=== PATIENT | male | born 1945 | race Caucasian/White ===

== ENCOUNTER → 2016-12-30 | Outpatient (CLI) | payer MEDICARE, OTHER ==
--- NOTE | 2016-12-30 07:46 | US ---
EXAMINATION TYPE: US liver DATE OF EXAM: 12/30/2016 7:18 AM COMPARISON: NONE CLINICAL HISTORY: R94.5 Abn LFT. Nausea EXAM MEASUREMENTS: Liver Length: 19.4 cm Gallbladder Wall: 0.4 cm CBD: 0.4 cm Right Kidney: 10.3 x 4.8 x 4.5 cm Pancreas: limited evaluation due to overlying bowel content Liver: enlarged, granulomas noted throughout Gallbladder: mobile stone = 1.5cm Evidence for sonographic Lombardo's sign: No CBD: appears wnl Right Kidney: no evidence of hydronephrosis or mass IMPRESSION: 1. Hepatomegaly with heterogeneous pattern to the liver can be seen with hepatocellular disease, hepa titis or fatty rotation. Granulomas are also noted. 2. Incidental note made of a gallstone. Gallbladder wall is mildly thickened at 4 mm. Correlate clini jesus for chronic cholecystitis. No pericholecystic fluid or biliary dilation.
== END | disposition home or self-care (01) ==
LOC: RADUSWWP 06:47
PROVIDERS: ATTEND Family Medicine
DX: K75.3 Granulomatous hepatitis, not elsewhere classified (principal); R16.0 Hepatomegaly, not elsewhere classified
CPT/HCPCS: 76705

== ENCOUNTER → 2017-01-16 | Outpatient (CLI) | payer MEDICARE, OTHER ==
--- NOTE | 2017-01-16 09:55 | NM ---
EXAMINATION TYPE: NM hepatobiliary w EF DATE OF EXAM: 01/16/2017 9:29 AM COMPARISON: Correlation ultrasound 12/30/2016 HISTORY: 71-year-old male history of cholecystitis TECHNIQUE: After the intravenous administration of 5.0 mCi Tc 99m Mebrofenin hepatobiliary scintigrap hy is performed. Immediate images post injection. FINDINGS: There is satisfactory initial accumulation of tracer by the liver. The gallbladder is visualized wit hin 15 minutes. The small bowel activity is faintly noted at 60 minutes. At one hour 8 ounces of or al Ensure Plus is given to mimic CCK and gallbladder ejection fraction is calculated at 55 %, in the normal range. Greater degree of bowel activity is noted after Ensure administration. IMPRESSION: No scintigraphic evidence for acute/chronic cholecystitis or biliary dyskinesia.
== END | disposition home or self-care (01) ==
LOC: RADNMMAIN 06:56
PROVIDERS: ATTEND Family Medicine
DX: K81.9 Cholecystitis, unspecified (principal)
CPT/HCPCS: 78226; A9537

== ENCOUNTER 2017-01-30 07:29 | Inpatient (IN) | payer MEDICARE, OTHER ==
[2017-01-30] MEDS ORDERED: FUROSEMIDE 10 MG/ML 4 ML VIAL IV STA (07:51)
[2017-01-30] MEDS: DEXTROSE 50%-WATER 50 ML SYRINGE IVP STA ×2 (08:02→09:22)
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
[2017-01-30 08:18] LABS: Glucose,Whole Blood 47 mg/dL (75-99)
[2017-01-30 08:23] LABS: Glucose,Whole Blood 161 mg/dL (75-99)
[2017-01-30 08:33] LABS: Anisocytosis Slight; Basophils # (A) 0.1 k/uL (0-0.2); Basophils % (A) 1 %; CH 27.6; CHCM 32.2; Eosinophils # (A) 0.1 k/uL (0-0.7); Eosinophils % (A) 2 %; HCT 42.5 % (39.0-53.0); HDW 3.04; HGB 13.7 gm/dL (13.0-17.5); Hypochromasia Slight; Luc # (Auto) 0.14; Luc % (Auto) 2; Lymphocytes # (A) 0.8 k/uL (1.0-4.8); Lymphocytes % (A) 11 %; MCH 27.7 pg (25.0-35.0); MCHC 32.1 g/dL (31.0-37.0); MCV 86.3 fL (80.0-100.0); Mean Platelet Volume 7.5; Monocytes # (A) 0.7 k/uL (0-1.0); Monocytes % (A) 10 %; Neutrophils # (A) 5.7 k/uL (1.3-7.7); Neutrophils % (A) 75 %; RBC 4.93 m/uL (4.30-5.90); RDW 17.8 % (11.5-15.5); WBC 7.6 k/uL (3.8-10.6); WBC (Perox) 7.57
[2017-01-30 08:42] LABS: ALT 62 U/L (21-72); AST 84 U/L (17-59); Alkaline Phosphatase 333 U/L (38-126); Anion Gap 10 mmol/L; Blood Urea Nitrogen 34 mg/dL (9-20); Calcium 8.8 mg/dL (8.4-10.2); Carbon Dioxide 22 mmol/L (22-30); Chloride 103 mmol/L (98-107); Glucose 203 mg/dL (74-99); Magnesium 1.7 mg/dL (1.6-2.3); Non-African American GFR(MDRD) 57 (>60 ml/min/1.73 sqM); Sodium 135 mmol/L (137-145); Total Bilirubin 1.5 mg/dL (0.2-1.3); Total Protein 5.9 g/dL (6.3-8.2)
[2017-01-30 08:44] LABS: Potassium 4.2 mmol/L (3.5-5.1)
--- NOTE | 2017-01-30 08:48 | XR ---
EXAMINATION TYPE: XR chest 2V DATE OF EXAM: 01/30/2017 8:32 AM HISTORY: Chest Pain. REFERENCE: Previous study dated 07/26/2016. FINDINGS: There is a unipolar pacemaker in place on the left. The heart is mildly enlarged. There are diffuse increased markings which are chronic. There is no foc al pneumonia or edema. Pleural spaces are clear. I do not see evidence of pneumothorax. No displaced rib fracture is seen. No vertebral body fracture is seen. IMPRESSION: NO ACUTE INTRATHORACIC ABNORMALITY.
[2017-01-30 08:50] LABS: INR 1.3 (<1.1); Prothrombin Time 12.5 sec (9.0-12.0)
[2017-01-30 08:51] LABS: Manual Review Performed
[2017-01-30 08:56] LABS: Creatine Kinase MB 3.7 ng/mL (0.0-2.4); Troponin I 0.059 ng/mL (0.000-0.034)
[2017-01-30 09:07] LABS: Glucose,Whole Blood 54 mg/dL (75-99)
[2017-01-30 09:33] LABS: Glucose,Whole Blood 188 mg/dL (75-99)
[2017-01-30 10:02] LABS: Glucose,Whole Blood 120 mg/dL (75-99)
[2017-01-30 10:49] LABS: Glucose,Whole Blood 104 mg/dL (75-99)
[2017-01-30 11:52] LABS: Glucose,Whole Blood 96 mg/dL (75-99)
[2017-01-30 13:38] LABS: Glucose,Whole Blood 126 mg/dL (75-99)
[2017-01-30] MEDS: NITROGLYCERIN OINT 1 INCH/GM PACKET TOPICAL SCH ×3 (14:16→21:15)
[2017-01-30 14:37] LABS: Glucose,Whole Blood 103 mg/dL (75-99)
[2017-01-30] MEDS: IPRATROPIUM-ALBUTEROL 3 ML NEB INHALATION SCH ×2 (15:56→22:11)
[2017-01-30] MEDS: ACETAMINOPHEN TAB 325 MG TAB PO SCH ×2 (16:14→21:12)
[2017-01-30] MEDS: FUROSEMIDE 10 MG/ML 4 ML VIAL IV SCH ×2 (16:20→21:15)
[2017-01-30] MEDS: CARVEDILOL 6.25 MG TAB PO SCH (16:22)
[2017-01-30] MEDS: INSULIN DETEMIR 100 UNIT/ML 10 ML VIAL SQ SCH (16:37)
[2017-01-30 16:48] LABS: Glucose,Whole Blood 108 mg/dL (75-99)
[2017-01-30] MEDS: metFORMIN 500 MG TAB PO SCH (17:29)
[2017-01-30] MEDS ORDERED: LOSARTAN 25 MG TAB PO SCH (21:00)
[2017-01-30 21:14] LABS: Glucose,Whole Blood 144 mg/dL (75-99)
[2017-01-30] MEDS: FAMOTIDINE 20 MG TAB PO SCH (21:14)
[2017-01-30] MEDS: ATORVASTATIN 20 MG TAB PO SCH (21:14)
[2017-01-30] MEDS: MONTELUKAST 10 MG TAB PO SCH (21:15)
[2017-01-30] MEDS: PREGABALIN 75 MG CAP PO SCH (21:21)
[2017-01-30] MEDS: BUDESONIDE 0.5 MG/2 ML NEBU INHALATION SCH (22:11)
[2017-01-30] MEDS: ceFAZolin 2 GM in SODIUM CHLORIDE 0.9% 100 ML IVPB SCH (23:21)
[2017-01-31] MEDS: ACETAMINOPHEN TAB 325 MG TAB PO SCH ×4 (00:52→21:38)
[2017-01-31 02:43] LABS: Glucose,Whole Blood 121 mg/dL (75-99)
[2017-01-31 06:46] LABS: Anisocytosis Slight; Basophils # (A) 0.1 k/uL (0-0.2); Basophils % (A) 1 %; CHCM 31.2; Eosinophils # (A) 0.2 k/uL (0-0.7); Eosinophils % (A) 2 %; HCT 44.7 % (39.0-53.0); HDW 2.76; HGB 13.4 gm/dL (13.0-17.5); Hypochromasia Slight; Luc # (Auto) 0.16; Luc % (Auto) 2; Lymphocytes # (A) 0.9 k/uL (1.0-4.8); Lymphocytes % (A) 10 %; MCH 26.1 pg (25.0-35.0); MCV 87.1 fL (80.0-100.0); Mean Platelet Volume 7.2; Monocytes # (A) 0.7 k/uL (0-1.0); Monocytes % (A) 7 %; Neutrophils # (A) 7.1 k/uL (1.3-7.7); Neutrophils % (A) 79 %; RBC 5.14 m/uL (4.30-5.90); RDW 17.6 % (11.5-15.5); WBC (Perox) 9.01
[2017-01-31 06:47] LABS: Glucose,Whole Blood 97 mg/dL (75-99)
[2017-01-31] MEDS: metFORMIN 500 MG TAB PO SCH ×2 (06:52→17:41)
[2017-01-31] MEDS: LEVOTHYROXINE 75 MCG TAB PO SCH (06:53)
[2017-01-31] MEDS: CARVEDILOL 6.25 MG TAB PO SCH (06:53)
[2017-01-31 06:56] LABS: ALT 62 U/L (21-72); AST 61 U/L (17-59); Alkaline Phosphatase 329 U/L (38-126); Anion Gap 10 mmol/L; Blood Urea Nitrogen 32 mg/dL (9-20); Calcium 9.1 mg/dL (8.4-10.2); Carbon Dioxide 24 mmol/L (22-30); Chloride 103 mmol/L (98-107); Glucose 94 mg/dL (74-99); Non-African American GFR(MDRD) 57 (>60 ml/min/1.73 sqM); Potassium 4.2 mmol/L (3.5-5.1); Sodium 137 mmol/L (137-145); Total Bilirubin 1.2 mg/dL (0.2-1.3)
[2017-01-31] MEDS ORDERED: TIOTROPIUM 18 MCG/PUFF INHALER INHALATION SCH (08:00)
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
[2017-01-31] MEDS: IPRATROPIUM-ALBUTEROL 3 ML NEB INHALATION SCH ×4 (08:28→19:10)
[2017-01-31] MEDS: BUDESONIDE 0.5 MG/2 ML NEBU INHALATION SCH ×2 (08:28→19:10)
--- NOTE | 2017-01-31 08:34 | US ---
EXAMINATION TYPE: US venous doppler duplex LE BI DATE OF EXAM: 01/31/2017 8:06 AM COMPARISON: NONE CLINICAL HISTORY: leg swelling. SIDE PERFORMED: Bilateral TECHNIQUE: The lower extremity deep venous system is examined utilizing real time linear array sonog eddie with graded compression, doppler sonography and color-flow sonography. VESSELS IMAGED: External Iliac Vein (EIV) Common Femoral Vein Deep Femoral Vein Greater Saphenous Vein * Femoral Vein- mid and distal pictures very limited, unable to see for compression views Popliteal Vein Small Saphenous Vein *-not seen Proximal Calf Veins-not seen (* superficial vessels) Severe pitting edema, limiting scan Right Leg: Appears negative for DVT in this somewhat limited study. Left Leg: Appears negative for DVT in this somewhat limited study. Grayscale, color doppler, spectral doppler imaging performed of the deep veins of the lower extremiti es. There is normal flow and waveforms bilaterally. Exam noted suboptimal per technologist due to prominent subcutaneous edema making compression views o f the mid to distal superficial femoral vein suboptimal. Subcutaneous edema is not as prominent on im ages saved. Favor difficult visualization due to patient's body habitus. IMPRESSION: Suboptimal study without acute DVT in either lower extremity identified.
[2017-01-31] MEDS: ceFAZolin 2 GM in SODIUM CHLORIDE 0.9% 100 ML IVPB SCH ×3 (08:48→23:24)
[2017-01-31] MEDS: FUROSEMIDE 10 MG/ML 4 ML VIAL IV SCH (08:48)
[2017-01-31] MEDS: CLOPIDOGREL 75 MG TAB PO SCH (08:49)
[2017-01-31] MEDS: ASPIRIN 81 MG CHEW PO SCH (08:49)
[2017-01-31] MEDS: NITROGLYCERIN OINT 1 INCH/GM PACKET TOPICAL SCH ×2 (08:49→14:14)
[2017-01-31] MEDS: MULTIVITAMINS, THERA 1 EACH TAB PO SCH (08:49)
[2017-01-31] MEDS: LINAGLIPTIN 5 MG TABLET PO SCH (08:49)
[2017-01-31] MEDS: FAMOTIDINE 20 MG TAB PO SCH ×2 (08:49→21:40)
[2017-01-31] MEDS: CHOLECALCIFEROL 1,000 UNIT TAB PO SCH (08:49)
[2017-01-31] MEDS ORDERED: predniSONE 10 MG TAB PO SCH (09:00)
[2017-01-31] MEDS ORDERED: ATENOLOL 25 MG TAB PO SCH (09:00)
[2017-01-31 10:55] LABS: Hemoglobin A1C 7.6 % (4.2-6.1)
[2017-01-31 11:34] LABS: Glucose,Whole Blood 141 mg/dL (75-99)
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
--- NOTE | 2017-01-31 12:49 | ECHOF ---
Referral Reason:chf MEASUREMENTS -------- HEIGHT: 182.9 cm WEIGHT: 108.9 kg BP: 100/60 RVIDd: 3.5 cm (< 3.3) IVSd: 1.1 cm (0.6 - 1.1) LVIDd: 4.6 cm (3.9 - 5.3) LVPWd: 1.1 cm (0.6 - 1.1) IVSs: 1.4 cm LVIDs: 3.9 cm LVPWs: 1.5 cm LA Diam: 3.4 cm (2.7 - 3.8) LAESV Index (A-L): 14.36 ml/m Ao Diam: 3.2 cm (2.0 - 3.7) AV Cusp: 2.0 cm (1.5 - 2.6) MV EXCURSION: 15.965 mm (> 18.000) MV EF SLOPE: 123 mm/s (70 - 150) EPSS: 1.2 cm MV E Waldo: 0.97 m/s MV DecT: 143 ms MV A Waldo: 0.36 m/s MV E/A Ratio: 2.68 RAP: 15.00 mmHg RVSP: 46.22 mmHg FINDINGS -------- AICD This was a technically difficult study with suboptimal views. The left ventricular size is normal. There is borderline concentric left ventricular hypertrophy. Overall left ventricular systolic function is severely impaired with, an EF between 20 - 25 %. There is evidence of paradoxical septal motion. The right ventricle is mildly enlarged. Pacer wire seen on RT side. Normal LA size by volume 22+/-6 ml/m2. The right atrium is normal in size. 1.5mg of Definity was utilized for enhancement of images There is mild aortic valve sclerosis. The mitral valve leaflets are mildly thickened. Mild mitral annular calcification present. [id number] tricuspid regurgitation present. There is mild to moderate pulmonary hypertension. The right ventricular systolic pressure, as measured by Doppler, is 46.22mmHg. Trace/mild (physiologic) pulmonic regurgitation. The aortic root size is normal. The inferior vena cava is dilated with no significant inspiratory collapse which is consistent estimated right atrial pressure of >15 mmHg. There is no pericardial effusion. CONCLUSIONS -------- 1. AICD 2. There is mild aortic valve sclerosis. 3. The mitral valve leaflets are mildly thickened. 4. Mild mitral annular calcification present. 5. [id number] tricuspid regurgitation present. 6. There is mild to moderate pulmonary hypertension. 7. The right ventricular systolic pressure, as measured by Doppler, is 46.22mmHg. 8. Trace/mild (physiologic) pulmonic regurgitation. 9. The aortic root size is normal. 10. The inferior vena cava is dilated with no significant inspiratory collapse which is consistent estimated right atrial pressure of >15 mmHg. 11. There is no pericardial effusion. 12. This was a technically difficult study with suboptimal views. 13. The left ventricular size is normal. 14. There is borderline concentric left ventricular hypertrophy. 15. Overall left ventricular systolic function is severely impaired with, an EF between 20 - 25 %. 16. There is evidence of paradoxical septal motion. 17. The right ventricle is mildly enlarged. 18. Normal LA size by volume 22+/-6 ml/m2. 19. 1.5mg of Definity was utilized for enhancement of images [employer] PRINCIPAL: Laura Puckett RDCS
--- NOTE | 2017-01-31 14:25 | P.GSCN ---
History of Present Illness Consult date: 01/30/17 Reason for Consult: Elevated liver enzymes Requesting physician: Seth Beck History of present illness: Patient is a 71-year-old male presenting to the emergency department with complaints of syncope. Patient had evidence of hypoglycemia with blood sugar of 46 prior to arrival. In the emergency department, patient was noted to have elevated liver enzymes with bilirubin of 1.5, AST of 84, and alkaline phosphatase of 333. Surgical service requested for elevation of liver enzymes. Patient denies nausea, vomiting, abdominal pain. In reviewing prior records, patient underwent ultrasound of the liver on 12/30/2014 with evidence of hepatomegaly with heterogeneous pattern to the liver and incidental note of a gallstone with mildly thickened gallbladder at 4 mm. No cholecystic fluid or biliary dilatation noted. On 01/16/2017 patient underwent a hepatobiliary scan with gallbladder ejection fraction calculated at 55% which is in normal range. Upon examination, patient denies nausea, vomiting, or abdominal pain. No history of diarrhea constipation. Denies melena or hematochezia. Patient reports dark urine but states the color is getting commissary clerk. Patient reports normal brown bowel movements. Repeat labs with total bilirubin of 1.2, AST 61, alkaline phosphatase 329. Past Medical History Past Medical History: Asthma, Coronary Artery Disease (CAD), Chest Pain / Angina , Heart Failure, COPD, Diabetes Mellitus, GERD/Reflux, Hyperlipidemia, Hypertension, Myocardial Infarction ([place]), Osteoarthritis ([place]), Skin Disorder, Thyroid Disorder Additional Past Medical History / Comment(s): Recent UTI-completed ABX, current "blisters/redness on both my lower legs", cardiomyopathy, pulmonary fibrosis, uses a concentrator at home ATC, IDDM type II, thyroid dx-given radioactive iodine, arthritis bilateral knees/ankles, diverticulits(per colonoscopy) and polypectomy, 1 implant tooth (bottom). Last Myocardial Infarction Date:: 03/08/16 History of Any Multi-Drug Resistant Organisms: None Reported Past Surgical History: AICD, Heart Catheterization With Stent Additional Past Surgical History / Comment(s): RT TKA, COLONOSCOPY/polypectomy, 03-08-16 heart cath AICD PLACEMENT 07/25/2016 Past Anesthesia/Blood Transfusion Reactions: No Reported Reaction Date of Last Stent Placement:: 03/08/2016 Type of Cardiac Device: AICD Device Placement Date:: 07/25/2016 Past Psychological History: No Psychological Hx Reported Additional Psychological History / Comment(s): Pt resides with his significant other. He is independent. He lives in a single story home. He drives. He has a concentrator that he wears ATC. No home care. He owns a cane but has not had to use it yet. Smoking Status: Former smoker Past Alcohol Use History: None Reported Additional Past Alcohol Use History / Comment(s): Pt started smoking in 1961 and quit in 1996-he was a 3 ppd smoker. Past Drug Use History: None Reported Additional Drug Use History / Comment(s): Pt has not drank alcohol since 1996. - Past Family History Mother Family Medical History: Cancer, Congestive Heart Failure ([place]) Additional Family Medical History / Comment(s): FEMALE [place] Father Family Medical History: Cancer Additional Family Medical History / Comment(s): LYMPHOMA Medications and Allergies Home Medications Medication Instructions Recorded Confirmed Type Aspirin EC [Ecotrin] 81 mg PO DAILY 04/11/14 01/30/17 History Atorvastatin [Lipitor] 20 mg PO HS 04/11/14 01/30/17 History Linagliptin [Tradjenta] 5 mg PO DAILY 04/11/14 01/30/17 History Ranitidine HCl 150 mg PO BID 04/11/14 01/30/17 History Cholecalciferol [Vitamin D3] 6,000 unit PO DAILY 03/02/16 01/30/17 History Levothyroxine Sodium [Levoxyl] 150 mcg PO DAILY 03/02/16 01/30/17 History Losartan Potassium [Cozaar] 25 mg PO HS 03/02/16 01/30/17 History Multivitamin [Men's Multi-Vitamin] 1 tab PO DAILY 03/02/16 01/30/17 History Pregabalin [Lyrica] 75 mg PO HS 03/02/16 01/30/17 History Insulin Degludec [Tresiba 50 unit SQ W/SUPPER 07/22/16 01/30/17 History Flextouch U-100] Acetaminophen Tab [Tylenol Tab] 650 mg PO Q6H 07/25/16 01/30/17 History Ipratropium-Albuterol Nebulize 3 ml INHALATION RT-QID 07/25/16 01/30/17 History [Duoneb 0.5 mg-3 mg/3 ml Soln] Atenolol [Tenormin] 25 mg PO DAILY 01/30/17 01/30/17 History Budesonide [Pulmicort] 0.5 mg INHALATION RT-BID 01/30/17 01/30/17 History Carvedilol [Carvedilol] 6.25 mg PO BID 01/30/17 01/30/17 History Furosemide [Furosemide] 40 mg PO DAILY 01/30/17 01/30/17 History Montelukast Sodium [Singulair] 10 mg PO HS 01/30/17 01/30/17 History Tiotropium [place] [Spiriva] 1 cap INHALATION RT-DAILY 01/30/17 01/30/17 History metFORMIN HCL 1,000 mg PO BID 01/30/17 01/30/17 History predniSONE 10 mg PO DAILY 01/30/17 01/30/17 History Allergies Allergy/AdvReac Type Severity Reaction Status Date / Time No Known Allergies Allergy Verified 01/30/17 07:38 Surgical - Exam Vital Signs Temp Pulse Resp BP Pulse Ox 97.1 F L 79 18 104/63 92 L 01/30/17 07:38 01/30/17 07:38 01/30/17 07:38 01/30/17 07:38 01/30/17 07:38 GENERAL: Pt awake and alert, well-appearing, well-nourished, and in no acute distress. HEAD: Atraumatic, normocephalic. EYES: Pupils equal, round, and reactive to light, sclera anicteric, conjunctiva are normal. ENT: Moist mucous membranes. LUNGS: Breath sounds clear to auscultation bilaterally. Regular rate and rhythm. No wheezes, rales, or rhonchi. HEART: Heart S1, S2, no S3 or S4. No murmurs, rubs or gallops. ABDOMEN: Soft, nontender, mildly distended, normoactive bowel sounds. No guarding, no rebound. EXTREMITIES: 1+ peripheral pulses. 1+ edema to bilateral lower extremities. NEUROLOGICAL: Pt oriented x 3. Results - Labs 01/31/17 06:08 01/31/17 06:08 Abnormal Lab Results - Last 24 Hours (Table) 01/30/17 01/30/17 01/30/17 Range/Units 14:34 15:25 16:36 MCHC (31.0-37.0) g/dL RDW (11.5-15.5) % Lymphocytes # (1.0-4.8) k/uL BUN (9-20) mg/dL POC Glucose (mg/dL) 103 H 108 H (75-99) mg/dL Hemoglobin A1c (4.2-6.1) % AST (17-59) U/L Alkaline Phosphatase (38-126) U/L Troponin I 0.047 H* (0.000-0.034) ng/mL Total Protein (6.3-8.2) g/dL 01/30/17 01/31/17 01/31/17 Range/Units 21:07 02:31 06:08 MCHC 30.0 L (31.0-37.0) g/dL RDW 17.6 H (11.5-15.5) % Lymphocytes # 0.9 L (1.0-4.8) k/uL BUN (9-20) mg/dL POC Glucose (mg/dL) 144 H 121 H (75-99) mg/dL Hemoglobin A1c (4.2-6.1) % AST (17-59) U/L Alkaline Phosphatase (38-126) U/L Troponin I (0.000-0.034) ng/mL Total Protein (6.3-8.2) g/dL 01/31/17 01/31/17 01/31/17 Range/Units 06:08 06:08 11:15 MCHC (31.0-37.0) g/dL RDW (11.5-15.5) % Lymphocytes # (1.0-4.8) k/uL BUN 32 H (9-20) mg/dL POC Glucose (mg/dL) 141 H (75-99) mg/dL Hemoglobin A1c 7.6 H (4.2-6.1) % AST 61 H (17-59) U/L Alkaline Phosphatase 329 H (38-126) U/L Troponin I (0.000-0.034) ng/mL Total Protein 6.0 L (6.3-8.2) g/dL Diabetes panel 01/31/17 01/31/17 Range/Units 06:08 06:08 Sodium 137 (137-145) mmol/L Potassium 4.2 (3.5-5.1) mmol/L Chloride 103 (98-107) mmol/L Carbon Dioxide 24 (22-30) mmol/L BUN 32 H (9-20) mg/dL Creatinine 1.24 (0.66-1.25) mg/dL Glucose 94 (74-99) mg/dL Hemoglobin A1c 7.6 H (4.2-6.1) % Calcium 9.1 (8.4-10.2) mg/dL AST 61 H (17-59) U/L ALT 62 (21-72) U/L Alkaline Phosphatase 329 H (38-126) U/L Total Protein 6.0 L (6.3-8.2) g/dL Albumin 3.5 (3.5-5.0) g/dL Calcium panel 01/31/17 Range/Units 06:08 Calcium 9.1 (8.4-10.2) mg/dL Albumin 3.5 (3.5-5.0) g/dL Pituitary panel 01/31/17 Range/Units 06:08 Sodium 137 (137-145) mmol/L Potassium 4.2 (3.5-5.1) mmol/L Chloride 103 (98-107) mmol/L Carbon Dioxide 24 (22-30) mmol/L BUN 32 H (9-20) mg/dL Creatinine 1.24 (0.66-1.25) mg/dL Glucose 94 (74-99) mg/dL Calcium 9.1 (8.4-10.2) mg/dL Adrenal panel 01/31/17 Range/Units 06:08 Sodium 137 (137-145) mmol/L Potassium 4.2 (3.5-5.1) mmol/L Chloride 103 (98-107) mmol/L Carbon Dioxide 24 (22-30) mmol/L BUN 32 H (9-20) mg/dL Creatinine 1.24 (0.66-1.25) mg/dL Glucose 94 (74-99) mg/dL Calcium 9.1 (8.4-10.2) mg/dL Total Bilirubin 1.2 (0.2-1.3) mg/dL AST 61 H (17-59) U/L ALT 62 (21-72) U/L Alkaline Phosphatase 329 H (38-126) U/L Total Protein 6.0 L (6.3-8.2) g/dL Albumin 3.5 (3.5-5.0) g/dL Assessment and Plan Plan: Impression: 1. Elevated liver enzymes, present on admission, improved. 2. Cholelithiasis without evidence of acute cholecystitis. Patient denies nausea, vomiting, or abdominal pain. 3. No evidence of biliary dyskinesia. Plan: Continue to observe patient. No surgical intervention planned at this time. The above impression and plan have been discussed and directed by Dr. Humphrey. Dimitri PAYAN acting as scribe for Dr. Humphrey.
[2017-01-31] MEDS: MAGNESIUM SULFATE-D5W PMX 1 GM in DEXTROSE/WATER 1 100ML.BAG IVPB SCH ×2 (15:16→16:37)
[2017-01-31 17:13] LABS: Glucose,Whole Blood 118 mg/dL (75-99)
[2017-01-31] MEDS ORDERED: CARVEDILOL 3.125 MG TAB PO SCH (17:30)
[2017-01-31] MEDS: INSULIN DETEMIR 100 UNIT/ML 10 ML VIAL SQ SCH (17:41)
[2017-01-31 21:27] LABS: Glucose,Whole Blood 160 mg/dL (75-99)
[2017-01-31] MEDS: MONTELUKAST 10 MG TAB PO SCH (21:40)
[2017-01-31] MEDS: PREGABALIN 75 MG CAP PO SCH (21:40)
[2017-01-31] MEDS: ATORVASTATIN 20 MG TAB PO SCH (21:42)
[2017-02-01] MEDS: methylPREDNISolone SOD SUCCI 40 MG/ML 1 ML VIAL IV SCH ×3 (00:17→17:23)
[2017-02-01] MEDS: ACETAMINOPHEN TAB 325 MG TAB PO SCH ×4 (00:35→22:00)
[2017-02-01 02:24] LABS: Glucose,Whole Blood 138 mg/dL (75-99)
[2017-02-01 06:33] LABS: Glucose,Whole Blood 193 mg/dL (75-99)
[2017-02-01] MEDS: LEVOTHYROXINE 75 MCG TAB PO SCH (06:47)
[2017-02-01] MEDS: metFORMIN 500 MG TAB PO SCH ×2 (06:48→17:24)
[2017-02-01 06:53] LABS: Anisocytosis Slight; Basophils % (A) 0 %; CH 27.2; CHCM 31.1; Eosinophils % (A) 0 %; HDW 2.65; HGB 13.6 gm/dL (13.0-17.5); Hypochromasia Slight; Luc # (Auto) 0.07; Luc % (Auto) 1; Lymphocytes # (A) 0.5 k/uL (1.0-4.8); Lymphocytes % (A) 6 %; MCH 27.7 pg (25.0-35.0); MCHC 31.6 g/dL (31.0-37.0); MCV 87.9 fL (80.0-100.0); Mean Platelet Volume 7.3; Monocytes # (A) 0.2 k/uL (0-1.0); Monocytes % (A) 3 %; Neutrophils # (A) 6.8 k/uL (1.3-7.7); Neutrophils % (A) 89 %; RDW 17.8 % (11.5-15.5); WBC 7.6 k/uL (3.8-10.6); WBC (Perox) 7.68
[2017-02-01 07:07] LABS: Calcium 8.5 mg/dL (8.4-10.2); Potassium 4.6 mmol/L (3.5-5.1); Total Bilirubin 1.1 mg/dL (0.2-1.3); Total Protein 5.9 g/dL (6.3-8.2)
[2017-02-01] MEDS: FAMOTIDINE 20 MG TAB PO SCH (08:27)
[2017-02-01] MEDS: MULTIVITAMINS, THERA 1 EACH TAB PO SCH (08:27)
[2017-02-01] MEDS: LINAGLIPTIN 5 MG TABLET PO SCH (08:27)
[2017-02-01] MEDS: CHOLECALCIFEROL 1,000 UNIT TAB PO SCH (08:27)
[2017-02-01] MEDS: ASPIRIN 81 MG CHEW PO SCH (08:28)
[2017-02-01] MEDS: CLOPIDOGREL 75 MG TAB PO SCH (08:28)
[2017-02-01] MEDS: IPRATROPIUM-ALBUTEROL 3 ML NEB INHALATION SCH ×4 (08:41→20:58)
[2017-02-01] MEDS: BUDESONIDE 0.5 MG/2 ML NEBU INHALATION SCH ×2 (08:41→20:58)
[2017-02-01] MEDS ORDERED: LOSARTAN 25 MG TAB PO SCH (09:00)
[2017-02-01] MEDS ORDERED: METOPROLOL TARTRATE 25 MG TAB PO SCH (09:00)
[2017-02-01] MEDS ORDERED: FUROSEMIDE 10 MG/ML 4 ML VIAL IV SCH (09:00)
[2017-02-01] MEDS: ceFAZolin 2 GM in SODIUM CHLORIDE 0.9% 100 ML IVPB SCH ×2 (09:04→17:21)
--- NOTE | 2017-02-01 10:32 | PN ---
SUBJECTIVE: A 71-year-old white male who had some hypotension today with ischemic myocardial infarction, coronary artery disease, diabetes, hypertension, hypothyroidism, status post AICD. Beta blockers were given today and Lasix. He became lightheaded and hypotensive. Blood pressure went down to 86/40. He was given a fluid bolus and placed in Trendelenburg position. CARDIOVASCULAR: S1, S2. Lungs show scattered rales or wheeze. HEMATOLOGIC: Negative Homans'. PSYCHIATRIC: Fair mood and affect. NEUROLOGIC: Alert and oriented x3. ASSESSMENT: 1. Syncope. 2. Hypoglycemia. 3. Ischemic cardiomyopathy. 4. Systolic congestive heart failure. 5. Acute on chronic diabetes. 6. Hypertension. Continue with current treatment. Will hold blood pressure medicines, fluid bolus, check BNP in the morning and monitor blood pressure all day today. Cardiology is going to decrease some blood pressure medications. His white count is normal. Hemoglobin was normal. Sugars in the mid 100s today. A1c is 7.6. Liver enzymes are high. Surgical consult is pending on that. Please see for further workup.
--- NOTE | 2017-02-01 10:38 | P.PN ---
Subjective Principal diagnosis: Congestive heart failure This is a pleasant 71-year-old gentleman with a past medical history significant for CAD and prior angioplasty and stenting, severe ischemic cardiomyopathy, status post AICD, diabetes, hypertension, and dyslipidemia was brought into the hospital by EMS after he was found to be hypoglycemic. Beside that, the patient has been experiencing progressive exertional dyspnea and orthopnea and bilateral lower extremities over the last several weeks. He was found to be in congestive heart failure exacerbation and initially he was started on Lasix IV. The blood pressure has been marginally low yesterday. I did stop the lisinopril and also I did stop the beta priscilla on him. I'll follow-up with him today, he seems to be feeling better. The shortness of breath has improved. The blood pressure continues to be marginally low. Currently the patient is on Lasix IV at 40 mg daily. Objective - Vital Signs Vital signs: Vital Signs Temp 96.8 F L 02/01/17 08:00 Pulse 80 02/01/17 08:57 Resp 18 02/01/17 08:00 BP 89/62 02/01/17 08:00 Pulse Ox 92 L 02/01/17 08:00 Intake & Output 01/31/17 02/01/17 02/01/17 18:59 06:59 18:59 Intake Total 650 100 300 Output Total 150 Balance 500 100 300 Weight 126 kg Intake: Intake, IV Titration 400 100 Amount Magnesium Sulfate-D5w Pmx 200 1 gm In Dextrose/Water 1 100ml.bag @ 100 mls/hr IVPB Q1H [facility] Rx#: [id number] ceFAZolin 2 gm In Sodium 200 100 Chloride 0.9% 100 ml @ 100 mls/hr IVPB Q8HR [facility] Rx#:[id number] Oral 250 300 Output: Urine 150 Other: # Voids 300 1 # Bowel Movements 1 - Constitutional General appearance: Present: no acute distress - Respiratory Respiratory: bilateral: CTA - Cardiovascular Heart sounds: normal: S1, S2 - Labs CBC & Chem 7: 02/01/17 06:39 02/01/17 06:39 Labs: Abnormal Lab Results - Last 24 Hours (Table) 01/31/17 01/31/17 01/31/17 Range/Units 06:08 11:15 16:42 RDW (11.5-15.5) % Lymphocytes # (1.0-4.8) k/uL Sodium (137-145) mmol/L BUN (9-20) mg/dL Creatinine (0.66-1.25) mg/dL Glucose (74-99) mg/dL POC Glucose (mg/dL) 141 H 118 H (75-99) mg/dL Hemoglobin A1c 7.6 H (4.2-6.1) % AST (17-59) U/L Alkaline Phosphatase (38-126) U/L Total Protein (6.3-8.2) g/dL Albumin (3.5-5.0) g/dL 01/31/17 02/01/17 02/01/17 Range/Units 21:18 02:13 06:31 RDW (11.5-15.5) % Lymphocytes # (1.0-4.8) k/uL Sodium (137-145) mmol/L BUN (9-20) mg/dL Creatinine (0.66-1.25) mg/dL Glucose (74-99) mg/dL POC Glucose (mg/dL) 160 H 138 H 193 H (75-99) mg/dL Hemoglobin A1c (4.2-6.1) % AST (17-59) U/L Alkaline Phosphatase (38-126) U/L Total Protein (6.3-8.2) g/dL Albumin (3.5-5.0) g/dL 02/01/17 02/01/17 Range/Units 06:39 06:39 RDW 17.8 H (11.5-15.5) % Lymphocytes # 0.5 L (1.0-4.8) k/uL Sodium 135 L (137-145) mmol/L BUN 41 H (9-20) mg/dL Creatinine 1.69 H (0.66-1.25) mg/dL Glucose 203 H (74-99) mg/dL POC Glucose (mg/dL) (75-99) mg/dL Hemoglobin A1c (4.2-6.1) % AST 78 H (17-59) U/L Alkaline Phosphatase 408 H (38-126) U/L Total Protein 5.9 L (6.3-8.2) g/dL Albumin 3.4 L (3.5-5.0) g/dL Assessment and Plan Plan: Assessment #1 congestive heart failure exacerbation secondary to systolic dysfunction #2 known severe ischemic cardiomyopathy #3 CAD and status post PCI #4 hypoglycemia #5 multiple comorbid conditions Plan #1 continue holding the blood pressure medications #2 cut down the Lasix IV to 20 mg daily #3 continue monitoring the kidney function and electrolytes #4 follow-up the patient
[2017-02-01] MEDS: FUROSEMIDE 10 MG/ML 2 ML VIAL IV SCH (11:18)
[2017-02-01 11:31] LABS: Glucose,Whole Blood 235 mg/dL (75-99)
[2017-02-01] MEDS: INSULIN LISPRO (humaLOG) 300 UNIT/3 ML VIAL SQ SCH ×3 (13:54→21:23)
--- NOTE | 2017-02-01 16:24 | P.PN ---
Subjective Principal diagnosis: Elevated liver enzymes Patient is feeling well. Denies nausea, vomiting, or abdominal pain. Afebrile. AST 78 from 61 yesterday. Alkaline phosphatase 408 from 329 yesterday. Bilirubin within normal limits. Objective - Vital Signs Vital signs: Vital Signs Temp 97.0 F L 02/01/17 11:20 Pulse 88 02/01/17 15:35 Resp 18 02/01/17 11:20 BP 101/75 02/01/17 11:20 Pulse Ox 92 L 02/01/17 11:20 Intake & Output 01/31/17 02/01/17 02/01/17 18:59 06:59 18:59 Intake Total 650 100 525 Output Total 150 400 Balance 500 100 125 Weight 126 kg Intake: IV 100 ceFAZolin 2 gm In Sodium 100 Chloride 0.9% 100 ml @ 100 mls/hr IVPB Q8HR [facility] Rx#:[id number] Intake, IV Titration 400 100 Amount Magnesium Sulfate-D5w Pmx 200 1 gm In Dextrose/Water 1 100ml.bag @ 100 mls/hr IVPB Q1H [facility] Rx#: [id number] ceFAZolin 2 gm In Sodium 200 100 Chloride 0.9% 100 ml @ 100 mls/hr IVPB Q8HR [facility] Rx#:[id number] Oral 250 425 Output: Urine 150 400 Other: # Voids 300 1 # Bowel Movements 1 - Exam GENERAL: Pt awake and alert, well-appearing, well-nourished, and in no acute distress. LUNGS: Breath sounds clear to auscultation bilaterally. Regular rate and rhythm. No wheezes, rales, or rhonchi. HEART: Heart S1, S2, no S3 or S4. No murmurs, rubs or gallops. ABDOMEN: Soft, nontender, mildly distended, normoactive bowel sounds. No guarding, no rebound. EXTREMITIES: 1+ peripheral pulses. 1+ edema to bilateral lower extremities. NEUROLOGICAL: Pt oriented x 3. - Labs CBC & Chem 7: 02/01/17 06:39 02/01/17 06:39 Labs: Abnormal Lab Results - Last 24 Hours (Table) 01/31/17 01/31/17 02/01/17 Range/Units 16:42 21:18 02:13 RDW (11.5-15.5) % Lymphocytes # (1.0-4.8) k/uL Sodium (137-145) mmol/L BUN (9-20) mg/dL Creatinine (0.66-1.25) mg/dL Glucose (74-99) mg/dL POC Glucose (mg/dL) 118 H 160 H 138 H (75-99) mg/dL AST (17-59) U/L Alkaline Phosphatase (38-126) U/L Total Protein (6.3-8.2) g/dL Albumin (3.5-5.0) g/dL 02/01/17 02/01/17 02/01/17 Range/Units 06:31 06:39 06:39 RDW 17.8 H (11.5-15.5) % Lymphocytes # 0.5 L (1.0-4.8) k/uL Sodium 135 L (137-145) mmol/L BUN 41 H (9-20) mg/dL Creatinine 1.69 H (0.66-1.25) mg/dL Glucose 203 H (74-99) mg/dL POC Glucose (mg/dL) 193 H (75-99) mg/dL AST 78 H (17-59) U/L Alkaline Phosphatase 408 H (38-126) U/L Total Protein 5.9 L (6.3-8.2) g/dL Albumin 3.4 L (3.5-5.0) g/dL 02/01/17 Range/Units 11:28 RDW (11.5-15.5) % Lymphocytes # (1.0-4.8) k/uL Sodium (137-145) mmol/L BUN (9-20) mg/dL Creatinine (0.66-1.25) mg/dL Glucose (74-99) mg/dL POC Glucose (mg/dL) 235 H (75-99) mg/dL AST (17-59) U/L Alkaline Phosphatase (38-126) U/L Total Protein (6.3-8.2) g/dL Albumin (3.5-5.0) g/dL Assessment and Plan Plan: Impression: 1. Elevated liver enzymes, present on admission. 2. Cholelithiasis without evidence of acute cholecystitis. Patient denies nausea, vomiting, or abdominal pain. 3. No evidence of biliary dyskinesia. Plan: Continue to observe patient. No surgical intervention planned at this time. The above impression and plan have been discussed and directed by Dr. Humphrey. Dimitri PAYAN acting as scribe for Dr. Humphrey.
[2017-02-01 16:31] LABS: Glucose,Whole Blood 316 mg/dL (75-99)
--- NOTE | 2017-02-01 17:02 | CT ---
EXAMINATION TYPE: CT chest wo con DATE OF EXAM: 02/01/2017 4:54 PM COMPARISON: 02/25/2016 HISTORY: Patient complains of difficulty breathing. CT DLP: 615.[address] of the chest was performed with lung and mediastinal window settings submitted. The la ck of contrast limits evaluation of the vascular, mediastinal and parenchymal structures including th e upper abdomen. LUNGS: Mild upper lobe emphysematous changes. Mild patchy density superior segment right lower lobe m ay reflect infiltrate. Mild right-sided pleural thickening. The lungs are clear and free of infiltrat e. No atelectasis. No pulmonary nodule or mass is detected. No pleural effusion. No CT evidence of interstitial lung disease. MEDIASTINUM/RAVIN: Thoracic aorta is of normal caliber with limited evaluation given lack of contrast . The heart is not enlarged. No evidence for mediastinal mass. No lymph nodes greater than 1cm. UPPER ABDOMEN: There is cholelithiasis with fluid identified adjacent to the liver and within the gal lbladder fossa. Correlate with ultrasound to exclude the possibility of underlying cholecystitis. Hep atic granulomas noted as well as hepatomegaly. Lobulated hepatic contour. Correlate for cirrhosis. As cites about the liver edge and adjacent to the spleen. Splenic granulomas noted. OTHER: Degenerative changes dorsal spine. IMPRESSION: 1. Mild patchy density superior segment right lower lobe may reflect infiltrate. Mild right-sided pl eural thickening. 2. Cholelithiasis with fluid within the gallbladder fossa. Consider ultrasound to exclude underlying cholecystitis.
[2017-02-01] MEDS: INSULIN DETEMIR 100 UNIT/ML 10 ML VIAL SQ SCH (17:23)
--- NOTE | 2017-02-01 17:29 | P.PN ---
Subjective 71-year-old being seen and examined. Currently sitting on the edge of the bed. This been no new events. Labs were noted and reviewed. Objective - Vital Signs Vital signs: Vital Signs Temp 97.2 F L 02/01/17 16:00 Pulse 90 02/01/17 16:00 Resp 18 02/01/17 16:00 BP 106/77 02/01/17 16:00 Pulse Ox 90 L 02/01/17 16:00 Intake & Output 01/31/17 02/01/17 02/01/17 18:59 06:59 18:59 Intake Total 650 100 525 Output Total 150 400 Balance 500 100 125 Weight 126 kg Intake: IV 100 ceFAZolin 2 gm In Sodium 100 Chloride 0.9% 100 ml @ 100 mls/hr IVPB Q8HR [facility] Rx#:[id number] Intake, IV Titration 400 100 Amount Magnesium Sulfate-D5w Pmx 200 1 gm In Dextrose/Water 1 100ml.bag @ 100 mls/hr IVPB Q1H [facility] Rx#: [id number] ceFAZolin 2 gm In Sodium 200 100 Chloride 0.9% 100 ml @ 100 mls/hr IVPB Q8HR [facility] Rx#:[id number] Oral 250 425 Output: Urine 150 400 Other: # Voids 300 1 # Bowel Movements 1 - Exam Physical exam 71-year-old appearing in no acute distress Lungs essentially clear adequate air movement Heart S1-S2 audible regular Abdomen obese soft nontender Extremities 1+ bilateral edema lower extremity - Labs CBC & Chem 7: 02/01/17 06:39 02/01/17 06:39 Labs: Abnormal Lab Results - Last 24 Hours (Table) 01/31/17 02/01/17 02/01/17 Range/Units 21:18 02:13 06:31 RDW (11.5-15.5) % Lymphocytes # (1.0-4.8) k/uL Sodium (137-145) mmol/L BUN (9-20) mg/dL Creatinine (0.66-1.25) mg/dL Glucose (74-99) mg/dL POC Glucose (mg/dL) 160 H 138 H 193 H (75-99) mg/dL AST (17-59) U/L Alkaline Phosphatase (38-126) U/L Total Protein (6.3-8.2) g/dL Albumin (3.5-5.0) g/dL 02/01/17 02/01/17 02/01/17 Range/Units 06:39 06:39 11:28 RDW 17.8 H (11.5-15.5) % Lymphocytes # 0.5 L (1.0-4.8) k/uL Sodium 135 L (137-145) mmol/L BUN 41 H (9-20) mg/dL Creatinine 1.69 H (0.66-1.25) mg/dL Glucose 203 H (74-99) mg/dL POC Glucose (mg/dL) 235 H (75-99) mg/dL AST 78 H (17-59) U/L Alkaline Phosphatase 408 H (38-126) U/L Total Protein 5.9 L (6.3-8.2) g/dL Albumin 3.4 L (3.5-5.0) g/dL 02/01/17 Range/Units 16:29 RDW (11.5-15.5) % Lymphocytes # (1.0-4.8) k/uL Sodium (137-145) mmol/L BUN (9-20) mg/dL Creatinine (0.66-1.25) mg/dL Glucose (74-99) mg/dL POC Glucose (mg/dL) 316 H (75-99) mg/dL AST (17-59) U/L Alkaline Phosphatase (38-126) U/L Total Protein (6.3-8.2) g/dL Albumin (3.5-5.0) g/dL Assessment and Plan Plan: Impression Elevated liver enzymes present on admission Cholelithiasis without evidence of acute cholecystitis syncope, blood sugar on EMS arrival 46. Patient has known cardiomyopathy with AICD implant, need to rule out arrhythmia as well. ischemic cardiomyopathy with prior AICD implantation systolic congestive heart failure acute on chronic, most recent echocardiogram with Doppler study was performed in March of last year which revealed an ejection fraction of 30-35%. diabetes hypertension hyperlipidemia known history of coronary artery disease with prior PCI patient had stenting of the proximal LAD in 2016 unsuccessful PCI of the circumflex in 2016 hypothyroidism GERD prior history of smoking pulmonary hypertension hypotension, likely secondary to dual beta priscilla administration abnormal troponins, 0.030, 0.047, 0.059. Patient denies having any chest pain , he did however presented with a syncopal episode. EKG shows normal sinus rhythm with a right bundle branch block pattern. Obesity BMI 37 Plan Continue recommendations by cardiology service AICD to be interrogated Monitor blood pressure and heart rate address as indicated Surgical recommendations indicates there is no surgical intervention at this time The above dictated assessment and findings were discussed with dr high Impression and the plan of care have been dictated as directed. Kate Mason nurse practitioner acting as a scribe for dr high
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
[2017-02-01] MEDS: ATORVASTATIN 20 MG TAB PO SCH (20:47)
[2017-02-01] MEDS: MONTELUKAST 10 MG TAB PO SCH (20:47)
[2017-02-01] MEDS: PREGABALIN 75 MG CAP PO SCH (20:50)
[2017-02-01 20:58] LABS: Glucose,Whole Blood 208 mg/dL (75-99)
[2017-02-02] MEDS: methylPREDNISolone SOD SUCCI 40 MG/ML 1 ML VIAL IV SCH ×4 (00:04→23:33)
[2017-02-02] MEDS: ceFAZolin 2 GM in SODIUM CHLORIDE 0.9% 100 ML IVPB SCH ×3 (00:07→16:40)
[2017-02-02] MEDS: ACETAMINOPHEN TAB 325 MG TAB PO SCH ×4 (01:39→18:03)
[2017-02-02 02:33] LABS: Glucose,Whole Blood 142 mg/dL (75-99)
[2017-02-02 06:06] LABS: Glucose,Whole Blood 132 mg/dL (75-99)
[2017-02-02] MEDS: LEVOTHYROXINE 75 MCG TAB PO SCH (06:31)
[2017-02-02] MEDS: metFORMIN 500 MG TAB PO SCH ×2 (06:32→17:26)
[2017-02-02] MEDS: INSULIN LISPRO (humaLOG) 300 UNIT/3 ML VIAL SQ SCH ×4 (06:32→21:07)
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
[2017-02-02] MEDS: IPRATROPIUM-ALBUTEROL 3 ML NEB INHALATION SCH ×4 (08:26→19:54)
[2017-02-02] MEDS: BUDESONIDE 0.5 MG/2 ML NEBU INHALATION SCH ×2 (08:26→19:54)
[2017-02-02] MEDS: FUROSEMIDE 10 MG/ML 2 ML VIAL IV SCH (09:24)
[2017-02-02] MEDS: FAMOTIDINE 20 MG TAB PO SCH (09:25)
[2017-02-02] MEDS: ASPIRIN 81 MG CHEW PO SCH (09:25)
[2017-02-02] MEDS: MULTIVITAMINS, THERA 1 EACH TAB PO SCH (09:25)
[2017-02-02] MEDS: LINAGLIPTIN 5 MG TABLET PO SCH (09:25)
[2017-02-02] MEDS: CLOPIDOGREL 75 MG TAB PO SCH (09:25)
[2017-02-02] MEDS: CHOLECALCIFEROL 1,000 UNIT TAB PO SCH (09:25)
--- NOTE | 2017-02-02 10:39 | P.PN ---
Progress Note - Text Patient is feeling well. Denies nausea, vomiting, or abdominal pain. Tolerating diet. Passing flatus. Patient is urinating without difficulty. On exam, vital signs stable. Abdomen soft, nontender, slightly distended, active bowel sounds, no evidence of peritoneal signs. Elevated liver enzymes, present on admission. Cholelithiasis without evidence of acute cholecystitis. No evidence of biliary dyskinesia. No surgical intervention planned at this time. We'll sign off surgical service, please reconsult as needed. The above impression and plan have been discussed and directed by Dr. Humphrey. Dimitri PAYAN acting as scribe for Dr. Humphrey.
[2017-02-02 11:55] LABS: Glucose,Whole Blood 164 mg/dL (75-99)
[2017-02-02 13:54] VITALS: BMI 38.4
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
--- NOTE | 2017-02-02 16:57 | PN ---
DATE OF SERVICE: 02/02/2017 Patient is a 71-year-old male who came in hypoglycemic and in pulmonary edema. He is seen sitting up in bed, is awake and alert, feeling much better. Breathing has improved. Patient is afebrile, hemodynamically stable, in no acute distress. On physical exam, vital signs are temperature 96.6, heart rate 84, respiratory rate 18. Blood pressure is 118/70. Oxygen saturation is 93% on 3 L oxygen via nasal cannula. HEENT: Head is normocephalic, atraumatic. NECK: Supple. Trachea is midline. LUNGS: With decreased breath sounds. No clear rales or wheezes. HEART: S1 and S2 are heard. ABDOMEN: Soft, obese. Bowel sounds are heard. EXTREMITIES: With Kalin wrap on the left lower extremity with trace edema on the right lower extremity. NEUROLOGIC: Patient is awake and alert. LABS: Glucose is 164. No further labs to review. No further reports to review. Chest CT that was done yesterday shows mild patchy density, superior segment, right lower lobe; may reflect infiltrate; mild right-sided pleural thickening and cholelithiasis. IMPRESSION: 1. Acute exacerbation of systolic congestive heart failure. 2. 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 3. Coronary artery disease with significant history of pulmonary hypertension and myocardial infarction in the past. 4. Diabetes mellitus, type 2. 5. Gastroesophageal reflux disease. PLAN: Continue current medications, which have been reviewed. Continue with bronchodilators, aerosolized steroids and IV Solu-Medrol. Continue to encourage incentive spirometry with pulmonary hygiene. Continue oxygen to maintain saturations greater than or equal to 88%. Will follow patient closely with you, making further changes as necessary.
[2017-02-02 17:01] LABS: Glucose,Whole Blood 208 mg/dL (75-99)
[2017-02-02] MEDS: INSULIN DETEMIR 100 UNIT/ML 10 ML VIAL SQ SCH (17:25)
[2017-02-02] MEDS: ATORVASTATIN 20 MG TAB PO SCH (20:09)
[2017-02-02] MEDS: MONTELUKAST 10 MG TAB PO SCH (20:09)
[2017-02-02] MEDS: METOPROLOL TARTRATE 25 MG TAB PO SCH (20:11)
[2017-02-02] MEDS: PREGABALIN 75 MG CAP PO SCH (20:11)
[2017-02-02 21:07] LABS: Glucose,Whole Blood 218 mg/dL (75-99)
--- NOTE | 2017-02-02 22:48 | PN ---
DATE OF SERVICE: 02/02/2017 REASON FOR FOLLOWUP: Bilateral lower extremity wound and cellulitis. INTERVAL HISTORY: The patient is afebrile, has been breathing more comfortably. Denies significant chest pain. Occasional cough. No abdominal pain. Denies pain underlying the area. On examination, blood pressure 125/70 with a pulse of 93, temperature 96.8. He is 92% on 3L nasal cannula. General description is an elderly male, up in the bed in no distress. RESPIRATORY SYSTEM: Unlabored breathing. Some coarse breath sounds at the base. No wheeze. HEART: S1, S2. Regular rate and rhythm. ABDOMEN: Soft. No tenderness. LEGS: Currently dressed up and no drainage on the dressing. LABS: Hemoglobin is 13.7, white count of 7.7. DIAGNOSTIC IMPRESSION AND PLAN: Patient with bilateral lower extremity wounds with extensive cellulitis. PLAN: At this time is currently patient is on Cefazolin along with Aquacel dressing to wound and Kalin wrap to keep the swelling down. Will re-evaluate the patient tomorrow. Hopefully finish therapy with oral antibiotics. Continue supportive care. DANK
[2017-02-03] MEDS: ceFAZolin 2 GM in SODIUM CHLORIDE 0.9% 100 ML IVPB SCH ×2 (01:02→08:40)
[2017-02-03] MEDS: ACETAMINOPHEN TAB 325 MG TAB PO SCH ×3 (01:02→12:02)
[2017-02-03 03:07] LABS: Glucose,Whole Blood 256 mg/dL (75-99)
[2017-02-03 06:33] LABS: Glucose,Whole Blood 221 mg/dL (75-99)
[2017-02-03] MEDS: INSULIN LISPRO (humaLOG) 300 UNIT/3 ML VIAL SQ SCH ×2 (06:34→12:06)
[2017-02-03] MEDS: LEVOTHYROXINE 75 MCG TAB PO SCH (06:34)
[2017-02-03] MEDS: metFORMIN 500 MG TAB PO SCH (06:35)
[2017-02-03] MEDS: ASPIRIN 81 MG CHEW PO SCH (08:41)
[2017-02-03] MEDS: CHOLECALCIFEROL 1,000 UNIT TAB PO SCH (08:41)
[2017-02-03] MEDS: FAMOTIDINE 20 MG TAB PO SCH (08:41)
[2017-02-03] MEDS: methylPREDNISolone SOD SUCCI 40 MG/ML 1 ML VIAL IV SCH (08:41)
[2017-02-03] MEDS: CLOPIDOGREL 75 MG TAB PO SCH (08:41)
[2017-02-03] MEDS: LINAGLIPTIN 5 MG TABLET PO SCH (08:42)
[2017-02-03] MEDS: METOPROLOL TARTRATE 25 MG TAB PO SCH (08:42)
[2017-02-03] MEDS: MULTIVITAMINS, THERA 1 EACH TAB PO SCH (08:42)
[2017-02-03] MEDS: FUROSEMIDE 10 MG/ML 2 ML VIAL IV SCH (08:44)
[2017-02-03] MEDS: IPRATROPIUM-ALBUTEROL 3 ML NEB INHALATION SCH ×3 (10:52→16:00)
[2017-02-03] MEDS: BUDESONIDE 0.5 MG/2 ML NEBU INHALATION SCH (10:52)
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
[2017-02-03 12:00] VITALS: BP 118/81; RESP 18; TEMP 97.6
[2017-02-03 12:04] LABS: Glucose,Whole Blood 226 mg/dL (75-99)
--- NOTE | 2017-02-03 12:57 | P.PN ---
Subjective Principal diagnosis: Acute exacerbation of CHF Patient seen and examined. Patient states that his breathing is much better. He is hoping to go home soon. He states lower extremity swelling is back to baseline. He denies any chest pain. He does have a nebulizer and oxygen at home. He states he did follow up with Dr. LARS Aleman in the office once before. He was supposed to go to pulmonary rehabilitation but never followed up. Objective - Vital Signs Vital signs: Vital Signs Temp 97.6 F 02/03/17 12:00 Pulse 89 02/03/17 12:00 Resp 18 02/03/17 12:00 BP 118/81 02/03/17 12:00 Pulse Ox 93 L 02/03/17 12:00 Intake & Output 02/02/17 02/03/17 02/03/17 18:59 06:59 18:59 Intake Total 860 200 230 Output Total 1675 2235 350 Balance -815 -2035 -120 Weight 128.5 kg 127.7 kg Intake: IV 200 0.9 100 ceFAZolin 2 gm In Sodium 100 Chloride 0.9% 100 ml @ 100 mls/hr IVPB Q8HR [facility] Rx#:[id number] Oral 860 230 Output: Urine 1675 2235 350 Other: Voiding Method Urinal Urinal Urinal # Voids 1 3 1 - Exam Gen.: Patient is alert and oriented 3, no acute distress, obese Cardiovascular: Regular rate and rhythm, S1/S2 Lungs: Diminished breath sounds bilaterally Abdomen: Soft nontender nondistended positive bowel sounds Extremities: Pitting edema and weeping, blisters noted - Labs CBC & Chem 7: 02/01/17 06:39 02/01/17 06:39 Labs: Abnormal Lab Results - Last 24 Hours (Table) 02/02/17 02/02/17 02/03/17 Range/Units 16:55 21:03 02:55 POC Glucose (mg/dL) 208 H 218 H 256 H (75-99) mg/dL 02/03/17 02/03/17 Range/Units 06:25 11:59 POC Glucose (mg/dL) 221 H 226 H (75-99) mg/dL Assessment and Plan Plan: Acute exacerbation of CHF, systolic Acute exacerbation of COPD Acute on chronic hypoxic respiratory failure Pulmonary edema Mild to moderate pulmonary hypertension, likely who group 2-3 Diabetes mellitus type 2 Chronic kidney disease stage II to 3 Elevated transaminases on admission Hypoglycemia on admission Cholelithiasis without cholecystitis Status post AICD Obesity, question underlying obstructive sleep apnea Emphysema History of tobacco abuse History of coronary artery disease and stenting Hypertension Dyslipidemia O2 to maintain saturation greater than or equal to 88% Bronchodilators Pulmicort Steroid taper Diuresis Singulair Patient is encouraged to follow-up for PFT and possible PSG Patient may benefit from pulmonary rehabilitation Incentive spirometry and pulmonary hygiene PT and OT Patient has oxygen and nebulizer at home.
--- NOTE | 2017-02-03 14:44 | P.PN ---
Subjective Principal diagnosis: Congestive heart failure This is a pleasant 71-year-old gentleman with a past medical history significant for CAD and prior angioplasty and stenting, severe ischemic cardiomyopathy, status post AICD, diabetes, hypertension, and dyslipidemia was brought into the hospital by EMS after he was found to be hypoglycemic. Beside that, the patient has been experiencing progressive exertional dyspnea and orthopnea and bilateral lower extremities over the last several weeks. He was found to be in congestive heart failure exacerbation and initially he was started on Lasix IV. The patient has done well over the last 72 hours. The shortness of breath has improved significantly. He denies having any chest pain or discomfort. He is going to be discharged home today and he'll follow-up with Dr. SILVIA Aleman as an outpatient Objective - Vital Signs Vital signs: Vital Signs Temp 97.6 F 02/03/17 12:00 Pulse 89 02/03/17 12:00 Resp 18 02/03/17 12:00 BP 118/81 02/03/17 12:00 Pulse Ox 93 L 02/03/17 12:00 Intake & Output 02/02/17 02/03/17 02/03/17 18:59 06:59 18:59 Intake Total 860 200 470 Output Total 1675 2235 350 Balance -815 -2035 120 Weight 128.5 kg 127.7 kg Intake: IV 200 0.9 100 ceFAZolin 2 gm In Sodium 100 Chloride 0.9% 100 ml @ 100 mls/hr IVPB Q8HR [facility] Rx#:[id number] Oral 860 470 Output: Urine 1675 2235 350 Other: Voiding Method Urinal Urinal Urinal # Voids 1 3 1 - Constitutional General appearance: Present: no acute distress - Respiratory Respiratory: bilateral: diminished - Cardiovascular Heart sounds: normal: S1, S2 - Labs CBC & Chem 7: 02/01/17 06:39 02/01/17 06:39 Labs: Abnormal Lab Results - Last 24 Hours (Table) 02/02/17 02/02/17 02/03/17 Range/Units 16:55 21:03 02:55 POC Glucose (mg/dL) 208 H 218 H 256 H (75-99) mg/dL 02/03/17 02/03/17 Range/Units 06:25 11:59 POC Glucose (mg/dL) 221 H 226 H (75-99) mg/dL Assessment and Plan Plan: Assessment #1 congestive heart failure exacerbation secondary to systolic dysfunction #2 known severe ischemic cardiomyopathy #3 CAD and status post PCI #4 hypoglycemia #5 multiple comorbid conditions Plan #1 continue the current medical treatment #2 the patient is going to discharge home.
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
--- NOTE | 2017-02-03 15:55 | PN ---
DATE OF SERVICE: 02/03/2017 REASON FOR FOLLOWUP: Bilateral lower extremity wounds and cellulitis. INTERVAL HISTORY: The patient is afebrile, has been breathing comfortably. Denies significant chest pain or cough. No abdominal pain or any pain in the leg area. On examination, blood pressure is 118/81 with a pulse of 89, temperature 97.6. He is 93% on 4 L nasal cannula. General description is an elderly male lying in bed in no distress. RESPIRATORY SYSTEM: Unlabored breathing. Clear to auscultation anteriorly. HEART: S1, S2. Regular rate and rhythm. ABDOMEN: Soft. No tenderness. LEGS: Overall swelling and redness have improved. LABS: White count of 7.6. DIAGNOSTIC IMPRESSION AND PLAN: Patient with bilateral lower extremity swelling and redness with a component of cellulitis. Plan at this time is to finish therapy with p.o. Keflex 500 mg 3 times a day for another week along with Kalin wrap to keep the swelling down. Family present at bedside. Their questions were answered. DANK
[2017-02-03 15:57] VITALS: PULSE 94
[2017-02-04] MEDS ORDERED: predniSONE 20 MG TAB PO SCH (09:00)
== END 2017-02-03 16:20 | disposition home or self-care (01) | DRG 292 ==
LOC: EC 07:29 → 6SEL 10:30
PROVIDERS: ADMIT Family Medicine; ATTEND Family Medicine
DX: I11.0 Hypertensive heart disease with heart failure (principal); J44.1 Chronic obstructive pulmonary disease with (acute) exacerbation; E11.649 Type 2 diabetes mellitus with hypoglycemia without coma; I27.2 Other secondary pulmonary hypertension; L03.115 Cellulitis of right lower limb; L03.116 Cellulitis of left lower limb; E03.9 Hypothyroidism, unspecified; I50.23 Acute on chronic systolic (congestive) heart failure; E66.9 Obesity, unspecified; E78.5 Hyperlipidemia, unspecified; I25.119 Atherosclerotic heart disease of native coronary artery with unspecified angina pectoris; I25.2 Old myocardial infarction; I25.5 Ischemic cardiomyopathy; I45.10 Unspecified right bundle-branch block; J45.909 Unspecified asthma, uncomplicated; J84.10 Pulmonary fibrosis, unspecified; K21.9 Gastro-esophageal reflux disease without esophagitis; K80.20 Calculus of gallbladder without cholecystitis without obstruction; M17.0 Bilateral primary osteoarthritis of knee; R09.02 Hypoxemia; Z68.37 Body mass index [BMI] 37.0-37.9, adult; Z79.02 Long term (current) use of antithrombotics/antiplatelets; Z79.4 Long term (current) use of insulin; Z79.84 Long term (current) use of oral hypoglycemic drugs; Z79.899 Other long term (current) drug therapy; Z82.49 Family history of ischemic heart disease and other diseases of the circulatory system; Z87.891 Personal history of nicotine dependence; Z95.5 Presence of coronary angioplasty implant and graft; Z95.810 Presence of automatic (implantable) cardiac defibrillator; Z99.81 Dependence on supplemental oxygen
CPT/HCPCS: 36415; 71020; 71250; 80053; 82533; 82550; 82553; 83036; 83605; 83735; 83880; 84484; 85025; 85610; 85730; 93005; 93306; 93970; 94640; 94760; 96374; 99285

== ENCOUNTER 2018-01-08 03:16 | Emergency (ER) | payer MEDICARE, OTHER ==
[2018-01-08] MEDS ORDERED: RX INFO: IV CONTRAST WAS GIVEN 1 EACH MISC MISCELLANE PRN (03:25)
--- NOTE | 2018-01-08 03:32 | ED ---
Trauma HPI - General Stated Complaint: Fall Time Seen by Provider: 01/08/18 03:19 Source: family (Girlfriend), EMS Mode of arrival: EMS Limitations: altered mental status - History of Present Illness Initial Comments: This patient is a 72-year-old man who was brought in by EMS to be evaluated after he had a fall. History is from both the EMS personnel and the patient's girlfriend who was there at time of fall. 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 The patient then reportedly told his girlfriend that he was not able to get up so she went and called EMS. EMS personnel placed patient in cervical spine collar and on backboard, started IV and administered oxygen and transported him here. The patient appears to be delirious and is not able to give much history. He is able to give his name. MD Complaint: fall, injury -: minutes(s) Loss of Consciousness: yes Location: head Location - Extremities: Left: Knee, Right: Knee Context: mechanical fall Treatments Prior to Arrival: IV/IO, oxygen, cervical collar - Related Data Home Medications Medication Instructions Recorded Confirmed Aspirin EC [Ecotrin Low Dose] 81 mg PO DAILY 04/11/14 01/30/17 Atorvastatin [Lipitor] 20 mg PO HS 04/11/14 01/30/17 Linagliptin [Tradjenta] 5 mg PO DAILY 04/11/14 01/30/17 Ranitidine HCl 150 mg PO BID 04/11/14 01/30/17 Cholecalciferol [Vitamin D3] 6,000 unit PO DAILY 03/02/16 01/30/17 Levothyroxine Sodium [Levoxyl] 150 mcg PO DAILY 03/02/16 01/30/17 Losartan Potassium [Cozaar] 25 mg PO HS 03/02/16 01/30/17 Multivitamin [Men's Multi-Vitamin] 1 tab PO DAILY 03/02/16 01/30/17 Pregabalin [Lyrica] 75 mg PO HS 03/02/16 01/30/17 Insulin Degludec [Tresiba 50 unit SQ W/SUPPER 07/22/16 01/30/17 Flextouch U-100] Acetaminophen Tab [Tylenol] 650 mg PO Q6H 07/25/16 01/30/17 Ipratropium-Albuterol Nebulize 3 ml INHALATION RT-QID 07/25/16 01/30/17 [Duoneb 0.5 mg-3 mg/3 ml Soln] Atenolol [Tenormin] 25 mg PO DAILY 01/30/17 01/30/17 Budesonide [Pulmicort] 0.5 mg INHALATION RT-BID 01/30/17 01/30/17 Carvedilol 6.25 mg PO BID 01/30/17 01/30/17 Furosemide 40 mg PO DAILY 01/30/17 01/30/17 Montelukast Sodium [Singulair] 10 mg PO HS 01/30/17 01/30/17 Tiotropium [place] [Spiriva] 1 cap INHALATION RT-DAILY 01/30/17 01/30/17 metFORMIN HCL 1,000 mg PO BID 01/30/17 01/30/17 predniSONE 10 mg PO DAILY 01/30/17 01/30/17 Previous Rx's Medication Instructions Recorded Clopidogrel Bisulfate [Plavix] 75 mg PO DAILY #30 tab 03/30/16 Cephalexin [Keflex] 500 mg PO Q8HR #21 cap 02/03/17 Metoprolol Tartrate [Lopressor] 25 mg PO BID #60 tab 02/03/17 predniSONE 40 mg PO DAILY #12 tab 02/03/17 Allergies Allergy/AdvReac Type Severity Reaction Status Date / Time No Known Allergies Allergy Verified 01/30/17 07:38 Review of Systems ROS Statement: Those systems with pertinent positive or pertinent negative responses have been documented in the HPI. ROS Other: All systems not noted in ROS Statement are negative. Limitations: ROS unobtainable due to patients medical condition Past Medical History Past Medical History: Asthma, Coronary Artery Disease (CAD), Chest Pain / Angina , Heart Failure, COPD, Diabetes Mellitus, GERD/Reflux, Hyperlipidemia, Hypertension, Myocardial Infarction ([place]), Osteoarthritis (OA), Skin Disorder, Thyroid Disorder Additional Past Medical History / Comment(s): Recent UTI-completed ABX, current "blisters/redness on both my lower legs", cardiomyopathy, pulmonary fibrosis, uses a concentrator at home ATC, IDDM type II, thyroid dx-given radioactive iodine, arthritis bilateral knees/ankles, diverticulits(per colonoscopy) and polypectomy, 1 implant tooth (bottom). Last Myocardial Infarction Date:: 03/08/16 History of Any Multi-Drug Resistant Organisms: None Reported Past Surgical History: AICD, Heart Catheterization With Stent Additional Past Surgical History / Comment(s): RT TKA, COLONOSCOPY/polypectomy, 03-08-16 heart cath AICD PLACEMENT 07/25/2016 Past Anesthesia/Blood Transfusion Reactions: No Reported Reaction Date of Last Stent Placement:: 03/08/2016 Type of Cardiac Device: AICD Device Placement Date:: 07/25/2016 Past Psychological History: No Psychological Hx Reported Smoking Status: Former smoker Past Alcohol Use History: None Reported Past Drug Use History: None Reported - Past Family History Mother Family Medical History: Cancer, Congestive Heart Failure (CHF) Additional Family Medical History / Comment(s): FEMALE [place] Father Family Medical History: Cancer Additional Family Medical History / Comment(s): LYMPHOMA General Exam Limitations: no limitations General appearance: obtunded, obese Head exam: Present: normocephalic, other (Frontal abrasion and contusion) Eye exam: Absent: scleral icterus, conjunctival injection ENT exam: Present: mucous membranes dry, TM's normal bilaterally, normal external ear exam Neck exam: Present: normal inspection, other (Cervical spine collar) Respiratory exam: Present: rhonchi. Absent: wheezes, rales, chest wall tenderness, accessory muscle use, decreased breath sounds Cardiovascular Exam: Present: regular rate, normal rhythm, normal heart sounds. Absent: systolic murmur, diastolic murmur, rubs, gallop GI/Abdominal exam: Present: soft. Absent: distended, tenderness, guarding, rebound, mass Extremities exam: Present: normal capillary refill, other (Contusion to the anterior aspect of the bilateral knees). Absent: tenderness Neurological exam: Present: altered, CN II-XII intact, reflexes normal, other ( GCS is 13 (E=3, V=5, M=5).) Skin exam: Present: warm, dry, normal color, abrasion Course Vital Signs 01/08/18 01/08/18 03:18 05:15 Temperature 94.4 F L 95.9 F L Pulse Rate 71 96 Respiratory 18 16 Rate Blood Pressure 103/61 76/72 O2 Sat by Pulse 96 94 L Oximetry Medical Decision Making - Medical Decision Making Patient is 72-year-old man brought in by EMS after he had a fall and hit his head. Patient is discussed with the on-call surgeon as a category 2 trauma. Treatment recommendations are incorporated. The patient is receiving IV fluids and after starting the IV fluids his mentation has cleared he is now GCS 15. The patient's only complaint is of right-sided headache. He indicates the right periorbital area. Patient denies any chest or abdominal pain. He is denying extremity pain at the moment. The patient did become hypotensive in the 80s over 40s after return from computed tomography scan. Fluid bolus is initiated, and I did discuss this with the trauma surgeon, and the patient will be transferred, given the head injury. Patient's computed tomography scan does not reveal solid organ injury. The main finding being small amount of free fluid in the abdomen which appears consistent with ascites. The patient's abdominal exam remains nontender. I discussed case with patient's son who agrees with transfer to [facility] where neurosurgery is available. Case discussed with Dr. Briones, at [facility], and they state that they can accept patient. - Lab Data Result diagrams: 01/08/18 03:19 01/08/18 03:19 Lab Results 01/08/18 01/08/18 01/08/18 Range/Units 03:19 03:19 03:19 WBC 10.3 (3.8-10.6) k/uL RBC 5.62 (4.30-5.90) m/uL Hgb 14.6 (13.0-17.5) gm/dL Hct 48.6 (39.0-53.0) % MCV 86.6 (80.0-100.0) fL MCH 26.0 (25.0-35.0) pg MCHC 30.0 L (31.0-37.0) g/dL RDW 15.8 H (11.5-15.5) % Plt Count 218 (150-450) k/uL Neutrophils % 63 % Lymphocytes % 26 % Monocytes % 8 % Eosinophils % 2 % Basophils % 1 % Neutrophils # 6.4 (1.3-7.7) k/uL Lymphocytes # 2.7 (1.0-4.8) k/uL Monocytes # 0.8 (0-1.0) k/uL Eosinophils # 0.2 (0-0.7) k/uL Basophils # 0.1 (0-0.2) k/uL Hypochromasia Marked PT (9.0-12.0) sec INR (<1.2) APTT (22.0-30.0) sec Sodium 139 (137-145) mmol/L Potassium 5.0 (3.5-5.1) mmol/L Chloride 102 (98-107) mmol/L Carbon Dioxide 13 L (22-30) mmol/L Anion Gap 24 mmol/L BUN 36 H (9-20) mg/dL Creatinine 2.10 H (0.66-1.25) mg/dL Est GFR (CKD-EPI)AfAm 35 (>60 ml/min/1.73 sqM) Est GFR (CKD-EPI)NonAf 30 (>60 ml/min/1.73 sqM) Glucose 99 (74-99) mg/dL POC Glucose (mg/dL) (75-99) mg/dL POC Glu Rn International ID Calcium 8.9 (8.4-10.2) mg/dL Total Bilirubin 1.4 H (0.2-1.3) mg/dL AST 44 (17-59) U/L ALT 47 (21-72) U/L Alkaline Phosphatase 526 H (38-126) U/L Total Creatine Kinase 81 (55-170) U/L CK-MB (CK-2) 2.2 (0.0-2.4) ng/mL CK-MB (CK-2) Rel Index 2.7 Troponin I 0.030 (0.000-0.034) ng/mL Total Protein 6.0 L (6.3-8.2) g/dL Albumin 3.5 (3.5-5.0) g/dL Amylase 83 (30-110) U/L Lipase 333 H (23-300) U/L Serum Alcohol <10 mg/dL Blood Type Blood Type Recheck Antibody Screen Spec Expiration Date 01/08/18 01/08/18 01/08/18 Range/Units 03:19 03:27 04:15 WBC (3.8-10.6) k/uL RBC (4.30-5.90) m/uL Hgb (13.0-17.5) gm/dL Hct (39.0-53.0) % MCV (80.0-100.0) fL MCH (25.0-35.0) pg MCHC (31.0-37.0) g/dL RDW (11.5-15.5) % Plt Count (150-450) k/uL Neutrophils % % Lymphocytes % % Monocytes % % Eosinophils % % Basophils % % Neutrophils # (1.3-7.7) k/uL Lymphocytes # (1.0-4.8) k/uL Monocytes # (0-1.0) k/uL Eosinophils # (0-0.7) k/uL Basophils # (0-0.2) k/uL Hypochromasia PT 12.9 H (9.0-12.0) sec INR 1.4 H (<1.2) APTT 24.8 (22.0-30.0) sec Sodium (137-145) mmol/L Potassium (3.5-5.1) mmol/L Chloride (98-107) mmol/L Carbon Dioxide (22-30) mmol/L Anion Gap mmol/L BUN (9-20) mg/dL Creatinine (0.66-1.25) mg/dL Est GFR (CKD-EPI)AfAm (>60 ml/min/1.73 sqM) Est GFR (CKD-EPI)NonAf (>60 ml/min/1.73 sqM) Glucose (74-99) mg/dL POC Glucose (mg/dL) 101 H (75-99) mg/dL POC Glu Rn International ID Gilda Christopher Calcium (8.4-10.2) mg/dL Total Bilirubin (0.2-1.3) mg/dL AST (17-59) U/L ALT (21-72) U/L Alkaline Phosphatase (38-126) U/L Total Creatine Kinase (55-170) U/L CK-MB (CK-2) (0.0-2.4) ng/mL CK-MB (CK-2) Rel Index Troponin I (0.000-0.034) ng/mL Total Protein (6.3-8.2) g/dL Albumin (3.5-5.0) g/dL Amylase (30-110) U/L Lipase (23-300) U/L Serum Alcohol mg/dL Blood Type O Positive Blood Type Recheck No Antibody Screen NEGATIVE Spec Expiration Date 01/11/2018 - 2315 - EKG Data -: EKG Interpreted by Me EKG shows normal: sinus rhythm, axis (Normal), intervals (First-degree AV block. Right bundle branch block area. QTC is normal), QRS complexes (Right bundle-branch block), ST-T waves (Inferior T inversions) Disposition Clinical Impression: Fall, Head injury, Ascites, Hypotension, Chronic renal failure Disposition: OTHER INSTITUTION NOT DEFINED Condition: Poor Is patient prescribed a controlled substance at d/c from ED?: No Referrals: Seth Beck MD [Primary Care Provider] - 1-2 days - Out of Hospital Transfer - Req. Specs Out of Hospital Transfer - Requested Specifics: Other Emergency Center ( [facility])
[2018-01-08 03:33] LABS: Glucose,Whole Blood 101 mg/dL (75-99)
--- NOTE | 2018-01-08 04:00 | XR ---
EXAM: XR Pelvis, 1 or 2 Views CLINICAL HISTORY: ITS.REASON XR Reason: Fall TECHNIQUE: Frontal view of the pelvis. COMPARISON: No relevant prior studies available. FINDINGS: Bones/joints: Degenerative changes in bilateral hips and in the lower lumbar spine No acute fracture. No dislocation. Soft tissues: Unremarkable. IMPRESSION: No acute findings.
--- NOTE | 2018-01-08 04:01 | XR ---
EXAM: XR Chest, 1 View CLINICAL HISTORY: ITS.REASON XR Reason: Fall TECHNIQUE: Frontal view of the chest. COMPARISON: 01/30/17. FINDINGS: Lungs: Stable chronic mild prominent interstitial lung markings Pleural space: Unremarkable. No pneumothorax. Heart: Stable cardiomegaly. Mediastinum: Unremarkable. Bones/joints: Unremarkable. Tubes, lines and devices: Stable left-sided cardiac device with intact lead. IMPRESSION: No acute findings.
[2018-01-08 04:09] LABS: Basophils # (A) 0.1 k/uL (0-0.2); Basophils % (A) 1 %; Eosinophils # (A) 0.2 k/uL (0-0.7); Eosinophils % (A) 2 %; HCT 48.6 % (39.0-53.0); HGB 14.6 gm/dL (13.0-17.5); Hypochromasia Marked; Lymphocytes # (A) 2.7 k/uL (1.0-4.8); Lymphocytes % (A) 26 %; MCV 86.6 fL (80.0-100.0); Mean Platelet Volume 8.7; Monocytes # (A) 0.8 k/uL (0-1.0); Monocytes % (A) 8 %; Neutrophils # (A) 6.4 k/uL (1.3-7.7); Neutrophils % (A) 63 %; Platelet Count 218 k/uL (150-450); RBC 5.62 m/uL (4.30-5.90); RDW 15.8 % (11.5-15.5); WBC 10.3 k/uL (3.8-10.6)
[2018-01-08 04:17] LABS: INR 1.4 (<1.2); Partial Thromboplastin Time 24.8 sec (22.0-30.0); Prothrombin Time 12.9 sec (9.0-12.0)
[2018-01-08] MEDS ORDERED: SODIUM CHLORIDE 0.9% 500 ML IV ONE ×2 (04:24→04:34)
[2018-01-08 04:25] LABS: ALT 47 U/L (21-72); AST 44 U/L (17-59); Albumin 3.5 g/dL (3.5-5.0); Alcohol <10 mg/dL; Alkaline Phosphatase 526 U/L (38-126); Amylase 83 U/L (30-110); Anion Gap 24 mmol/L; Blood Urea Nitrogen 36 mg/dL (9-20); Calcium 8.9 mg/dL (8.4-10.2); Carbon Dioxide 13 mmol/L (22-30); Chloride 102 mmol/L (98-107); Glucose 99 mg/dL (74-99); Lipase 333 U/L (23-300); Sodium 139 mmol/L (137-145); Total Bilirubin 1.4 mg/dL (0.2-1.3)
[2018-01-08] MEDS ORDERED: SODIUM CHLORIDE 0.9% 1,000 ML IV ONE (04:25)
--- NOTE | 2018-01-08 04:25 | CT ---
EXAM: CT Head Without Intravenous Contrast CLINICAL HISTORY: ITS.REASON CT Reason: trauma TECHNIQUE: Axial computed tomography images of the head/brain without intravenous contrast. CTDI is 57.4 mGy and DLP is 1098.8 mGy-cm. This CT exam was performed using one or more of the following dose reduction techniques: automated exposure control, adjustment of the mA and/or kV according to patient size, and/or use of iterative reconstruction technique. COMPARISON: No relevant prior studies available. FINDINGS: Brain: Small vessel ischemic changes in the periventricular and subcortical white matter. Mild cerebral atrophy. No hemorrhage. Ventricles: Unremarkable. No ventriculomegaly. Bones/joints: Unremarkable. No acute fracture. Soft tissues: Mild soft tissue swelling involving the right posterior scalp. Sinuses: Unremarkable as visualized. No acute sinusitis. Mastoid air cells: Unremarkable as visualized. No mastoid effusion. IMPRESSION: No acute findings. Senescent white matter changes and cerebral atrophy. EXAM: CT Cervical Spine Without Intravenous Contrast CLINICAL HISTORY: ITS.REASON CT Reason: trauma TECHNIQUE: Axial computed tomography images of the cervical spine without intravenous contrast. CTDI is 57.4 mGy and DLP is 1098.8 mGy-cm. This CT exam was performed using one or more of the following dose reduction techniques: automated exposure control, adjustment of the mA and/or kV according to patient size, and/or use of iterative reconstruction technique. COMPARISON: No relevant prior studies available. FINDINGS: Vertebrae: Severe multilevel cervical spondylosis at an anterior osteophytosis. No acute fracture. Discs/spinal canal/neural foramina: No acute findings. No spinal canal stenosis. Soft tissues: Unremarkable. Lung apices: Unremarkable as visualized. Tubes, lines and devices: Gas in the left jugular vein is likely related to catheter access. IMPRESSION: No acute fracture. Severe multilevel cervical spondylosis.
--- NOTE | 2018-01-08 04:34 | CT ---
EXAM: CT Chest With Intravenous Contrast CLINICAL HISTORY: ITS.REASON CT Reason: trauma TECHNIQUE: Axial computed tomography images of the chest with intravenous contrast. CTDI is 23.1 mGy and DLP is 1618.8 mGy-cm. This CT exam was performed using one or more of the following dose reduction techniques: automated exposure control, adjustment of the mA and/or kV according to patient size, and/or use of iterative reconstruction technique. COMPARISON: No relevant prior studies available. FINDINGS: Lungs: Bibasilar atelectasis versus pneumonitis. 3 mm pulmonary nodule in the right upper lobe. 4 mm pulmonary nodule in the left upper lobe. Pleural space: Unremarkable. No pneumothorax. No significant effusion. Heart: Cardiomegaly and coronary artery calcifications. No significant pericardial effusion. Bones/joints: Unremarkable. No acute fracture. No dislocation. Soft tissues: Unremarkable. Vasculature: Unremarkable. No thoracic aortic aneurysm. Lymph nodes: Unremarkable. No enlarged lymph nodes. IMPRESSION: No acute traumatic findings. 4 mm pulmonary nodule in the left upper lobe, and 3 mm pulmonary nodule in the right upper lobe. Consider optional CT at 12 months according to patient's risk factors. EXAM: CT Abdomen and Pelvis With Intravenous Contrast CLINICAL HISTORY: ITS.REASON CT Reason: trauma TECHNIQUE: Axial computed tomography images of the abdomen and pelvis with intravenous contrast. CTDI is 23.1 mGy and DLP is 1618.8 mGy-cm. This CT exam was performed using one or more of the following dose reduction techniques: automated exposure control, adjustment of the mA and/or kV according to patient size, and/or use of iterative reconstruction technique. COMPARISON: No relevant prior studies available. FINDINGS: ABDOMEN: Liver: Benign calcifications in the liver. Nodular contour to the liver suggestive of cirrhosis. Gallbladder and bile ducts: Cholelithiasis. Gallbladder is contracted. No ductal dilation. Pancreas: Unremarkable. No mass. No ductal dilation. Spleen: Benign calcifications in the spleen. Adrenals: Unremarkable. No mass. Kidneys and ureters: Unremarkable. No solid mass. No hydronephrosis. Stomach and bowel: Sigmoid diverticulosis. No obstruction. No mucosal thickening. Appendix: No findings to suggest acute appendicitis. PELVIS: Bladder: Unremarkable. No mass. Reproductive: Unremarkable as visualized. ABDOMEN and PELVIS: Intraperitoneal space: Small volume free fluid. No free air. Bones/joints: No acute fracture. No dislocation. Soft tissues: Anasarca. Vasculature: Atherosclerosis of the aorta and its major branching vessels. No abdominal aortic aneurysm. Lymph nodes: Unremarkable. No enlarged lymph nodes. IMPRESSION: No acute traumatic findings in the abdomen or pelvis. Small volume free fluid likely secondary to underlying cirrhosis.
[2018-01-08] MEDS ORDERED: ACETAMINOPHEN IV (For NPO) 1,000 MG in EMPTY BAG 1 BAG IVPB ONE (04:39)
[2018-01-08 04:44] LABS: Creatine Kinase MB 2.2 ng/mL (0.0-2.4); Troponin I 0.03 ng/mL (0.000-0.034)
[2018-01-08 05:36] VITALS: BP 76/72; PULSE 96; RESP 16; TEMP 95.9
== END 2018-01-08 05:15 | disposition other institution (70) ==
LOC: EC 03:16
DX: S00.93XA Contusion of unspecified part of head, initial encounter (principal); S80.02XA Contusion of left knee, initial encounter; S80.01XA Contusion of right knee, initial encounter; R18.8 Other ascites; I95.9 Hypotension, unspecified; E11.22 Type 2 diabetes mellitus with diabetic chronic kidney disease; I13.0 Hypertensive heart and chronic kidney disease with heart failure and stage 1 through stage 4 chronic kidney disease, or unspecified chronic kidney disease; N18.9 Chronic kidney disease, unspecified; I50.9 Heart failure, unspecified; I25.119 Atherosclerotic heart disease of native coronary artery with unspecified angina pectoris; J44.9 Chronic obstructive pulmonary disease, unspecified; K21.9 Gastro-esophageal reflux disease without esophagitis; E78.5 Hyperlipidemia, unspecified; I25.2 Old myocardial infarction; M19.90 Unspecified osteoarthritis, unspecified site; E07.9 Disorder of thyroid, unspecified; Z87.891 Personal history of nicotine dependence; Z79.4 Long term (current) use of insulin; Z79.51 Long term (current) use of inhaled steroids; Z79.82 Long term (current) use of aspirin; Z79.899 Other long term (current) drug therapy; Z79.52 Long term (current) use of systemic steroids; W18.00XA Striking against unspecified object with subsequent fall, initial encounter; Y92.009 Unspecified place in unspecified non-institutional (private) residence as the place of occurrence of the external cause
CPT/HCPCS: 96361 ×2; 96374 ×2; 99285 ×2; 96360; 36415; 93005; 86900; 86901; 80053; 82150; 82550; 82553; 83690; 84484; 85025; 85610; 85730; 86850; 80320; 72170; 71045; 72125; 70450; 71260; 74177; J0131; Q9967; 96365

== ENCOUNTER 2018-04-09 16:39 | Emergency (ER) | payer MEDICARE, OTHER ==
[2018-04-09 18:55] VITALS: RESP 18
[2018-04-09 19:00] LABS: Glucose,Whole Blood 320 mg/dL (75-99)
[2018-04-09 19:06] LABS: Appearance,Urine Clear (Clear); Bilirubin,Urine Negative (Negative); Blood,Urine Negative (Negative); Color,Urine Light Yellow; Glucose,Urine (UA) 4+ (Negative); Ketones,Urine Negative (Negative); Leukocyte Esterase,Urine Trace (Negative); Mucus,Urine Rare /hpf; Nitrite,Urine Negative (Negative); PH, Urine 7.5 (5.0-8.0); Protein,Urine Negative (Negative); Specific Gravity,Urine 1.004 (1.001-1.035); Squamous Epithelial Cell,Urine <1 /hpf (0-4); Urobilinogen,Urine <2.0 mg/dL (<2.0); WBC,Urine 1 /hpf (0-5)
[2018-04-09 19:22] LABS: Anisocytosis Moderate; Basophils % (A) 0 %; Eosinophils % (A) 0 %; HGB 14.8 gm/dL (13.0-17.5); Lymphocytes # (A) 0.8 k/uL (1.0-4.8); Lymphocytes % (A) 9 %; MCH 28.8 pg (25.0-35.0); MCHC 32.9 g/dL (31.0-37.0); Mean Platelet Volume 8.4; Microcytosis Slight; Monocytes # (A) 0.5 k/uL (0-1.0); Monocytes % (A) 5 %; Neutrophils # (A) 8.1 k/uL (1.3-7.7); Neutrophils % (A) 85 %; Platelet Count 177 k/uL (150-450); RBC 5.13 m/uL (4.30-5.90); RDW 21.4 % (11.5-15.5); WBC 9.6 k/uL (3.8-10.6)
[2018-04-09 19:26] LABS: MCV 87.6 fL (80.0-100.0)
[2018-04-09] MEDS ORDERED: SODIUM CHLORIDE 0.9% 1,000 ML IV STA (21:58)
[2018-04-09] MEDS ORDERED: ONDANSETRON 4 MG/2 ML VIAL IVP STA (22:01)
--- NOTE | 2018-04-09 22:20 | ED ---
General Adult HPI - General Chief complaint: Nausea/Vomiting/Diarrhea Stated complaint: Diarehha Time Seen by Provider: 04/09/18 21:45 Source: patient, RN notes reviewed Mode of arrival: wheelchair Limitations: no limitations - History of Present Illness Initial comments: 73-year-old male presents to the emergency department for a chief complaint of elevated blood sugar. Patient has noticed his glucose has been elevated for the past few days and he has been urinating more frequently. Patient also complains of diarrhea x 3 days. Patient denies blood in the stool. Patient states he also has felt somewhat weaker the past few days. Patient denies any dizziness or lightheadedness. Patient denies any loss of consciousness. Patient has no other complaints at this time including shortness of breath, chest pain, abdominal pain, nausea or vomiting, headache, or visual changes. - Related Data Home Medications Medication Instructions Recorded Confirmed Aspirin EC [Ecotrin Low Dose] 81 mg PO DAILY 04/11/14 04/09/18 Atorvastatin [Lipitor] 20 mg PO HS 04/11/14 04/09/18 Ranitidine HCl 150 mg PO BID 04/11/14 04/09/18 Cholecalciferol [Vitamin D3] 6,000 unit PO DAILY 03/02/16 04/09/18 Multivitamin [Men's Multi-Vitamin] 1 tab PO DAILY 03/02/16 04/09/18 Acetaminophen Tab [Tylenol] 650 mg PO Q6H PRN 07/25/16 04/09/18 Furosemide 60 mg PO BID 01/30/17 04/09/18 Montelukast Sodium [Singulair] 10 mg PO HS 01/30/17 04/09/18 metFORMIN HCL 1,000 mg PO BID 01/30/17 04/09/18 predniSONE 10 mg PO DAILY 01/30/17 04/09/18 Levothyroxine Sodium 200 mcg PO DAILY 02/12/18 04/09/18 Metoprolol Tartrate [Lopressor] 12.5 mg PO BID 02/12/18 04/09/18 Midodrine [ProAmatine] 5 mg PO AC-BID 04/09/18 04/09/18 Sacubitril/Valsartan [Entresto 24 1 tab PO BID 04/09/18 04/09/18 mg-26 mg Tablet] Spironolactone 50 mg PO DAILY 04/09/18 04/09/18 Previous Rx's Medication Instructions Recorded Clopidogrel Bisulfate [Plavix] 75 mg PO DAILY #30 tab 03/30/16 Digoxin [Lanoxin] 125 mcg PO DAILY #0 tab 02/14/18 Ondansetron HCl [Zofran] 4 mg PO Q8HR PRN #14 tablet 04/10/18 Allergies Allergy/AdvReac Type Severity Reaction Status Date / Time No Known Allergies Allergy Verified 04/09/18 21:50 Review of Systems ROS Statement: Those systems with pertinent positive or pertinent negative responses have been documented in the HPI. ROS Other: All systems not noted in ROS Statement are negative. Past Medical History Past Medical History: Asthma, Coronary Artery Disease (CAD), Chest Pain / Angina , Heart Failure, COPD, Diabetes Mellitus, GERD/Reflux, Hyperlipidemia, Myocardial Infarction (VT), Osteoarthritis (OA), Respiratory Disorder, Skin Disorder, Syncope, Thyroid Disorder Additional Past Medical History / Comment(s): Cardiomyopathy, home O2/ concentrator use ATC, "blisters/redness on both my lower legs that are almost healed-took a year", bilateral lower leg edema, IDDM type II, thyroid dx-given radioactive iodine, arthritis bilateral knees/ankles, diverticulitis, polypectomy, 1 implant tooth (bottom), UTI, syncope with low blood sugar. Last Myocardial Infarction Date:: 03/08/16 History of Any Multi-Drug Resistant Organisms: None Reported Past Surgical History: AICD, Heart Catheterization With Stent Additional Past Surgical History / Comment(s): RT TKA, COLONOSCOPY/polypectomy, 03-08-16 PCI with stent to LAD and unable to stent CX, AICD PLACEMENT 07/25/2016 Past Anesthesia/Blood Transfusion Reactions: No Reported Reaction Date of Last Stent Placement:: 03/08/2016 Type of Cardiac Device: AICD Device Placement Date:: 07/25/2016 Past Psychological History: No Psychological Hx Reported Smoking Status: Former smoker Past Alcohol Use History: None Reported Past Drug Use History: None Reported - Past Family History Mother Family Medical History: Cancer, Congestive Heart Failure (CHF) Additional Family Medical History / Comment(s): FEMALE [place] Father Family Medical History: Cancer Additional Family Medical History / Comment(s): LYMPHOMA General Exam Limitations: no limitations General appearance: alert, in no apparent distress Head exam: Present: atraumatic, normocephalic, normal inspection Eye exam: Present: normal appearance ENT exam: Present: normal exam, mucous membranes moist Neck exam: Present: normal inspection, full ROM. Absent: tenderness, meningismus, lymphadenopathy Respiratory exam: Present: normal lung sounds bilaterally. Absent: respiratory distress, wheezes, rales, rhonchi, stridor Cardiovascular Exam: Present: regular rate, normal rhythm, normal heart sounds. Absent: systolic murmur, diastolic murmur, rubs, gallop, clicks GI/Abdominal exam: Present: soft, normal bowel sounds. Absent: distended, tenderness, guarding, rebound, rigid Course Vital Signs 04/09/18 04/09/18 04/09/18 18:54 22:40 22:41 Temperature 98.0 F Pulse Rate 111 H 106 H Respiratory 18 18 Rate Blood Pressure 96/61 107/66 O2 Sat by Pulse 98 95 Oximetry Medical Decision Making - Medical Decision Making 73-year-old male presents to the emergency department for multiple complaints. Patient states his blood sugar has been high, he has been urinating frequently and experiencing diarrhea, and mild weakness for the past 3 days. Patient states he is often weak over the past few years. Patient denies any fevers or chills at home. Patient denies any confusion, lightheadedness, or loss of consciousness. On exam patient has no abdominal tenderness. Lungs are clear to auscultation bilaterally. Patient is laying in bed cooperative and engaged. Patient is afebrile in the emergency department. Patient not able to give stool sample. White count is within normal limits and CBC is unremarkable. CMP shows BUN 33. Patient is likely dehydrated. Alkaline phosphatase is elevated which has been consistent with previous labs and has decreased from the last time he was seen. Glucose decreased from 320 to 215. Patient is not given insulin as states insulin "bottoms him out." Urine shows no evidence of infection but there is 4+ glucose. Acetone negative. Given patient's diarrhea he is likely dehydrated. He was given a liter of fluids. He is to follow up with primary care for blood sugar as he was taken off his insulin and may need increased management. Patient is also scheduled for a liver biopsy. He was given Zofran to help with nausea and diarrhea. He will follow up with primary care in 1-2 days. He will return to the emergency department if he has any worsening symptoms. - Lab Data Result diagrams: 04/09/18 19:05 04/09/18 22:21 Lab Results 04/09/18 04/09/18 04/09/18 Range/Units 18:43 18:58 19:05 WBC 9.6 (3.8-10.6) k/uL RBC 5.13 (4.30-5.90) m/uL Hgb 14.8 (13.0-17.5) gm/dL Hct 45.0 (39.0-53.0) % MCV 87.6 D (80.0-100.0) fL MCH 28.8 (25.0-35.0) pg MCHC 32.9 (31.0-37.0) g/dL RDW 21.4 H (11.5-15.5) % Plt Count 177 (150-450) k/uL Neutrophils % 85 % Lymphocytes % 9 % Monocytes % 5 % Eosinophils % 0 % Basophils % 0 % Neutrophils # 8.1 H (1.3-7.7) k/uL Lymphocytes # 0.8 L (1.0-4.8) k/uL Monocytes # 0.5 (0-1.0) k/uL Eosinophils # 0.0 (0-0.7) k/uL Basophils # 0.0 (0-0.2) k/uL Anisocytosis Moderate Microcytosis Slight Sodium (137-145) mmol/L Potassium (3.5-5.1) mmol/L Chloride (98-107) mmol/L Carbon Dioxide (22-30) mmol/L Anion Gap mmol/L BUN (9-20) mg/dL Creatinine (0.66-1.25) mg/dL Est GFR (CKD-EPI)AfAm (>60 ml/min/1.73 sqM) Est GFR (CKD-EPI)NonAf (>60 ml/min/1.73 sqM) Glucose (74-99) mg/dL POC Glucose (mg/dL) 320 H (75-99) mg/dL POC Glu Dental Equipment Technician ID Rena Ricci Calcium (8.4-10.2) mg/dL Total Bilirubin (0.2-1.3) mg/dL AST (17-59) U/L ALT (21-72) U/L Alkaline Phosphatase (38-126) U/L Total Protein (6.3-8.2) g/dL Albumin (3.5-5.0) g/dL Urine Color Light Yellow Urine Appearance Clear (Clear) Urine pH 7.5 (5.0-8.0) Ur Specific [place] 1.004 (1.001-1.035) Urine Protein Negative (Negative) Urine Glucose (UA) 4+ H (Negative) Urine Ketones Negative (Negative) Urine Blood Negative (Negative) Urine Nitrite Negative (Negative) Urine Bilirubin Negative (Negative) Urine Urobilinogen <2.0 (<2.0) mg/dL Ur Leukocyte Esterase Trace H (Negative) Urine WBC 1 (0-5) /hpf Ur Squamous Epith Cells <1 (0-4) /hpf Urine Mucus Rare H (None) /hpf Acetone, Qual (Negative) 04/09/18 04/09/18 04/09/18 Range/Units 22:21 22:21 23:38 WBC (3.8-10.6) k/uL RBC (4.30-5.90) m/uL Hgb (13.0-17.5) gm/dL Hct (39.0-53.0) % MCV (80.0-100.0) fL MCH (25.0-35.0) pg MCHC (31.0-37.0) g/dL RDW (11.5-15.5) % Plt Count (150-450) k/uL Neutrophils % % Lymphocytes % % Monocytes % % Eosinophils % % Basophils % % Neutrophils # (1.3-7.7) k/uL Lymphocytes # (1.0-4.8) k/uL Monocytes # (0-1.0) k/uL Eosinophils # (0-0.7) k/uL Basophils # (0-0.2) k/uL Anisocytosis Microcytosis Sodium 135 L (137-145) mmol/L Potassium 5.6 H (3.5-5.1) mmol/L Chloride 95 L (98-107) mmol/L Carbon Dioxide 22 (22-30) mmol/L Anion Gap 18 mmol/L BUN 33 H (9-20) mg/dL Creatinine 1.10 (0.66-1.25) mg/dL Est GFR (CKD-EPI)AfAm 76 (>60 ml/min/1.73 sqM) Est GFR (CKD-EPI)NonAf 66 (>60 ml/min/1.73 sqM) Glucose 312 H (74-99) mg/dL POC Glucose (mg/dL) 215 H (75-99) mg/dL POC Glu Dental Equipment Technician ID Cande Hampton Calcium 11.0 H (8.4-10.2) mg/dL Total Bilirubin 2.2 H (0.2-1.3) mg/dL AST 40 (17-59) U/L ALT 68 (21-72) U/L Alkaline Phosphatase 627 H (38-126) U/L Total Protein 7.1 (6.3-8.2) g/dL Albumin 4.5 (3.5-5.0) g/dL Urine Color Urine Appearance (Clear) Urine pH (5.0-8.0) Ur Specific [place] (1.001-1.035) Urine Protein (Negative) Urine Glucose (UA) (Negative) Urine Ketones (Negative) Urine Blood (Negative) Urine Nitrite (Negative) Urine Bilirubin (Negative) Urine Urobilinogen (<2.0) mg/dL Ur Leukocyte Esterase (Negative) Urine WBC (0-5) /hpf Ur Squamous Epith Cells (0-4) /hpf Urine Mucus (None) /hpf Acetone, Qual Negative (Negative) Disposition Clinical Impression: Dehydration, Diarrhea Disposition: HOME SELF-CARE Condition: Good Instructions: Dehydration (ED) Additional Instructions: Please drink plenty of water to stay hydrated. Take Zofran as needed for nausea and diarrhea. Follow-up with primary care in 1-2 days for blood sugar. Return to the emergency department if you've any worsening symptoms. Prescriptions: Ondansetron HCl [Zofran] 4 mg PO Q8HR PRN #14 tablet PRN Reason: Nausea Is patient prescribed a controlled substance at d/c from ED?: No Referrals: Seth Beck MD [Primary Care Provider] - 1-2 days Time of Disposition: 00:03
[2018-04-09 23:37] LABS: Albumin 4.5 g/dL (3.5-5.0); Potassium 5.6 mmol/L (3.5-5.1); Total Bilirubin 2.2 mg/dL (0.2-1.3); Total Protein 7.1 g/dL (6.3-8.2)
[2018-04-09 23:39] LABS: Glucose,Whole Blood 215 mg/dL (75-99)
[2018-04-10 00:29] VITALS: BP 109/72; PULSE 114; TEMP 97.8
== END 2018-04-10 00:29 | disposition home or self-care (01) ==
LOC: EC 16:39
DX: E86.0 Dehydration (principal); R19.7 Diarrhea, unspecified; I25.119 Atherosclerotic heart disease of native coronary artery with unspecified angina pectoris; J44.9 Chronic obstructive pulmonary disease, unspecified; I50.9 Heart failure, unspecified; E11.9 Type 2 diabetes mellitus without complications; I25.2 Old myocardial infarction; K21.9 Gastro-esophageal reflux disease without esophagitis; M19.90 Unspecified osteoarthritis, unspecified site; E07.9 Disorder of thyroid, unspecified; Z87.891 Personal history of nicotine dependence; Z95.5 Presence of coronary angioplasty implant and graft; Z95.810 Presence of automatic (implantable) cardiac defibrillator; Z79.82 Long term (current) use of aspirin; Z79.52 Long term (current) use of systemic steroids; Z79.84 Long term (current) use of oral hypoglycemic drugs; Z79.899 Other long term (current) drug therapy
CPT/HCPCS: 36415; 80053; 82009; 85025; 81001; 99284; 96374; 96361; J2405

== ENCOUNTER 2018-04-10 21:02 | Emergency (ER) | payer MEDICARE, OTHER ==
[2018-04-10 21:20] VITALS: RESP 18; TEMP 96.9
--- NOTE | 2018-04-10 21:36 | ED ---
General Adult HPI - General Chief complaint: Recheck/Abnormal Lab/Rx Stated complaint: Weakness Source: patient, family, EMS Mode of arrival: EMS Limitations: no limitations - History of Present Illness Initial comments: Dictation was produced using [employer] dictation software. please excuse any grammatical, word or spelling errors. Chief Complaint: 73-year-old male with multiple comorbidities presents with hyperglycemia and generalized weakness. History of Present Illness: He came today because he's been having multiple days of generalized weakness and difficulty with sleeping. Patient measured his sugar today found to be in the 200s. Abnormal high for him. Patient has a past medical history of congestive heart failure status post of her later. He has been struggling with low blood pressure. Patient denies any pain complaints. Denies any chest pain, shortness of breath. Denies any abdominal pain. No diarrhea. Patient has been having frequent urinations The ROS documented in this emergency department record has been reviewed and confirmed by me. Those systems with pertinent positive or negative responses have been documented in the HPI. All other systems are other negative and/or noncontributory. - Related Data Home Medications Medication Instructions Recorded Confirmed Aspirin EC [Ecotrin Low Dose] 81 mg PO DAILY 04/11/14 04/10/18 Atorvastatin [Lipitor] 20 mg PO HS 04/11/14 04/10/18 Ranitidine HCl 150 mg PO BID 04/11/14 04/10/18 Cholecalciferol [Vitamin D3] 6,000 unit PO DAILY 03/02/16 04/10/18 Multivitamin [Men's Multi-Vitamin] 1 tab PO DAILY 03/02/16 04/10/18 Acetaminophen Tab [Tylenol] 650 mg PO Q6H PRN 07/25/16 04/10/18 Furosemide 60 mg PO BID 01/30/17 04/10/18 Montelukast Sodium [Singulair] 10 mg PO HS 01/30/17 04/10/18 metFORMIN HCL 1,000 mg PO BID 01/30/17 04/10/18 predniSONE 10 mg PO DAILY 01/30/17 04/10/18 Levothyroxine Sodium 200 mcg PO DAILY 02/12/18 04/10/18 Metoprolol Tartrate [Lopressor] 12.5 mg PO BID 02/12/18 04/10/18 Midodrine [ProAmatine] 5 mg PO AC-BID 04/09/18 04/10/18 Sacubitril/Valsartan [Entresto 24 1 tab PO BID 04/09/18 04/10/18 mg-26 mg Tablet] Spironolactone 50 mg PO DAILY 04/09/18 04/10/18 Previous Rx's Medication Instructions Recorded Clopidogrel Bisulfate [Plavix] 75 mg PO DAILY #30 tab 03/30/16 Digoxin [Lanoxin] 125 mcg PO DAILY #0 tab 02/14/18 Ondansetron HCl [Zofran] 4 mg PO Q8HR PRN #14 tablet 04/10/18 Allergies Allergy/AdvReac Type Severity Reaction Status Date / Time No Known Allergies Allergy Verified 04/10/18 21:06 Review of Systems ROS Statement: Those systems with pertinent positive or pertinent negative responses have been documented in the HPI. ROS Other: All systems not noted in ROS Statement are negative. Past Medical History Past Medical History: Asthma, Coronary Artery Disease (CAD), Chest Pain / Angina , Heart Failure, COPD, Diabetes Mellitus, GERD/Reflux, Hyperlipidemia, Myocardial Infarction ([place]), Osteoarthritis (OA), Respiratory Disorder, Skin Disorder, Syncope, Thyroid Disorder Additional Past Medical History / Comment(s): Cardiomyopathy, home O2/ concentrator use ATC, "blisters/redness on both my lower legs that are almost healed-took a year", bilateral lower leg edema, IDDM type II, thyroid dx-given radioactive iodine, arthritis bilateral knees/ankles, diverticulitis, polypectomy, 1 implant tooth (bottom), UTI, syncope with low blood sugar. Last Myocardial Infarction Date:: 03/08/16 History of Any Multi-Drug Resistant Organisms: None Reported Past Surgical History: AICD, Heart Catheterization With Stent Additional Past Surgical History / Comment(s): RT TKA, COLONOSCOPY/polypectomy, 03-08-16 PCI with stent to LAD and unable to stent CX, AICD PLACEMENT 07/25/2016 Past Anesthesia/Blood Transfusion Reactions: No Reported Reaction Date of Last Stent Placement:: 03/08/2016 Type of Cardiac Device: AICD Device Placement Date:: 07/25/2016 Past Psychological History: No Psychological Hx Reported Smoking Status: Former smoker Past Alcohol Use History: None Reported Past Drug Use History: None Reported - Past Family History Mother Family Medical History: Cancer, Congestive Heart Failure (CHF) Additional Family Medical History / Comment(s): FEMALE [place] Father Family Medical History: Cancer Additional Family Medical History / Comment(s): LYMPHOMA General Exam - General Exam Comments Initial Comments: PHYSICAL EXAM: General Impression: Alert and oriented x3, not in acute distress HEENT: Normocephalic atraumatic, extra-ocular movements intact, pupils equal and reactive to light bilaterally, mucous membranes moist. Cardiovascular: Heart regular rate and rhythm, S1&S2 audible, no murmurs, rubs or gallops Chest: Lungs clear to auscultation bilaterally, no rhonchi, no wheeze, no rales Abdomen: Bowel sounds present, abdomen soft, non-tender, non-distended, no organomegaly Musculoskeletal: Pulses present and equal in all extremities, no peripheral edema Motor: Power 5/5 bilaterally, no focal deficits noted Neurological: CN II-XII grossly intact, no focal motor or sensory deficits noted Skin: Erythema bilateral lower extremities that he reports is chronic Psych: Normal affect and mood Limitations: no limitations Course Vital Signs 04/10/18 04/10/18 21:05 22:20 Temperature 96.9 F L Pulse Rate 81 80 Respiratory 18 18 Rate Blood Pressure 100/60 105/61 O2 Sat by Pulse 96 97 Oximetry Medical Decision Making - Medical Decision Making ED course: 73-year-old male with multiple comorbidities presents with difficulty with sleeping and hyperglycemia. Patient has no other complaints at this time. Vital signs upon arrival are within acceptable limits. Patient has normal low blood pressure. Blood pressure 100/60 normal per and patient.Laboratory evaluation obtained. CBC is unremarkable. Venous blood gas is within acceptable limits. Potassium is 5.3. Left within acceptable limits. Patient has mild transaminitis. Urinalysis is negative. Repeat vital signs are within acceptable limits. Patient reports that his blood pressure usually is around this level. Patient's blood sugar is within acceptable limits. Patient had other lab abnormalities. Discussed patient case with patient's primary care physician who is well aware patient. Primary care physician recommended patient be discharged with outpatient follow-up the following day. Discussed this plan with patient who is understandable and agreeable. He is told to return to emergency department with any concerns. EKG interpretation: Ventricular rate 81. Sinus rhythm rhythm. RI interval 216 , QRS 144, QTc 434. EKG compared to 02/12/2018 showing no changes. Overall, this EKG is unremarkable - Lab Data Result diagrams: 04/10/18 21:17 04/10/18 22:14 Lab Results 04/10/18 04/10/18 04/10/18 Range/Units 21:17 21:17 21:17 WBC 8.0 (3.8-10.6) k/uL RBC 4.90 (4.30-5.90) m/uL Hgb 14.0 (13.0-17.5) gm/dL Hct 43.1 (39.0-53.0) % MCV 88.0 (80.0-100.0) fL MCH 28.6 (25.0-35.0) pg MCHC 32.5 (31.0-37.0) g/dL RDW 21.8 H (11.5-15.5) % Plt Count 176 (150-450) k/uL Neutrophils % 81 % Lymphocytes % 12 % Monocytes % 6 % Eosinophils % 0 % Basophils % 1 % Neutrophils # 6.5 (1.3-7.7) k/uL Lymphocytes # 1.0 (1.0-4.8) k/uL Monocytes # 0.5 (0-1.0) k/uL Eosinophils # 0.0 (0-0.7) k/uL Basophils # 0.0 (0-0.2) k/uL Anisocytosis Moderate Microcytosis Slight VBG pH (7.31-7.41) VBG pCO2 (37-51) mmHg VBG HCO3 (24-28) mmol/L Sodium (137-145) mmol/L Potassium (3.5-5.1) mmol/L Chloride (98-107) mmol/L Carbon Dioxide (22-30) mmol/L Anion Gap mmol/L BUN (9-20) mg/dL Creatinine (0.66-1.25) mg/dL Est GFR (CKD-EPI)AfAm (>60 ml/min/1.73 sqM) Est GFR (CKD-EPI)NonAf (>60 ml/min/1.73 sqM) Glucose (74-99) mg/dL Calcium (8.4-10.2) mg/dL Magnesium (1.6-2.3) mg/dL Total Bilirubin (0.2-1.3) mg/dL Conjugated Bilirubin (0.0-0.3) mg/dL Unconjugated Bilirubin (0.0-1.1) mg/dL Delta Bilirubin (0.0-0.2) mg/dL AST (17-59) U/L ALT (21-72) U/L Alkaline Phosphatase (38-126) U/L Troponin I 0.028 (0.000-0.034) ng/mL NT-Pro-B Natriuret Pep 8830 pg/mL Total Protein (6.3-8.2) g/dL Albumin (3.5-5.0) g/dL Urine Color Urine Appearance (Clear) Urine pH (5.0-8.0) Ur Specific [place] (1.001-1.035) Urine Protein (Negative) Urine Glucose (UA) (Negative) Urine Ketones (Negative) Urine Blood (Negative) Urine Nitrite (Negative) Urine Bilirubin (Negative) Urine Urobilinogen (<2.0) mg/dL Ur Leukocyte Esterase (Negative) Urine RBC (0-5) /hpf Urine WBC (0-5) /hpf Hyaline Casts (0-2) /lpf Urine Mucus (None) /hpf 04/10/18 04/10/18 04/10/18 Range/Units 22:14 22:14 22:14 WBC (3.8-10.6) k/uL RBC (4.30-5.90) m/uL Hgb (13.0-17.5) gm/dL Hct (39.0-53.0) % MCV (80.0-100.0) fL MCH (25.0-35.0) pg MCHC (31.0-37.0) g/dL RDW (11.5-15.5) % Plt Count (150-450) k/uL Neutrophils % % Lymphocytes % % Monocytes % % Eosinophils % % Basophils % % Neutrophils # (1.3-7.7) k/uL Lymphocytes # (1.0-4.8) k/uL Monocytes # (0-1.0) k/uL Eosinophils # (0-0.7) k/uL Basophils # (0-0.2) k/uL Anisocytosis Microcytosis VBG pH 7.43 H (7.31-7.41) VBG pCO2 36 L (37-51) mmHg VBG HCO3 23 L (24-28) mmol/L Sodium 135 L (137-145) mmol/L Potassium 5.3 H (3.5-5.1) mmol/L Chloride 98 (98-107) mmol/L Carbon Dioxide 22 (22-30) mmol/L Anion Gap 15 mmol/L BUN 45 H (9-20) mg/dL Creatinine 1.40 H (0.66-1.25) mg/dL Est GFR (CKD-EPI)AfAm 57 (>60 ml/min/1.73 sqM) Est GFR (CKD-EPI)NonAf 49 (>60 ml/min/1.73 sqM) Glucose 214 H (74-99) mg/dL Calcium 10.5 H (8.4-10.2) mg/dL Magnesium 1.9 (1.6-2.3) mg/dL Total Bilirubin 1.9 H (0.2-1.3) mg/dL Conjugated Bilirubin 0.2 (0.0-0.3) mg/dL Unconjugated Bilirubin 0.5 (0.0-1.1) mg/dL Delta Bilirubin 1.2 H (0.0-0.2) mg/dL AST 76 H (17-59) U/L ALT 80 H (21-72) U/L Alkaline Phosphatase 684 H (38-126) U/L Troponin I (0.000-0.034) ng/mL NT-Pro-B Natriuret Pep pg/mL Total Protein 6.6 (6.3-8.2) g/dL Albumin 4.2 (3.5-5.0) g/dL Urine Color Yellow Urine Appearance Clear (Clear) Urine pH 6.0 (5.0-8.0) Ur Specific [place] 1.017 (1.001-1.035) Urine Protein Trace H (Negative) Urine Glucose (UA) 1+ H (Negative) Urine Ketones Negative (Negative) Urine Blood Negative (Negative) Urine Nitrite Negative (Negative) Urine Bilirubin Negative (Negative) Urine Urobilinogen 2.0 (<2.0) mg/dL Ur Leukocyte Esterase Trace H (Negative) Urine RBC <1 (0-5) /hpf Urine WBC 1 (0-5) /hpf Hyaline Casts 22 H (0-2) /lpf Urine Mucus Rare H (None) /hpf 04/10/18 Range/Units 22:14 WBC (3.8-10.6) k/uL RBC (4.30-5.90) m/uL Hgb (13.0-17.5) gm/dL Hct (39.0-53.0) % MCV (80.0-100.0) fL MCH (25.0-35.0) pg MCHC (31.0-37.0) g/dL RDW (11.5-15.5) % Plt Count (150-450) k/uL Neutrophils % % Lymphocytes % % Monocytes % % Eosinophils % % Basophils % % Neutrophils # (1.3-7.7) k/uL Lymphocytes # (1.0-4.8) k/uL Monocytes # (0-1.0) k/uL Eosinophils # (0-0.7) k/uL Basophils # (0-0.2) k/uL Anisocytosis Microcytosis VBG pH (7.31-7.41) VBG pCO2 (37-51) mmHg VBG HCO3 (24-28) mmol/L Sodium (137-145) mmol/L Potassium (3.5-5.1) mmol/L Chloride (98-107) mmol/L Carbon Dioxide (22-30) mmol/L Anion Gap mmol/L BUN (9-20) mg/dL Creatinine (0.66-1.25) mg/dL Est GFR (CKD-EPI)AfAm (>60 ml/min/1.73 sqM) Est GFR (CKD-EPI)NonAf (>60 ml/min/1.73 sqM) Glucose (74-99) mg/dL Calcium (8.4-10.2) mg/dL Magnesium (1.6-2.3) mg/dL Total Bilirubin (0.2-1.3) mg/dL Conjugated Bilirubin (0.0-0.3) mg/dL Unconjugated Bilirubin (0.0-1.1) mg/dL Delta Bilirubin (0.0-0.2) mg/dL AST (17-59) U/L ALT (21-72) U/L Alkaline Phosphatase (38-126) U/L Troponin I (0.000-0.034) ng/mL NT-Pro-B Natriuret Pep 8690 pg/mL Total Protein (6.3-8.2) g/dL Albumin (3.5-5.0) g/dL Urine Color Urine Appearance (Clear) Urine pH (5.0-8.0) Ur Specific [place] (1.001-1.035) Urine Protein (Negative) Urine Glucose (UA) (Negative) Urine Ketones (Negative) Urine Blood (Negative) Urine Nitrite (Negative) Urine Bilirubin (Negative) Urine Urobilinogen (<2.0) mg/dL Ur Leukocyte Esterase (Negative) Urine RBC (0-5) /hpf Urine WBC (0-5) /hpf Hyaline Casts (0-2) /lpf Urine Mucus (None) /hpf Disposition Clinical Impression: Hyperglycemia Disposition: HOME SELF-CARE Condition: Fair Is patient prescribed a controlled substance at d/c from ED?: No Referrals: Seth Beck MD [Primary Care Provider] - 1-2 days
[2018-04-10 21:48] LABS: Anisocytosis Moderate; Basophils % (A) 1 %; Eosinophils % (A) 0 %; HCT 43.1 % (39.0-53.0); Lymphocytes % (A) 12 %; MCH 28.6 pg (25.0-35.0); MCHC 32.5 g/dL (31.0-37.0); Mean Platelet Volume 8.4; Microcytosis Slight; Monocytes # (A) 0.5 k/uL (0-1.0); Monocytes % (A) 6 %; Neutrophils # (A) 6.5 k/uL (1.3-7.7); Neutrophils % (A) 81 %; Platelet Count 176 k/uL (150-450); RDW 21.8 % (11.5-15.5)
--- NOTE | 2018-04-10 22:15 | XR ---
EXAMINATION TYPE: XR chest 2V DATE OF EXAM: 04/10/2018 COMPARISON: 02/12/2018 HISTORY: Chest pain TECHNIQUE: Frontal and lateral views of the chest are obtained. FINDINGS: There are small linear density at the left lung base. There is coarsening of interstitial pulmonary markings. There is no heart failure. There is left axillary pacemaker with the lead tip in the right ventricle. Bony thorax is intact. IMPRESSION: Mild pulmonary fibrosis. No heart failure. No significant change compared to old exam.
[2018-04-10 22:26] VITALS: BP 105/61; PULSE 80
[2018-04-10 22:33] LABS: VBG PH 7.43 (7.31-7.41)
[2018-04-10 22:37] LABS: Appearance,Urine Clear (Clear); Bilirubin,Urine Negative (Negative); Blood,Urine Negative (Negative); Color,Urine Yellow; Glucose,Urine (UA) 1+ (Negative); Hyaline Casts,Urine 22 /lpf (0-2); Ketones,Urine Negative (Negative); Leukocyte Esterase,Urine Trace (Negative); Mucus,Urine Rare /hpf; Nitrite,Urine Negative (Negative); Protein,Urine Trace (Negative); RBC,Urine <1 /hpf (0-5); Specific Gravity,Urine 1.017 (1.001-1.035); WBC,Urine 1 /hpf (0-5)
[2018-04-10 22:48] LABS: Albumin 4.2 g/dL (3.5-5.0); Calcium 10.5 mg/dL (8.4-10.2); Magnesium 1.9 mg/dL (1.6-2.3); Potassium 5.3 mmol/L (3.5-5.1); Total Bilirubin 1.9 mg/dL (0.2-1.3); Total Protein 6.6 g/dL (6.3-8.2)
[2018-04-11 04:48] LABS: Bilirubin, Conjugated 0.2 mg/dL (0.0-0.3); Bilirubin, Delta 1.2 mg/dL (0.0-0.2); Bilirubin,Unconjugated 0.5 mg/dL (0.0-1.1)
== END 2018-04-11 00:10 | disposition home or self-care (01) ==
LOC: EC 21:02
DX: E11.65 Type 2 diabetes mellitus with hyperglycemia (principal); R74.0 Nonspecific elevation of levels of transaminase and lactic acid dehydrogenase [LDH]; L53.9 Erythematous condition, unspecified; G47.9 Sleep disorder, unspecified; I95.9 Hypotension, unspecified; E78.5 Hyperlipidemia, unspecified; I50.9 Heart failure, unspecified; J44.9 Chronic obstructive pulmonary disease, unspecified; K21.9 Gastro-esophageal reflux disease without esophagitis; M17.0 Bilateral primary osteoarthritis of knee; M19.071 Primary osteoarthritis, right ankle and foot; M19.072 Primary osteoarthritis, left ankle and foot; E07.9 Disorder of thyroid, unspecified; I25.2 Old myocardial infarction; Z87.891 Personal history of nicotine dependence; Z79.52 Long term (current) use of systemic steroids; Z79.82 Long term (current) use of aspirin; Z79.84 Long term (current) use of oral hypoglycemic drugs; Z79.899 Other long term (current) drug therapy; Z96.651 Presence of right artificial knee joint
CPT/HCPCS: 36415; 71046; 80053; 81001; 82248; 82803; 83735; 83880; 84484; 85025; 87077; 87086; 87186; 93005; 99285

== ENCOUNTER 2018-04-22 22:28 | Inpatient (IN) | payer MEDICARE, OTHER ==
[2018-04-22 22:35] LABS: Glucose,Whole Blood 209 mg/dL (75-99)
[2018-04-22] MEDS: SODIUM CHLORIDE 0.9% 1,000 ML IV STA ×3 (22:42→23:45)
[2018-04-22] MEDS ORDERED: DOPamine DRIP 800 MG in DEXTROSE/WATER 1 500ML.BAG IV ONE (22:45)
[2018-04-22 23:02] LABS: Anisocytosis Slight; Basophils % (A) 0 %; Eosinophils # (A) 0.1 k/uL (0-0.7); Eosinophils % (A) 1 %; HCT 45.1 % (39.0-53.0); HGB 13.7 gm/dL (13.0-17.5); Hypochromasia Moderate; Lymphocytes # (A) 2.1 k/uL (1.0-4.8); Lymphocytes % (A) 27 %; MCH 28.1 pg (25.0-35.0); MCHC 30.3 g/dL (31.0-37.0); MCV 92.6 fL (80.0-100.0); Mean Platelet Volume 7.5; Monocytes # (A) 0.6 k/uL (0-1.0); Monocytes % (A) 8 %; Neutrophils # (A) 4.7 k/uL (1.3-7.7); Neutrophils % (A) 62 %; Platelet Count 207 k/uL (150-450); RBC 4.87 m/uL (4.30-5.90); RDW 19.6 % (11.5-15.5); WBC 7.7 k/uL (3.8-10.6)
[2018-04-22 23:10] LABS: INR 1.4 (<1.2); Partial Thromboplastin Time 23.8 sec (22.0-30.0)
[2018-04-22] MEDS ORDERED: CALCIUM CHLORIDE 100 MG/ML 10 ML SYRINGE IVP STA (23:11)
[2018-04-22] MEDS ORDERED: ATROPINE SULFATE 0.1 MG/ML 10ML SYRINGE IV STA (23:11)
--- NOTE | 2018-04-22 23:12 | XR ---
EXAMINATION TYPE: XR chest 1V portable DATE OF EXAM: 04/22/2018 COMPARISON: 04/10/2018 HISTORY: Check tube placement TECHNIQUE: Single frontal view of the chest is obtained. FINDINGS: Endotracheal tube is almost 3 cm from the leatha. There is mild pulmonary congestion. Ther e is left axillary pacemaker with the lead tip in the right ventricle. There is nasogastric tube in g ood position. IMPRESSION: There is probably new mild heart failure compared to last exam.
[2018-04-22] MEDS: fentaNYL (PF) 50 MCG/ML 2 ML AMP IV STA ×2 (23:13→23:20)
[2018-04-22 23:14] LABS: Albumin 3.8 g/dL (3.5-5.0); Calcium 8.7 mg/dL (8.4-10.2); Magnesium 2.2 mg/dL (1.6-2.3)
[2018-04-22 23:19] LABS: ABG HCO3 14 mmol/L (21-25); ABG PCO2 36 mmHg (35-45); ABG PO2 394 mmHg (83-108); ABG TCO2 15 mmol/L (19-24)
[2018-04-22 23:21] LABS: Potassium 6.5 mmol/L (3.5-5.1)
[2018-04-22] MEDS: MIDAZOLAM 1 MG/ML 5 ML VIAL IV STA (23:26)
[2018-04-22 23:34] LABS: Creatine Kinase MB 1.8 ng/mL (0.0-2.4)
[2018-04-22 23:40] LABS: Troponin I 0.049 ng/mL (0.000-0.034)
[2018-04-22] MEDS ORDERED: NALOXONE 0.4 MG/ML 1 ML VIAL IV PRN (23:57)
[2018-04-23] MEDS ORDERED: INSULIN REGULAR 100 UNIT/ML VIAL IV ONE
[2018-04-23] MEDS ORDERED: DEXTROSE 50%-WATER 50 ML SYRINGE IVP STA (00:01)
[2018-04-23] MEDS ORDERED: SODIUM BICARB 8.4% 50 ML SYR (1 MEQ/ML) IV ONE (00:01)
--- NOTE | 2018-04-23 00:05 | ED ---
General Adult HPI - General Chief complaint: Altered Mental Status Stated complaint: unresponsive Time Seen by Provider: 04/22/18 22:34 Source: EMS Mode of arrival: EMS - History of Present Illness Initial comments: uLis is a 73-year-old male with past medical history listed below is brought to the ED today unresponsive. Per EMS they were contacted for generalized weakness , they found the patient sitting and appear distressed. They report that upon standing to attempt to put him on their stretcher he got near syncopal and became altered. When placed on monitor he was noted to be bradycardic with heart rates in the 30s and blood pressure measuring in the 60 systolic. IV access was obtained. He was aced on external pacing and given fentanyl and Versed. Upon arrival patient was minimally responsive with no gag reflex. The patient's girlfriend arrived at bedside. She states that the patient is been ill lately. He was evaluated here for diarrhea and weakness and discharged from the ER. He subsequently sought care at an outside hospital where he was admitted for a number of days. He was discharged home 2 days ago. He reports that throughout the day he began feeling weaker today and this evening he was feeling very weak and looked unwell. She didn't feel that she could help him to the bathroom so she called 911 for evaluation of his weakness. - Related Data Home Medications Medication Instructions Recorded Confirmed Aspirin EC [Ecotrin Low Dose] 81 mg PO DAILY 04/11/14 04/10/18 Atorvastatin [Lipitor] 20 mg PO HS 04/11/14 04/10/18 Ranitidine HCl 150 mg PO BID 04/11/14 04/10/18 Cholecalciferol [Vitamin D3] 6,000 unit PO DAILY 03/02/16 04/10/18 Multivitamin [Men's Multi-Vitamin] 1 tab PO DAILY 03/02/16 04/10/18 Acetaminophen Tab [Tylenol] 650 mg PO Q6H PRN 07/25/16 04/10/18 Furosemide 60 mg PO BID 01/30/17 04/10/18 Montelukast Sodium [Singulair] 10 mg PO HS 01/30/17 04/10/18 metFORMIN HCL 1,000 mg PO BID 01/30/17 04/10/18 predniSONE 10 mg PO DAILY 01/30/17 04/10/18 Levothyroxine Sodium 200 mcg PO DAILY 02/12/18 04/10/18 Metoprolol Tartrate [Lopressor] 12.5 mg PO BID 02/12/18 04/10/18 Midodrine [ProAmatine] 5 mg PO AC-BID 04/09/18 04/10/18 Sacubitril/Valsartan [Entresto 24 1 tab PO BID 04/09/18 04/10/18 mg-26 mg Tablet] Spironolactone 50 mg PO DAILY 04/09/18 04/10/18 Previous Rx's Medication Instructions Recorded Clopidogrel Bisulfate [Plavix] 75 mg PO DAILY #30 tab 03/30/16 Digoxin [Lanoxin] 125 mcg PO DAILY #0 tab 02/14/18 Ondansetron HCl [Zofran] 4 mg PO Q8HR PRN #14 tablet 04/10/18 Allergies Allergy/AdvReac Type Severity Reaction Status Date / Time No Known Allergies Allergy Verified 04/10/18 21:06 Review of Systems ROS Statement: Those systems with pertinent positive or pertinent negative responses have been documented in the HPI. ROS Other: All systems not noted in ROS Statement are negative. Limitations: ROS unobtainable due to patients medical condition Past Medical History Past Medical History: Asthma, Coronary Artery Disease (CAD), Chest Pain / Angina , Heart Failure, COPD, Diabetes Mellitus, GERD/Reflux, Hyperlipidemia, Myocardial Infarction ([place]), Osteoarthritis (OA), Respiratory Disorder, Skin Disorder, Syncope, Thyroid Disorder Additional Past Medical History / Comment(s): Cardiomyopathy, home O2/ concentrator use ATC, "blisters/redness on both my lower legs that are almost healed-took a year", bilateral lower leg edema, IDDM type II, thyroid dx-given radioactive iodine, arthritis bilateral knees/ankles, diverticulitis, polypectomy, 1 implant tooth (bottom), UTI, syncope with low blood sugar. Last Myocardial Infarction Date:: 03/08/16 History of Any Multi-Drug Resistant Organisms: None Reported Past Surgical History: AICD, Heart Catheterization With Stent Additional Past Surgical History / Comment(s): RT TKA, COLONOSCOPY/polypectomy, 03-08-16 PCI with stent to LAD and unable to stent CX, AICD PLACEMENT 07/25/2016 Past Anesthesia/Blood Transfusion Reactions: No Reported Reaction Date of Last Stent Placement:: 03/08/2016 Type of Cardiac Device: AICD Device Placement Date:: 07/25/2016 Past Psychological History: No Psychological Hx Reported Smoking Status: Former smoker Past Alcohol Use History: None Reported Past Drug Use History: None Reported - Past Family History Mother Family Medical History: Cancer, Congestive Heart Failure (CHF) Additional Family Medical History / Comment(s): FEMALE [place] Father Family Medical History: Cancer Additional Family Medical History / Comment(s): LYMPHOMA General Exam Limitations: altered mental status General appearance: in distress, other (Unresponsive) Head exam: Present: atraumatic, normocephalic Eye exam: Present: other (Pupils are pinpoint) ENT exam: Present: mucous membranes dry, other (No gag reflex) Respiratory exam: Present: other (Snoring respirations) Cardiovascular Exam: Present: bradycardia GI/Abdominal exam: Present: soft Rectal exam: Present: deferred exam: Present: normal inspection Extremities exam: Present: other (Delayed cap refill, moving all limbs spontaneously after started on dopamine) Neurological exam: Present: other Skin exam: Present: other (Mottled) Course Vital Signs 04/22/18 04/22/18 04/22/18 22:28 22:31 22:36 Temperature 96.9 F L Pulse Rate 41 L Pulse Rate [ Left Carotid] Respiratory 12 Rate Blood Pressure 79/49 79/49 82/50 O2 Sat by Pulse 97 Oximetry 04/22/18 04/22/18 04/22/18 22:41 22:48 22:50 Temperature Pulse Rate 67 Pulse Rate [ 40 L Left Carotid] Respiratory 12 16 Rate Blood Pressure 169/87 O2 Sat by Pulse 100 99 Oximetry 04/22/18 04/22/18 04/22/18 23:04 23:11 23:24 Temperature Pulse Rate 82 110 H Pulse Rate [ Left Carotid] Respiratory Rate Blood Pressure 105/58 101/57 103/57 O2 Sat by Pulse 100 100 Oximetry 04/22/18 04/22/18 04/23/18 23:34 23:54 00:00 Temperature Pulse Rate 105 H 75 Pulse Rate [ Left Carotid] Respiratory 12 16 Rate Blood Pressure 104/58 104/58 O2 Sat by Pulse 100 Oximetry 04/23/18 04/23/18 04/23/18 00:15 00:30 00:45 Temperature Pulse Rate 76 75 76 Pulse Rate [ Left Carotid] Respiratory 16 Rate Blood Pressure 107/56 105/58 105/58 O2 Sat by Pulse 99 100 100 Oximetry 04/23/18 04/23/18 04/23/18 00:54 00:56 01:10 Temperature Pulse Rate 116 H 113 H 97 Pulse Rate [ Left Carotid] Respiratory 16 16 Rate Blood Pressure 105/60 O2 Sat by Pulse Oximetry 04/23/18 01:18 Temperature Pulse Rate Pulse Rate [ Left Carotid] Respiratory Rate Blood Pressure 107/60 O2 Sat by Pulse Oximetry EKG Findings - EKG Comments: EKG Findings:: EKG obtained at 2230 reveals a wide complex bradycardia the rate of 40, there are no identified P waves, the QRS is prolonged at 220, QTC is prolonged at 531. EKG obtained at 05/03/1954 after treatment for hyperkalemia reveals a sinus rhythm with a first-degree AV block. Rate is 69, OK is 224, QRS is 154, QTC is 480. T wave depressions noted in V3 and V4. Procedures - Central Line Placement Right IJ Consent Obtained: verbal consent Time Out Performed: Yes Patient Placed on Monitor/Pulse Ox: Yes MD Prep: mask, gown, gloves Central Line Prep: Chlorhexidine scrub Local Anesthesia Used: Lidocaine 1% Amount of Anesthesia Used (mls): 3 Ultrasound Used for Placement: Yes Central Line Lumen Inserted: triple Bloods Obtained for Lab: Yes Central Line Position: good blood return, all ports aspirated, flushed, capped Dressing Applied: sterile gauze/tape Patient Tolerated Procedure: well Medical Decision Making - Medical Decision Making Patient arrived to the ER priority 1 medical Patient was evaluated immediately upon arrival. Patient was noted to be unresponsive, bradycardic, hypotensive Patient's bradycardia had no response to atropine Patient minimally responsive decision was made to intubate The patient was intubated and started on dopamine with improvement in his blood pressure and heart rate EKG and labs were obtained Initial EKG was concerning for hyperkalemia as it was a wide-complex bradycardia with multiple abnormalities Calcium gluconate was given Chest x-ray reveals likely congestive heart failure, tube in good place Labs consistent with multiple abnormalities including critical high hyperkalemia with a potassium of 6.5 additional treatment was ordered with insulin, D50, sodium bicarb Repeat EKG revealed normalization of the EKG sinus rhythm was noted Patient care was discussed with Dr. Manuel avila who requests that the patient be placed in ICU with a central line in place for the dopamine infusion Patient care was discussed with Dr. Cobian nephrology regional director who agrees with treatment thus far and recommends recommends a bicarb infusion Admission orders to the ICU were placed Patient's family arrived at bedside, his son who has paperwork proving he is the DPO a also has the patient's DNA R paperwork. EMS was not aware of the existence of these paperwork. Family history decided at this point because the patient is intubated they do want to pursue further aggressive treatment including a central line and agreed to continue the pressors Risks and benefits of central line were discussed with the family including the son and the son provided verbal and written consent for the central line Right IJ central line was placed The patient tolerated procedure well Dopamine was weaned down due to tachycardia - Lab Data Result diagrams: 04/22/18 22:32 04/22/18 22:32 Lab Results 04/22/18 04/22/18 04/22/18 Range/Units 22:32 22:32 22:32 WBC 7.7 (3.8-10.6) k/uL RBC 4.87 (4.30-5.90) m/uL Hgb 13.7 (13.0-17.5) gm/dL Hct 45.1 (39.0-53.0) % MCV 92.6 (80.0-100.0) fL MCH 28.1 (25.0-35.0) pg MCHC 30.3 L (31.0-37.0) g/dL RDW 19.6 H (11.5-15.5) % Plt Count 207 (150-450) k/uL Neutrophils % 62 % Lymphocytes % 27 % Monocytes % 8 % Eosinophils % 1 % Basophils % 0 % Neutrophils # 4.7 (1.3-7.7) k/uL Lymphocytes # 2.1 (1.0-4.8) k/uL Monocytes # 0.6 (0-1.0) k/uL Eosinophils # 0.1 (0-0.7) k/uL Basophils # 0.0 (0-0.2) k/uL Hypochromasia Moderate Anisocytosis Slight PT (9.0-12.0) sec INR (<1.2) APTT (22.0-30.0) sec Sample Site ABG pH (7.35-7.45) ABG pCO2 (35-45) mmHg ABG pO2 (83-108) mmHg ABG HCO3 (21-25) mmol/L ABG Total CO2 (19-24) mmol/L ABG O2 Saturation (94-97) % ABG Base Excess mmol/L Zaki Test FiO2 % Sodium 136 L (137-145) mmol/L Potassium 6.5 H* (3.5-5.1) mmol/L Chloride 109 H (98-107) mmol/L Carbon Dioxide 11 L (22-30) mmol/L Anion Gap 16 mmol/L BUN 25 H (9-20) mg/dL Creatinine 1.50 H (0.66-1.25) mg/dL Est GFR (CKD-EPI)AfAm 53 (>60 ml/min/1.73 sqM) Est GFR (CKD-EPI)NonAf 45 (>60 ml/min/1.73 sqM) Glucose 197 H (74-99) mg/dL POC Glucose (mg/dL) (75-99) mg/dL POC Glu Enologist ID Calcium 8.7 (8.4-10.2) mg/dL Magnesium 2.2 (1.6-2.3) mg/dL Total Bilirubin 2.0 H (0.2-1.3) mg/dL AST 81 H (17-59) U/L ALT 77 H (21-72) U/L Alkaline Phosphatase 713 H (38-126) U/L Total Creatine Kinase 73 (55-170) U/L CK-MB (CK-2) 1.8 (0.0-2.4) ng/mL CK-MB (CK-2) Rel Index 2.5 Troponin I 0.049 H* (0.000-0.034) ng/mL NT-Pro-B Natriuret Pep pg/mL Total Protein 6.0 L (6.3-8.2) g/dL Albumin 3.8 (3.5-5.0) g/dL Lipase 333 H (23-300) U/L Urine Color Urine Appearance (Clear) Urine pH (5.0-8.0) Ur Specific [place] (1.001-1.035) Urine Protein (Negative) Urine Glucose (UA) (Negative) Urine Ketones (Negative) Urine Blood (Negative) Urine Nitrite (Negative) Urine Bilirubin (Negative) Urine Urobilinogen (<2.0) mg/dL Ur Leukocyte Esterase (Negative) 04/22/18 04/22/18 04/22/18 Range/Units 22:32 22:32 22:33 WBC (3.8-10.6) k/uL RBC (4.30-5.90) m/uL Hgb (13.0-17.5) gm/dL Hct (39.0-53.0) % MCV (80.0-100.0) fL MCH (25.0-35.0) pg MCHC (31.0-37.0) g/dL RDW (11.5-15.5) % Plt Count (150-450) k/uL Neutrophils % % Lymphocytes % % Monocytes % % Eosinophils % % Basophils % % Neutrophils # (1.3-7.7) k/uL Lymphocytes # (1.0-4.8) k/uL Monocytes # (0-1.0) k/uL Eosinophils # (0-0.7) k/uL Basophils # (0-0.2) k/uL Hypochromasia Anisocytosis PT 13.0 H (9.0-12.0) sec INR 1.4 H (<1.2) APTT 23.8 (22.0-30.0) sec Sample Site ABG pH (7.35-7.45) ABG pCO2 (35-45) mmHg ABG pO2 (83-108) mmHg ABG HCO3 (21-25) mmol/L ABG Total CO2 (19-24) mmol/L ABG O2 Saturation (94-97) % ABG Base Excess mmol/L Zaki Test FiO2 % Sodium (137-145) mmol/L Potassium (3.5-5.1) mmol/L Chloride (98-107) mmol/L Carbon Dioxide (22-30) mmol/L Anion Gap mmol/L BUN (9-20) mg/dL Creatinine (0.66-1.25) mg/dL Est GFR (CKD-EPI)AfAm (>60 ml/min/1.73 sqM) Est GFR (CKD-EPI)NonAf (>60 ml/min/1.73 sqM) Glucose (74-99) mg/dL POC Glucose (mg/dL) 209 H (75-99) mg/dL POC Glu Enologist ID Kashif, Refugio Calcium (8.4-10.2) mg/dL Magnesium (1.6-2.3) mg/dL Total Bilirubin (0.2-1.3) mg/dL AST (17-59) U/L ALT (21-72) U/L Alkaline Phosphatase (38-126) U/L Total Creatine Kinase (55-170) U/L CK-MB (CK-2) (0.0-2.4) ng/mL CK-MB (CK-2) Rel Index Troponin I (0.000-0.034) ng/mL NT-Pro-B Natriuret Pep 34673 pg/mL Total Protein (6.3-8.2) g/dL Albumin (3.5-5.0) g/dL Lipase (23-300) U/L Urine Color Urine Appearance (Clear) Urine pH (5.0-8.0) Ur Specific [place] (1.001-1.035) Urine Protein (Negative) Urine Glucose (UA) (Negative) Urine Ketones (Negative) Urine Blood (Negative) Urine Nitrite (Negative) Urine Bilirubin (Negative) Urine Urobilinogen (<2.0) mg/dL Ur Leukocyte Esterase (Negative) 04/22/18 04/22/18 Range/Units 22:59 23:15 WBC (3.8-10.6) k/uL RBC (4.30-5.90) m/uL Hgb (13.0-17.5) gm/dL Hct (39.0-53.0) % MCV (80.0-100.0) fL MCH (25.0-35.0) pg MCHC (31.0-37.0) g/dL RDW (11.5-15.5) % Plt Count (150-450) k/uL Neutrophils % % Lymphocytes % % Monocytes % % Eosinophils % % Basophils % % Neutrophils # (1.3-7.7) k/uL Lymphocytes # (1.0-4.8) k/uL Monocytes # (0-1.0) k/uL Eosinophils # (0-0.7) k/uL Basophils # (0-0.2) k/uL Hypochromasia Anisocytosis PT (9.0-12.0) sec INR (<1.2) APTT (22.0-30.0) sec Sample Site rrad ABG pH 7.20 L* (7.35-7.45) ABG pCO2 36 (35-45) mmHg ABG pO2 394 H (83-108) mmHg ABG HCO3 14 L (21-25) mmol/L ABG Total CO2 15 L (19-24) mmol/L ABG O2 Saturation 100.0 H (94-97) % ABG Base Excess -14.0 mmol/L Zaki Test Yes FiO2 100 % Sodium (137-145) mmol/L Potassium (3.5-5.1) mmol/L Chloride (98-107) mmol/L Carbon Dioxide (22-30) mmol/L Anion Gap mmol/L BUN (9-20) mg/dL Creatinine (0.66-1.25) mg/dL Est GFR (CKD-EPI)AfAm (>60 ml/min/1.73 sqM) Est GFR (CKD-EPI)NonAf (>60 ml/min/1.73 sqM) Glucose (74-99) mg/dL POC Glucose (mg/dL) (75-99) mg/dL POC Glu Enologist ID Calcium (8.4-10.2) mg/dL Magnesium (1.6-2.3) mg/dL Total Bilirubin (0.2-1.3) mg/dL AST (17-59) U/L ALT (21-72) U/L Alkaline Phosphatase (38-126) U/L Total Creatine Kinase (55-170) U/L CK-MB (CK-2) (0.0-2.4) ng/mL CK-MB (CK-2) Rel Index Troponin I (0.000-0.034) ng/mL NT-Pro-B Natriuret Pep pg/mL Total Protein (6.3-8.2) g/dL Albumin (3.5-5.0) g/dL Lipase (23-300) U/L Urine Color Yellow Urine Appearance Clear (Clear) Urine pH 5.5 (5.0-8.0) Ur Specific [place] 1.012 (1.001-1.035) Urine Protein Trace H (Negative) Urine Glucose (UA) 3+ H (Negative) Urine Ketones Negative (Negative) Urine Blood Negative (Negative) Urine Nitrite Negative (Negative) Urine Bilirubin Negative (Negative) Urine Urobilinogen <2.0 (<2.0) mg/dL Ur Leukocyte Esterase Negative (Negative) Disposition Clinical Impression: Hyperkalemia, Arrhythmia, Symptomatic bradycardia, Unresponsive, Cardiogenic shock Disposition: ADMITTED IP TO THIS HOSP Condition: Critical Referrals: None,Stated [Primary Care Provider] - 1-2 days Decision Time: 01:31
[2018-04-23] MEDS ORDERED: fentaNYL (PF) 2,500 MCG in SODIUM CHLORIDE 0.9% 200 ML IV SCH (00:15)
[2018-04-23 00:16] LABS: Appearance,Urine Clear (Clear); Bilirubin,Urine Negative (Negative); Blood,Urine Negative (Negative); Color,Urine Yellow; Glucose,Urine (UA) 3+ (Negative); Ketones,Urine Negative (Negative); Leukocyte Esterase,Urine Negative (Negative); Nitrite,Urine Negative (Negative); PH, Urine 5.5 (5.0-8.0); Protein,Urine Trace (Negative); Specific Gravity,Urine 1.012 (1.001-1.035); Urobilinogen,Urine <2.0 mg/dL (<2.0)
[2018-04-23] MEDS: fentaNYL (PF) 50 MCG/ML 2 ML AMP IV STA (00:17)
[2018-04-23] MEDS: MIDAZOLAM 1 MG/ML 5 ML VIAL IV STA ×2 (00:56→02:00)
[2018-04-23] MEDS: DEXTROSE 5% IN WATER 1,000 ML with SODIUM BICARB (1 MEQ/ML) 150 ML IV SCH ×3 (01:17→23:51)
--- NOTE | 2018-04-23 01:32 | XR ---
EXAMINATION TYPE: XR chest 1V DATE OF EXAM: 04/23/2018 COMPARISON: 04/22/2018 HISTORY: Central line placement TECHNIQUE: Single frontal view of the chest is obtained. FINDINGS: There is coarse interstitial pulmonary edema. Endotracheal tube is 3.5 cm from the leatha in fairly good position. There is right jugular catheter with the tip over the right atrium. Nasogast alina tube appears in good position. There are chest leads. There is left axillary pacemaker with the l ead tip over the right ventricle. There is no pneumothorax. IMPRESSION: Pulmonary interstitial edema is slightly worse than exam 2 hours ago.
[2018-04-23] MEDS ORDERED: PROPOFOL 100 ML IV ONE (02:19)
[2018-04-23 02:24] LABS: Glucose,Whole Blood 113 mg/dL (75-99)
[2018-04-23] MEDS ORDERED: CALCIUM CHLORIDE 100 MG/ML 10 ML SYRINGE ONE (02:36)
[2018-04-23] MEDS ORDERED: SODIUM BICARB 8.4% 50 ML SYR (1 MEQ/ML) ONE (02:36)
[2018-04-23] MEDS: IPRATROPIUM-ALBUTEROL 3 ML NEB INHALATION SCH ×5 (03:29→20:17)
[2018-04-23] MEDS: PROPOFOL 1,000 MG in EMPTY BAG 1 BAG IV SCH ×2 (04:53→08:11)
[2018-04-23 04:56] LABS: Anisocytosis Slight; Basophils % (A) 0 %; Eosinophils % (A) 0 %; HCT 40.3 % (39.0-53.0); HGB 12.9 gm/dL (13.0-17.5); Lymphocytes # (A) 0.7 k/uL (1.0-4.8); Lymphocytes % (A) 9 %; MCH 28.6 pg (25.0-35.0); MCV 89.3 fL (80.0-100.0); Mean Platelet Volume 7.1; Microcytosis Slight; Monocytes # (A) 0.8 k/uL (0-1.0); Monocytes % (A) 9 %; Neutrophils # (A) 6.6 k/uL (1.3-7.7); Neutrophils % (A) 80 %; Platelet Count 193 k/uL (150-450); RBC 4.51 m/uL (4.30-5.90); RDW 19.6 % (11.5-15.5); WBC 8.2 k/uL (3.8-10.6)
[2018-04-23 05:06] LABS: Calcium 8.5 mg/dL (8.4-10.2); Magnesium 1.8 mg/dL (1.6-2.3); Phosphorus 3.1 mg/dL (2.5-4.5); Potassium 4.5 mmol/L (3.5-5.1)
[2018-04-23] MEDS ORDERED: Magnesium Replacement Protocol 1 EACH MISC MISCELLANE PRN (05:17)
[2018-04-23] MEDS: MAGNESIUM SULFATE-D5W PMX 1 GM in DEXTROSE/WATER 1 100ML.BAG IVPB SCH ×2 (05:30→07:33)
[2018-04-23 07:11] LABS: Glucose,Whole Blood 141 mg/dL (75-99)
--- NOTE | 2018-04-23 07:22 | XR ---
EXAMINATION TYPE: XR chest 1V DATE OF EXAM: 04/23/2018 COMPARISON: 04/23/2018 HISTORY: 73-year-old male intubated TECHNIQUE: Single frontal view of the chest is obtained. FINDINGS: ET tube is satisfactory. NG tube courses below the diaphragm. Right IJ CVC tip redemonstrated in the low right atrium. Left chest wall AICD generator with right ventricular lead. Improvement in the over all appearance of the interstitium. Heart upper limits of normal in size. Some minimal residual patch y bibasilar densities remain. No significant pleural effusion. IMPRESSION: 1. Interval improvement in the previous pulmonary vascular congestion. 2. Some minimal residual patchy atelectasis or edema in the lower lungs remain.
[2018-04-23 07:35] LABS: ABG Base Excess -4.7 mmol/L; ABG HCO3 20 mmol/L (21-25); ABG Oxygen Saturation 97.6 % (94-97); ABG PCO2 34 mmHg (35-45); ABG PH 7.39 (7.35-7.45); ABG PO2 92 mmHg (83-108); ABG TCO2 21 mmol/L (19-24)
[2018-04-23] MEDS: PANTOPRAZOLE 40 MG/10 ML VIAL IV SCH (08:01)
--- NOTE | 2018-04-23 08:20 | CONS ---
CONSULTATION Mr. Casillas is a 73-year-old male with known history of severe ischemic cardiomyopathy status post ICD implantation, history of diabetes mellitus, who presented to the emergency room yesterday with episode of unresponsiveness. In the emergency room, he had episode of bradycardia and hypotension and hypoxemia requiring intubation. He is intubated at this point. He has been followed by Dr. Adonay Aleman and has an ejection fraction 20 to 25%. No history could be obtained from the patient at this point. There is are no family members, but according to the notes of the emergency room, the patient has not been feeling well and has been admitted to a different hospital. The details of that are not available to me. He is on a low dose IV dopamine at this time. He is in sinus mechanism and he had episode of paced rhythm earlier. MEDICATION: On presentation included aspirin, digoxin, Plavix 75 mg daily, Lipitor 20 mg daily, midodrine, metoprolol tartrate 12.5 mg twice a day, levothyroxine 0.02 mg daily, prednisone, metformin, spironolactone, Entresto 24-26 mg daily, Singulair, furosemide. REVIEW OF SYSTEMS: Could not be obtained. PAST MEDICAL HISTORY: Past history is remarkable for the fact that the patient was in the hospital in January with hypoglycemia and weakness and was seen in the emergency room with diarrhea earlier this month. PHYSICAL EXAMINATION: He is a 73-year-old male, intubated. Blood pressure 96/60 with a heart rate in the 80s. HEAD: Normocephalic. Eyes: Sclerae anicteric. Neck: Good upstroke. There is an IJ catheter noted on the right side. LUNGS: Clear to auscultation anteriorly. HEART: Regular rate and rhythm S1, S2. No S3 with systolic murmur. No diastolic murmur. ABDOMEN: Soft. Positive bowel sounds. No organomegaly. EXTREMITIES: With erythema noted on the left side with chronic skin changes and trace to 1+ edema. LAB DATA: Lab data revealed a hemoglobin of 12.9, pH 7.2, pCO2 of 36, PO2 of 394. On presentation his BUN and creatinine 25 and 1.5. This morning 24 and 1.22. His troponin 0.049 and 0.054. NT proBNP 27,200. AST of 81, ALT of , lipase is 333. Chest x-ray is consistent with finding of congestive heart failure. EKG revealed an episode of paced rhythm and prior EKG reveals sinus mechanism with right bundle branch block, right axis deviation, and evidence to suggest anterior wall myocardial infarction. IMPRESSION: 1. Episode of unresponsiveness associated with worsening renal failure. Acute, improving. Could be related to dehydration. 2. Possible element of congestive heart failure in a patient with known history of severe cardiomyopathy. 3. Status post ICD implant. 4. History of coronary artery disease. 5. Respiratory failure. RECOMMENDATIONS: From the cardiac standpoint, we will continue supportive care at this time. The patient is being treated. He is receiving fluids at this time. I will cut down on the IV dopamine. Follow the renal function closely. I do not believe we are dealing with a primary ischemic event. I will try to obtain the report of his most recent admission. Depending on his progress, further recommendations will be made. Thank you for this consult. We will follow with you. CHRISTIN / CURRY: [id number] /
--- NOTE | 2018-04-23 08:23 | P.CNPUL ---
History of Present Illness Consult date: 04/23/18 Reason for consult: hypoxemia Chief complaint: Bradycardia, mental status changes, hyperkalemia, respiratory failure. History of present illness: Pulmonary consult dated 04/23/2018 73-year-old male with a history of asthma CAD chest pain angina heart failure COPD and diabetes GERD hyperlipidemia myocardial infarction DJD syncope cardiomyopathy hypothyroidism AICD placement heart catheterization with stent and multiple other medical problems. The patient apparently presented to the emergency department with mental status changes. EMS were initially called because of weakness. The patient apparently appeared to be distressed. He apparently had some additional mental status changes and was found to be bradycardic with a heart rate in the 30s and a blood pressure in the 60s when he was connected to the monitor. He was connected to external pacing and given some sedation. He apparently was intubated shortly thereafter for airway protection. He apparently was recently seen in the emergency room but not admitted to the hospital for diarrhea and weakness. Currently, the patient is on the volume assist control mode with a rate of 16, tidal volume 450, FiO2 of 50%, PEEP of 5. On those same settings, except 100%, PaO2 was 394 PaCO2 36 and pH is 7.20. Arterial blood gases this morning show a mixed acid-base disturbance with a mild respiratory alkalosis and mild metabolic acidosis. PaO2 is 92 pCO2 is 34 pH is 7.39. The patient remains on dopamine at 5 mics per kilogram per minute. A fentanyl drip at 10 mics per minute which I asked the nurses to turn off, propofol at 55 mics per kilogram per minute which I asked the nurses to wean, and dextrose IV with 1 amp of sodium bicarb at 100 mL an hour. I did ask the nurses to stop the propofol and do a daily eruption of sedation. Review of Systems ROS unobtainable: due to endotracheal tube Past Medical History Past Medical History: Asthma, Coronary Artery Disease (CAD), Chest Pain / Angina , Heart Failure, COPD, Diabetes Mellitus, GERD/Reflux, Hyperlipidemia, Myocardial Infarction ([place]), Osteoarthritis (OA), Respiratory Disorder, Skin Disorder, Syncope, Thyroid Disorder Additional Past Medical History / Comment(s): Cardiomyopathy, home O2/ concentrator use ATC, "blisters/redness on both my lower legs that are almost healed-took a year", bilateral lower leg edema, IDDM type II, thyroid dx-given radioactive iodine, arthritis bilateral knees/ankles, diverticulitis, polypectomy, 1 implant tooth (bottom), UTI, syncope with low blood sugar. Last Myocardial Infarction Date:: 03/08/16 History of Any Multi-Drug Resistant Organisms: None Reported Past Surgical History: AICD, Heart Catheterization With Stent Additional Past Surgical History / Comment(s): RT TKA, COLONOSCOPY/polypectomy, 03-08-16 PCI with stent to LAD and unable to stent CX, AICD PLACEMENT 07/25/2016 Past Anesthesia/Blood Transfusion Reactions: No Reported Reaction Date of Last Stent Placement:: 03/08/2016 Type of Cardiac Device: AICD Device Placement Date:: 07/25/2016 Past Psychological History: No Psychological Hx Reported Additional Psychological History / Comment(s): Pt resides with his significant other. He is independent. He lives in a single story home. He drives. He has a concentrator that he wears ATC. No home care. He owns a cane and a walker. He has a glucometer. Smoking Status: Former smoker Past Alcohol Use History: None Reported Additional Past Alcohol Use History / Comment(s): Pt started smoking in 1961 and quit in 1996-he was a 3 ppd smoker. Past Drug Use History: None Reported Additional Drug Use History / Comment(s): Pt has not drank alcohol since 1996. - Past Family History Mother Family Medical History: Cancer, Congestive Heart Failure (CHF) Additional Family Medical History / Comment(s): FEMALE CA Father Family Medical History: Cancer Additional Family Medical History / Comment(s): LYMPHOMA Medications and Allergies Home Medications Medication Instructions Recorded Confirmed Type Aspirin EC [Ecotrin Low Dose] 81 mg PO DAILY 04/11/14 04/23/18 History Atorvastatin [Lipitor] 20 mg PO HS 04/11/14 04/23/18 History Ranitidine HCl 150 mg PO BID 04/11/14 04/10/18 History Cholecalciferol [Vitamin D3] 6,000 unit PO DAILY 03/02/16 04/10/18 History Multivitamin [Men's Multi-Vitamin] 1 tab PO DAILY 03/02/16 04/10/18 History Clopidogrel Bisulfate [Plavix] 75 mg PO DAILY #30 tab 03/30/16 04/23/18 Rx Acetaminophen Tab [Tylenol] 650 mg PO Q6H PRN 07/25/16 04/10/18 History Furosemide 60 mg PO BID 01/30/17 04/10/18 History Montelukast Sodium [Singulair] 10 mg PO HS 01/30/17 04/10/18 History metFORMIN HCL BID 01/30/17 04/10/18 History predniSONE 10 mg PO DAILY 01/30/17 04/23/18 History Levothyroxine Sodium 200 mcg PO DAILY 02/12/18 04/23/18 History Metoprolol Tartrate [Lopressor] 12.5 mg PO BID 02/12/18 04/23/18 History Digoxin [Lanoxin] 125 mcg PO DAILY #0 tab 02/14/18 04/23/18 Rx Midodrine [ProAmatine] 5 mg PO AC-BID 04/09/18 04/23/18 History Sacubitril/Valsartan [Entresto 24 1 tab PO BID 04/09/18 04/10/18 History mg-26 mg Tablet] Spironolactone 50 mg PO DAILY 04/09/18 04/10/18 History Ondansetron HCl [Zofran] 4 mg PO Q8HR PRN #14 tablet 04/10/18 04/10/18 Rx Allergies Allergy/AdvReac Type Severity Reaction Status Date / Time No Known Allergies Allergy Verified 04/10/18 21:06 Physical Exam Osteopathic Statement: *. No significant issues noted on an osteopathic structural exam other than those noted in the History and Physical/Consult. Vitals: Vital Signs Temp Pulse Pulse Resp BP Pulse Ox 04/23/18 08:00 80 16 82/55 96 04/23/18 07:52 81 04/23/18 07:40 82 04/23/18 07:30 83 16 85/57 96 04/23/18 07:00 82 16 96/63 96 04/23/18 06:30 80 16 97/63 97 04/23/18 06:00 81 16 100/65 97 04/23/18 05:30 81 16 106/67 97 04/23/18 05:00 83 16 108/67 98 04/23/18 04:30 82 16 112/70 98 04/23/18 04:00 96.7 F L 82 16 113/69 99 04/23/18 03:47 82 04/23/18 03:30 80 16 105/65 98 04/23/18 03:28 80 04/23/18 03:00 80 16 109/66 99 04/23/18 02:32 87 16 115/67 04/23/18 02:31 89 16 105/64 04/23/18 02:30 96.2 F L 80 16 111/57 98 04/23/18 02:07 120/70 04/23/18 01:30 88 16 107/61 04/23/18 01:18 107/60 04/23/18 01:10 97 16 04/23/18 00:56 113 H 16 105/60 04/23/18 00:54 116 H 04/23/18 00:45 76 16 105/58 100 04/23/18 00:30 75 105/58 100 04/23/18 00:15 76 107/56 99 04/23/18 00:00 75 16 104/58 04/22/18 23:54 12 04/22/18 23:34 105 H 104/58 100 04/22/18 23:24 110 H 103/57 100 04/22/18 23:11 82 101/57 100 04/22/18 23:04 105/58 04/22/18 22:50 67 16 169/87 99 04/22/18 22:48 40 L 12 04/22/18 22:41 100 04/22/18 22:36 82/50 04/22/18 22:31 79/49 04/22/18 22:28 96.9 F L 41 L 12 79/49 97 Intake and Output 04/22/18 04/23/18 04/23/18 22:59 06:59 14:59 Intake Total 596.498 275.361 Output Total 725 300 Balance -128.502 -24.639 Intake: IV 500 200 Dextrose 5% in Water 1, 500 200 000 ml @ 100 mls/hr IV . [id number] EFREM with Sodium Bicarb (1 Meq/ml) 150 ml Rx#:[id number] Intake, IV Titration 96.498 75.361 Amount DOPamine DRIP 800 mg In 78.750 Dextrose/Water 1 500ml. bag @ 10 MCG/KG/MIN 37.5 mls/hr IV .[id number] ONE Rx #:[id number] Propofol 1,000 mg In 17.748 75.361 Empty Bag 1 bag @ Titrate IV .Q0M EFREM Rx#: [id number] Output: Urine 725 300 Other: Voiding Method Indwelling Catheter Indwelling Catheter Weight 100.244 kg 98.6 kg No acute distress, sedated, with an orally placed endotracheal tube. HEENT examination is grossly unremarkable. Mucous membranes are moist. Neck supple. Full range of motion. No adenopathy thyromegaly or neck vein distention. Cardiovascular examination reveals regular rhythm rate. S1-S2 normal. No S3 or S4. No discernible murmur noted. Heart sounds are distant. Lungs reveal coarse bilateral rhonchi. Breath sounds equal bilaterally. No wheezes. A few scattered crackles are appreciated. Abdomen soft bowel sounds are heard. No masses or tenderness. Extremities are intact. No cyanosis clubbing or edema. Skin is without rash or lesion. Neurologic examination cannot be adequately assessed because of the patient's sedation. Results - Laboratory Findings CBC and BMP: 04/23/18 04:30 04/23/18 04:30 ABG ABG pH 7.20 (7.35-7.45) L* 04/22/18 23:15 ABG pCO2 36 mmHg (35-45) 04/22/18 23:15 ABG pO2 394 mmHg (83-108) H 04/22/18 23:15 ABG O2 Saturation 100.0 % (94-97) H 04/22/18 23:15 PT/INR, D-dimer PT 13.0 sec (9.0-12.0) H 04/22/18 22:32 INR 1.4 (<1.2) H 04/22/18 22:32 Abnormal lab findings: Abnormal Labs 04/22/18 04/22/18 04/22/18 22:32 22:32 22:32 Hgb MCHC 30.3 L RDW 19.6 H Lymphocytes # PT INR ABG pH ABG pO2 ABG HCO3 ABG Total CO2 ABG O2 Saturation Sodium 136 L Potassium 6.5 H* Chloride 109 H Carbon Dioxide 11 L BUN 25 H Creatinine 1.50 H Glucose 197 H POC Glucose (mg/dL) Total Bilirubin 2.0 H AST 81 H ALT 77 H Alkaline Phosphatase 713 H Troponin I 0.049 H* Total Protein 6.0 L Lipase 333 H Urine Protein Urine Glucose (UA) 04/22/18 04/22/18 04/22/18 22:32 22:33 22:59 Hgb MCHC RDW Lymphocytes # PT 13.0 H INR 1.4 H ABG pH ABG pO2 ABG HCO3 ABG Total CO2 ABG O2 Saturation Sodium Potassium Chloride Carbon Dioxide BUN Creatinine Glucose POC Glucose (mg/dL) 209 H Total Bilirubin AST ALT Alkaline Phosphatase Troponin I Total Protein Lipase Urine Protein Trace H Urine Glucose (UA) 3+ H 04/22/18 04/23/18 04/23/18 23:15 02:22 04:30 Hgb 12.9 L MCHC RDW 19.6 H Lymphocytes # 0.7 L PT INR ABG pH 7.20 L* ABG pO2 394 H ABG HCO3 14 L ABG Total CO2 15 L ABG O2 Saturation 100.0 H Sodium Potassium Chloride Carbon Dioxide BUN Creatinine Glucose POC Glucose (mg/dL) 113 H Total Bilirubin AST ALT Alkaline Phosphatase Troponin I Total Protein Lipase Urine Protein Urine Glucose (UA) 04/23/18 04/23/18 04/23/18 04:30 04:30 07:10 Hgb MCHC RDW Lymphocytes # PT INR ABG pH ABG pO2 ABG HCO3 ABG Total CO2 ABG O2 Saturation Sodium Potassium Chloride 110 H Carbon Dioxide 20 L BUN 24 H Creatinine Glucose 131 H POC Glucose (mg/dL) 141 H Total Bilirubin AST ALT Alkaline Phosphatase Troponin I 0.054 H* Total Protein Lipase Urine Protein Urine Glucose (UA) - Diagnostic Findings Chest x-ray: report reviewed, image reviewed (Chest x-ray labs and medications are all reviewed.) Assessment and Plan Assessment: Assessment Acute respiratory failure with hypoxemia Bradycardia with hypotension Mental status changes of unclear etiology Profound weakness History of COPD History of CAD with previous stent placement History of CHF Diabetes mellitus Gastroesophageal reflux disease Hyperlipidemia Previous myocardial infarction History of syncope Hypothyroidism Status post AICD. Plan: Plan dated 04/23/2018 The patient's fentanyl will be discontinued. We'll wean him off the propofol and do a daily eruption of sedation. Repeat arterial blood gases are excellent with a PaO2 of 92 PaCO2 34 and a pH of 7.39. We'll await cardiology input as it relates to the bradycardia. White count 8.2, hemoglobin 12.9, hematocrit 40.3 and platelet count 193,000. Sodium and potassium are normal. Cholesterol was 110 with a CO2 of 20. BUN/creatinine were 24 and 1.22 troponin was 0.054. Microbiology is all negative. Chest x-ray shows improvement in the patient's volume status with improved aeration and less pulmonary vascular congestion. Current medications are appropriate. Critical care time 35 minutes Time with Patient: Greater than 30
[2018-04-23] MEDS ORDERED: CHLORHEXIDINE GLUCONATE 15 ML CUP MUCOUS MEM SCH (09:00)
--- NOTE | 2018-04-23 09:55 | P.NPCON ---
History of Present Illness - Reason for Consult acute renal failure - History of Present Illness Reason for consultation: Acute kidney injury History of present illness: Patient is a 73-year-old male seen in consultation for acute kidney injury. Patient has chronic kidney disease stage III with baseline creatinine in the range of 1.1-1.4. Creatinine was elevated at 1.5 this admission and is down to 1.22 today. Patient was extremely acidotic with a bicarb level of 11 and hyperkalemic with a potassium level of 6.5. Hyperkalemia was medically treated and is currently maintained on a bicarb drip running at 100 mL an hour. Potassium is 4.5 and bicarb level is up to 20 this morning. Patient presented due to syncope. Patient was apparently paced by the EMS. His heart rate was in the 30s and systolic blood pressure was in the 60s. He is currently maintained on 5 mics of dopamine. Blood pressure is still on the lower side. Heart rate is in the 80s. He is nonoliguric. Patient was extubated this morning. Vital signs are stable. Currently on dopamine. General: The patient appeared well nourished and normally developed. HEENT: Head exam is unremarkable. Neck is without jugular venous distension. LUNGS: Lungs are clear to auscultation and percussion. Breath sounds decreased. HEART: Rate and Rhythm are regular. First and second heart sounds normal. No murmurs, rubs or gallops. ABDOMEN: Abdominal exam reveals normal bowel sounds. Non-tender and non- distended. No evidence of peritonitis. EXTREMITITES: No clubbing, cyanosis, or edema. Past Medical History Past Medical History: Asthma, Coronary Artery Disease (CAD), Chest Pain / Angina , Heart Failure, COPD, Diabetes Mellitus, GERD/Reflux, Hyperlipidemia, Myocardial Infarction ([place]), Osteoarthritis (OA), Respiratory Disorder, Skin Disorder, Syncope, Thyroid Disorder Additional Past Medical History / Comment(s): Cardiomyopathy, home O2/ concentrator use ATC, "blisters/redness on both my lower legs that are almost healed-took a year", bilateral lower leg edema, IDDM type II, thyroid dx-given radioactive iodine, arthritis bilateral knees/ankles, diverticulitis, polypectomy, 1 implant tooth (bottom), UTI, syncope with low blood sugar. Last Myocardial Infarction Date:: 03/08/16 History of Any Multi-Drug Resistant Organisms: None Reported Past Surgical History: AICD, Heart Catheterization With Stent Additional Past Surgical History / Comment(s): RT TKA, COLONOSCOPY/polypectomy, 6--16 PCI with stent to LAD and unable to stent CX, AICD PLACEMENT 07/25/2016 Past Anesthesia/Blood Transfusion Reactions: No Reported Reaction Date of Last Stent Placement:: 03/08/2016 Type of Cardiac Device: AICD Device Placement Date:: 07/25/2016 Past Psychological History: No Psychological Hx Reported Additional Psychological History / Comment(s): Pt resides with his significant other. He is independent. He lives in a single story home. He drives. He has a concentrator that he wears ATC. No home care. He owns a cane and a walker. He has a glucometer. Smoking Status: Former smoker Past Alcohol Use History: None Reported Additional Past Alcohol Use History / Comment(s): Pt started smoking in 1961 and quit in 1996-he was a 3 ppd smoker. Past Drug Use History: None Reported Additional Drug Use History / Comment(s): Pt has not drank alcohol since 1996. - Past Family History Mother Family Medical History: Cancer, Congestive Heart Failure (CHF) Additional Family Medical History / Comment(s): FEMALE [place] Father Family Medical History: Cancer Additional Family Medical History / Comment(s): LYMPHOMA Medications and Allergies Home Medications Medication Instructions Recorded Confirmed Type Aspirin EC [Ecotrin Low Dose] 81 mg PO DAILY 04/11/14 04/23/18 History Atorvastatin [Lipitor] 20 mg PO HS 04/11/14 04/23/18 History Ranitidine HCl 150 mg PO BID 04/11/14 04/10/18 History Cholecalciferol [Vitamin D3] 6,000 unit PO DAILY 03/02/16 04/10/18 History Multivitamin [Men's Multi-Vitamin] 1 tab PO DAILY 03/02/16 04/10/18 History Clopidogrel Bisulfate [Plavix] 75 mg PO DAILY #30 tab 03/30/16 04/23/18 Rx Acetaminophen Tab [Tylenol] 650 mg PO Q6H PRN 07/25/16 04/10/18 History Furosemide 60 mg PO BID 01/30/17 04/10/18 History Montelukast Sodium [Singulair] 10 mg PO HS 01/30/17 04/10/18 History metFORMIN HCL BID 01/30/17 04/10/18 History predniSONE 10 mg PO DAILY 01/30/17 04/23/18 History Levothyroxine Sodium 200 mcg PO DAILY 02/12/18 04/23/18 History Metoprolol Tartrate [Lopressor] 12.5 mg PO BID 02/12/18 04/23/18 History Digoxin [Lanoxin] 125 mcg PO DAILY #0 tab 02/14/18 04/23/18 Rx Midodrine [ProAmatine] 5 mg PO AC-BID 04/09/18 04/23/18 History Sacubitril/Valsartan [Entresto 24 1 tab PO BID 04/09/18 04/10/18 History mg-26 mg Tablet] Spironolactone 50 mg PO DAILY 04/09/18 04/10/18 History Ondansetron HCl [Zofran] 4 mg PO Q8HR PRN #14 tablet 04/10/18 04/10/18 Rx Allergies Allergy/AdvReac Type Severity Reaction Status Date / Time No Known Allergies Allergy Verified 04/10/18 21:06 Physical Exam Vitals: Vital Signs Temp Pulse Pulse Resp BP Pulse Ox 04/23/18 08:00 97.7 F 80 16 82/55 96 04/23/18 07:52 81 04/23/18 07:40 82 04/23/18 07:30 83 16 85/57 96 04/23/18 07:00 82 16 96/63 96 04/23/18 06:30 80 16 97/63 97 04/23/18 06:00 81 16 100/65 97 04/23/18 05:30 81 16 106/67 97 04/23/18 05:00 83 16 108/67 98 04/23/18 04:30 82 16 112/70 98 04/23/18 04:00 96.7 F L 82 16 113/69 99 04/23/18 03:47 82 04/23/18 03:30 80 16 105/65 98 04/23/18 03:28 80 04/23/18 03:00 80 16 109/66 99 04/23/18 02:32 87 16 115/67 04/23/18 02:31 89 16 105/64 04/23/18 02:30 96.2 F L 80 16 111/57 98 07/23/18 02:07 120/70 04/23/18 01:30 88 16 107/61 04/23/18 01:18 107/60 04/23/18 01:10 97 16 04/23/18 00:56 113 H 16 105/60 04/23/18 00:54 116 H 04/23/18 00:45 76 16 105/58 100 04/23/18 00:30 75 105/58 100 04/23/18 00:15 76 107/56 99 04/23/18 00:00 75 16 104/58 04/22/18 23:54 12 04/22/18 23:34 105 H 104/58 100 04/22/18 23:24 110 H 103/57 100 04/22/18 23:11 82 101/57 100 04/22/18 23:04 105/58 04/22/18 22:50 67 16 169/87 99 04/22/18 22:48 40 L 12 04/22/18 22:41 100 04/22/18 22:36 82/50 04/22/18 22:31 79/49 04/22/18 22:28 96.9 F L 41 L 12 79/49 97 Intake and Output 04/22/18 04/23/18 04/23/18 22:59 06:59 14:59 Intake Total 596.498 299.455 Output Total 725 300 Balance -128.502 -0.545 Intake: IV 500 200 Dextrose 5% in Water 1, 500 200 000 ml @ 100 mls/hr IV . [id number] EFREM with Sodium Bicarb (1 Meq/ml) 150 ml Rx#:[id number] Intake, IV Titration 96.498 99.455 Amount DOPamine DRIP 800 mg In 78.750 Dextrose/Water 1 500ml. bag @ 10 MCG/KG/MIN 37.5 mls/hr IV .[id number] ONE Rx #:[id number] Propofol 1,000 mg In 17.748 99.455 Empty Bag 1 bag @ Titrate IV .Q0M EFREM Rx#: [id number] Output: Urine 725 300 Other: Voiding Method Indwelling Catheter Indwelling Catheter Weight 100.244 kg 98.6 kg Results - Lab Results Most recent lab results ABG pH 7.39 (7.35-7.45) 04/23/18 07:26 ABG pCO2 34 mmHg (35-45) L 04/23/18 07:26 ABG pO2 92 mmHg (83-108) 04/23/18 07:26 ABG HCO3 20 mmol/L (21-25) L 04/23/18 07:26 ABG O2 Saturation 97.6 % (94-97) H 04/23/18 07:26 Calcium 8.5 mg/dL (8.4-10.2) 04/23/18 04:30 Phosphorus 3.1 mg/dL (2.5-4.5) 04/23/18 04:30 Magnesium 1.8 mg/dL (1.6-2.3) 04/23/18 04:30 04/23/18 04:30 04/23/18 04:30 Assessment and Plan Plan: Assessment: 1. Nonoliguric acute kidney injury mostly prerenal secondary to hypotension and bradycardia. Creatinine was 1.5 on admission and is down to 1.22 today. 2. Chronic kidney disease stage III with baseline creatinine in the range of 1.1-1.4 secondary to nephrosclerosis and cardiorenal syndrome. 3. Bradycardia maintained on IV dopamine. Cardiology following. 4. Systolic CHF with ejection fraction of 20-25%. 5. Hyperkalemia secondary to acute kidney injury and metabolic acidosis. Improved with medical management. 6. Metabolic acidosis secondary to acute kidney injury maintained on bicarb drip. Improving. Plan: Continue isotonic sodium bicarbonate drip to be run at 100 mL an hour for the next 24 hours. Avoid nephrotoxic agents and hypotensive episodes. Wean dopamine. Continue to monitor renal function and urine output closely. Repeat electrolytes in the morning. Thank you for the consultation. I will continue to follow the patient with you during his hospital stay.
[2018-04-23 12:07] LABS: Glucose,Whole Blood 132 mg/dL (75-99)
[2018-04-23 12:09] LABS: Hemoglobin A1C 9.9 % (4.0-6.0)
[2018-04-23] MEDS: MIDODRINE 5 MG TAB PO SCH ×2 (12:45→17:21)
[2018-04-23] MEDS ORDERED: DOPamine DRIP 800 MG in DEXTROSE/WATER 1 500ML.BAG IV SCH (14:00)
[2018-04-23] MEDS: methylPREDNISolone SOD SUCCI 40 MG/ML 1 ML VIAL IV SCH ×2 (15:23→23:51)
[2018-04-23 17:32] LABS: Glucose,Whole Blood 175 mg/dL (75-99)
[2018-04-23] MEDS: CLOPIDOGREL 75 MG TAB PO SCH (18:12)
[2018-04-23] MEDS: LEVOFLOXACIN 250 MG TAB PO SCH (18:12)
[2018-04-23 21:03] LABS: Glucose,Whole Blood 279 mg/dL (75-99)
[2018-04-23] MEDS: INSULIN ASPART 100 UNIT/ML 1 ML 10 ML VIAL SQ SCH (21:26)
[2018-04-23] MEDS ORDERED: IPRATROPIUM-ALBUTEROL 3 ML NEB INHALATION PRN (22:56)
[2018-04-23] MEDS: ASPIRIN 81 MG PO SCH (23:51)
--- NOTE | 2018-04-24 00:22 | HP ---
HISTORY AND PHYSICAL CHIEF COMPLAINT: A 73-year-old white male with severe ischemic cardiomyopathy status post ICD implantation, diabetes mellitus, came with unresponsive, hypotension, bradycardia, required intubation. He is not intubated at this point. He is up talking in bed. He is on 20 to 25% ejection fraction. He was started on IV dopamine to keep his blood pressure up. MEDICATIONS: Please see old chart. FAMILY HISTORY: See old chart. PAST MEDICAL HISTORY: Insulin-dependent diabetes mellitus, systolic CHF, end stage COPD, dyslipidemia, diabetes mellitus. REVIEW OF SYSTEMS: Fourteen point review of systems negative except for fatigue and weakness as mentioned above. PHYSICAL EXAMINATION: VITAL SIGNS: Blood pressure is 90s over 60s. Heart rate in 80s. GENERAL: A 73-year- old white male giving appropriate answers. Lungs S1, S2. Rales at the bases. HEENT: Normocephalic, atraumatic. Integument looks dry. Poor skin turgor. ABGs were reviewed, CHF, BNP 27,200. Troponin 0.049 and 0.054. BUN is 25, creatinine 1.5. EKG sinus rhythm, right bundle branch block. ASSESSMENT: 1. Possibly dehydration causing worsening renal failure, which is improving. 2. Congestive heart failure, systolic with cardiomyopathy, AICD. 3. Chronic obstructive pulmonary disease. 4. End-stage coronary artery disease. 5. Respiratory failure. Monitor renal functions, rehydrate, give multiple consults for recommendations. ICU note 60 minutes. [email or web address] / IJN: [id number] /
[2018-04-24 04:41] LABS: Anisocytosis Slight; Basophils % (A) 0 %; Eosinophils % (A) 0 %; HGB 12.2 gm/dL (13.0-17.5); Lymphocytes # (A) 0.2 k/uL (1.0-4.8); Lymphocytes % (A) 5 %; MCH 27.7 pg (25.0-35.0); MCHC 31.3 g/dL (31.0-37.0); MCV 88.3 fL (80.0-100.0); Mean Platelet Volume 7.4; Microcytosis Slight; Monocytes # (A) 0.1 k/uL (0-1.0); Monocytes % (A) 3 %; Neutrophils % (A) 92 %; Platelet Count 182 k/uL (150-450); RBC 4.42 m/uL (4.30-5.90); RDW 19.9 % (11.5-15.5); WBC 4.3 k/uL (3.8-10.6)
[2018-04-24 04:56] LABS: ALT 83 U/L (21-72); AST 66 U/L (17-59); Albumin 3.2 g/dL (3.5-5.0); Alkaline Phosphatase 713 U/L (38-126); Anion Gap 8 mmol/L; Blood Urea Nitrogen 20 mg/dL (9-20); Calcium 8.2 mg/dL (8.4-10.2); Carbon Dioxide 24 mmol/L (22-30); Chloride 104 mmol/L (98-107); Glucose 257 mg/dL (74-99); Phosphorus 2.6 mg/dL (2.5-4.5); Potassium 4.8 mmol/L (3.5-5.1); Sodium 136 mmol/L (137-145); Total Bilirubin 1.4 mg/dL (0.2-1.3); Total Protein 5.2 g/dL (6.3-8.2)
[2018-04-24 05:50] LABS: Glucose,Whole Blood 264 mg/dL (75-99)
[2018-04-24] MEDS ORDERED: NOREPINEPHRINE 16 MG in DEXTROSE 5% IN WATER 250 ML IV SCH ×2 (06:15)
[2018-04-24] MEDS: LEVOTHYROXINE 100 MCG TAB PO SCH (06:40)
[2018-04-24] MEDS: IPRATROPIUM-ALBUTEROL 3 ML NEB INHALATION SCH ×4 (07:22→19:29)
[2018-04-24] MEDS: INSULIN ASPART 100 UNIT/ML 1 ML 10 ML VIAL SQ SCH ×4 (08:29→20:07)
[2018-04-24] MEDS: methylPREDNISolone SOD SUCCI 40 MG/ML 1 ML VIAL IV SCH (08:31)
[2018-04-24] MEDS: CLOPIDOGREL 75 MG TAB PO SCH (08:31)
[2018-04-24] MEDS: ASPIRIN 81 MG PO SCH (08:31)
[2018-04-24] MEDS: MIDODRINE 5 MG TAB PO SCH ×2 (08:31→17:16)
[2018-04-24] MEDS: MULTIVITAMINS, THERA 1 EACH TAB PO SCH (08:31)
[2018-04-24] MEDS: LEVOFLOXACIN 250 MG TAB PO SCH (08:32)
[2018-04-24] MEDS: FAMOTIDINE 20 MG TAB PO SCH ×2 (08:32→20:04)
[2018-04-24] MEDS: DIGOXIN 125 MCG TAB PO SCH (08:32)
[2018-04-24] MEDS: PANTOPRAZOLE 40 MG/10 ML VIAL IV SCH (08:32)
--- NOTE | 2018-04-24 08:41 | P.PN ---
Subjective Progress Note Date: 04/24/18 Principal diagnosis: Respiratory failure Progress note dated 04/24/2018 72-year-old male with a history of asthma, CAD, chest pain, heart failure, COPD , diabetes, GERD, hyperlipidemia, myocardial infarction, DJD, syncope, cardiomyopathy, hypothyroidism, AICD placement, heart cath with stent, and multiple other medical problems. The patient was seen yesterday in consultation. The patient was on the ventilator yesterday and he was successfully extubated. His weaning parameters and cuff leak were excellent. He had excellent blood gases. Currently he is sitting up at the bedside. He is eating breakfast. He is on O2 at 6 L. He is getting an IV with D5W with 1 amp of sodium bicarbonate at 100 mL an hour. He was initially on dopamine for bradycardia. He became tachycardic and it was turned off. He was started on norepinephrine for blood pressure support. We will see for can wean the norepinephrine this morning. Other than that, the patient is doing reasonably well. He feels well. He likely can be transferred out to [address] [place] [address] today. Objective - Vital Signs Vital signs: Vital Signs Temp 98.3 F 04/24/18 04:00 Pulse 92 04/24/18 07:37 Resp 17 04/24/18 06:00 BP 113/70 04/24/18 06:00 Pulse Ox 97 04/24/18 07:22 Intake & Output 04/23/18 04/24/18 04/24/18 18:59 06:59 18:59 Intake Total 2044.743 2023.825 Output Total 1205 1185 Balance 839.743 838.825 Weight 98.6 kg 98.3 kg Intake: IV 1200 1300 Dextrose 5% in Water 1, 1200 1300 000 ml @ 100 mls/hr IV . [id number] EFREM with Sodium Bicarb (1 Meq/ml) 150 ml Rx#:[id number] Intake, IV Titration 484.743 123.825 Amount DOPamine DRIP 800 mg In 223.75 Dextrose/Water 1 500ml. bag @ 10 MCG/KG/MIN 37.5 mls/hr IV .[id number] ONE Rx #:[id number] DOPamine DRIP 800 mg In 61.538 123.825 Dextrose/Water 1 500ml. bag @ 5 MCG/KG/MIN 18.48 mls/hr IV .Q24H EFREM Rx#: [id number] Magnesium Sulfate-D5w Pmx 100 1 gm In Dextrose/Water 1 100ml.bag @ 100 mls/hr IVPB Q1H EFREM Rx#: [id number] Propofol 1,000 mg In 99.455 Empty Bag 1 bag @ Titrate IV .Q0M EFREM Rx#: [id number] Oral 360 600 Output: Urine 1205 1185 Other: Voiding Method Indwelling Catheter Indwelling Catheter - Exam No acute distress, oriented 3. Nasal O2 in place. HEENT examination is grossly unremarkable. Mucous membranes are moist. No oral lesions. Neck supple. Full range of motion. No adenopathy thyromegaly or neck vein distention. Cardiovascular examination reveals regular rhythm rate. S1-S2 normal. No S3 or S4. No discernible murmur noted. Lungs reveal mild coarse rhonchi. Breath sounds equal. No wheezes. No crackles appreciated. Abdomen soft bowel sounds are heard. No masses or tenderness. Extremities are intact. No cyanosis clubbing or edema. Skin is without rash or lesion. Neurologic examination is brief but nonfocal. - Labs CBC & Chem 7: 04/24/18 04:16 04/24/18 04:16 Labs: Abnormal Lab Results - Last 24 Hours (Table) 04/22/18 04/23/18 04/23/18 Range/Units 22:32 07:26 10:10 Hgb (13.0-17.5) gm/dL RDW (11.5-15.5) % Lymphocytes # (1.0-4.8) k/uL ABG pCO2 34 L (35-45) mmHg ABG HCO3 20 L (21-25) mmol/L ABG O2 Saturation 97.6 H (94-97) % Sodium (137-145) mmol/L Glucose (74-99) mg/dL POC Glucose (mg/dL) (75-99) mg/dL Hemoglobin A1c 9.9 H (4.0-6.0) % Calcium (8.4-10.2) mg/dL Total Bilirubin (0.2-1.3) mg/dL AST (17-59) U/L ALT (21-72) U/L Alkaline Phosphatase (38-126) U/L Troponin I 0.053 H* (0.000-0.034) ng/mL Total Protein (6.3-8.2) g/dL Albumin (3.5-5.0) g/dL 04/23/18 04/23/18 04/23/18 Range/Units 12:06 17:31 21:00 Hgb (13.0-17.5) gm/dL RDW (11.5-15.5) % Lymphocytes # (1.0-4.8) k/uL ABG pCO2 (35-45) mmHg ABG HCO3 (21-25) mmol/L ABG O2 Saturation (94-97) % Sodium (137-145) mmol/L Glucose (74-99) mg/dL POC Glucose (mg/dL) 132 H 175 H 279 H (75-99) mg/dL Hemoglobin A1c (4.0-6.0) % Calcium (8.4-10.2) mg/dL Total Bilirubin (0.2-1.3) mg/dL AST (17-59) U/L ALT (21-72) U/L Alkaline Phosphatase (38-126) U/L Troponin I (0.000-0.034) ng/mL Total Protein (6.3-8.2) g/dL Albumin (3.5-5.0) g/dL 04/24/18 04/24/18 04/24/18 Range/Units 04:16 04:16 05:48 Hgb 12.2 L (13.0-17.5) gm/dL RDW 19.9 H (11.5-15.5) % Lymphocytes # 0.2 L (1.0-4.8) k/uL ABG pCO2 (35-45) mmHg ABG HCO3 (21-25) mmol/L ABG O2 Saturation (94-97) % Sodium 136 L (137-145) mmol/L Glucose 257 H (74-99) mg/dL POC Glucose (mg/dL) 264 H (75-99) mg/dL Hemoglobin A1c (4.0-6.0) % Calcium 8.2 L (8.4-10.2) mg/dL Total Bilirubin 1.4 H (0.2-1.3) mg/dL AST 66 H (17-59) U/L ALT 83 H (21-72) U/L Alkaline Phosphatase 713 H (38-126) U/L Troponin I (0.000-0.034) ng/mL Total Protein 5.2 L (6.3-8.2) g/dL Albumin 3.2 L (3.5-5.0) g/dL Microbiology - Last 24 Hours (Table) 04/22/18 23:41 Blood Culture - Preliminary Blood No Growth after 24 hours 04/23/18 11:30 Gram Stain - Preliminary Sputum Sputum Culture - Preliminary 04/23/18 03:47 Urine Culture - Preliminary Urine,Catheterized Assessment and Plan Assessment: Assessment Acute respiratory failure with hypoxemia Bradycardia with hypotension Mental status changes of unclear etiology Profound weakness History of COPD History of CAD with previous stent placement History of CHF Diabetes mellitus Gastroesophageal reflux disease Hyperlipidemia Previous myocardial infarction History of syncope Hypothyroidism Status post AICD. Plan: Plan dated 04/23/2018 The patient's fentanyl will be discontinued. We'll wean him off the propofol and do a daily eruption of sedation. Repeat arterial blood gases are excellent with a PaO2 of 92 PaCO2 34 and a pH of 7.39. We'll await cardiology input as it relates to the bradycardia. White count 8.2, hemoglobin 12.9, hematocrit 40.3 and platelet count 193,000. Sodium and potassium are normal. Cholesterol was 110 with a CO2 of 20. BUN/creatinine were 24 and 1.22 troponin was 0.054. Microbiology is all negative. Chest x-ray shows improvement in the patient's volume status with improved aeration and less pulmonary vascular congestion. Current medications are appropriate. Critical care time 35 minutes Plan dated 04/24/2018 The patient seemed be doing relatively well. He was extubated yesterday. He is on 6 L nasal cannula. He still receiving norepinephrine at 2 mics per minute. Dopamine is off. Chest x-ray shows some minimal basilar infiltrates or atelectasis. White count 4.3 hemoglobin 12.2 hematocrit 39 and platelet count 1 82,000. Electrolyte profile looks good. Microbiology is negative. All medications are reviewed. Unnecessary medications are discontinued. Critical care time 34 minutes Time with Patient: Greater than 30
--- NOTE | 2018-04-24 09:17 | PN ---
PROGRESS NOTE DATE OF SERVICE: 04/24/2018. HISTORY: Mr. Casillas is a 73-year-old male with known history of severe cardiomyopathy, who presented with respiratory failure requiring mechanical ventilation. He was intubated initially, extubated at this time. He is feeling well. He is on low-dose norepinephrine. He denies any chest pain. No dizziness. Denies any palpitations. He denies any nausea or vomiting. He is feeling better. He continues to be at this time on aspirin 81 mg daily, Lipitor 20 mg daily, Plavix 75 mg daily, digoxin 0.125 mg daily, midodrine. PHYSICAL EXAMINATION: Blood pressure 113/70 with a heart in the 90s. LUNGS: Clear. HEART: S1, S2. No S3. No gallop. ABDOMEN: Soft nontender. EXTREMITIES: No edema. LAB DATA: BUN and creatinine 20 and 0.89, potassium 4.8, hemoglobin of 12.2. His renal function improved compared with admission. IMPRESSION: 1. Prior history of cardiomyopathy, presented with symptoms of respiratory failure, resolved. Of note, recent echocardiogram obtained at [facility] reported a preserved systolic function. 2. History of ischemic cardiomyopathy with ICD implantation. 3. Renal failure, improving. 4. Episode of hypotension. RECOMMENDATIONS: I will repeat the echocardiogram because of the finding noted in the most recent echo that was done at another facility. I will try to resume a low-dose beta priscilla. Continue the rest of his medical regimen. Depending on his progress, further recommendations will be made. CHRISTIN / CURRY: [id number] /
--- NOTE | 2018-04-24 09:17 | XR ---
EXAMINATION TYPE: XR chest 1V DATE OF EXAM: 04/24/2018 COMPARISON: 04/23/2018 HISTORY: Recent respiratory failure. Shortness of breath. TECHNIQUE: Single frontal view of the chest is obtained. FINDINGS: There is been interval removal of the enteric and endotracheal tubes. Right-sided central venous catheter remains in place. No pneumothorax is seen. Cardiomediastinal silhouette is again mild ly enlarged. Scattered bibasilar atelectasis is noted. No significant residual pulmonary vascular con gestion. Chronic interstitial prominence is seen. IMPRESSION: Resolved pulmonary vascular congestion and interval extubation with minimal bibasilar gauthier bsegmental atelectasis remaining.
[2018-04-24] MEDS: predniSONE 10 MG TAB PO SCH (09:38)
[2018-04-24] MEDS: METOPROLOL TARTRATE 12.5 MG TAB PO SCH ×2 (10:35→22:03)
--- NOTE | 2018-04-24 10:38 | CDI ---
Last Revision, September 2017 Documentation Clarification Form Date: 04/24/18 From: Lilly Locke RN Admit Date: 04/23/2018 12:04:00 AM Patient Name: Luis Casillas Visit Number: [id number] ATTENTION: The Clinical Documentation Specialists (CDI) and [facility] Coding Staff appreciate your assistance in clarifying documentation. Please respond to the clarification below the line at the bottom and electronically sign. The CDI & [facility] Coding staff will review the response and follow-up if needed. Please note: Queries are made part of the Legal Health Record. If you have any questions, please contact the author of this message via ITS. Dr. Seth Beck, Please render your opinion on the following. Cardiogenic Shock is documented in the ED note. Patient history/risk factors: DM, systolic CHF, COPD, dyslipidemia, asthma, GERD , CAD, HI, AICD placement, cardiomyopathy Clinical Indicators: Vitals on admission: T 96.9, P 40, R 12, 79/49, 94% RA Cardiogenic Shock is documented in the ED note. Patient admitted unresponsive with possibly dehydration causing worsening renal failure Pulmonary states "acute respiratory failure with hypoxemia" Nephrology "non-oliguric acute kidney injury mostly pre-renal secondary to hypotension and bradycardia" Treatment: Dopamine Gtt @ 10 Mcg/kg/min Levophed Gtt Titrate for B/P Fluid bolus x 1L Ventilator less than 24 hours Consults: Pulmonary and Nephrology In your professional opinion, can you please specify the type of shock if known ? Cardiogenic Shock Cause Septic Shock Suspected or known causative organism Hypovolemic Shock Cause Other, please specify Unable to determine Please continue to document in your progress notes, under the line below and/or in the discharge summary in order to capture severity of illness and risk of mortality. Include clinical findings that support your diagnosis. MTDD
--- NOTE | 2018-04-24 11:23 | CDI ---
Documentation Clarification Form Date: 04/24/18 CDS: Lilly Locke RN Admit Date: 04/23/18 Patient Name: Luis Casillas ATTENTION: The Clinical Documentation Specialists (CDI) and [facility] Coding Staff appreciate your assistance in clarifying documentation. Please respond to the clarification below the line at the bottom and electronically sign. The CDI & [facility] Coding staff will review the response and follow-up if needed. Please note: Queries are made part of the Legal Health Record. If you have any questions, please contact the author of this message via ITS. Dr. Jeffrey Samuel, Can you please render your opinion on the following? "Acute Renal failure is documented in your consult note dated 04/23. History Risk factors/Other underlying illness: DM, systolic CHF, COPD, dyslipidemia, CAD, AICD placement, cardiomyopathy Clinical Indicators: In your consult it states "non-oliguric acute kidney injury mostly pre-renal secondary to hypotension and bradycardia" Labs on admission: PT 13.0, INR 1.4, SOD 136, K+ 6.5, CHL 109, C02 11,, HGB A1C 9.9, TOT BILI 2.0, AST 81, ALT 77, ALK PHOS 713 Patient presents with a BUN 25, CR 1.50 and GFR of 45 Urinalysis trace protein Consults: Pulmonary Treatment: Fluid bolus x 1L monitor labs In your professional opinion, can you please clarify if the condition can be further specified? Acute Renal Failure with Acute Tubular Necrosis Acute Renal Failure with Renal Cortical Necrosis Acute Renal Failure with other cause, please specify Other (Please specify) Unable to determine Please continue to document in your progress notes, under the line below and/or in the discharge summary in order to capture severity of illness and risk of mortality. Include clinical findings that support your diagnosis. AKI, pre-renal azotemia. JULIANNED
--- NOTE | 2018-04-24 11:36 | ECHOF ---
Referral Reason:cm MEASUREMENTS -------- HEIGHT: 162.6 cm WEIGHT: 98.0 kg BP: 100/62 RVIDd: 3.9 cm (< 3.3) IVSd: 1.2 cm (0.6 - 1.1) LVIDd: 4.6 cm (3.9 - 5.3) LVPWd: 1.2 cm (0.6 - 1.1) IVSs: 1.3 cm LVIDs: 4.0 cm LVPWs: 1.0 cm Ao Diam: 3.1 cm (2.0 - 3.7) AV Cusp: 1.4 cm (1.5 - 2.6) LA Diam: 3.5 cm (2.7 - 3.8) MV EXCURSION: 22.256 mm (> 18.000) MV EF SLOPE: 117 mm/s (70 - 150) EPSS: 1.0 cm MV E Waldo: 1.16 m/s MV DecT: 141 ms MV A Waldo: 0.33 m/s MV E/A Ratio: 3.54 RAP: 20.00 mmHg RVSP: 79.19 mmHg FINDINGS -------- Paced rhythm. This was a technically good study. The left ventricular size is normal. Overall left ventricular systolic function is severely impaire d with, an EF between 20 - 25 %. The right ventricle is severely enlarged. The right ventricular septal wall is flattened in diastol e and systole which is consistent with right ventricular volume and pressure overload. The left atrium is markedly dilated. The right atrial size is normal. There is mild aortic valve sclerosis. Mild mitral annular calcification present. Mild mitral regurgitation is present. Moderate to severe tricuspid regurgitation present. There is moderate to severe pulmonary hypertens ion. The right ventricular systolic pressure, as measured by Doppler, is 79.19mmHg. Trace/mild (physiologic) pulmonic regurgitation. The aortic root size is normal. The inferior vena cava is dilated with no significant inspiratory collapse which is consistent estima shi right atrial pressure of >20 mmHg. There is no pericardial effusion. CONCLUSIONS -------- 1. The left ventricular size is normal. 2. Overall left ventricular systolic function is severely impaired with, an EF between 20 - 25 %. 3. The right ventricle is severely enlarged. 4. The right ventricular septal wall is flattened in diastole and systole which is consistent with r ight ventricular volume and pressure overload. 5. The left atrium is markedly dilated. 6. The right atrial size is normal. 7. There is mild aortic valve sclerosis. 8. Mild mitral annular calcification present. 9. Mild mitral regurgitation is present. 10. Moderate to severe tricuspid regurgitation present. 11. There is moderate to severe pulmonary hypertension. 12. The right ventricular systolic pressure, as measured by Doppler, is 79.19mmHg. 13. Trace/mild (physiologic) pulmonic regurgitation. 14. The aortic root size is normal. 15. The inferior vena cava is dilated with no significant inspiratory collapse which is consistent es timated right atrial pressure of >20 mmHg. 16. There is no pericardial effusion. SENIOR WRITER: Mel Montana RDCS
[2018-04-24 12:05] LABS: Glucose,Whole Blood 281 mg/dL (75-99)
[2018-04-24] MEDS: DEXTROSE 5% IN WATER 1,000 ML with SODIUM BICARB (1 MEQ/ML) 150 ML IV SCH (12:36)
[2018-04-24] MEDS: SODIUM CHLORIDE 0.9% 1,000 ML IV SCH (12:36)
--- NOTE | 2018-04-24 13:18 | P.PN ---
Subjective Patient is seen in follow-up for acute kidney injury. Renal function is improved with creatinine down to 0.89 today. He is off all vasopressors at this time. Currently having lunch. He is nonoliguric. No vomiting or diarrhea. Vital signs are stable. General: The patient appeared well nourished and normally developed. HEENT: Head exam is unremarkable. Neck is without jugular venous distension. LUNGS: Lungs are clear to auscultation and percussion. Breath sounds decreased. HEART: Rate and Rhythm are regular. First and second heart sounds normal. No murmurs, rubs or gallops. ABDOMEN: Abdominal exam reveals normal bowel sounds. Non-tender and non- distended. No evidence of peritonitis. EXTREMITITES: No clubbing, cyanosis, or edema. Objective - Vital Signs Vital signs: Vital Signs Temp 98.2 F 04/24/18 12:00 Pulse 115 H 04/24/18 12:00 Resp 17 04/24/18 12:00 BP 84/55 04/24/18 12:00 Pulse Ox 95 04/24/18 12:00 Intake & Output 04/23/18 04/24/18 04/24/18 18:59 06:59 18:59 Intake Total 2044.743 2023.825 1712.09 Output Total 1205 1185 480 Balance 839.743 704.975 8411.09 Weight 98.6 kg 98.3 kg Intake: IV 1200 1300 500 Dextrose 5% in Water 1, 1200 1300 500 000 ml @ 100 mls/hr IV . [id number] EFREM with Sodium Bicarb (1 Meq/ml) 150 ml Rx#:[id number] Intake, IV Titration 484.743 123.825 12.09 Amount DOPamine DRIP 800 mg In 223.75 Dextrose/Water 1 500ml. bag @ 10 MCG/KG/MIN 37.5 mls/hr IV .[id number] ONE Rx #:[id number] DOPamine DRIP 800 mg In 61.538 123.825 Dextrose/Water 1 500ml. bag @ 5 MCG/KG/MIN 18.48 mls/hr IV .Q24H EFREM Rx#: [id number] Magnesium Sulfate-D5w Pmx 100 1 gm In Dextrose/Water 1 100ml.bag @ 100 mls/hr IVPB Q1H EFREM Rx#: [id number] Norepinephrine 16 mg In 12.09 Dextrose 5% in Water 250 ml @ Titrate IV .Q0M EFREM Rx#:[id number] Propofol 1,000 mg In 99.455 Empty Bag 1 bag @ Titrate IV .Q0M EFREM Rx#: [id number] Oral 274 400 0850 Output: Urine 1205 1185 480 Other: Voiding Method Indwelling Catheter Indwelling Catheter Indwelling Catheter - Labs CBC & Chem 7: 04/24/18 04:16 04/24/18 04:16 Labs: Abnormal Lab Results - Last 24 Hours (Table) 04/23/18 04/23/18 04/24/18 Range/Units 17:31 21:00 04:16 Hgb 12.2 L (13.0-17.5) gm/dL RDW 19.9 H (11.5-15.5) % Lymphocytes # 0.2 L (1.0-4.8) k/uL Sodium (137-145) mmol/L Glucose (74-99) mg/dL POC Glucose (mg/dL) 175 H 279 H (75-99) mg/dL Calcium (8.4-10.2) mg/dL Total Bilirubin (0.2-1.3) mg/dL AST (17-59) U/L ALT (21-72) U/L Alkaline Phosphatase (38-126) U/L Total Protein (6.3-8.2) g/dL Albumin (3.5-5.0) g/dL 04/24/18 04/24/18 04/24/18 Range/Units 04:16 05:48 12:03 Hgb (13.0-17.5) gm/dL RDW (11.5-15.5) % Lymphocytes # (1.0-4.8) k/uL Sodium 136 L (137-145) mmol/L Glucose 257 H (74-99) mg/dL POC Glucose (mg/dL) 264 H 281 H (75-99) mg/dL Calcium 8.2 L (8.4-10.2) mg/dL Total Bilirubin 1.4 H (0.2-1.3) mg/dL AST 66 H (17-59) U/L ALT 83 H (21-72) U/L Alkaline Phosphatase 713 H (38-126) U/L Total Protein 5.2 L (6.3-8.2) g/dL Albumin 3.2 L (3.5-5.0) g/dL Microbiology - Last 24 Hours (Table) 04/22/18 23:41 Blood Culture - Preliminary Blood No Growth after 24 hours 04/23/18 11:30 Gram Stain - Preliminary Sputum Sputum Culture - Preliminary 04/23/18 03:47 Urine Culture - Preliminary Urine,Catheterized Assessment and Plan Plan: Assessment: 1. Nonoliguric acute kidney injury mostly prerenal secondary to hypotension and bradycardia. Creatinine was 1.5 on admission and is down to 0.89 today. 2. Chronic kidney disease stage II with baseline creatinine in the range of 1.0 -1.4 secondary to nephrosclerosis and cardiorenal syndrome. 3. Bradycardia, now off IV dopamine. Cardiology following. 4. Systolic CHF with ejection fraction of 20-25%. 5. Hyperkalemia secondary to acute kidney injury and metabolic acidosis. Improved with medical management. 6. Metabolic acidosis secondary to acute kidney injury maintained on bicarb drip. Improved. Plan: Discontinue sodium bicarbonate drip. Normal saline at 50 mL an hour for maintenance fluids. Avoid nephrotoxic agents and hypotensive episodes. Continue to monitor renal function and urine output closely. Repeat electrolytes in the morning.
[2018-04-24 17:07] LABS: Glucose,Whole Blood 367 mg/dL (75-99)
[2018-04-24 20:00] LABS: Glucose,Whole Blood 294 mg/dL (75-99)
[2018-04-24] MEDS: ATORVASTATIN 20 MG TAB PO SCH (20:04)
[2018-04-24] MEDS ORDERED: INSULIN DETEMIR 100 UNIT/ML 10 ML VIAL SQ SCH (21:00)
--- NOTE | 2018-04-24 22:17 | PN ---
PROGRESS NOTE SUBJECTIVE: A 73-year-old white male who is status post bradycardia, hypotension, dehydration, systolic heart failure. He is being weaned off Levophed and increasing his midodrine. Cardiology ordered low-dose beta priscilla despite hypotension, history of systolic heart failure. Prognosis extremely guarded. ICU notes were reviewed by attendant arcade and hospitalist nocturnist physician. Continue to treat his insulin with Accu-Cheks. Increase his midodrine and wean off his vasopressors if possible. PT/OT. Please see further orders in the chart. MMODL / IJN: [id number] /
[2018-04-25 04:18] LABS: Anisocytosis Slight; Basophils % (A) 0 %; Eosinophils % (A) 0 %; HCT 38.4 % (39.0-53.0); HGB 12.2 gm/dL (13.0-17.5); Lymphocytes # (A) 0.4 k/uL (1.0-4.8); Lymphocytes % (A) 5 %; MCHC 31.7 g/dL (31.0-37.0); MCV 88.2 fL (80.0-100.0); Mean Platelet Volume 7.8; Microcytosis Slight; Monocytes # (A) 0.6 k/uL (0-1.0); Monocytes % (A) 7 %; Neutrophils # (A) 7.5 k/uL (1.3-7.7); Neutrophils % (A) 87 %; Platelet Count 208 k/uL (150-450); RBC 4.35 m/uL (4.30-5.90); RDW 19.8 % (11.5-15.5); WBC 8.6 k/uL (3.8-10.6)
[2018-04-25 04:35] LABS: Calcium 8.2 mg/dL (8.4-10.2); Magnesium 2.1 mg/dL (1.6-2.3); Phosphorus 2.5 mg/dL (2.5-4.5); Potassium 4.9 mmol/L (3.5-5.1)
[2018-04-25] MEDS: LEVOTHYROXINE 100 MCG TAB PO SCH (06:41)
[2018-04-25] MEDS: IPRATROPIUM-ALBUTEROL 3 ML NEB INHALATION SCH ×4 (07:01→18:53)
[2018-04-25 07:22] LABS: Glucose,Whole Blood 154 mg/dL (75-99)
--- NOTE | 2018-04-25 07:30 | PN ---
PROGRESS NOTE Mr. Casillas is a 73-year-old male with a known history of coronary artery disease, history of ischemic cardiomyopathy, ICD implantation, who presented with respiratory failure requiring mechanical ventilation. He is extubated. He was on low-dose norepinephrine that has been stopped. Hemodynamically, he is stable. He has been sitting up in the chair. His breathing is stable. He denies any dizziness or palpitation. He denies any nausea. He continued to be in sinus mechanism. He continues at this time to be on aspirin once a day, Lipitor 20 mg daily, Plavix 75 mg daily, digoxin 0.125 mg daily, metoprolol tartrate 12.5 mg twice a day, and midodrine in addition to prednisone. PHYSICAL EXAMINATION: Blood pressure 119/70 with the heart rate in 90s. LUNGS: With few crackles, no wheezes. HEART: Regular rate and rhythm, S1, S2. No S3. No rub. ABDOMEN: Soft, nontender. EXTREMITIES: No edema. LAB DATA: Lab data revealed BUN and creatinine 28 and 1.0. Potassium 4.9. Hemoglobin of 12.2. He had an echocardiogram done yesterday that revealed a severely impaired left ventricular systolic function which was similar to what he had before with severe pulmonary hypertension. IMPRESSION: 1. Respiratory failure, resolved. 2. Severe ischemic cardiomyopathy, status post ICD implantation. 3. Renal failure, resolved. 4. Hypotension, resolved. RECOMMENDATION: From the cardiac standpoint, we will continue present therapy. Continue to increase his level activity. Depending on his blood pressure, the dose of his beta priscilla can be further adjusted. Hopefully he can be discharged home in the next 24 to 48 hours. MMODL / IJN: [id number] /
[2018-04-25] MEDS: MIDODRINE 5 MG TAB PO SCH ×3 (08:00→17:31)
[2018-04-25] MEDS: INSULIN ASPART 100 UNIT/ML 1 ML 10 ML VIAL SQ SCH ×4 (08:00→21:09)
[2018-04-25] MEDS: CLOPIDOGREL 75 MG TAB PO SCH (08:20)
[2018-04-25] MEDS: DIGOXIN 125 MCG TAB PO SCH (08:20)
[2018-04-25] MEDS: MULTIVITAMINS, THERA 1 EACH TAB PO SCH (08:20)
[2018-04-25] MEDS: predniSONE 10 MG TAB PO SCH (08:20)
[2018-04-25] MEDS: ASPIRIN 81 MG PO SCH (08:20)
[2018-04-25] MEDS: FAMOTIDINE 20 MG TAB PO SCH (08:20)
--- NOTE | 2018-04-25 08:59 | P.PN ---
Subjective Progress Note Date: 04/25/18 Principal diagnosis: Acute hypoxemic respiratory failure secondary to acute kidney injury, metabolic bradycardia, metabolic acidosis Progress note dated 04/24/2018 72-year-old male with a history of asthma, CAD, chest pain, heart failure, COPD , diabetes, GERD, hyperlipidemia, myocardial infarction, DJD, syncope, cardiomyopathy, hypothyroidism, AICD placement, heart cath with stent, and multiple other medical problems. The patient was seen yesterday in consultation. The patient was on the ventilator yesterday and he was successfully extubated. His weaning parameters and cuff leak were excellent. He had excellent blood gases. Currently he is sitting up at the bedside. He is eating breakfast. He is on O2 at 6 L. He is getting an IV with D5W with 1 amp of sodium bicarbonate at 100 mL an hour. He was initially on dopamine for bradycardia. He became tachycardic and it was turned off. He was started on norepinephrine for blood pressure support. We will see for can wean the norepinephrine this morning. Other than that, the patient is doing reasonably well. He feels well. He likely can be transferred out to [address] [place] [address]. On 04/25/2018 patient seen again in follow-up in intensive care unit. He is awake alert, in no acute distress, currently on 3 L per high flow nasal cannula , and his pulse ox is 90-94%, he is hemodynamically stable, he is afebrile. His heart rate is in the range of 80-103 bpm, he is calm and comfortable, denies any dyspnea, denies any chest pain. Today's labs were reviewed, no leukocytosis, WBC is 8.6, hemoglobin of 12.2, electrolytes are essentially within normal limits, BUN is 28, creatinine is 1.0. He is off vasopressor support, yesterday afternoon we increased his dose of midodrine to 10 mg 3 times a day, and his current blood pressure is 92/51, patient is awake and alert , his mentation is normal, he is responding appropriately, no evidence of altered mentation noted. His indwelling catheter has been discontinued, patient has been nonoliguric, no nausea no vomiting, he is tolerating oral intake. Lung sounds reveal a few bibasilar crackles, otherwise no rhonchi no wheezes. No bilateral lower extremity edema. Patient is awaiting a bed on [facility] care unit. Objective - Vital Signs Vital signs: Vital Signs Temp 98.1 F 04/25/18 04:00 Pulse 103 H 04/25/18 08:00 Resp 17 04/25/18 08:00 BP 92/51 04/25/18 08:00 Pulse Ox 90 L 04/25/18 08:00 Intake & Output 04/24/18 04/25/18 04/25/18 18:59 06:59 18:59 Intake Total 3412.09 1351.999 100 Output Total 1030 995 0 Balance 2382.09 356.999 100 Weight 102.1 kg Intake: IV 800 600 100 Dextrose 5% in Water 1, 500 000 ml @ 100 mls/hr IV . [id number] [facility] with Sodium Bicarb (1 Meq/ml) 150 ml Rx#:[id number] Sodium Chloride 0.9% 1, 300 600 100 000 ml @ 50 mls/hr IV . Q20H [facility] Rx#:[id number] Intake, IV Titration 12. 11.999 Amount Norepinephrine 16 mg In 12. 11.999 Dextrose 5% in Water 250 ml @ Titrate IV .Q0M [facility] Rx#:[id number] Oral 2600 740 Output: Urine 1030 995 0 Other: Voiding Method Indwelling Catheter Indwelling Catheter # Voids 0 - Exam No acute distress, oriented 3. Nasal O2 in place. HEENT examination is grossly unremarkable. Mucous membranes are moist. No oral lesions. Neck supple. Full range of motion. No adenopathy thyromegaly or neck vein distention. Cardiovascular examination reveals regular rhythm rate. S1-S2 normal. No S3 or S4. No discernible murmur noted. Lungs reveal a few scattered crackles at bilateral bases, Breath sounds equal. No wheezes. No rhonchi appreciated. Abdomen soft bowel sounds are heard. No masses or tenderness. Extremities are intact. No cyanosis clubbing or edema. Skin is without rash or lesion. Neurologic examination is brief but nonfocal. - Labs CBC & Chem 7: 04/25/18 04:05 04/25/18 04:05 Labs: Abnormal Lab Results - Last 24 Hours (Table) 04/24/18 04/24/18 04/24/18 Range/Units 12:03 17:05 19:58 Hgb (13.0-17.5) gm/dL Hct (39.0-53.0) % RDW (11.5-15.5) % Lymphocytes # (1.0-4.8) k/uL Sodium (137-145) mmol/L BUN (9-20) mg/dL POC Glucose (mg/dL) 281 H 367 H 294 H (75-99) mg/dL Glucose (74-99) mg/dL Calcium (8.4-10.2) mg/dL 04/25/18 04/25/18 04/25/18 Range/Units 04:05 04:05 07:20 Hgb 12.2 L (13.0-17.5) gm/dL Hct 38.4 L (39.0-53.0) % RDW 19.8 H (11.5-15.5) % Lymphocytes # 0.4 L (1.0-4.8) k/uL Sodium 135 L (137-145) mmol/L BUN 28 H (9-20) mg/dL POC Glucose (mg/dL) 154 H (75-99) mg/dL Glucose 164 H (74-99) mg/dL Calcium 8.2 L (8.4-10.2) mg/dL Microbiology - Last 24 Hours (Table) 04/22/18 23:41 Blood Culture - Preliminary Blood No Growth after 48 hours 04/23/18 03:47 Urine Culture - Final Urine,Catheterized Assessment and Plan Plan: Assessment: Acute respiratory failure with hypoxemia Bradycardia with hypotension Mental status changes of unclear etiology Profound weakness History of COPD History of CAD with previous stent placement History of CHF Diabetes mellitus Gastroesophageal reflux disease Hyperlipidemia Previous myocardial infarction History of syncope Hypothyroidism Status post AICD. Plan: Continue with current medical treatment, increase activity as tolerated, patient has been off vasopressor support, he is maintaining systolic blood pressures between 90-100, and diastolic from 50-60 mmHg, he is asymptomatic, yesterday we increased his dose of midodrine to 10 mg 3 times a day. Patient is nonoliguric, he is tolerating oral intake. His renal function is within normal limits. Denies any dyspnea, denies any chest pain, patient is awaiting a bed on [facility] care unit. I performed a history & physical examination of the patient and discussed their management with my nurse practitioner, Barbara Monroy. I reviewed the nurse practitioner's note and agree with the documented findings and plan of care. Lung sounds are positive for a few scattered crackles at the bases. The findings and the impression was discussed with the patient. I attest to the documentation by the nurse practitioner. Time with Patient: Less than 30
[2018-04-25] MEDS: PANTOPRAZOLE 40 MG/10 ML VIAL IV SCH (10:21)
[2018-04-25] MEDS: METOPROLOL TARTRATE 12.5 MG TAB PO SCH ×2 (10:21→21:09)
--- NOTE | 2018-04-25 10:21 | P.PN ---
Subjective Patient is seen in follow-up for acute kidney injury. Renal function has improved since admission - creatinine 1.0 today. He is off all vasopressors at this time. Currently having lunch. He is nonoliguric. No vomiting or diarrhea. Vital signs are stable. General: The patient appeared well nourished and normally developed. HEENT: Head exam is unremarkable. Neck is without jugular venous distension. LUNGS: Lungs are clear to auscultation and percussion. Breath sounds decreased. HEART: Rate and Rhythm are regular. First and second heart sounds normal. No murmurs, rubs or gallops. ABDOMEN: Abdominal exam reveals normal bowel sounds. Non-tender and non- distended. No evidence of peritonitis. EXTREMITITES: No clubbing, cyanosis, or edema. Objective - Vital Signs Vital signs: Vital Signs Temp 98.1 F 04/25/18 04:00 Pulse 86 04/25/18 10:00 Resp 20 04/25/18 10:00 BP 115/65 04/25/18 10:00 Pulse Ox 97 04/25/18 10:00 Intake & Output 04/24/18 04/25/18 04/25/18 18:59 06:59 18:59 Intake Total 3412.09 1351.999 150 Output Total 1030 995 0 Balance 2382.09 356.999 150 Weight 102.1 kg Intake: IV 800 600 150 Dextrose 5% in Water 1, 500 000 ml @ 100 mls/hr IV . [id number] [facility] with Sodium Bicarb (1 Meq/ml) 150 ml Rx#:[id number] Sodium Chloride 0.9% 1, 300 600 150 000 ml @ 50 mls/hr IV . Q20H [facility] Rx#:[id number] Intake, IV Titration 12.09 11.999 Amount Norepinephrine 16 mg In 12. 11.999 Dextrose 5% in Water 250 ml @ Titrate IV .Q0M [facility] Rx#:[id number] Oral 2600 740 Output: Urine 1030 995 0 Other: Voiding Method Indwelling Catheter Indwelling Catheter Urinal # Voids 0 - Labs CBC & Chem 7: 04/25/18 04:05 04/25/18 04:05 Labs: Abnormal Lab Results - Last 24 Hours (Table) 04/24/18 04/24/18 04/24/18 Range/Units 12:03 17:05 19:58 Hgb (13.0-17.5) gm/dL Hct (39.0-53.0) % RDW (11.5-15.5) % Lymphocytes # (1.0-4.8) k/uL Sodium (137-145) mmol/L BUN (9-20) mg/dL POC Glucose (mg/dL) 281 H 367 H 294 H (75-99) mg/dL Glucose (74-99) mg/dL Calcium (8.4-10.2) mg/dL 04/25/18 04/25/18 04/25/18 Range/Units 04:05 04:05 07:20 Hgb 12.2 L (13.0-17.5) gm/dL Hct 38.4 L (39.0-53.0) % RDW 19.8 H (11.5-15.5) % Lymphocytes # 0.4 L (1.0-4.8) k/uL Sodium 135 L (137-145) mmol/L BUN 28 H (9-20) mg/dL POC Glucose (mg/dL) 154 H (75-99) mg/dL Glucose 164 H (74-99) mg/dL Calcium 8.2 L (8.4-10.2) mg/dL Microbiology - Last 24 Hours (Table) 04/22/18 23:41 Blood Culture - Preliminary Blood No Growth after 48 hours 04/23/18 03:47 Urine Culture - Final Urine,Catheterized Assessment and Plan Plan: Assessment: 1. Nonoliguric acute kidney injury mostly prerenal secondary to hypotension and bradycardia. Creatinine was 1.5 on admission and is down to 1 today. 2. Chronic kidney disease stage II with baseline creatinine in the range of 1.0 -1.4 secondary to nephrosclerosis and cardiorenal syndrome. 3. Bradycardia, now off IV dopamine. Cardiology following. 4. Systolic CHF with ejection fraction of 20-25%. 5. Hyperkalemia secondary to acute kidney injury and metabolic acidosis. Improved with medical management. 6. Metabolic acidosis secondary to acute kidney injury maintained on bicarb drip. Improved. Plan: Hep-Lock IV fluids. Avoid nephrotoxic agents and hypotensive episodes. Repeat electrolytes in the morning.
[2018-04-25] MEDS: SODIUM CHLORIDE 0.9% 1,000 ML IV SCH (10:48)
[2018-04-25 11:59] LABS: Glucose,Whole Blood 263 mg/dL (75-99)
[2018-04-25 15:11] VITALS: BMI 31.4
[2018-04-25] MEDS ORDERED: ACETAMINOPHEN TAB 325 MG TAB PO PRN (15:38)
[2018-04-25 17:20] LABS: Glucose,Whole Blood 305 mg/dL (75-99)
[2018-04-25 20:40] LABS: Glucose,Whole Blood 287 mg/dL (75-99)
[2018-04-25] MEDS ORDERED: INSULIN DETEMIR 100 UNIT/ML 10 ML VIAL SQ SCH (21:00)
[2018-04-25] MEDS: ATORVASTATIN 20 MG TAB PO SCH (21:09)
--- NOTE | 2018-04-25 23:20 | PN ---
PROGRESS NOTE SUBJECTIVE: This is a 73-year-old white male with systolic heart failure, COPD, hypertension. Continue with midodrine, was increased to 10 mg t.i.d. The patient was stabilized. CARDIOVASCULAR: S1, S2. LUNGS: Clear. HEMATOLOGY: Negative Homans'. PSYCH: Fair mood and affect. ASSESSMENT: 1. Systolic congestive heart failure. 2. Chronic obstructive pulmonary disease. 3. Hypertension. 4. Coronary artery disease. 5. Insulin dependent diabetes mellitus. 6. Hypertension. Transport out to the telemetry floor. Increase Accu-Cheks 5 units plus scale for insulin scale. Prognosisguarded. ICU TIME: 20 minutes. MMODL / IJN: [id number] /
[2018-04-26 04:53] LABS: Anisocytosis Slight; Basophils % (A) 0 %; Eosinophils % (A) 0 %; HCT 39.2 % (39.0-53.0); HGB 12.3 gm/dL (13.0-17.5); Lymphocytes # (A) 0.5 k/uL (1.0-4.8); Lymphocytes % (A) 6 %; MCH 27.8 pg (25.0-35.0); MCHC 31.5 g/dL (31.0-37.0); MCV 88.4 fL (80.0-100.0); Mean Platelet Volume 6.8; Microcytosis Slight; Monocytes # (A) 0.4 k/uL (0-1.0); Monocytes % (A) 5 %; Neutrophils # (A) 7.1 k/uL (1.3-7.7); Neutrophils % (A) 88 %; Platelet Count 208 k/uL (150-450); RBC 4.43 m/uL (4.30-5.90); RDW 19.7 % (11.5-15.5)
[2018-04-26 05:54] LABS: Anion Gap 11 mmol/L; Blood Urea Nitrogen 35 mg/dL (9-20); Calcium 8.1 mg/dL (8.4-10.2); Carbon Dioxide 21 mmol/L (22-30); Chloride 102 mmol/L (98-107); Glucose 113 mg/dL (74-99); Magnesium 2.1 mg/dL (1.6-2.3); Phosphorus 2.8 mg/dL (2.5-4.5); Potassium 4.9 mmol/L (3.5-5.1); Sodium 134 mmol/L (137-145)
[2018-04-26] MEDS: IPRATROPIUM-ALBUTEROL 3 ML NEB INHALATION SCH ×2 (07:10→11:10)
[2018-04-26 07:23] LABS: Glucose,Whole Blood 100 mg/dL (75-99)
[2018-04-26] MEDS ORDERED: INSULIN ASPART 100 UNIT/ML 1 ML 10 ML VIAL SQ SCH (07:30)
[2018-04-26] MEDS ORDERED: PANTOPRAZOLE 40 MG TABLET PO SCH (07:30)
--- NOTE | 2018-04-26 07:37 | P.PN ---
Subjective Progress Note Date: 04/26/18 Principal diagnosis: Respiratory failure Progress note dated 04/24/2018 72-year-old male with a history of asthma, CAD, chest pain, heart failure, COPD , diabetes, GERD, hyperlipidemia, myocardial infarction, DJD, syncope, cardiomyopathy, hypothyroidism, AICD placement, heart cath with stent, and multiple other medical problems. The patient was seen yesterday in consultation. The patient was on the ventilator yesterday and he was successfully extubated. His weaning parameters and cuff leak were excellent. He had excellent blood gases. Currently he is sitting up at the bedside. He is eating breakfast. He is on O2 at 6 L. He is getting an IV with D5W with 1 amp of sodium bicarbonate at 100 mL an hour. He was initially on dopamine for bradycardia. He became tachycardic and it was turned off. He was started on norepinephrine for blood pressure support. We will see for can wean the norepinephrine this morning. Other than that, the patient is doing reasonably well. He feels well. He likely can be transferred out to [facility] today. Progress note dated 04/26/2018 72-year-old male with a history of asthma, CAD, chest pain, heart failure, COPD , diabetes, GERD, hyperlipidemia, myocardial infarction, DJD, syncope, cardiomyopathy, hypothyroidism, AICD placement, heart catheterization with stent placement, and multiple other medical problems. The patient was seen initially in consultation on the . The patient was on the ventilator. He was placed on PSV and CPAP and had excellent weaning parameters any positive cuff leak. He was extubated to nasal O2. Currently doing relatively well. The patient could be transferred out to the floor. He was initially on dopamine for bradycardia. When he became tachycardic and was turned off. He was then on norepinephrine for a short period of time for hypotension. We're able to wean that off by increasing his midodrine to 10 mg 3 times a day. The patient has no complaints today resting comfortably. White count 8 implement for 0.3 hematocrit 39.2 and platelet count normal. Sodium 134 potassium and chloride normal CO2 21 and a gap is normal and BUN and creatinine were 35 and 0.93. Microbiology is negative. Objective - Vital Signs Vital signs: Vital Signs Temp 97.9 F 04/25/18 20:00 Pulse 114 H 04/26/18 07:18 Resp 16 04/26/18 07:18 BP 104/60 04/25/18 21:00 Pulse Ox 95 04/25/18 21:00 Intake & Output 04/25/18 04/26/18 04/26/18 18:59 06:59 18:59 Intake Total 150 Output Total 225 0 Balance -75 0 Weight 102.1 kg Intake: IV 150 Sodium Chloride 0.9% 1, 150 000 ml @ 50 mls/hr IV . Q20H [facility] Rx#:[id number] Output: Urine 225 0 Other: Voiding Method Urinal Urinal # Voids 0 - Exam No acute distress, oriented 3. Nasal O2 in place. HEENT examination is grossly unremarkable. Mucous membranes are moist. No oral lesions. Neck supple. Full range of motion. No adenopathy thyromegaly or neck vein distention. Cardiovascular examination reveals regular rhythm rate. S1-S2 normal. No S3 or S4. No discernible murmur noted. Lungs reveal mild coarse rhonchi. Breath sounds equal. No wheezes. No crackles appreciated. Abdomen soft bowel sounds are heard. No masses or tenderness. Extremities are intact. No cyanosis clubbing or edema. Skin is without rash or lesion. Neurologic examination is brief but nonfocal. - Labs CBC & Chem 7: 04/26/18 04:20 04/26/18 04:20 Labs: Abnormal Lab Results - Last 24 Hours (Table) 04/25/18 04/25/18 04/25/18 Range/Units 11:57 17:18 20:33 Hgb (13.0-17.5) gm/dL RDW (11.5-15.5) % Lymphocytes # (1.0-4.8) k/uL Sodium (137-145) mmol/L Carbon Dioxide (22-30) mmol/L BUN (9-20) mg/dL Glucose (74-99) mg/dL POC Glucose (mg/dL) 263 H 305 H 287 H (75-99) mg/dL Calcium (8.4-10.2) mg/dL 04/26/18 04/26/18 04/26/18 Range/Units 04:20 04:20 07:20 Hgb 12.3 L (13.0-17.5) gm/dL RDW 19.7 H (11.5-15.5) % Lymphocytes # 0.5 L (1.0-4.8) k/uL Sodium 134 L (137-145) mmol/L Carbon Dioxide 21 L (22-30) mmol/L BUN 35 H (9-20) mg/dL Glucose 113 H (74-99) mg/dL POC Glucose (mg/dL) 100 H (75-99) mg/dL Calcium 8.1 L (8.4-10.2) mg/dL Microbiology - Last 24 Hours (Table) 04/22/18 23:41 Blood Culture - Preliminary Blood No Growth after 72 hours 04/23/18 11:30 Gram Stain - Final Sputum Sputum Culture - Final Assessment and Plan Assessment: Assessment Acute respiratory failure with hypoxemia Bradycardia with hypotension Mental status changes of unclear etiology Profound weakness History of COPD History of CAD with previous stent placement History of CHF Diabetes mellitus Gastroesophageal reflux disease Hyperlipidemia Previous myocardial infarction History of syncope Hypothyroidism Status post AICD. Plan: Plan dated 04/23/2018 The patient's fentanyl will be discontinued. We'll wean him off the propofol and do a daily eruption of sedation. Repeat arterial blood gases are excellent with a PaO2 of 92 PaCO2 34 and a pH of 7.39. We'll await cardiology input as it relates to the bradycardia. White count 8.2, hemoglobin 12.9, hematocrit 40.3 and platelet count 193,000. Sodium and potassium are normal. Cholesterol was 110 with a CO2 of 20. BUN/creatinine were 24 and 1.22 troponin was 0.054. Microbiology is all negative. Chest x-ray shows improvement in the patient's volume status with improved aeration and less pulmonary vascular congestion. Current medications are appropriate. Critical care time 35 minutes Plan dated 04/24/2018 The patient seemed be doing relatively well. He was extubated yesterday. He is on 6 L nasal cannula. He still receiving norepinephrine at 2 mics per minute. Dopamine is off. Chest x-ray shows some minimal basilar infiltrates or atelectasis. White count 4.3 hemoglobin 12.2 hematocrit 39 and platelet count 1 82,000. Electrolyte profile looks good. Microbiology is negative. All medications are reviewed. Unnecessary medications are discontinued. Critical care time 34 minutes Plan dated 04/26/2018 The patient's labs x-rays a medications are reviewed. The patient is doing much better. Still here in the ICU. Blood pressure has been much improved on midodrine 10 mg 3 times a day. This allowed us to wean off the norepinephrine. Microbiology thus far is negative. His medications are reviewed. Additional recommendations and suggestions are forthcoming. Critical care time 31 minutes Time with Patient: Greater than 30
[2018-04-26] MEDS: LEVOTHYROXINE 100 MCG TAB PO SCH (08:29)
[2018-04-26] MEDS: INSULIN ASPART 100 UNIT/ML 1 ML 10 ML VIAL SQ SCH (08:48)
[2018-04-26] MEDS: MIDODRINE 5 MG TAB PO SCH (08:54)
[2018-04-26] MEDS: ASPIRIN 81 MG PO SCH (08:55)
[2018-04-26] MEDS: predniSONE 10 MG TAB PO SCH (08:56)
[2018-04-26] MEDS: METOPROLOL TARTRATE 12.5 MG TAB PO SCH (08:56)
[2018-04-26] MEDS: CLOPIDOGREL 75 MG TAB PO SCH (08:56)
[2018-04-26] MEDS: DIGOXIN 125 MCG TAB PO SCH (08:56)
[2018-04-26] MEDS: MULTIVITAMINS, THERA 1 EACH TAB PO SCH (08:56)
--- NOTE | 2018-04-26 09:32 | P.PN ---
Subjective Patient is seen in follow-up for acute kidney injury. Renal function has improved since admission - creatinine 0.93 today. He is off all vasopressors at this time. He is nonoliguric. No vomiting or diarrhea. Hemodynamically stable. No active complaints at this time. Vital signs are stable. General: The patient appeared well nourished and normally developed. HEENT: Head exam is unremarkable. Neck is without jugular venous distension. LUNGS: Lungs are clear to auscultation and percussion. Breath sounds decreased. HEART: Rate and Rhythm are regular. First and second heart sounds normal. No murmurs, rubs or gallops. ABDOMEN: Abdominal exam reveals normal bowel sounds. Non-tender and non- distended. No evidence of peritonitis. EXTREMITITES: No clubbing, cyanosis, or edema. Objective - Vital Signs Vital signs: Vital Signs Temp 97.6 F 04/26/18 04:00 Pulse 92 04/26/18 08:00 Resp 21 04/26/18 08:00 BP 106/66 04/26/18 08:00 Pulse Ox 96 04/26/18 04:00 Intake & Output 04/25/18 04/26/18 04/26/18 18:59 06:59 18:59 Intake Total 150 Output Total 225 0 Balance -75 0 Weight 102.1 kg 103.2 kg Intake: IV 150 Sodium Chloride 0.9% 1, 150 000 ml @ 50 mls/hr IV . Q20H [facility] Rx#:[id number] Output: Urine 225 0 Other: Voiding Method Urinal Urinal # Voids 0 - Labs CBC & Chem 7: 04/26/18 04:20 04/26/18 04:20 Labs: Abnormal Lab Results - Last 24 Hours (Table) 04/25/18 04/25/18 04/25/18 Range/Units 11:57 17:18 20:33 Hgb (13.0-17.5) gm/dL RDW (11.5-15.5) % Lymphocytes # (1.0-4.8) k/uL Sodium (137-145) mmol/L Carbon Dioxide (22-30) mmol/L BUN (9-20) mg/dL Glucose (74-99) mg/dL POC Glucose (mg/dL) 263 H 305 H 287 H (75-99) mg/dL Calcium (8.4-10.2) mg/dL 04/26/18 04/26/18 04/26/18 Range/Units 04:20 04:20 07:20 Hgb 12.3 L (13.0-17.5) gm/dL RDW 19.7 H (11.5-15.5) % Lymphocytes # 0.5 L (1.0-4.8) k/uL Sodium 134 L (137-145) mmol/L Carbon Dioxide 21 L (22-30) mmol/L BUN 35 H (9-20) mg/dL Glucose 113 H (74-99) mg/dL POC Glucose (mg/dL) 100 H (75-99) mg/dL Calcium 8.1 L (8.4-10.2) mg/dL Microbiology - Last 24 Hours (Table) 04/22/18 23:41 Blood Culture - Preliminary Blood No Growth after 72 hours 04/23/18 11:30 Gram Stain - Final Sputum Sputum Culture - Final Assessment and Plan Plan: Assessment: 1. Nonoliguric acute kidney injury mostly prerenal secondary to hypotension and bradycardia. Creatinine was 1.5 on admission. 0.93 today. 2. Chronic kidney disease stage II with baseline creatinine in the range of 1.0 -1.4 secondary to nephrosclerosis and cardiorenal syndrome. 3. Bradycardia, now off IV dopamine. Cardiology following. 4. Systolic CHF with ejection fraction of 20-25%. Compensated. 5. Hyperkalemia secondary to acute kidney injury and metabolic acidosis. Improved with medical management. 6. Metabolic acidosis secondary to acute kidney injury maintained on bicarb drip. Improved. Plan: Avoid nephrotoxins. Encouraged oral intake. Stable for discharge from nephrology standpoint.
--- NOTE | 2018-04-26 10:12 | PN ---
PROGRESS NOTE Mr. Casillas is a 73-year-old male who was admitted to the hospital with symptoms of dyspnea. He has a history of coronary artery disease, ischemic cardiomyopathy. He is doing well this morning. His breathing has been stable. Denying any chest pain. No dizziness. No palpitation. He denies any nausea. MEDICATION: Include aspirin once a day, Lipitor 20 mg daily, Plavix 75 mg daily, digoxin 0.125 mg daily, insulin, metoprolol tartrate 12.5 mg twice a day and midodrine. PHYSICAL EXAMINATION: Blood pressure 106/60 with a heart rate in the 90s. LUNGS: Clear. HEART: Regular rate and rhythm, S1, S2. No S3. No rub with a systolic murmur. ABDOMEN: Soft, nontender. EXTREMITIES: No edema. LAB DATA: Revealed BUN and creatinine 35 and 0.93, potassium 4.9, hemoglobin of 12.3. IMPRESSION: 1. Respiratory failure, resolved. 2. History of severe ischemic cardiomyopathy, status post ICD implantation. 3. Renal failure, resolved. 4. Hypotension, resolved. RECOMMENDATION: He is stable from the cardiac standpoint to be discharged home today and he will be followed as an outpatient. MMODL / IJN: [id number] /
[2018-04-26 12:35] VITALS: BP 105/52; PULSE 86; RESP 13; TEMP 98.5
--- NOTE | 2018-04-26 15:31 | CDI ---
Last Revision, September 2017 Documentation Clarification Form Date: 04/24/2018 10:38:00 AM From: Lilly Locke Admit Date: 04/23/2018 12:04:00 AM Patient Name: Luis Casillas Visit Number: [id number] ATTENTION: The Clinical Documentation Specialists (CDI) and [facility] Coding Staff appreciate your assistance in clarifying documentation. Please respond to the clarification below the line at the bottom and electronically sign. The CDI & [facility] Coding staff will review the response and follow-up if needed. Please note: Queries are made part of the [employer] Dr. Seth Beck, (Second request) Documentation Clarification Form Please render your opinion on the following. Cardiogenic Shock is documented in the ED note. Patient history/risk factors: DM, systolic CHF, COPD, dyslipidemia, asthma, GERD , CAD, SD, AICD placement, cardiomyopathy Clinical Indicators: Vitals on admission: T 96.9, P 40, R 12, 79/49, 94% RA Cardiogenic Shock is documented in the ED note. Patient admitted unresponsive with possibly dehydration causing worsening renal failure Pulmonary states "acute respiratory failure with hypoxemia" Nephrology "non-oliguric acute kidney injury mostly pre-renal secondary to hypotension and bradycardia" Treatment: Dopamine Gtt @ 10 Mcg/kg/min Levophed Gtt Titrate for B/P Fluid bolus x 1L Ventilator less than 24 hours Consults: Pulmonary and Nephrology In your professional opinion, can you please specify the type of shock if known ? Cardiogenic Shock Cause Septic Shock Suspected or known causative organism Hypovolemic Shock Other, please specify Unable to determine Please continue to document in your progress notes and discharge summary in order to capture severity of illness and risk of mortality. Include clinical findings that support your diagnosis. MTDD
--- NOTE | 2018-04-27 05:48 | DS ---
DISCHARGE SUMMARY DISCHARGE DIAGNOSES: 1. Hypovolemic shock secondary to dehydration. 2. Worsening renal failure secondary to dehydration. MMODL / IJN: [id number] /
== END 2018-04-26 13:30 | disposition home or self-care (01) | DRG 208 ==
LOC: EC 22:28 → 6ICU 04-23 00:04
PROVIDERS: ADMIT Family Medicine; ATTEND Family Medicine
PROC: 5A1945Z Respiratory Ventilation, 24-96 Consecutive Hours (ICD-10-PCS; principal; 2018-04-23)
PROC: 02H633Z Insertion of Infusion Device into Right Atrium, Percutaneous Approach (ICD-10-PCS; principal; 2018-04-23)
PROC: 0BH18EZ Insertion of Endotracheal Airway into Trachea, Via Natural or Artificial Opening Endoscopic (ICD-10-PCS; principal; 2018-04-23)
DX: J96.01 Acute respiratory failure with hypoxia (principal); R57.1 Hypovolemic shock; N17.9 Acute kidney failure, unspecified; E87.4 Mixed disorder of acid-base balance; I13.0 Hypertensive heart and chronic kidney disease with heart failure and stage 1 through stage 4 chronic kidney disease, or unspecified chronic kidney disease; I50.22 Chronic systolic (congestive) heart failure; E03.9 Hypothyroidism, unspecified; E11.22 Type 2 diabetes mellitus with diabetic chronic kidney disease; E78.5 Hyperlipidemia, unspecified; E87.5 Hyperkalemia; I25.10 Atherosclerotic heart disease of native coronary artery without angina pectoris; I25.2 Old myocardial infarction; I25.5 Ischemic cardiomyopathy; J44.9 Chronic obstructive pulmonary disease, unspecified; K21.9 Gastro-esophageal reflux disease without esophagitis; M17.0 Bilateral primary osteoarthritis of knee; N18.3 Chronic kidney disease, stage 3 (moderate); Z79.02 Long term (current) use of antithrombotics/antiplatelets; Z79.4 Long term (current) use of insulin; Z79.82 Long term (current) use of aspirin; Z79.899 Other long term (current) drug therapy; Z80.7 Family history of other malignant neoplasms of lymphoid, hematopoietic and related tissues; Z82.49 Family history of ischemic heart disease and other diseases of the circulatory system; Z87.891 Personal history of nicotine dependence; Z95.5 Presence of coronary angioplasty implant and graft; Z95.810 Presence of automatic (implantable) cardiac defibrillator; Z96.651 Presence of right artificial knee joint; Z79.890 Hormone replacement therapy; R00.1 Bradycardia, unspecified
CPT/HCPCS: 31500; 36415; 36556; 36600; 51702; 71045; 80048; 80053; 81003; 82550; 82553; 82805; 83036; 83690; 83735; 83880; 84100; 84484; 85025; 85610; 85730; 87040; 87070; 87086; 87205; 93005; 93306; 94002; 94003; 94640; 96365; 96366; 96368; 96375; 96376; 99285

== ENCOUNTER 2018-10-16 13:46 | Inpatient (IN) | payer MEDICARE, OTHER ==
[2018-10-16] MEDS ORDERED: SODIUM CHLORIDE 0.9% 500 ML 500 ML IV STA (15:10)
[2018-10-16 15:53] LABS: Anisocytosis Slight; Basophils # (A) 0.1 k/uL (0-0.2); Basophils % (A) 1 %; Eosinophils # (A) 0.1 k/uL (0-0.7); Eosinophils % (A) 1 %; HCT 47.9 % (39.0-53.0); HGB 15.1 gm/dL (13.0-17.5); Hypochromasia Slight; INR 1.2 (<1.2); Lymphocytes # (A) 0.7 k/uL (1.0-4.8); Lymphocytes % (A) 8 %; MCHC 31.6 g/dL (31.0-37.0); MCV 91.8 fL (80.0-100.0); Mean Platelet Volume 7.3; Monocytes # (A) 0.5 k/uL (0-1.0); Monocytes % (A) 5 %; Neutrophils # (A) 8.4 k/uL (1.3-7.7); Neutrophils % (A) 85 %; Platelet Count 221 k/uL (150-450); Prothrombin Time 12.3 sec (9.0-12.0); RBC 5.22 m/uL (4.30-5.90); RDW 18.5 % (11.5-15.5); WBC 9.9 k/uL (3.8-10.6)
--- NOTE | 2018-10-16 15:53 | XR ---
EXAMINATION TYPE: XR chest 2V DATE OF EXAM: 10/16/2018 COMPARISON: CTA chest February 13, 2018. Chest x-ray August 11, 2018. HISTORY: Increased weakness for 3 weeks. TECHNIQUE: Frontal and lateral views of the chest are obtained. FINDINGS: There is chronic parenchymal change without suspicious focal air space opacity, pleural ef fusion, or pneumothorax seen. The cardiac silhouette size remains enlarged with single lead pacemake r/AICD. The osseous structures are intact. IMPRESSION: Chronic parenchymal change and cardiomegaly without acute pulmonary process.
[2018-10-16 15:59] LABS: Albumin 3.4 g/dL (3.5-5.0); Calcium 8.7 mg/dL (8.4-10.2); Magnesium 2.2 mg/dL (1.6-2.3); Total Bilirubin 2.3 mg/dL (0.2-1.3); Total Protein 6.4 g/dL (6.3-8.2)
--- NOTE | 2018-10-16 15:59 | ED ---
General Adult HPI - General Chief complaint: Weakness Stated complaint: Weakness Source: EMS Mode of arrival: EMS Limitations: no limitations - Related Data Home Medications Medication Instructions Recorded Confirmed Aspirin EC [Ecotrin Low Dose] 81 mg PO DAILY 04/11/14 10/16/18 Atorvastatin [Lipitor] 20 mg PO HS 04/11/14 10/16/18 Ranitidine HCl 150 mg PO BID 04/11/14 10/16/18 Multivitamin [Men's Multi-Vitamin] 1 tab PO DAILY 03/02/16 10/16/18 Levothyroxine Sodium 200 mcg PO DAILY 02/12/18 10/16/18 Metoprolol Tartrate [Lopressor] 12.5 mg PO BID 02/12/18 10/16/18 Furosemide [Lasix] 10 mg PO DAILY 08/11/18 10/16/18 Previous Rx's Medication Instructions Recorded Digoxin [Lanoxin] 125 mcg PO DAILY #0 tab 02/14/18 Acetaminophen Tab [Tylenol] 650 mg PO Q4HR PRN tab 04/26/18 Clopidogrel [Plavix] 75 mg PO DAILY tab 04/26/18 Insulin Aspart [NovoLOG 5 unit SQ AC-TID vial 04/26/18 (formulary)] Insulin Detemir [Levemir] 20 unit SQ HS syr 04/26/18 Ipratropium-Albuterol Nebulize 3 ml INHALATION RT-QID ampul.neb 04/26/18 [Duoneb 0.5 mg-3 mg/3 ml Soln] Midodrine [ProAmatine] 10 mg PO AC-TID tab 04/26/18 predniSONE 10 mg PO DAILY tab 04/26/18 Allergies Allergy/AdvReac Type Severity Reaction Status Date / Time No Known Allergies Allergy Verified 10/16/18 14:31 Review of Systems ROS Statement: Those systems with pertinent positive or pertinent negative responses have been documented in the HPI. ROS Other: All systems not noted in ROS Statement are negative. Past Medical History Past Medical History: Asthma, Coronary Artery Disease (CAD), Chest Pain / Angina , Heart Failure, COPD, Diabetes Mellitus, GERD/Reflux, Hyperlipidemia, Myocardial Infarction ([place]), Osteoarthritis (OA), Respiratory Disorder, Skin Disorder, Syncope, Thyroid Disorder Additional Past Medical History / Comment(s): Cardiomyopathy, home O2/ concentrator use ATC, "blisters/redness on both my lower legs that are almost healed-took a year", bilateral lower leg edema, IDDM type II, thyroid dx-given radioactive iodine, arthritis bilateral knees/ankles, diverticulitis, polypectomy, 1 implant tooth (bottom), UTI, syncope with low blood sugar. Last Myocardial Infarction Date:: 03/08/16 History of Any Multi-Drug Resistant Organisms: None Reported Past Surgical History: AICD, Heart Catheterization With Stent Additional Past Surgical History / Comment(s): RT TKA, COLONOSCOPY/polypectomy, 03-08-16 PCI with stent to LAD and unable to stent CX-a couple weeks later restented, AICD PLACEMENT 07/25/2016 Past Anesthesia/Blood Transfusion Reactions: No Reported Reaction Date of Last Stent Placement:: 03/08/2016 Type of Cardiac Device: AICD Device Placement Date:: 07/25/2016 Past Psychological History: No Psychological Hx Reported Smoking Status: Former smoker - Past Family History Mother Family Medical History: Cancer, Congestive Heart Failure (CHF) Additional Family Medical History / Comment(s): FEMALE CA Father Family Medical History: Cancer Additional Family Medical History / Comment(s): LYMPHOMA General Exam Limitations: no limitations Course Vital Signs 10/16/18 14:00 Temperature 97.7 F Pulse Rate 40 L Respiratory 24 Rate Blood Pressure 115/61 O2 Sat by Pulse 93 L Oximetry Medical Decision Making - Medical Decision Making Dictation was produced using [employer] dictation software. please excuse any grammatical, word or spelling errors. Chief Complaint: 73-year-old male past medical history of AICD, asthma , diabetes, COPD presents with weakness and lightheadedness 3 weeks History of Present Illness: Patient is 73-year-old male multiple comorbidities. He has a history of CHF with documented ejection fraction of approximately 20% . Patient has AICD sent to heart rate of 40. Patient has been in the emergency department multiple occasions for similar complaints. Over the past 3 weeks patient has been feeling weak. Today he decided come the emergency department because he was on the toilet when he became lightheaded. He slipped on the toilet to the ground. Patient has traumatizing his head. Denies any loss of consciousness. Chart review shows that patient has been seen in the emergency department and admitted for the same clinic. Patient denies any constitutional symptoms. The ROS documented in this emergency department record has been reviewed and confirmed by me. Those systems with pertinent positive or negative responses have been documented in the HPI. All other systems are other negative and/or noncontributory. PHYSICAL EXAM: General Impression: Alert and oriented x3, not in acute distress HEENT: Normocephalic atraumatic, extra-ocular movements intact, pupils equal and reactive to light bilaterally, dry mucous membranes Cardiovascular: Heart regular rate and rhythm, S1&S2 audible, no murmurs, rubs or gallops Chest: Lungs clear to auscultation bilaterally, no rhonchi, no wheeze, no rales Abdomen: Bowel sounds present, abdomen soft, non-tender, non-distended, no organomegaly Musculoskeletal: Pulses present and equal in all extremities, no peripheral edema Motor: no focal deficits noted Neurological: CN II-XII grossly intact, no focal motor or sensory deficits noted Skin: Intact with no visualized rashes Psych: Normal affect and mood ED course: 73-year-old male with extensive comorbidities presents with chief complaint of weakness 3 weeks. Vital signs upon arrival shows heart rate of 40 , O2 saturation 93% on 3 L is cannula. Laboratory evaluation obtained. CBC unremarkable. Coag panel unremarkable. Patient does have a gap acidosis and lactic acidosis of 2.6. Metabolic panel is unremarkable. Urinalysis negative. If Lonza test negative. Chest x-ray obtained showing no acute processes. Pending pacemaker interrogation. Patient' s degree of weakness is so severe that I believe that this is secondary to his cardiac pacemaker. Patient to be admitted with cardiology consultation. Patient lives at home with family however they are unable to care for him if he keeps falling and patient is a significant fall risk. Chart review shows that patient pacemaker placed 2 years ago and was set to 40 bpm. Pending pacemaker interrogation. EKG interpretation: Ventricular rate 41, pacemaker, DC interval 266, QRS duration 140, QTc 429. No DC prolongation, no QTC prolongation, no ST or T-wave changes noted. Overall, this EKG is unremarkable - Lab Data Result diagrams: 10/16/18 14:24 10/16/18 14:24 Lab Results 10/16/18 10/16/18 10/16/18 Range/Units 14:24 14:24 14:24 WBC 9.9 (3.8-10.6) k/uL RBC 5.22 (4.30-5.90) m/uL Hgb 15.1 (13.0-17.5) gm/dL Hct 47.9 (39.0-53.0) % MCV 91.8 (80.0-100.0) fL MCH 29.0 (25.0-35.0) pg MCHC 31.6 (31.0-37.0) g/dL RDW 18.5 H (11.5-15.5) % Plt Count 221 (150-450) k/uL Neutrophils % 85 % Lymphocytes % 8 % Monocytes % 5 % Eosinophils % 1 % Basophils % 1 % Neutrophils # 8.4 H (1.3-7.7) k/uL Lymphocytes # 0.7 L (1.0-4.8) k/uL Monocytes # 0.5 (0-1.0) k/uL Eosinophils # 0.1 (0-0.7) k/uL Basophils # 0.1 (0-0.2) k/uL Hypochromasia Slight Anisocytosis Slight PT (9.0-12.0) sec INR (<1.2) APTT (22.0-30.0) sec Sodium 134 L (137-145) mmol/L Potassium 5.1 (3.5-5.1) mmol/L Chloride 102 (98-107) mmol/L Carbon Dioxide 22 (22-30) mmol/L Anion Gap 10 mmol/L BUN 25 H (9-20) mg/dL Creatinine 1.11 (0.66-1.25) mg/dL Est GFR (CKD-EPI)AfAm 75 (>60 ml/min/1.73 sqM) Est GFR (CKD-EPI)NonAf 65 (>60 ml/min/1.73 sqM) Glucose 168 H (74-99) mg/dL Plasma Lactic Acid Nolan (0.7-2.0) mmol/L Calcium 8.7 (8.4-10.2) mg/dL Magnesium 2.2 (1.6-2.3) mg/dL Total Bilirubin 2.3 H (0.2-1.3) mg/dL AST 75 H (17-59) U/L ALT 25 (21-72) U/L Alkaline Phosphatase 706 H (38-126) U/L Total Creatine Kinase 42 L (55-170) U/L CK-MB (CK-2) 1.4 (0.0-2.4) ng/mL CK-MB (CK-2) Rel Index 3.3 Troponin I 0.033 (0.000-0.034) ng/mL NT-Pro-B Natriuret Pep pg/mL Total Protein 6.4 (6.3-8.2) g/dL Albumin 3.4 L (3.5-5.0) g/dL Urine Color Urine Appearance (Clear) Urine pH (5.0-8.0) Ur Specific Antonito (1.001-1.035) Urine Protein (Negative) Urine Glucose (UA) (Negative) Urine Ketones (Negative) Urine Blood (Negative) Urine Nitrite (Negative) Urine Bilirubin (Negative) Urine Urobilinogen (<2.0) mg/dL Ur Leukocyte Esterase (Negative) Influenza Type A RNA (Not Detectd) Influenza Type B (PCR) (Not Detectd) 10/16/18 10/16/18 10/16/18 Range/Units 14:24 14:24 14:24 WBC (3.8-10.6) k/uL RBC (4.30-5.90) m/uL Hgb (13.0-17.5) gm/dL Hct (39.0-53.0) % MCV (80.0-100.0) fL MCH (25.0-35.0) pg MCHC (31.0-37.0) g/dL RDW (11.5-15.5) % Plt Count (150-450) k/uL Neutrophils % % Lymphocytes % % Monocytes % % Eosinophils % % Basophils % % Neutrophils # (1.3-7.7) k/uL Lymphocytes # (1.0-4.8) k/uL Monocytes # (0-1.0) k/uL Eosinophils # (0-0.7) k/uL Basophils # (0-0.2) k/uL Hypochromasia Anisocytosis PT 12.3 H (9.0-12.0) sec INR 1.2 H (<1.2) APTT 25.0 (22.0-30.0) sec Sodium (137-145) mmol/L Potassium (3.5-5.1) mmol/L Chloride (98-107) mmol/L Carbon Dioxide (22-30) mmol/L Anion Gap mmol/L BUN (9-20) mg/dL Creatinine (0.66-1.25) mg/dL Est GFR (CKD-EPI)AfAm (>60 ml/min/1.73 sqM) Est GFR (CKD-EPI)NonAf (>60 ml/min/1.73 sqM) Glucose (74-99) mg/dL Plasma Lactic Acid Nolan 2.6 H* (0.7-2.0) mmol/L Calcium (8.4-10.2) mg/dL Magnesium (1.6-2.3) mg/dL Total Bilirubin (0.2-1.3) mg/dL AST (17-59) U/L ALT (21-72) U/L Alkaline Phosphatase (38-126) U/L Total Creatine Kinase (55-170) U/L CK-MB (CK-2) (0.0-2.4) ng/mL CK-MB (CK-2) Rel Index Troponin I (0.000-0.034) ng/mL NT-Pro-B Natriuret Pep 8100 pg/mL Total Protein (6.3-8.2) g/dL Albumin (3.5-5.0) g/dL Urine Color Urine Appearance (Clear) Urine pH (5.0-8.0) Ur Specific Antonito (1.001-1.035) Urine Protein (Negative) Urine Glucose (UA) (Negative) Urine Ketones (Negative) Urine Blood (Negative) Urine Nitrite (Negative) Urine Bilirubin (Negative) Urine Urobilinogen (<2.0) mg/dL Ur Leukocyte Esterase (Negative) Influenza Type A RNA (Not Detectd) Influenza Type B (PCR) (Not Detectd) 10/16/18 10/16/18 Range/Units 14:24 16:46 WBC (3.8-10.6) k/uL RBC (4.30-5.90) m/uL Hgb (13.0-17.5) gm/dL Hct (39.0-53.0) % MCV (80.0-100.0) fL MCH (25.0-35.0) pg MCHC (31.0-37.0) g/dL RDW (11.5-15.5) % Plt Count (150-450) k/uL Neutrophils % % Lymphocytes % % Monocytes % % Eosinophils % % Basophils % % Neutrophils # (1.3-7.7) k/uL Lymphocytes # (1.0-4.8) k/uL Monocytes # (0-1.0) k/uL Eosinophils # (0-0.7) k/uL Basophils # (0-0.2) k/uL Hypochromasia Anisocytosis PT (9.0-12.0) sec INR (<1.2) APTT (22.0-30.0) sec Sodium (137-145) mmol/L Potassium (3.5-5.1) mmol/L Chloride (98-107) mmol/L Carbon Dioxide (22-30) mmol/L Anion Gap mmol/L BUN (9-20) mg/dL Creatinine (0.66-1.25) mg/dL Est GFR (CKD-EPI)AfAm (>60 ml/min/1.73 sqM) Est GFR (CKD-EPI)NonAf (>60 ml/min/1.73 sqM) Glucose (74-99) mg/dL Plasma Lactic Acid Nolan (0.7-2.0) mmol/L Calcium (8.4-10.2) mg/dL Magnesium (1.6-2.3) mg/dL Total Bilirubin (0.2-1.3) mg/dL AST (17-59) U/L ALT (21-72) U/L Alkaline Phosphatase (38-126) U/L Total Creatine Kinase (55-170) U/L CK-MB (CK-2) (0.0-2.4) ng/mL CK-MB (CK-2) Rel Index Troponin I (0.000-0.034) ng/mL NT-Pro-B Natriuret Pep pg/mL Total Protein (6.3-8.2) g/dL Albumin (3.5-5.0) g/dL Urine Color Yellow Urine Appearance Clear (Clear) Urine pH 5.5 (5.0-8.0) Ur Specific Antonito 1.009 (1.001-1.035) Urine Protein Trace H (Negative) Urine Glucose (UA) Negative (Negative) Urine Ketones Negative (Negative) Urine Blood Negative (Negative) Urine Nitrite Negative (Negative) Urine Bilirubin Negative (Negative) Urine Urobilinogen <2.0 (<2.0) mg/dL Ur Leukocyte Esterase Negative (Negative) Influenza Type A RNA Not Detected (Not Detectd) Influenza Type B (PCR) Not Detected (Not Detectd) Disposition Clinical Impression: Weakness Disposition: ADMITTED IP TO THIS HOSP Condition: Good Referrals: Seth Beck MD [Primary Care Provider] - 1-2 days Decision Time: 17:24
[2018-10-16 16:00] LABS: Potassium 5.1 mmol/L (3.5-5.1)
[2018-10-16 16:09] LABS: Creatine Kinase MB 1.4 ng/mL (0.0-2.4); Troponin I 0.033 ng/mL (0.000-0.034)
[2018-10-16 17:01] LABS: Appearance,Urine Clear (Clear); Bilirubin,Urine Negative (Negative); Blood,Urine Negative (Negative); Color,Urine Yellow; Glucose,Urine (UA) Negative (Negative); Ketones,Urine Negative (Negative); Leukocyte Esterase,Urine Negative (Negative); Nitrite,Urine Negative (Negative); PH, Urine 5.5 (5.0-8.0); Protein,Urine Trace (Negative); Specific Gravity,Urine 1.009 (1.001-1.035); Urobilinogen,Urine <2.0 mg/dL (<2.0)
[2018-10-16] MEDS ORDERED: NALOXONE 0.4 MG/ML 1 ML VIAL IV PRN (17:24)
[2018-10-16 21:17] LABS: Glucose,Whole Blood 191 mg/dL (75-99)
[2018-10-16] MEDS: ATORVASTATIN 20 MG TAB PO SCH (21:51)
[2018-10-16] MEDS: INSULIN DETEMIR 100 UNIT/ML 10 ML VIAL SQ SCH (21:52)
[2018-10-16] MEDS: INSULIN ASPART 100 UNIT/ML 1 ML 10 ML VIAL SQ SCH (21:52)
[2018-10-17 05:45] LABS: Glucose,Whole Blood 102 mg/dL (75-99)
[2018-10-17] MEDS: INSULIN ASPART 100 UNIT/ML 1 ML 10 ML VIAL SQ SCH ×7 (06:03→21:25)
[2018-10-17] MEDS: MIDODRINE 5 MG TAB PO SCH ×3 (06:13→17:17)
[2018-10-17] MEDS: LEVOTHYROXINE 100 MCG TAB PO SCH (06:13)
[2018-10-17] MEDS: IPRATROPIUM-ALBUTEROL 3 ML NEB INHALATION SCH ×4 (08:23→20:37)
[2018-10-17] MEDS: ASPIRIN 81 MG PO SCH (08:38)
[2018-10-17] MEDS: FAMOTIDINE 20 MG TAB PO SCH ×2 (08:38→21:25)
[2018-10-17] MEDS: predniSONE 10 MG TAB PO SCH (08:38)
[2018-10-17] MEDS: CLOPIDOGREL 75 MG TAB PO SCH (08:38)
[2018-10-17] MEDS: FUROSEMIDE 10 MG TAB PO SCH (08:39)
[2018-10-17 11:59] LABS: Glucose,Whole Blood 147 mg/dL (75-99)
[2018-10-17] MEDS: MULTIVITAMINS, THERA 1 EACH TAB PO SCH (12:06)
[2018-10-17 16:11] LABS: Glucose,Whole Blood 183 mg/dL (75-99)
--- NOTE | 2018-10-17 17:01 | P.CNPUL ---
History of Present Illness Consult date: 10/17/18 Requesting physician: Seth Beck Chief complaint: Weakness, fall at home History of present illness: This is a 73-year-old white male patient of Dr. Beck, with past medical history of COPD, ischemic cardiomyopathy with EF of 20% status post AICD placement, coronary artery disease with previous stenting, myocardial infarction , chronic congestive heart failure, diabetes mellitus, hyperlipidemia, myocardial infarction, osteoarthritis, hypothyroidism, chronic hypoxic respiratory failure on home oxygen at [address] Perez in the pulmonary clinic for his history of COPD, and patient is on DuoNeb nebulized treatments, prednisone at 10 mg daily. Patient was brought to the emergency department on 10/16/2018 related to increasing weakness over the past week, apparently patient was in the bathroom yesterday, however could not get up, and fell and could not get up. Patient's friend was home, and could not assist the patient off the floor. EMS was called and patient was brought to the hospital. He denied any chest pain, he states she was slightly lightheaded and dizzy, became increasingly weaker, and mildly short of breath. No fever or chills, no nausea vomiting or diarrhea, no loss of consciousness in the fall, denied any trauma. He has chronic lower extremity swelling, and the patient states that has not increased. He denies any significant weight gain, he states his usual weight is about 220 LBs, and on admission recorded weight was 216 lbs. chronic abdominal distention, and patient is Dr. Bear for chronic liver cirrhosis, cholelithiasis. Patient was referred to Dr Humphrey for evaluation of his gallbladder disease, and was supposed to undergo liver biopsy as well, which has not taken place yet. Patient is on maintenance dose of Lasix at home at 10 mg daily. Patient states he has been compliant with all of his medications. In the emergency department patient was evaluated, chest x-ray was obtained and showed cardiomegaly and chronic parenchymal changes without acute pulmonary process. EKG showed paced rhythm with a rate of 41. Labs showed RBC of 9.9, hemoglobin of 15.1, INR is 1.2, sodium is 134, potassium is 5.1, CO2 is 22, BUN is 25, creatinine is 1.1, lactic acid was 2.1, total bilirubin was 2.3, AST was 75, ALT was 25, alkaline phosphatase was 706, troponin was negative at 0.033, and proBNP was 8100. Urinalysis showed trace protein, but no sign of infection , influenza was negative. Afebrile, satting 94% on 3 L, heart rate is 46-48 BPM , patient is awake and alert, in no acute distress, sitting up on the edge of the bed, lung sounds are positive for some bibasilar crackles, no rhonchi or wheezing. No fever or chills, no cough or congestion. Review of Systems All systems: negative Constitutional: Reports weakness, Denies chills, Denies fever Eyes: denies blurred vision, denies pain Ears, nose, mouth and throat: Denies headache, Denies sore throat Cardiovascular: Reports edema, Reports leg edema, Denies chest pain, Denies shortness of breath Respiratory: Denies cough Gastrointestinal: Denies abdominal pain, Denies diarrhea, Denies nausea, Denies vomiting Musculoskeletal: Denies myalgias Integumentary: Denies pruritus, Denies rash Neurological: Denies numbness, Denies weakness Psychiatric: Denies anxiety, Denies depression Endocrine: Denies fatigue, Denies weight change Past Medical History Past Medical History: Asthma, Coronary Artery Disease (CAD), Chest Pain / Angina , Heart Failure, COPD, Diabetes Mellitus, GERD/Reflux, Hyperlipidemia, Myocardial Infarction (RI), Osteoarthritis (OA), Respiratory Disorder, Skin Disorder, Syncope, Thyroid Disorder Additional Past Medical History / Comment(s): Cardiomyopathy, home O2/ concentrator use ATC, "blisters/redness on both my lower legs that are almost healed-took a year", bilateral lower leg edema, IDDM type II, thyroid dx-given radioactive iodine, arthritis bilateral knees/ankles, diverticulitis, polypectomy, 1 implant tooth (bottom), UTI, syncope with low blood sugar. Last Myocardial Infarction Date:: 03/08/16 History of Any Multi-Drug Resistant Organisms: None Reported Past Surgical History: AICD, Heart Catheterization With Stent Additional Past Surgical History / Comment(s): RT TKA, COLONOSCOPY/polypectomy, 03-08-16 PCI with stent to LAD and unable to stent CX-a couple weeks later restented, AICD PLACEMENT 07/25/2016 Past Anesthesia/Blood Transfusion Reactions: No Reported Reaction Date of Last Stent Placement:: 03/08/2016 Type of Cardiac Device: AICD Device Placement Date:: 07/25/2016 Past Psychological History: No Psychological Hx Reported Additional Psychological History / Comment(s): Pt resides with his significant other. He is independent. He lives in a single story home. He has a concentrator that he wears ATC. No home care. He owns a cane and a walker. He has a glucometer. Smoking Status: Former smoker Past Alcohol Use History: None Reported Additional Past Alcohol Use History / Comment(s): Pt started smoking in 1961 and quit in 1996-he was a 3 ppd smoker. Past Drug Use History: None Reported Additional Drug Use History / Comment(s): Pt has not drank alcohol since 1996. - Past Family History Mother Family Medical History: Cancer, Congestive Heart Failure (CHF) Additional Family Medical History / Comment(s): FEMALE CA Father Family Medical History: Cancer Additional Family Medical History / Comment(s): LYMPHOMA Medications and Allergies Home Medications Medication Instructions Recorded Confirmed Type Aspirin EC [Ecotrin Low Dose] 81 mg PO DAILY 04/11/14 10/16/18 History Atorvastatin [Lipitor] 20 mg PO HS 04/11/14 10/16/18 History Ranitidine HCl 150 mg PO BID 04/11/14 10/16/18 History Multivitamin [Men's Multi-Vitamin] 1 tab PO DAILY 03/02/16 10/16/18 History Levothyroxine Sodium 200 mcg PO DAILY 02/12/18 10/16/18 History Metoprolol Tartrate [Lopressor] 12.5 mg PO BID 02/12/18 10/16/18 History Digoxin [Lanoxin] 125 mcg PO DAILY #0 tab 02/14/18 10/16/18 Rx Acetaminophen Tab [Tylenol] 650 mg PO Q4HR PRN tab 04/26/18 10/16/18 Rx Clopidogrel [Plavix] 75 mg PO DAILY tab 04/26/18 10/16/18 Rx Insulin Aspart [NovoLOG 5 unit SQ AC-TID vial 04/26/18 10/16/18 Rx (formulary)] Insulin Detemir [Levemir] 20 unit SQ HS syr 04/26/18 10/16/18 Rx Ipratropium-Albuterol Nebulize 3 ml INHALATION RT-QID ampul.neb 04/26/18 Rx [Duoneb 0.5 mg-3 mg/3 ml Soln] Midodrine [ProAmatine] 10 mg PO AC-TID tab 04/26/18 10/16/18 Rx predniSONE 10 mg PO DAILY tab 04/26/18 10/16/18 Rx Furosemide [Lasix] 10 mg PO DAILY 08/11/18 10/16/18 History Allergies Allergy/AdvReac Type Severity Reaction Status Date / Time No Known Allergies Allergy Verified 10/16/18 14:31 Physical Exam Vitals: Vital Signs Temp Pulse Pulse Resp BP BP Pulse Ox 10/17/18 16:11 48 L 10/17/18 16:03 46 L 10/17/18 15:48 97.3 F L 41 L 18 132/69 94 L 10/17/18 11:31 97.6 F 42 L 18 108/67 90 L 10/17/18 08:31 50 L 10/17/18 08:23 48 L 10/17/18 07:47 96.0 F L 42 L 18 110/66 93 L 10/17/18 03:51 97.4 F L 40 L 19 123/62 94 L 10/16/18 23:57 45 L 18 112/58 90 L 10/16/18 20:00 97.4 F L 40 L 18 137/66 93 L 10/16/18 19:20 97.8 F 46 L 20 128/78 94 L 10/16/18 18:00 122/73 10/16/18 17:50 40 L 122/73 95 10/16/18 17:40 40 L 122/73 95 10/16/18 17:30 39 L 122/73 94 L 10/16/18 17:20 39 L 122/73 96 10/16/18 17:10 38 L 122/73 95 10/16/18 17:00 40 L 142/89 10/16/18 16:50 10 L 142/89 93 L 10/16/18 16:40 142/89 91 L 10/16/18 16:30 40 L 142/89 92 L Intake and Output 10/17/18 10/17/18 10/17/18 06:59 14:59 22:59 Intake Total 240 240 Output Total 300 400 Balance -60 240 -400 Intake: Oral 240 240 Output: Urine 300 400 Other: Voiding Method Urinal Urinal Urinal # Voids 1 Weight 98.2 kg GENERAL EXAM: Alert, pleasant, 73-year-old the white male, on 3 L per nasal cannula, in no acute distress HEAD: Normocephalic/atraumatic. EYES: Normal reaction of pupils, equal size. Conjunctiva pink, sclera white. NOSE: Clear with pink turbinates. THROAT: No erythema or exudates. NECK: No masses, no JVD, no thyroid enlargement, no adenopathy. CHEST: No chest wall deformity. Symmetrical expansion. LUNGS: Equal air entry with bibasilar crackles, no rhonchi no wheezing CVS: Regular rate and rhythm, normal S1 and S2, no gallops, no murmurs, no rubs ABDOMEN: Distended, nontender, and there is mild degree of abdominal wall edema. No hepatosplenomegaly, normal bowel sounds, no guarding or rigidity. EXTREMITIES: No clubbing, chronic venous stasis in lower extremities, chronic edema, and chronic crusty and weeping superficial lesions on pretibial areas of bilateral extremities no cyanosis, 2+ pulses and upper and lower extremities. MUSCULOSKELETAL: Muscle strength and tone normal. SPINE: No scoliosis or deformity SKIN: No rashes CENTRAL NERVOUS SYSTEM: Alert and oriented -3. No focal deficits, tone is normal in all 4 extremities. PSYCHIATRIC: Alert and oriented -3. Appropriate affect. Intact judgment and insight. Results - Laboratory Findings CBC and BMP: 10/16/18 14:24 10/16/18 14:24 PT/INR, D-dimer PT 12.3 sec (9.0-12.0) H 10/16/18 14:24 INR 1.2 (<1.2) H 10/16/18 14:24 Abnormal lab findings: Abnormal Labs 10/16/18 10/16/18 10/16/18 14:24 14:24 14:24 RDW 18.5 H Neutrophils # 8.4 H Lymphocytes # 0.7 L PT INR Sodium 134 L BUN 25 H Glucose 168 H POC Glucose (mg/dL) Plasma Lactic Acid Nolan Total Bilirubin 2.3 H AST 75 H Alkaline Phosphatase 706 H Total Creatine Kinase 42 L Albumin 3.4 L Urine Protein 10/16/18 10/16/18 10/16/18 14:24 14:24 16:46 RDW Neutrophils # Lymphocytes # PT 12.3 H INR 1.2 H Sodium BUN Glucose POC Glucose (mg/dL) Plasma Lactic Acid Nolan 2.6 H* Total Bilirubin AST Alkaline Phosphatase Total Creatine Kinase Albumin Urine Protein Trace H 10/16/18 10/16/18 10/17/18 19:25 21:16 05:43 RDW Neutrophils # Lymphocytes # PT INR Sodium BUN Glucose POC Glucose (mg/dL) 191 H 102 H Plasma Lactic Acid Nolan 2.1 H* Total Bilirubin AST Alkaline Phosphatase Total Creatine Kinase Albumin Urine Protein 10/17/18 10/17/18 11:56 16:09 RDW Neutrophils # Lymphocytes # PT INR Sodium BUN Glucose POC Glucose (mg/dL) 147 H 183 H Plasma Lactic Acid Nolan Total Bilirubin AST Alkaline Phosphatase Total Creatine Kinase Albumin Urine Protein - Diagnostic Findings Chest x-ray: report reviewed, image reviewed Additional studies: EKG reviewed Assessment and Plan Plan: Assessment: #1. Weakness, patient had a fall at home, and was unable to get up. No loss of consciousness, denies any injury. Causes unknown, patient denies any constitutional symptoms. #2. Bradycardia with a rate in the 40s #3. Mild shortness of breath, lower extremity edema, and abdominal wall edema, elevated proBNP suggesting Acute exacerbation of chronic congestive heart failure with previously documented systolic dysfunction #4. Ischemic cardiomyopathy status post AICD placement with an EF of 20% #5. COPD with chronic hypoxemic respiratory failure, prednisone dependent, currently stable #6. Mild lactic acidosis, doubt sepsis, improved with IV hydration #7. Coronary artery disease with previous stenting #8. Chronic heart failure with systolic dysfunction #9. Diabetes mellitus type 2 #10. Previous myocardial infarction #11. Hypothyroidism #12. Hyperlipidemia #13. Former smoker, quit smoking in 1989, carries 35 year smoking history of one to 2 packs per day #14. Chronic liver cirrhosis, cholelithiasis. Patient follows with Dr. Humphrey and Dr. De Leon, and is supposed to have a liver biopsy #15. History of EtOH abuse, currently in remission Plan: Continue nebulized bronchodilators, continue home dose prednisone, patient's COPD is stable, no rhonchi or wheezing, no cough or chest congestion. No fever or chills, no chest pain. Lactic acid has improved with IV bolus, doubt sepsis , blood we'll obtain a set of blood cultures. Cardiology consultation is pending, patient is noted to be bradycardic, and the paced rhythm with a rate of 40s. No lightheadedness, no dizziness, chest x-ray has been reviewed with Dr. Echavarria and did not show any acute pulmonary process. We'll continue to follow I performed a history & physical examination of the patient and discussed their management with my nurse practitioner, Barbara Monroy. I reviewed the nurse practitioner's note and agree with the documented findings and plan of care. Lung sounds are positive for bibasilar crackles. The findings and the impression was discussed with the patient. I attest to the documentation by the nurse practitioner. Time with Patient: Greater than 30
[2018-10-17 21:06] LABS: Glucose,Whole Blood 198 mg/dL (75-99)
[2018-10-17] MEDS: ATORVASTATIN 20 MG TAB PO SCH (21:25)
[2018-10-17] MEDS: INSULIN DETEMIR 100 UNIT/ML 10 ML VIAL SQ SCH (21:26)
--- NOTE | 2018-10-18 00:40 | HP ---
HISTORY AND PHYSICAL CHIEF COMPLAINT: A 73-year-old white male, COPD, ischemic cardiomyopathy, 20%, AICD placement, coronary artery disease, myocardial infarction, CHF, diabetes mellitus, hypothyroidism, systolic CHF, on 3 L oxygen at home. He had a fall at home where he had severe weakness. He dropped to the ground, could not get up. He came to the ER. He was found to have a heart rate of 39 to 42, possible pacemaker dysfunction. Cardiology has been consulted as well as Pulmonary. HOME MEDICATIONS: See list. FAMILY HISTORY: See old list. REVIEW OF SYSTEMS: A 14-point review of systems is negative except for as mentioned in HPI. MEDICATIONS: See list. PHYSICAL EXAMINATION: Temp 97.3, blood pressure 108 to 99 over 60s to 70s, pulse is 48 to 50. Digoxin and beta priscilla have been withheld. He is weak, cachectic. NECK: No masses. LUNGS: Clear. GI: Soft. SKIN: No rashes. NEURO: Alert and oriented x3. : No suprapubic tenderness. PSYCH: Fair mood and affect. ASSESSMENT: 1. Frequent falls. 2. Syncope. 3. Chronic obstructive pulmonary disease. 4. Systolic congestive heart failure. 5. Generalized weakness from fall secondary to possible orthostatic hypotension. 6. Mild lactic acidosis. 7. Coronary artery disease. 8. Chronic systolic dysfunction. 9. Weakness. PT and OT. Monitor pulse rate. Cardiology and Pulmonary consults. Hold metoprolol and digoxin at this time due to bradycardia. Monitor for arrhythmias. Pacemaker evaluation. MMSTARRL / VIRGINIEN: [id number] /
--- NOTE | 2018-10-18 00:54 | PN ---
PROGRESS NOTE SUBJECTIVE: This is a white male, awaiting Cardiology recommendations for his bradycardia, pacemaker. Beta blockers and digoxin are on hold. Cardiovascular, S1, S2. Lung doctor is evaluating for COPD. He remains on 3 L oxygen. Lungs scattered wheeze x4. Cardiovascular S1-S2. Ophthalmologic pupils equal, round, reactive to light and accommodation. Neuro, alert and oriented x3. ASSESSMENT: 1. Generalized weakness and falls. 2. Chronic obstructive pulmonary disease. 3. Systolic congestive heart failure. 4. Bradycardia. 5. Possible pacemaker AICD malfunction. PLAN: Await Cardiology and Pulmonary recommendations. MMODL / IJN: [id number] /
[2018-10-18 05:56] LABS: Glucose,Whole Blood 86 mg/dL (75-99)
[2018-10-18] MEDS: INSULIN ASPART 100 UNIT/ML 1 ML 10 ML VIAL SQ SCH ×7 (05:56→21:20)
[2018-10-18] MEDS: MIDODRINE 5 MG TAB PO SCH ×3 (06:07→17:35)
[2018-10-18] MEDS: LEVOTHYROXINE 100 MCG TAB PO SCH (06:07)
[2018-10-18] MEDS: ACETAMINOPHEN TAB 325 MG TAB PO PRN ×3 (06:12→16:29)
[2018-10-18] MEDS: IPRATROPIUM-ALBUTEROL 3 ML NEB INHALATION SCH ×4 (08:12→19:48)
[2018-10-18] MEDS: FUROSEMIDE 10 MG TAB PO SCH (08:45)
[2018-10-18] MEDS: ASPIRIN 81 MG PO SCH (08:45)
[2018-10-18] MEDS: predniSONE 10 MG TAB PO SCH (08:45)
[2018-10-18] MEDS: CLOPIDOGREL 75 MG TAB PO SCH (08:45)
[2018-10-18] MEDS: FAMOTIDINE 20 MG TAB PO SCH ×2 (08:47→21:20)
[2018-10-18] MEDS: MULTIVITAMINS, THERA 1 EACH TAB PO SCH (11:00)
[2018-10-18 11:50] LABS: Glucose,Whole Blood 52 mg/dL (75-99)
[2018-10-18 12:08] LABS: Glucose,Whole Blood 54 mg/dL (75-99)
[2018-10-18 12:19] LABS: Glucose,Whole Blood 75 mg/dL (75-99)
--- NOTE | 2018-10-18 12:21 | P.PN ---
Subjective Progress Note Date: 10/18/18 This is a 73-year-old gentleman with past medical history significant for ischemic cardio myopathy with ejection fraction of 20%, status post AICD implantation, coronary artery disease with prior PCI, liver cirrhosis, chronic congestive heart failure, diabetes, hyperlipidemia, prior myocardial infarction , osteoarthritis, hypothyroidism, chronic hypoxic respiratory failure on home oxygen, COPD. He initially was brought to the emergency room secondary to increasing weakness, apparently the patient had fallen in his bathroom, he was found to be stuck between the toilet and the cabinet. Chest x-ray performed in the emergency room revealed cardiomegaly and chronic parenchymal changes without acute pulmonary process. EKG showed a paced rhythm, heart rate in the 40s. Pacemaker was interrogated, oh rate is set at 40. Otherwise it is functioning appropriately. Hemoglobin 15.1 on admission, INR 1.2, sodium 134, potassium 5.1, BUN 25, creatinine 1.1, lactic acid 2.1, AST 75 and ALT 25 with an alk phos of 706. Initial troponin 0.033. BNP level on admission 8100. Blood pressure this morning 120/60 with a heart rate in the 70s, 94% on 3 L of oxygen. Patient was seen and examined this morning, overall he states he just doesn't feel well. He is experiencing some pain in his right shoulder which she states he feels is from his fall. Does complain of some mild shortness of breath. Objective - Vital Signs Vital signs: Vital Signs Temp 97.4 F L 10/18/18 11:55 Pulse 77 10/18/18 11:55 Resp 20 10/18/18 11:55 BP 120/64 10/18/18 11:55 Pulse Ox 94 L 10/18/18 11:55 Intake & Output 10/17/18 10/18/18 10/18/18 18:59 06:59 18:59 Intake Total 358 Output Total 400 300 Balance -42 -300 Weight 99.7 kg Intake: Oral 358 Output: Urine 400 300 Straight 300 Other: Voiding Method Urinal Toilet Toilet Urinal # Voids 1 - Exam GENERAL EXAM: Alert, pleasant, 73-year-old the white male, on 3 L per nasal cannula, in no acute distress HEAD: Normocephalic/atraumatic. EYES: Normal reaction of pupils, equal size. Conjunctiva pink, sclera white. NOSE: Clear with pink turbinates. THROAT: No erythema or exudates. NECK: No masses, no JVD, no thyroid enlargement, no adenopathy. CHEST: No chest wall deformity. Symmetrical expansion. LUNGS: Equal air entry with bibasilar crackles, no rhonchi no wheezing CVS: Regular rate and rhythm, normal S1 and S2, no gallops, no murmurs, no rubs ABDOMEN: Distended, nontender, and there is mild degree of abdominal wall edema. No hepatosplenomegaly, normal bowel sounds, no guarding or rigidity. EXTREMITIES: No clubbing, chronic venous stasis in lower extremities, chronic edema, and chronic crusty and weeping superficial lesions on pretibial areas of bilateral extremities no cyanosis, 2+ pulses and upper and lower extremities. MUSCULOSKELETAL: Muscle strength and tone normal. SPINE: No scoliosis or deformity SKIN: No rashes CENTRAL NERVOUS SYSTEM: Alert and oriented -3. No focal deficits, tone is normal in all 4 extremities. PSYCHIATRIC: Alert and oriented -3. Appropriate affect. Intact judgment and insight. - Labs CBC & Chem 7: 10/16/18 14:24 10/16/18 14:24 Labs: Abnormal Lab Results - Last 24 Hours (Table) 10/17/18 10/17/18 10/18/18 Range/Units 16:09 21:05 11:40 POC Glucose (mg/dL) 183 H 198 H 52 L (75-99) mg/dL Assessment and Plan Plan: Assessment and plan: #1. Weakness, patient had a fall at home, and was unable to get up. No loss of consciousness, denies any injury. #2. Bradycardia with a rate in the 40s, device was interrogated and is functioning appropriately. Low rate is set at 40. #3. Mild shortness of breath, lower extremity edema, and abdominal wall edema, elevated proBNP suggesting Acute exacerbation of chronic congestive heart failure with previously documented systolic dysfunction #4. Ischemic cardiomyopathy status post AICD placement with an EF of 20% #5. COPD with chronic hypoxemic respiratory failure, prednisone dependent, currently stable #6. Mild lactic acidosis, doubt sepsis, improved with IV hydration #7. Coronary artery disease with previous stenting #8. Chronic heart failure with systolic dysfunction #9. Diabetes mellitus type 2 #10. Previous myocardial infarction #11. Hypothyroidism #12. Hyperlipidemia #13. Former smoker, quit smoking in 1989, carries 35 year smoking history of one to 2 packs per day #14. Chronic liver cirrhosis, cholelithiasis. Patient follows with Dr. Humphrey and Dr. De Leon, and is supposed to have a liver biopsy #15. History of EtOH abuse, currently in remission Plan: From cardiology's perspective, we'll recommend to continue the patient on his current medications. He may be able to be discharged once cleared by primary. Follow-up appointment in the office post discharge DNP note has been reviewed, I agree with a documented findings and plan of care. Patient was seen and examined.
--- NOTE | 2018-10-18 16:50 | P.PN ---
Subjective Progress Note Date: 10/18/18 Principal diagnosis: Weakness, fall This is a 73-year-old white male patient of Dr. Beck, with past medical history of COPD, ischemic cardiomyopathy with EF of 20% status post AICD placement, coronary artery disease with previous stenting, myocardial infarction , chronic congestive heart failure, diabetes mellitus, hyperlipidemia, myocardial infarction, osteoarthritis, hypothyroidism, chronic hypoxic respiratory failure on home oxygen at [address] Perze in the pulmonary clinic for his history of COPD, and patient is on DuoNeb nebulized treatments, prednisone at 10 mg daily. Patient was brought to the emergency department on 10/16/2018 related to increasing weakness over the past week, apparently patient was in the bathroom yesterday, however could not get up, and fell and could not get up. Patient's friend was home, and could not assist the patient off the floor. EMS was called and patient was brought to the hospital. He denied any chest pain, he states she was slightly lightheaded and dizzy, became increasingly weaker, and mildly short of breath. No fever or chills, no nausea vomiting or diarrhea, no loss of consciousness in the fall, denied any trauma. He has chronic lower extremity swelling, and the patient states that has not increased. He denies any significant weight gain, he states his usual weight is about 220 LBs, and on admission recorded weight was 216 lbs. chronic abdominal distention, and patient is Dr. Bear for chronic liver cirrhosis, cholelithiasis. Patient was referred to Dr Humphrey for evaluation of his gallbladder disease, and was supposed to undergo liver biopsy as well, which has not taken place yet. Patient is on maintenance dose of Lasix at home at 10 mg daily. Patient states he has been compliant with all of his medications. In the emergency department patient was evaluated, chest x-ray was obtained and showed cardiomegaly and chronic parenchymal changes without acute pulmonary process. EKG showed paced rhythm with a rate of 41. Labs showed RBC of 9.9, hemoglobin of 15.1, INR is 1.2, sodium is 134, potassium is 5.1, CO2 is 22, BUN is 25, creatinine is 1.1, lactic acid was 2.1, total bilirubin was 2.3, AST was 75, ALT was 25, alkaline phosphatase was 706, troponin was negative at 0.033, and proBNP was 8100. Urinalysis showed trace protein, but no sign of infection , influenza was negative. Afebrile, satting 94% on 3 L, heart rate is 46-48 BPM , patient is awake and alert, in no acute distress, sitting up on the edge of the bed, lung sounds are positive for some bibasilar crackles, no rhonchi or wheezing. No fever or chills, no cough or congestion. On 10/18/2018 patient seen in follow-up on selective care unit, he is awake and alert, resting comfortably in bed, he states he is still a bit weak, but no chest pain, no shortness of breath, his vitals are stable, currently on 3 L per nasal cannula the pulse ox of 94%, lung sounds are negative for any rhonchi or wheezing, there is a few rales at the bases, his chronic lower extremity edema, his abdomen is distended but nontender mild abdominal wall edema, patient is on home dose of Lasix, he COPD is stable, patient was evaluated by cardiology, device was interrogated, and is functioning properly. From pulmonary perspective he is stable, his chest x-ray was negative for any acute process, patient denies any weight gain, he has been cleared by cardiology for discharge , from pulmonary perspective he is stable for discharge as well. Objective - Vital Signs Vital signs: Vital Signs Temp 97.4 F L 10/18/18 11:55 Pulse 80 10/18/18 12:12 Resp 20 10/18/18 11:55 BP 120/64 10/18/18 11:55 Pulse Ox 94 L 10/18/18 11:55 Intake & Output 10/17/18 10/18/18 10/18/18 18:59 06:59 18:59 Intake Total 358 Output Total 400 300 Balance -42 -300 Weight 99.7 kg Intake: Oral 358 Output: Urine 400 300 Straight 300 Other: Voiding Method Urinal Toilet Toilet Urinal # Voids 1 - Exam GENERAL EXAM: Alert, pleasant, 73-year-old the white male, on 3 L per nasal cannula, in no acute distress HEAD: Normocephalic/atraumatic. EYES: Normal reaction of pupils, equal size. Conjunctiva pink, sclera white. NOSE: Clear with pink turbinates. THROAT: No erythema or exudates. NECK: No masses, no JVD, no thyroid enlargement, no adenopathy. CHEST: No chest wall deformity. Symmetrical expansion. LUNGS: Equal air entry with bibasilar crackles, no rhonchi no wheezing CVS: Regular rate and rhythm, normal S1 and S2, no gallops, no murmurs, no rubs ABDOMEN: Distended, nontender, and there is mild degree of abdominal wall edema. No hepatosplenomegaly, normal bowel sounds, no guarding or rigidity. EXTREMITIES: No clubbing, chronic venous stasis in lower extremities, chronic edema, and chronic crusty and weeping superficial lesions on pretibial areas of bilateral extremities no cyanosis, 2+ pulses and upper and lower extremities. MUSCULOSKELETAL: Muscle strength and tone normal. SPINE: No scoliosis or deformity SKIN: No rashes CENTRAL NERVOUS SYSTEM: Alert and oriented -3. No focal deficits, tone is normal in all 4 extremities. PSYCHIATRIC: Alert and oriented -3. Appropriate affect. Intact judgment and insight. - Labs CBC & Chem 7: 10/16/18 14:24 10/16/18 14:24 Labs: Abnormal Lab Results - Last 24 Hours (Table) 10/17/18 10/18/18 10/18/18 Range/Units 21:05 11:08 11:40 POC Glucose (mg/dL) 198 H 52 L (75-99) mg/dL TSH 6.890 H (0.465-4.680) mIU/L 10/18/18 Range/Units 11:55 POC Glucose (mg/dL) 54 L (75-99) mg/dL TSH (0.465-4.680) mIU/L Assessment and Plan Plan: Assessment: #1. Weakness, patient had a fall at home, and was unable to get up. No loss of consciousness, denies any injury. Causes unknown, patient denies any constitutional symptoms. #2. Bradycardia with a rate in the 40s, the device was interrogated and was found to be functioning properly #3. Mild shortness of breath, lower extremity edema, and abdominal wall edema, elevated proBNP suggesting Acute exacerbation of chronic congestive heart failure with previously documented systolic dysfunction #4. Ischemic cardiomyopathy status post AICD placement with an EF of 20% #5. COPD with chronic hypoxemic respiratory failure, prednisone dependent, currently stable #6. Mild lactic acidosis, doubt sepsis, improved with IV hydration #7. Coronary artery disease with previous stenting #8. Chronic heart failure with systolic dysfunction #9. Diabetes mellitus type 2 #10. Previous myocardial infarction #11. Hypothyroidism #12. Hyperlipidemia #13. Former smoker, quit smoking in 1989, carries 35 year smoking history of one to 2 packs per day #14. Chronic liver cirrhosis, cholelithiasis. Patient follows with Dr. Humphrey and Dr. De Leon, and is supposed to have a liver biopsy #15. History of EtOH abuse, currently in remission Plan: From pulmonary perspective patient remains stable, chest x-ray was negative for any acute pulmonary process, COPD is stable, patient was evaluated by cardiology , his device was interrogated and functioning properly, vital signs remain stable, no lightheadedness or dizziness, no syncope, chest pain, no worsening shortness of breath, from pulmonary perspective patient is stable and can be discharged home today. I performed a history & physical examination of the patient and discussed their management with my nurse practitioner, Barbara Monroy. I reviewed the nurse practitioner's note and agree with the documented findings and plan of care. Lung sounds are positive for bibasilar crackles. The findings and the impression was discussed with the patient. I attest to the documentation by the nurse practitioner. Time with Patient: Less than 30
[2018-10-18 17:01] LABS: Glucose,Whole Blood 174 mg/dL (75-99)
--- NOTE | 2018-10-18 17:34 | ECHOF ---
Referral Reason:kenzie MEASUREMENTS -------- HEIGHT: 180.3 cm WEIGHT: 95.3 kg BP: RVIDd: 5.3 cm (< 3.3) IVSd: 1.8 cm (0.6 - 1.1) LVIDd: 2.8 cm (3.9 - 5.3) LVPWd: 1.8 cm (0.6 - 1.1) IVSs: 2.0 cm LVIDs: 2.0 cm LVPWs: 1.6 cm LAESV Index (A-L): 15.79 ml/m Ao Diam: 3.1 cm (2.0 - 3.7) AV Cusp: 1.9 cm (1.5 - 2.6) LA Diam: 3.9 cm (2.7 - 3.8) MV EXCURSION: 20.824 mm (> 18.000) MV EF SLOPE: 65 mm/s (70 - 150) EPSS: 0.7 cm MV E Waldo: 0.69 m/s MV DecT: 125 ms MV A Waldo: 1.11 m/s MV E/A Ratio: 0.62 AV maxP.47 mmHg AV meanP.78 mmHg RAP: 5.00 mmHg RVSP: 63.10 mmHg FINDINGS -------- Paced rhythm. Pacerwire seen in RV and RA. This was a technically adequate study. The left ventricular size is normal. There is severe concentric left ventricular hypertrophy. Ove rall left ventricular systolic function is mildly impaired with, an EF between 45 - 50 %. There is paradoxical/dysynergic septal motion consistent with right ventricular volume overload and/or elevate d right ventricular end-diastolic pressure. The right ventricle is severely enlarged. The right ventricular systolic function is severely impai red. The left atrial size is normal. The right atrium is moderately enlarged. Electronic pacemaker lead seen in the right atrial cavity. The aortic valve is trileaflet, and appears structurally normal. No aortic stenosis or regurgitation. The mitral valve is normal. Mild mitral regurgitation is present. Severe tricuspid regurgitation present. There is moderate to severe pulmonary hypertension. The r ight ventricular systolic pressure, as measured by Doppler, is 63.10mmHg. There is no pulmonic regurgitation present. The aortic root size is normal. The inferior vena cava is mildly dilated. There is no pericardial effusion. CONCLUSIONS -------- 1. Paced rhythm. 2. Pacerwire seen in RV and RA. 3. This was a technically adequate study. 4. The left ventricular size is normal. 5. There is severe concentric left ventricular hypertrophy. 6. Overall left ventricular systolic function is mildly impaired with, an EF between 45 - 50 %. 7. There is paradoxical/dysynergic septal motion consistent with right ventricular volume overload an d/or elevated right ventricular end-diastolic pressure. 8. The right ventricle is severely enlarged. 9. The right ventricular systolic function is severely impaired. 10. The left atrial size is normal. 11. The right atrium is moderately enlarged. 12. Electronic pacemaker lead seen in the right atrial cavity. 13. The aortic valve is trileaflet, and appears structurally normal. No aortic stenosis or regurgitat ion. 14. Mild mitral regurgitation is present. 15. Severe tricuspid regurgitation present. 16. There is moderate to severe pulmonary hypertension. 17. There is no pulmonic regurgitation present. 18. The aortic root size is normal. 19. The inferior vena cava is mildly dilated. 20. There is no pericardial effusion. CREDIT ASSOCIATE: Cari Mehta RDCS
--- NOTE | 2018-10-18 18:26 | XR ---
EXAMINATION TYPE: XR shoulder complete RT DATE OF EXAM: 10/18/2018 COMPARISON: NONE HISTORY: Shoulder pain TECHNIQUE: 3 views FINDINGS: There is severe narrowing of the subacromial joint space. I see no fracture nor dislocation . There is spurring at the glenohumeral joint. IMPRESSION: Severe subacromial joint space narrowing consistent with chronic rotator cuff tear. No fr acture seen.
[2018-10-18 20:38] LABS: Glucose,Whole Blood 156 mg/dL (75-99)
[2018-10-18] MEDS: ATORVASTATIN 20 MG TAB PO SCH (21:20)
[2018-10-18] MEDS: INSULIN DETEMIR 100 UNIT/ML 10 ML VIAL SQ SCH (21:20)
--- NOTE | 2018-10-19 00:07 | PN ---
PROGRESS NOTE SUBJECTIVE: 73-year-old white male with weakness, found on the floor with severe bradycardia into the 30s to 40s. Pacemakers being adjusted by Cardiology. Pulmonary has also seen him. PT/OT has seen him. Possible discharge home or going to the senior care. Cardiovascular S1, S2. Lungs: Rales at the bases. Hematology: Negative Homans. Psych: Fair mood and affect. ASSESSMENT: 1. Generalized weakness. 2. Diastolic congestive heart failure. 3. Chronic obstructive pulmonary disease. 4. Generalized weakness. 5. Bradycardia with pacemaker. Possible pacemaker change tomorrow. Continue current treatments. PT/OT. Possible discharge home to the senior care. MMODL / IJN: [id number] /
[2018-10-19 05:57] LABS: Glucose,Whole Blood 113 mg/dL (75-99)
[2018-10-19] MEDS: INSULIN ASPART 100 UNIT/ML 1 ML 10 ML VIAL SQ SCH ×7 (06:21→21:12)
[2018-10-19] MEDS: MIDODRINE 5 MG TAB PO SCH ×3 (07:04→17:14)
[2018-10-19] MEDS: LEVOTHYROXINE 100 MCG TAB PO SCH (07:04)
[2018-10-19] MEDS: CLOPIDOGREL 75 MG TAB PO SCH (09:02)
[2018-10-19] MEDS: FAMOTIDINE 20 MG TAB PO SCH ×2 (09:02→20:57)
[2018-10-19] MEDS: ASPIRIN 81 MG PO SCH (09:02)
[2018-10-19] MEDS: FUROSEMIDE 10 MG TAB PO SCH (09:02)
[2018-10-19] MEDS: MULTIVITAMINS, THERA 1 EACH TAB PO SCH (09:02)
[2018-10-19] MEDS: predniSONE 10 MG TAB PO SCH (09:02)
[2018-10-19] MEDS: IPRATROPIUM-ALBUTEROL 3 ML NEB INHALATION SCH ×4 (09:29→20:14)
[2018-10-19] MEDS: ACETAMINOPHEN TAB 325 MG TAB PO PRN (10:58)
[2018-10-19 11:20] LABS: Glucose,Whole Blood 91 mg/dL (75-99)
[2018-10-19] MEDS: HYDROcodone/APAP 5-325MG 1 EACH TAB PO PRN ×2 (15:04→21:46)
[2018-10-19 16:10] LABS: Glucose,Whole Blood 158 mg/dL (75-99)
[2018-10-19] MEDS: INSULIN DETEMIR 100 UNIT/ML 10 ML VIAL SQ SCH (20:57)
[2018-10-19] MEDS: ATORVASTATIN 20 MG TAB PO SCH (20:57)
[2018-10-19 21:02] LABS: Glucose,Whole Blood 126 mg/dL (75-99)
--- NOTE | 2018-10-19 21:41 | PN ---
PROGRESS NOTE SUBJECTIVE: This is a 73-year-old white male with severe bradycardia, awaiting Cardiology to possibly alter his pacemaker. He is weak. He is going to get PT/OT, go to rehab on Monday. CARDIOVASCULAR: S1, S2. LUNGS: Rales at the base. HEMATOLOGY: Negative Homans. PSYCH: Fair mood and affect. He has had a right shoulder x-ray which showed some rotator cuff tendinitis. ASSESSMENT: 1. Severe AC joint separation with chronic rotator cuff tear. No fracture of the shoulder. 2. Systolic congestive heart failure. 3. Chronic obstructive pulmonary disease. 4. Gait imbalance. 5. Bradycardia. 6. Possible pacemaker evaluation by Cardiology. We are not sure if they are going to do anything. Continue with PT/OT. CHRISTIN / VIRGINIEN: [id number] /
[2018-10-20] MEDS: HYDROcodone/APAP 5-325MG 1 EACH TAB PO PRN ×4 (03:50→20:59)
[2018-10-20] MEDS: INSULIN ASPART 100 UNIT/ML 1 ML 10 ML VIAL SQ SCH ×7 (05:58→20:46)
[2018-10-20 06:10] LABS: Glucose,Whole Blood 58 mg/dL (75-99)
[2018-10-20] MEDS: MIDODRINE 5 MG TAB PO SCH ×3 (06:29→17:55)
[2018-10-20] MEDS: LEVOTHYROXINE 100 MCG TAB PO SCH (06:29)
[2018-10-20 06:34] LABS: Glucose,Whole Blood 61 mg/dL (75-99)
[2018-10-20 06:38] LABS: Glucose,Whole Blood 73 mg/dL (75-99)
[2018-10-20] MEDS: IPRATROPIUM-ALBUTEROL 3 ML NEB INHALATION SCH ×4 (08:18→19:27)
[2018-10-20] MEDS: predniSONE 10 MG TAB PO SCH (08:43)
[2018-10-20] MEDS: FAMOTIDINE 20 MG TAB PO SCH ×2 (08:43→20:58)
[2018-10-20] MEDS: ASPIRIN 81 MG PO SCH (08:43)
[2018-10-20] MEDS: CLOPIDOGREL 75 MG TAB PO SCH (08:43)
[2018-10-20] MEDS: FUROSEMIDE 10 MG TAB PO SCH (08:59)
[2018-10-20] MEDS: MULTIVITAMINS, THERA 1 EACH TAB PO SCH (12:03)
[2018-10-20 12:47] LABS: Glucose,Whole Blood 67 mg/dL (75-99)
[2018-10-20 12:47] LABS: Glucose,Whole Blood 70 mg/dL (75-99)
[2018-10-20 15:17] LABS: Glucose,Whole Blood 130 mg/dL (75-99)
[2018-10-20 17:09] LABS: Glucose,Whole Blood 186 mg/dL (75-99)
[2018-10-20] MEDS: ATORVASTATIN 20 MG TAB PO SCH (20:58)
--- NOTE | 2018-10-20 21:10 | PN ---
PROGRESS NOTE SUBJECTIVE: This is a 73-year-old white male, systolic CHF, bradycardia, COPD, generalized weakness, frequent falls. Cardiology is probably not going to change his pacemaker, set at 40. He has been up ambulating a little bit today. Cardiovascular: S1, S2. Fausto. Lungs: Rales at the bases. Hematology: Negative Homans. 2+ pedal edema. Generalized progressive weakness. Looks fatigued. ASSESSMENT: 1. Bradycardia. 2. Systolic congestive heart failure. 3. Chronic obstructive pulmonary disease. 4. Generalized weakness. Continue with cardiac monitoring. PT/OT. Pulmonary and cardiac treatment. Possible discharge home to longterm on Monday. MMODL / IJN: [id number] /
[2018-10-20 21:14] LABS: Glucose,Whole Blood 118 mg/dL (75-99)
[2018-10-20] MEDS: INSULIN DETEMIR 100 UNIT/ML 10 ML VIAL SQ SCH (21:14)
[2018-10-21 01:37] LABS: Glucose,Whole Blood 111 mg/dL (75-99)
[2018-10-21] MEDS: HYDROcodone/APAP 5-325MG 1 EACH TAB PO PRN ×2 (02:09→09:32)
[2018-10-21 06:09] LABS: Glucose,Whole Blood 128 mg/dL (75-99)
[2018-10-21] MEDS: INSULIN ASPART 100 UNIT/ML 1 ML 10 ML VIAL SQ SCH ×5 (06:33→20:41)
[2018-10-21] MEDS: MIDODRINE 5 MG TAB PO SCH ×3 (06:41→18:05)
[2018-10-21] MEDS: LEVOTHYROXINE 100 MCG TAB PO SCH (06:41)
[2018-10-21] MEDS: FAMOTIDINE 20 MG TAB PO SCH ×2 (08:01→20:41)
[2018-10-21] MEDS: CLOPIDOGREL 75 MG TAB PO SCH (08:01)
[2018-10-21] MEDS: predniSONE 10 MG TAB PO SCH ×2 (08:01→08:10)
[2018-10-21] MEDS: ASPIRIN 81 MG PO SCH (08:02)
[2018-10-21] MEDS: IPRATROPIUM-ALBUTEROL 3 ML NEB INHALATION SCH ×4 (08:28→20:27)
[2018-10-21] MEDS: FUROSEMIDE 40 MG TAB PO SCH (09:23)
[2018-10-21 11:59] LABS: Glucose,Whole Blood 144 mg/dL (75-99)
[2018-10-21] MEDS: MULTIVITAMINS, THERA 1 EACH TAB PO SCH (12:21)
[2018-10-21] MEDS ORDERED: FUROSEMIDE 10 MG/ML 10 ML VIAL IV STA (15:03)
[2018-10-21 17:25] LABS: Glucose,Whole Blood 166 mg/dL (75-99)
--- NOTE | 2018-10-21 18:22 | PN ---
PROGRESS NOTE He was lying in bed and was more short of breath. He has significant distention of his abdomen. Cardiology and Pulmonary have signed off on his case. On physical examination, his weight has gone from 98.7 kilos to 103 kilos. His respiratory rate is 26, pulse rate of 58, temperature 97.3, blood pressure 157/60, O2 saturation on 3 L by nasal cannula is 91%. HEENT reveals pupils that are equal. Mild prominence of jugular veins. Chest reveals decreased breath sounds at the bases. Cardiovascular system with an S1, S2. Abdomen is significantly distended with an abdominal thrill. There is 2+ pedal edema. LABS: Reveal blood sugar of 144. IMPRESSION: 1. Congestive heart failure with congestive cardiomyopathy. 2. Chronic obstructive pulmonary disease. 3. Possible obstructive sleep apnea. 4. Cirrhosis of the liver with ascites. At this point in time, would give the patient a single dose of IV Lasix 80 mg as his fluid status is worsening, start him on Aldactone, have him seen by GI and see if he needs a paracentesis. His prognosis at this time remains guarded. He was counseled regarding his condition and this approach. MMODL / IJN: [id number] /
[2018-10-21] MEDS: SPIRONOLACTONE 25 MG TAB PO SCH (20:41)
[2018-10-21] MEDS: MELATONIN 3 MG TABLET PO SCH (20:41)
[2018-10-21] MEDS: ATORVASTATIN 20 MG TAB PO SCH (20:41)
[2018-10-21] MEDS: INSULIN DETEMIR 100 UNIT/ML 10 ML VIAL SQ SCH (20:42)
[2018-10-21 20:43] LABS: Glucose,Whole Blood 103 mg/dL (75-99)
[2018-10-22] MEDS: HYDROcodone/APAP 7.5-325MG 1 EACH TAB PO PRN ×2 (01:57→15:49)
[2018-10-22 05:40] LABS: Glucose,Whole Blood 96 mg/dL (75-99)
[2018-10-22] MEDS: INSULIN ASPART 100 UNIT/ML 1 ML 10 ML VIAL SQ SCH ×4 (05:41→20:53)
[2018-10-22 06:20] LABS: Anisocytosis Slight; Basophils # (A) 0.1 k/uL (0-0.2); Basophils % (A) 1 %; Eosinophils # (A) 0.2 k/uL (0-0.7); Eosinophils % (A) 2 %; HGB 14.7 gm/dL (13.0-17.5); Hypochromasia Slight; Lymphocytes # (A) 0.8 k/uL (1.0-4.8); Lymphocytes % (A) 9 %; MCH 28.6 pg (25.0-35.0); MCHC 31.3 g/dL (31.0-37.0); MCV 91.5 fL (80.0-100.0); Mean Platelet Volume 7.4; Monocytes # (A) 0.7 k/uL (0-1.0); Monocytes % (A) 7 %; Neutrophils # (A) 7.6 k/uL (1.3-7.7); Neutrophils % (A) 80 %; Platelet Count 173 k/uL (150-450); RBC 5.14 m/uL (4.30-5.90); RDW 17.7 % (11.5-15.5); WBC 9.5 k/uL (3.8-10.6)
[2018-10-22] MEDS: IPRATROPIUM-ALBUTEROL 3 ML NEB INHALATION SCH ×4 (06:27→20:04)
[2018-10-22 06:29] LABS: Anion Gap 8 mmol/L; Blood Urea Nitrogen 22 mg/dL (9-20); Calcium 9.4 mg/dL (8.4-10.2); Carbon Dioxide 26 mmol/L (22-30); Chloride 98 mmol/L (98-107); Glucose 88 mg/dL (74-99); Potassium 4.6 mmol/L (3.5-5.1); Sodium 132 mmol/L (137-145)
[2018-10-22] MEDS: LEVOTHYROXINE 100 MCG TAB PO SCH (06:34)
[2018-10-22] MEDS: MIDODRINE 5 MG TAB PO SCH ×3 (06:34→15:50)
[2018-10-22] MEDS: FUROSEMIDE 40 MG TAB PO SCH (08:53)
[2018-10-22] MEDS: ASPIRIN 81 MG PO SCH (08:53)
[2018-10-22] MEDS: FAMOTIDINE 20 MG TAB PO SCH (08:53)
[2018-10-22] MEDS: SPIRONOLACTONE 25 MG TAB PO SCH ×2 (08:53→23:04)
[2018-10-22] MEDS: CLOPIDOGREL 75 MG TAB PO SCH (08:53)
[2018-10-22 12:13] LABS: Glucose,Whole Blood 85 mg/dL (75-99)
[2018-10-22] MEDS: MULTIVITAMINS, THERA 1 EACH TAB PO SCH (12:27)
[2018-10-22 15:11] LABS: Appearance,Urine Cloudy (Clear); Bacteria,Urine Moderate /hpf; Bilirubin,Urine Negative (Negative); Blood,Urine Moderate (Negative); Color,Urine Yellow; Glucose,Urine (UA) Negative (Negative); Ketones,Urine Negative (Negative); Leukocyte Esterase,Urine Large (Negative); Mucus,Urine Rare /hpf; Nitrite,Urine Negative (Negative); PH, Urine 6.5 (5.0-8.0); Protein,Urine 1+ (Negative); RBC,Urine 24 /hpf (0-5); Specific Gravity,Urine 1.009 (1.001-1.035); Urobilinogen,Urine <2.0 mg/dL (<2.0); WBC,Urine 133 /hpf (0-5)
--- NOTE | 2018-10-22 15:20 | US ---
EXAMINATION TYPE: US abdomen limited DATE OF EXAM: 10/22/2018 COMPARISON: NONE CLINICAL HISTORY: 73-year-old male assess fluid please.. TECHNIQUE: Multiple sonographic images of the 4 abdominal quadrants for assessment of ascites fluid. FINDINGS: 4 quadrant assessed for fluid. RLQ: 6.9 pocket of fluid LLQ: 4.5 cm pocket of fluid IMPRESSION: Moderate lower abdominal ascites.
[2018-10-22 16:30] LABS: Glucose,Whole Blood 67 mg/dL (75-99)
[2018-10-22] MEDS ORDERED: DEXTROSE 50%-WATER 50 ML SYRINGE IVP ONE (17:36)
[2018-10-22 17:42] LABS: Glucose,Whole Blood 59 mg/dL (75-99)
[2018-10-22] MEDS: PIPERACILLIN-TAZOBACTAM 3.375 GM in SODIUM CHLORIDE 0.9% 100 ML IVPB SCH (17:44)
[2018-10-22 18:32] LABS: Glucose,Whole Blood 108 mg/dL (75-99)
[2018-10-22 18:53] LABS: Glucose,Whole Blood 94 mg/dL (75-99)
[2018-10-22 19:49] LABS: ABG Base Excess -2.3 mmol/L; ABG HCO3 22 mmol/L (21-25); ABG PCO2 30 mmHg (35-45); ABG PH 7.46 (7.35-7.45); ABG PO2 80 mmHg (83-108); ABG TCO2 22 mmol/L (19-24)
[2018-10-22 20:05] LABS: Albumin 3.6 g/dL (3.5-5.0); Calcium 9.2 mg/dL (8.4-10.2); Potassium 5.2 mmol/L (3.5-5.1); Total Bilirubin 4.8 mg/dL (0.2-1.3); Total Protein 6.2 g/dL (6.3-8.2)
[2018-10-22] MEDS: LEVOFLOXACIN 500MG-D5W PMX 500 MG in DEXTROSE/WATER 1 100ML.BAG IVPB SCH (20:41)
[2018-10-22] MEDS: DEXTROSE 5%-0.45% NACL 1,000 ML IV SCH (20:43)
--- NOTE | 2018-10-22 20:44 | P.CONS ---
History of Present Illness - Reason for Consult Consult date: 10/22/18 Cirrhosis Requesting physician: Seth Beck - Chief Complaint Weakness, fall - History of Present Illness The patient is a pleasant 73-year-old male with medical history significant for COPD on home oxygen, ischemic cardiomyopathy status post AICD placement, coronary artery disease, previous SC, CHF, diabetes mellitus, hypothyroidism, and decompensated cirrhosis who presents to the hospital due to severe weakness. Of note history is been taken in conversation with the patient's partner as well as on review of the electronic medical record. The patient was suffering from severe weakness and fell prompting him to present to the hospital. He was found to be bradycardic. Currently he is receiving treatment from both the cardiology and pulmonary services. Conversation with the patient and his partner he has a known history of decompensated cirrhosis. They deny any prior episodes of encephalopathy or variceal bleed, however the patient has had ascites which has required diuresis in the past. He denies any history of paracentesis. The patient was on daily Lasix therapy at home and has been started on twice daily Aldactone in addition to his Lasix therapy. The patient' s he is following up with Dr. De Leon in the outpatient setting. He has a remote history of colonoscopy, and they are unsure of prior upper endoscopy. On presentation to the hospital he has been found to have an INR 1.2, total bilirubin 2.3, alkaline phosphatase 706, AST 75 and ALT 25. Ultrasound of the abdomen was significant for moderate lower abdominal ascites. The patient is on Plavix therapy. Review of Systems Unable to obtain due to confusion and the patient who is a poor historian. Past Medical History Past Medical History: Asthma, Coronary Artery Disease (CAD), Chest Pain / Angina , Heart Failure, COPD, Diabetes Mellitus, GERD/Reflux, Hyperlipidemia, Myocardial Infarction (SC), Osteoarthritis (OA), Respiratory Disorder, Skin Disorder, Syncope, Thyroid Disorder Additional Past Medical History / Comment(s): Cardiomyopathy, home O2/ concentrator use ATC, "blisters/redness on both my lower legs that are almost healed-took a year", bilateral lower leg edema, IDDM type II, thyroid dx-given radioactive iodine, arthritis bilateral knees/ankles, diverticulitis, polypectomy, 1 implant tooth (bottom), UTI, syncope with low blood sugar. Last Myocardial Infarction Date:: 03/08/16 History of Any Multi-Drug Resistant Organisms: None Reported Past Surgical History: AICD, Heart Catheterization With Stent Additional Past Surgical History / Comment(s): RT TKA, COLONOSCOPY/polypectomy, 03-08-16 PCI with stent to LAD and unable to stent CX-a couple weeks later restented, AICD PLACEMENT 07/25/2016 Past Anesthesia/Blood Transfusion Reactions: No Reported Reaction Date of Last Stent Placement:: 03/08/2016 Type of Cardiac Device: AICD Device Placement Date:: 07/25/2016 Past Psychological History: No Psychological Hx Reported Additional Psychological History / Comment(s): Pt resides with his significant other. He is independent. He lives in a single story home. He has a concentrator that he wears ATC. No home care. He owns a cane and a walker. He has a glucometer. Smoking Status: Former smoker Past Alcohol Use History: None Reported Additional Past Alcohol Use History / Comment(s): Pt started smoking in 1961 and quit in 1996-he was a 3 ppd smoker. Past Drug Use History: None Reported Additional Drug Use History / Comment(s): Pt has not drank alcohol since 1996. - Past Family History Mother Family Medical History: Cancer, Congestive Heart Failure (CHF) Additional Family Medical History / Comment(s): FEMALE [place] Father Family Medical History: Cancer Additional Family Medical History / Comment(s): LYMPHOMA Medications and Allergies Home Medications Medication Instructions Recorded Confirmed Type Aspirin EC [Ecotrin Low Dose] 81 mg PO DAILY 04/11/14 10/16/18 History Atorvastatin [Lipitor] 20 mg PO HS 04/11/14 10/16/18 History Ranitidine HCl 150 mg PO BID 04/11/14 10/16/18 History Multivitamin [Men's Multi-Vitamin] 1 tab PO DAILY 03/02/16 10/16/18 History Levothyroxine Sodium 200 mcg PO DAILY 02/12/18 10/16/18 History Metoprolol Tartrate [Lopressor] 12.5 mg PO BID 02/12/18 10/16/18 History Digoxin [Lanoxin] 125 mcg PO DAILY #0 tab 02/14/18 10/16/18 Rx Acetaminophen Tab [Tylenol] 650 mg PO Q4HR PRN tab 04/26/18 10/16/18 Rx Clopidogrel [Plavix] 75 mg PO DAILY tab 04/26/18 10/16/18 Rx Insulin Aspart [NovoLOG 5 unit SQ AC-TID vial 04/26/18 10/16/18 Rx (formulary)] Insulin Detemir [Levemir] 20 unit SQ HS syr 04/26/18 10/16/18 Rx Ipratropium-Albuterol Nebulize 3 ml INHALATION RT-QID ampul.neb 04/26/18 Rx [Duoneb 0.5 mg-3 mg/3 ml Soln] Midodrine [ProAmatine] 10 mg PO AC-TID tab 04/26/18 10/16/18 Rx predniSONE 10 mg PO DAILY tab 04/26/18 10/16/18 Rx Furosemide [Lasix] 10 mg PO DAILY 08/11/18 10/16/18 History Allergies Allergy/AdvReac Type Severity Reaction Status Date / Time No Known Allergies Allergy Verified 10/16/18 14:31 Physical Exam Vitals: Vital Signs Temp Pulse Pulse Resp BP Pulse Ox 10/22/18 20:16 46 L 10/22/18 20:07 49 L 10/22/18 16:30 68 10/22/18 16:21 68 10/22/18 15:44 98.1 F 54 L 18 144/65 94 L 10/22/18 11:26 97.9 F 55 L 18 112/52 92 L 10/22/18 10:42 64 10/22/18 10:32 65 10/22/18 08:00 97.9 F 68 18 113/59 92 L 10/22/18 06:37 56 L 10/22/18 06:27 54 L 10/22/18 04:00 98.7 F 58 L 18 139/67 94 L 10/22/18 00:00 97.6 F 75 17 134/74 92 L 10/21/18 20:39 55 L Intake and Output 10/22/18 10/22/18 10/22/18 06:59 14:59 22:59 Intake Total 20 128 Output Total 300 0 Balance 20 -172 0 Intake: IV 20 10 Invasive Line 2 20 10 Oral 118 Output: Urine 300 0 Other: Voiding Method Toilet Urinal # Voids 1 Weight 88 kg On physical examination, patient appears comfortable in no apparent distress. HEAD: Normocephalic, atraumatic. EYES: No scleral icterus. No conjunctival injection. MOUTH: No lesions, tongue midline. NECK: Trachea midline, no gross abnormalities. CHEST: Decreased air entry in all lung garcia. ABDOMEN: Soft, obese and distended with positive fluid wave. Bowel sounds are positive. No organomegaly. No guarding or rigidity. EXTREMITIES: Bilateral pedal edema. SKIN: No rashes, no jaundice. NEUROLOGIC: Alert and oriented only to person. No focal deficits. No asterixis noted. Results CBC & Chem 7: 10/22/18 05:50 10/22/18 14:43 Labs: Abnormal Lab Results - Last 24 Hours (Table) 10/21/18 10/22/18 10/22/18 Range/Units 20:41 05:50 05:50 RDW 17.7 H (11.5-15.5) % Lymphocytes # 0.8 L (1.0-4.8) k/uL ABG pH (7.35-7.45) ABG pCO2 (35-45) mmHg ABG pO2 (83-108) mmHg Sodium 132 L (137-145) mmol/L Potassium (3.5-5.1) mmol/L Carbon Dioxide (22-30) mmol/L BUN 22 H (9-20) mg/dL POC Glucose (mg/dL) 103 H (75-99) mg/dL Plasma Lactic Acid Nolan (0.7-2.0) mmol/L Total Bilirubin (0.2-1.3) mg/dL AST (17-59) U/L Alkaline Phosphatase (38-126) U/L Total Protein (6.3-8.2) g/dL Urine Protein (Negative) Urine Blood (Negative) Ur Leukocyte Esterase (Negative) Urine RBC (0-5) /hpf Urine WBC (0-5) /hpf Urine WBC Clumps (None) /hpf Urine Bacteria (None) /hpf Urine Mucus (None) /hpf 10/22/18 10/22/18 10/22/18 Range/Units 14:43 14:50 16:25 RDW (11.5-15.5) % Lymphocytes # (1.0-4.8) k/uL ABG pH (7.35-7.45) ABG pCO2 (35-45) mmHg ABG pO2 (83-108) mmHg Sodium 131 L (137-145) mmol/L Potassium 5.2 H (3.5-5.1) mmol/L Carbon Dioxide 18 L (22-30) mmol/L BUN 23 H (9-20) mg/dL POC Glucose (mg/dL) 67 L (75-99) mg/dL Plasma Lactic Acid Nolan (0.7-2.0) mmol/L Total Bilirubin 4.8 H (0.2-1.3) mg/dL AST 62 H (17-59) U/L Alkaline Phosphatase 635 H (38-126) U/L Total Protein 6.2 L (6.3-8.2) g/dL Urine Protein 1+ H (Negative) Urine Blood Moderate H (Negative) Ur Leukocyte Esterase Large H (Negative) Urine RBC 24 H (0-5) /hpf Urine WBC 133 H (0-5) /hpf Urine WBC Clumps Rare H (None) /hpf Urine Bacteria Moderate H (None) /hpf Urine Mucus Rare H (None) /hpf 10/22/18 10/22/18 10/22/18 Range/Units 17:00 17:31 18:19 RDW (11.5-15.5) % Lymphocytes # (1.0-4.8) k/uL ABG pH (7.35-7.45) ABG pCO2 (35-45) mmHg ABG pO2 (83-108) mmHg Sodium (137-145) mmol/L Potassium (3.5-5.1) mmol/L Carbon Dioxide (22-30) mmol/L BUN (9-20) mg/dL POC Glucose (mg/dL) 59 L 108 H (75-99) mg/dL Plasma Lactic Acid Nolan 3.8 H* (0.7-2.0) mmol/L Total Bilirubin (0.2-1.3) mg/dL AST (17-59) U/L Alkaline Phosphatase (38-126) U/L Total Protein (6.3-8.2) g/dL Urine Protein (Negative) Urine Blood (Negative) Ur Leukocyte Esterase (Negative) Urine RBC (0-5) /hpf Urine WBC (0-5) /hpf Urine WBC Clumps (None) /hpf Urine Bacteria (None) /hpf Urine Mucus (None) /hpf 10/22/18 Range/Units 19:47 RDW (11.5-15.5) % Lymphocytes # (1.0-4.8) k/uL ABG pH 7.46 H (7.35-7.45) ABG pCO2 30 L (35-45) mmHg ABG pO2 80 L (83-108) mmHg Sodium (137-145) mmol/L Potassium (3.5-5.1) mmol/L Carbon Dioxide (22-30) mmol/L BUN (9-20) mg/dL POC Glucose (mg/dL) (75-99) mg/dL Plasma Lactic Acid Nolan (0.7-2.0) mmol/L Total Bilirubin (0.2-1.3) mg/dL AST (17-59) U/L Alkaline Phosphatase (38-126) U/L Total Protein (6.3-8.2) g/dL Urine Protein (Negative) Urine Blood (Negative) Ur Leukocyte Esterase (Negative) Urine RBC (0-5) /hpf Urine WBC (0-5) /hpf Urine WBC Clumps (None) /hpf Urine Bacteria (None) /hpf Urine Mucus (None) /hpf Microbiology - Last 24 Hours (Table) 10/17/18 17:49 Blood Culture - Preliminary Blood No Growth after 120 hours 10/17/18 17:50 Blood Culture - Preliminary Blood No Growth after 120 hours US - abdomen: report reviewed (Ultrasound of the abdomen is significant for moderate lower abdominal ascites) Assessment and Plan (1) Cirrhosis of liver Narrative/Plan: Decompensated cirrhosis of the liver with ascites, of unknown etiology but may be related to fatty liver disease with the patient's significant other reporting that he has not consumed alcohol since he 1980s. The patient was previously maintained on diuretic therapy with Lasix and the patient's significant other denies any history of encephalopathy or variceal bleed. Current Visit: Yes Status: Acute Code(s): K74.60 - UNSPECIFIED CIRRHOSIS OF LIVER SNOMED Code(s): 19845928 (2) Ascites Current Visit: No Status: Acute Code(s): R18.8 - OTHER ASCITES SNOMED Code (s): 234763666 Plan: Supportive care Continue to monitor liver enzymes, consistent with known history of cirrhosis Continue diuresis with Lasix and Aldactone, can consider paracentesis, however due to current Plavix therapy the patient would need his antiplatelet therapy held for 5 days prior to paracentesis, and would recommend continuing with adjusted diuretics for now No physical exam findings to support hepatic encephalopathy or elevation in ammonia, however will start empiric treatment with lactulose to be titrated to 2 -3 bowel movements daily Appreciate recommendations from pulmonology and cardiology services Okay for low-sodium diet Thank you for allowing us to participate in the care of the patient we will continue to follow
[2018-10-22] MEDS: INSULIN DETEMIR 100 UNIT/ML 10 ML VIAL SQ SCH (20:53)
[2018-10-22 21:32] LABS: Glucose,Whole Blood 70 mg/dL (75-99)
[2018-10-22] MEDS: LORazepam 2 MG/ML INJ IV PRN (22:29)
[2018-10-22] MEDS: FUROSEMIDE 10 MG/ML 4 ML VIAL IV SCH (23:02)
[2018-10-22] MEDS: ATORVASTATIN 20 MG TAB PO SCH (23:03)
[2018-10-22] MEDS: MELATONIN 3 MG TABLET PO SCH (23:03)
[2018-10-22] MEDS: LACTULOSE 20 GM/30 ML CUP PO SCH (23:04)
--- NOTE | 2018-10-22 23:11 | XR ---
EXAMINATION TYPE: XR chest 1V DATE OF EXAM: 10/22/2018 CLINICAL HISTORY: Difficulty breathing and weakness progress study. TECHNIQUE: Single AP portable upright view of the chest is obtained. COMPARISON: Chest x-ray from October 16, 2018 FINDINGS: There is persistent cardiomegaly with single lead pacemaker/AICD. Reticulonodular intersti tial changes are redemonstrated bilaterally. Low lung volumes are redemonstrated. No suspicious focal airspace opacity, pleural effusion, or pneumothorax is seen. Osseous structures are intact. IMPRESSION: Cardiomegaly and chronic parenchymal change without new suspicious acute infiltrate. No s ignificant change from prior.
--- NOTE | 2018-10-23 00:06 | PN ---
PROGRESS NOTE SUBJECTIVE: Vcutrnc-iuyc-kgrq-old white male who has been running low hypotension and bradycardia for days and increasing fluid buildup. His Lasix was increased from 10 to 40 mg. Today we cut it back to 20 mg, which is his home dose. He was started on IV antibiotics for profound UTI and possible sepsis. He had metabolic encephalopathy secondary to possibly a UTI at this time. He has some ascites that apparently can be worked up as an outpatient, as it is not enough to tap and he has been on Plavix. Vital signs were reviewed. CARDIOVASCULAR: S1, S2. LUNGS: Wheezes x4. NEURO: He responds to questions. He has difficulty hearing; does have mostly appropriate answers but some he is confused on. Does not know if he is sitting or lying down. ASSESSMENT: 1. Metabolic encephalopathy. 2. Congestive heart failure. 3. Chronic obstructive pulmonary disease. 4. Urinary tract infection. 5. Anemia. He was started on Zosyn. He was transferred to ICU, as he is more confused and hypotensive. Continue with IV antibiotics. MMODL / IJN: [id number] /
[2018-10-23] MEDS: HEPARIN SODIUM,PORCINE 5,000 UNIT/ML 1 ML VIAL SQ SCH ×3 (00:20→16:37)
[2018-10-23] MEDS: PIPERACILLIN-TAZOBACTAM 3.375 GM in SODIUM CHLORIDE 0.9% 100 ML IVPB SCH ×3 (00:20→16:57)
[2018-10-23] MEDS: LORazepam 2 MG/ML INJ IV PRN ×3 (02:36→15:08)
[2018-10-23 05:54] LABS: Anisocytosis Slight; Basophils # (A) 0.1 k/uL (0-0.2); Basophils % (A) 1 %; Eosinophils # (A) 0.2 k/uL (0-0.7); Eosinophils % (A) 2 %; HCT 44.5 % (39.0-53.0); HGB 13.6 gm/dL (13.0-17.5); Hypochromasia Slight; Lymphocytes # (A) 0.6 k/uL (1.0-4.8); Lymphocytes % (A) 6 %; MCH 28.6 pg (25.0-35.0); MCHC 30.5 g/dL (31.0-37.0); MCV 93.6 fL (80.0-100.0); Monocytes # (A) 0.6 k/uL (0-1.0); Monocytes % (A) 6 %; Neutrophils # (A) 8.4 k/uL (1.3-7.7); Neutrophils % (A) 84 %; Platelet Count 156 k/uL (150-450); RBC 4.75 m/uL (4.30-5.90); RDW 17.9 % (11.5-15.5)
[2018-10-23 06:05] LABS: Calcium 8.8 mg/dL (8.4-10.2); Magnesium 1.7 mg/dL (1.6-2.3); Phosphorus 4.1 mg/dL (2.5-4.5); Potassium 4.4 mmol/L (3.5-5.1)
[2018-10-23] MEDS: MIDODRINE 5 MG TAB PO SCH ×3 (06:39→17:56)
[2018-10-23] MEDS: LEVOTHYROXINE 100 MCG TAB PO SCH (06:39)
[2018-10-23] MEDS: INSULIN ASPART 100 UNIT/ML 1 ML 10 ML VIAL SQ SCH ×4 (06:55→22:56)
[2018-10-23 06:58] LABS: Glucose,Whole Blood 102 mg/dL (75-99)
--- NOTE | 2018-10-23 07:57 | XR ---
EXAMINATION TYPE: XR chest 1V DATE OF EXAM: 10/23/2018 CLINICAL HISTORY: Difficulty breathing progress study. TECHNIQUE: Single AP portable semiupright view of the chest is obtained. COMPARISON: Chest x-ray from one day earlier and older studies. FINDINGS: Cardiomegaly with single lead pacemaker/AICD is redemonstrated. There is chronic parenchym al change without focal airspace opacity, pleural effusion, or pneumothorax seen bilaterally. Osseous structures are intact. IMPRESSION: Overall stable findings, cardiomegaly and chronic parenchymal changes without new suspi cious acute pulmonary process. No significant change from one day earlier.
[2018-10-23] MEDS: IPRATROPIUM-ALBUTEROL 3 ML NEB INHALATION SCH ×5 (08:22→20:00)
[2018-10-23] MEDS: FUROSEMIDE 10 MG/ML 4 ML VIAL IV SCH ×2 (08:40→22:56)
[2018-10-23] MEDS ORDERED: PANTOPRAZOLE 40 MG/10 ML VIAL IV SCH (09:00)
[2018-10-23] MEDS ORDERED: FUROSEMIDE 20 MG TAB PO SCH (09:00)
[2018-10-23] MEDS ORDERED: Magnesium Replacement Protocol 1 EACH MISC MISCELLANE PRN (09:18)
[2018-10-23] MEDS: MAGNESIUM SULFATE-D5W PMX 1 GM in DEXTROSE/WATER 1 100ML.BAG IVPB SCH ×2 (09:49→11:08)
--- NOTE | 2018-10-23 10:37 | P.PN ---
Subjective Progress Note Date: 10/23/18 Principal diagnosis: Cirrhosis of liver Transferred ICU change in mental status. Seen in consult yesterday regarding cirrhosis ascites. Ultrasound abdomen moderate lower abdominal ascites; paracentesis on hold secondary to Plavix. Receiving diuretics. Afebrile. White count 10. Hemoglobin 13.6. Platelet 156. Ammonia 32. CMP pending. Objective - Vital Signs Vital signs: Vital Signs Temp 97.6 F 10/23/18 04:00 Pulse 54 L 10/23/18 08:35 Resp 17 10/23/18 07:00 BP 130/58 10/23/18 07:00 Pulse Ox 92 L 10/23/18 07:00 Intake & Output 10/22/18 10/23/18 10/23/18 18:59 06:59 18:59 Intake Total 128 850 50 Output Total 300 690 85 Balance -172 160 -35 Weight 96 kg Intake: IV 10 Invasive Line 2 10 Intake, IV Titration 850 50 Amount Dextrose 5%-0.45% NaCl 1, 450 50 000 ml @ 50 mls/hr IV . Q20H [facility] Rx#:[id number] Levofloxacin 500Mg-D5w 100 Pmx 500 mg In Dextrose/ Water 1 100ml.bag @ 100 mls/hr IVPB Q24H [facility] Rx#: [id number] Piperacillin-Tazobactam 3 300 .375 gm In Sodium Chloride 0.9% 100 ml @ 25 mls/hr IVPB Q8HR [facility] Rx# :[id number] Oral 118 Output: Urine 300 690 85 Other: Voiding Method Urinal - Exam General appearance: The patient is confused and obtunded not following commands. HET: Head is normocephalic and atraumatic. Pupils are equal and reactive. Oropharynx is clear without lesions. Sclerae icterus. Neck: Supple without lymphadenopathy. Trachea midline. Heart: S1 S2. Regular rate and rhythm. Lungs: No crackles or wheezes are heard. Abdomen: Soft, nontender, mildly bloated mild ascites with bowel sounds. No peritoneal signs. No palpable organomegaly or masses. Extremities: Bilateral lower extremity edema erythema scaling warmth. Neurological: Confused unable to assess. - Labs CBC & Chem 7: 10/23/18 05:01 10/23/18 05:01 Labs: Abnormal Lab Results - Last 24 Hours (Table) 10/22/18 10/22/18 10/22/18 Range/Units 05:50 14:43 14:50 MCHC (31.0-37.0) g/dL RDW (11.5-15.5) % Neutrophils # (1.3-7.7) k/uL Lymphocytes # (1.0-4.8) k/uL ABG pH (7.35-7.45) ABG pCO2 (35-45) mmHg ABG pO2 (83-108) mmHg Sodium 131 L (137-145) mmol/L Potassium 5.2 H (3.5-5.1) mmol/L Carbon Dioxide 18 L (22-30) mmol/L BUN 23 H (9-20) mg/dL POC Glucose (mg/dL) (75-99) mg/dL Hemoglobin A1c 9.0 H (4.0-6.0) % Plasma Lactic Acid Nolan (0.7-2.0) mmol/L Total Bilirubin 4.8 H (0.2-1.3) mg/dL AST 62 H (17-59) U/L Alkaline Phosphatase 635 H (38-126) U/L Ammonia (<30) umol/L Total Protein 6.2 L (6.3-8.2) g/dL Urine Protein 1+ H (Negative) Urine Blood Moderate H (Negative) Ur Leukocyte Esterase Large H (Negative) Urine RBC 24 H (0-5) /hpf Urine WBC 133 H (0-5) /hpf Urine WBC Clumps Rare H (None) /hpf Urine Bacteria Moderate H (None) /hpf Urine Mucus Rare H (None) /hpf 10/22/18 10/22/18 10/22/18 Range/Units 16:25 17:00 17:31 MCHC (31.0-37.0) g/dL RDW (11.5-15.5) % Neutrophils # (1.3-7.7) k/uL Lymphocytes # (1.0-4.8) k/uL ABG pH (7.35-7.45) ABG pCO2 (35-45) mmHg ABG pO2 (83-108) mmHg Sodium (137-145) mmol/L Potassium (3.5-5.1) mmol/L Carbon Dioxide (22-30) mmol/L BUN (9-20) mg/dL POC Glucose (mg/dL) 67 L 59 L (75-99) mg/dL Hemoglobin A1c (4.0-6.0) % Plasma Lactic Acid Nolan 3.8 H* (0.7-2.0) mmol/L Total Bilirubin (0.2-1.3) mg/dL AST (17-59) U/L Alkaline Phosphatase (38-126) U/L Ammonia (<30) umol/L Total Protein (6.3-8.2) g/dL Urine Protein (Negative) Urine Blood (Negative) Ur Leukocyte Esterase (Negative) Urine RBC (0-5) /hpf Urine WBC (0-5) /hpf Urine WBC Clumps (None) /hpf Urine Bacteria (None) /hpf Urine Mucus (None) /hpf 10/22/18 10/22/18 10/22/18 Range/Units 18:19 19:43 19:47 MCHC (31.0-37.0) g/dL RDW (11.5-15.5) % Neutrophils # (1.3-7.7) k/uL Lymphocytes # (1.0-4.8) k/uL ABG pH 7.46 H (7.35-7.45) ABG pCO2 30 L (35-45) mmHg ABG pO2 80 L (83-108) mmHg Sodium (137-145) mmol/L Potassium (3.5-5.1) mmol/L Carbon Dioxide (22-30) mmol/L BUN (9-20) mg/dL POC Glucose (mg/dL) 108 H (75-99) mg/dL Hemoglobin A1c (4.0-6.0) % Plasma Lactic Acid Nolan 3.3 H* (0.7-2.0) mmol/L Total Bilirubin (0.2-1.3) mg/dL AST (17-59) U/L Alkaline Phosphatase (38-126) U/L Ammonia (<30) umol/L Total Protein (6.3-8.2) g/dL Urine Protein (Negative) Urine Blood (Negative) Ur Leukocyte Esterase (Negative) Urine RBC (0-5) /hpf Urine WBC (0-5) /hpf Urine WBC Clumps (None) /hpf Urine Bacteria (None) /hpf Urine Mucus (None) /hpf 10/22/18 10/23/18 10/23/18 Range/Units 20:50 05:01 05:01 MCHC 30.5 L (31.0-37.0) g/dL RDW 17.9 H (11.5-15.5) % Neutrophils # 8.4 H (1.3-7.7) k/uL Lymphocytes # 0.6 L (1.0-4.8) k/uL ABG pH (7.35-7.45) ABG pCO2 (35-45) mmHg ABG pO2 (83-108) mmHg Sodium 131 L (137-145) mmol/L Potassium (3.5-5.1) mmol/L Carbon Dioxide 21 L (22-30) mmol/L BUN 24 H (9-20) mg/dL POC Glucose (mg/dL) 70 L (75-99) mg/dL Hemoglobin A1c (4.0-6.0) % Plasma Lactic Acid Nolan (0.7-2.0) mmol/L Total Bilirubin (0.2-1.3) mg/dL AST (17-59) U/L Alkaline Phosphatase (38-126) U/L Ammonia (<30) umol/L Total Protein (6.3-8.2) g/dL Urine Protein (Negative) Urine Blood (Negative) Ur Leukocyte Esterase (Negative) Urine RBC (0-5) /hpf Urine WBC (0-5) /hpf Urine WBC Clumps (None) /hpf Urine Bacteria (None) /hpf Urine Mucus (None) /hpf 10/23/18 10/23/18 Range/Units 06:54 07:36 MCHC (31.0-37.0) g/dL RDW (11.5-15.5) % Neutrophils # (1.3-7.7) k/uL Lymphocytes # (1.0-4.8) k/uL ABG pH (7.35-7.45) ABG pCO2 (35-45) mmHg ABG pO2 (83-108) mmHg Sodium (137-145) mmol/L Potassium (3.5-5.1) mmol/L Carbon Dioxide (22-30) mmol/L BUN (9-20) mg/dL POC Glucose (mg/dL) 102 H (75-99) mg/dL Hemoglobin A1c (4.0-6.0) % Plasma Lactic Acid Nolan (0.7-2.0) mmol/L Total Bilirubin (0.2-1.3) mg/dL AST (17-59) U/L Alkaline Phosphatase (38-126) U/L Ammonia 32 H (<30) umol/L Total Protein (6.3-8.2) g/dL Urine Protein (Negative) Urine Blood (Negative) Ur Leukocyte Esterase (Negative) Urine RBC (0-5) /hpf Urine WBC (0-5) /hpf Urine WBC Clumps (None) /hpf Urine Bacteria (None) /hpf Urine Mucus (None) /hpf Microbiology - Last 24 Hours (Table) 10/22/18 19:12 Urine Culture - Preliminary Urine,Catheterized 10/17/18 17:49 Blood Culture - Preliminary Blood No Growth after 120 hours 10/17/18 17:50 Blood Culture - Preliminary Blood No Growth after 120 hours Assessment and Plan (1) Cirrhosis of liver Current Visit: Yes Status: Acute Code(s): K74.60 - UNSPECIFIED CIRRHOSIS OF LIVER SNOMED Code(s): 81875821 (2) Change in mental status Current Visit: Yes Status: Acute Code(s): R41.82 - ALTERED MENTAL STATUS, UNSPECIFIED SNOMED Code(s): 121349273 (3) Hyperammonemia Current Visit: Yes Status: Acute Code(s): E72.20 - DISORDER OF UREA CYCLE METABOLISM, UNSPECIFIED SNOMED Code(s): 9379044 (4) Ascites Current Visit: No Status: Acute Code(s): R18.8 - OTHER ASCITES SNOMED Code (s): 648165049 Plan: 1. Diagnostic therapeutic paracentesis on hold secondary to Plavix. Continue with diuretics. Continue lactulose. Daily CMP PT/INR ammonia. We'll continue to follow. Assessment and plan a care discussed with Dr. Vivar
[2018-10-23 12:17] LABS: Glucose,Whole Blood 98 mg/dL (75-99)
--- NOTE | 2018-10-23 12:37 | P.PN ---
Subjective Progress Note Date: 10/23/18 This is a 73-year-old white male patient of Dr. Beck, with past medical history of COPD, ischemic cardiomyopathy with EF of 20% status post AICD placement, coronary artery disease with previous stenting, myocardial infarction , chronic congestive heart failure, diabetes mellitus, hyperlipidemia, myocardial infarction, osteoarthritis, hypothyroidism, chronic hypoxic respiratory failure on home oxygen at [address] Perez in the pulmonary clinic for his history of COPD, and patient is on DuoNeb nebulized treatments, prednisone at 10 mg daily. Patient was brought to the emergency department on 10/16/2018 related to increasing weakness over the past week, apparently patient was in the bathroom yesterday, however could not get up, and fell and could not get up. Patient's friend was home, and could not assist the patient off the floor. EMS was called and patient was brought to the hospital. He denied any chest pain, he states she was slightly lightheaded and dizzy, became increasingly weaker, and mildly short of breath. No fever or chills, no nausea vomiting or diarrhea, no loss of consciousness in the fall, denied any trauma. He has chronic lower extremity swelling, and the patient states that has not increased. He denies any significant weight gain, he states his usual weight is about 220 LBs, and on admission recorded weight was 216 lbs. chronic abdominal distention, and patient is Dr. Bear for chronic liver cirrhosis, cholelithiasis. Patient was referred to Dr Humphrey for evaluation of his gallbladder disease, and was supposed to undergo liver biopsy as well, which has not taken place yet. Patient is on maintenance dose of Lasix at home at 10 mg daily. Patient states he has been compliant with all of his medications. In the emergency department patient was evaluated, chest x-ray was obtained and showed cardiomegaly and chronic parenchymal changes without acute pulmonary process. EKG showed paced rhythm with a rate of 41. Labs showed RBC of 9.9, hemoglobin of 15.1, INR is 1.2, sodium is 134, potassium is 5.1, CO2 is 22, BUN is 25, creatinine is 1.1, lactic acid was 2.1, total bilirubin was 2.3, AST was 75, ALT was 25, alkaline phosphatase was 706, troponin was negative at 0.033, and proBNP was 8100. Urinalysis showed trace protein, but no sign of infection , influenza was negative. Afebrile, satting 94% on 3 L, heart rate is 46-48 BPM , patient is awake and alert, in no acute distress, sitting up on the edge of the bed, lung sounds are positive for some bibasilar crackles, no rhonchi or wheezing. No fever or chills, no cough or congestion. The patient is seen again today 10/23/2018 in follow-up in the intensive care unit. He was transferred here last evening secondary to altered mental status and the lactic acid of 3.8. He became hypoxic and required 15 L high flow nasal cannula to maintain O2 saturations in the 90s. He was restless and combative. Garbled speech. Arterial blood gases on 100% FiO2 revealed a pO2 of 80, pCO2 of 30 and a pH of 7.46. He is currently altered. Garbled speech continues. Not following any simple commands. Her only on 13 L high flow nasal cannula. Not on any pressors. Urine culture pending. White count 10.0. Hemoglobin 13.6. 2131. Bicarb 21. Creatinine 1.12. Follow-up lactic 1.5. He is currently on Zosyn and Levaquin. Dilators. Ativan for agitation. Chest x-ray reveals stable findings with cardiomegaly and chronic proximal changes without any new suspicious acute pulmonary process. Abdominal x-ray reveals moderate lower abdominal ascites. Paracentesis on hold due to the patient being on Plavix. Currently on Lasix 40 mg IV every 12 hours. Objective - Vital Signs Vital signs: Vital Signs Temp 96.3 F L 10/23/18 08:00 Pulse 60 10/23/18 12:00 Resp 16 10/23/18 11:00 BP 113/51 10/23/18 11:00 Pulse Ox 91 L 10/23/18 11:00 Intake & Output 10/22/18 10/23/18 10/23/18 18:59 06:59 18:59 Intake Total 128 850 550 Output Total 300 690 495 Balance -172 160 55 Weight 96 kg 96 kg Intake: IV 10 500 Dextrose 5%-0.45% NaCl 1, 200 000 ml @ 50 mls/hr IV . Q20H [facility] Rx#:[id number] Invasive Line 2 10 Magnesium Sulfate-D5w Pmx 200 1 gm In Dextrose/Water 1 100ml.bag @ 100 mls/hr IVPB Q1H [facility] Rx#: [id number] Piperacillin-Tazobactam 3 100 .375 gm In Sodium Chloride 0.9% 100 ml @ 25 mls/hr IVPB Q8HR [facility] Rx# :[id number] Intake, IV Titration 850 50 Amount Dextrose 5%-0.45% NaCl 1, 450 50 000 ml @ 50 mls/hr IV . Q20H [facility] Rx#:[id number] Levofloxacin 500Mg-D5w 100 Pmx 500 mg In Dextrose/ Water 1 100ml.bag @ 100 mls/hr IVPB Q24H [facility] Rx#: [id number] Piperacillin-Tazobactam 3 300 .375 gm In Sodium Chloride 0.9% 100 ml @ 25 mls/hr IVPB Q8HR [facility] Rx# :[id number] Oral 118 Output: Urine 300 690 495 Other: Voiding Method Urinal Indwelling Catheter - Constitutional General appearance: Present: mild distress, obese - EENT Eyes: Present: EOMI, PERRLA ENT: Present: hard of hearing Ears: bilateral: normal - Neck Neck: Present: normal ROM Carotids: bilateral: upstroke normal Thyroid: bilateral: normal size - Respiratory Respiratory: bilateral: CTA, diminished - Cardiovascular Details: Paced rhythm Rhythm: regular Heart sounds: normal: S1, S2 - Gastrointestinal General gastrointestinal: Present: decreased bowel sounds, distended, tenderness Localized gastrointestinal: tender: diffuse - Integumentary Integumentary: Present: normal turgor - Neurologic Neurologic Comment(s): Restless, altered not following commands - Musculoskeletal Musculoskeletal: Present: generalized weakness - Psychiatric Psychiatric Comment(s): Oriented times one. - Labs CBC & Chem 7: 10/23/18 05:01 10/23/18 05:01 Labs: Abnormal Lab Results - Last 24 Hours (Table) 10/22/18 10/22/18 10/22/18 Range/Units 05:50 14:43 14:50 MCHC (31.0-37.0) g/dL RDW (11.5-15.5) % Neutrophils # (1.3-7.7) k/uL Lymphocytes # (1.0-4.8) k/uL ABG pH (7.35-7.45) ABG pCO2 (35-45) mmHg ABG pO2 (83-108) mmHg Sodium 131 L (137-145) mmol/L Potassium 5.2 H (3.5-5.1) mmol/L Carbon Dioxide 18 L (22-30) mmol/L BUN 23 H (9-20) mg/dL POC Glucose (mg/dL) (75-99) mg/dL Hemoglobin A1c 9.0 H (4.0-6.0) % Plasma Lactic Acid Nolan (0.7-2.0) mmol/L Total Bilirubin 4.8 H (0.2-1.3) mg/dL AST 62 H (17-59) U/L Alkaline Phosphatase 635 H (38-126) U/L Ammonia (<30) umol/L Total Protein 6.2 L (6.3-8.2) g/dL Urine Protein 1+ H (Negative) Urine Blood Moderate H (Negative) Ur Leukocyte Esterase Large H (Negative) Urine RBC 24 H (0-5) /hpf Urine WBC 133 H (0-5) /hpf Urine WBC Clumps Rare H (None) /hpf Urine Bacteria Moderate H (None) /hpf Urine Mucus Rare H (None) /hpf 10/22/18 10/22/18 10/22/18 Range/Units 16:25 17:00 17:31 MCHC (31.0-37.0) g/dL RDW (11.5-15.5) % Neutrophils # (1.3-7.7) k/uL Lymphocytes # (1.0-4.8) k/uL ABG pH (7.35-7.45) ABG pCO2 (35-45) mmHg ABG pO2 (83-108) mmHg Sodium (137-145) mmol/L Potassium (3.5-5.1) mmol/L Carbon Dioxide (22-30) mmol/L BUN (9-20) mg/dL POC Glucose (mg/dL) 67 L 59 L (75-99) mg/dL Hemoglobin A1c (4.0-6.0) % Plasma Lactic Acid Nolan 3.8 H* (0.7-2.0) mmol/L Total Bilirubin (0.2-1.3) mg/dL AST (17-59) U/L Alkaline Phosphatase (38-126) U/L Ammonia (<30) umol/L Total Protein (6.3-8.2) g/dL Urine Protein (Negative) Urine Blood (Negative) Ur Leukocyte Esterase (Negative) Urine RBC (0-5) /hpf Urine WBC (0-5) /hpf Urine WBC Clumps (None) /hpf Urine Bacteria (None) /hpf Urine Mucus (None) /hpf 10/22/18 10/22/18 10/22/18 Range/Units 18:19 19:43 19:47 MCHC (31.0-37.0) g/dL RDW (11.5-15.5) % Neutrophils # (1.3-7.7) k/uL Lymphocytes # (1.0-4.8) k/uL ABG pH 7.46 H (7.35-7.45) ABG pCO2 30 L (35-45) mmHg ABG pO2 80 L (83-108) mmHg Sodium (137-145) mmol/L Potassium (3.5-5.1) mmol/L Carbon Dioxide (22-30) mmol/L BUN (9-20) mg/dL POC Glucose (mg/dL) 108 H (75-99) mg/dL Hemoglobin A1c (4.0-6.0) % Plasma Lactic Acid Nolan 3.3 H* (0.7-2.0) mmol/L Total Bilirubin (0.2-1.3) mg/dL AST (17-59) U/L Alkaline Phosphatase (38-126) U/L Ammonia (<30) umol/L Total Protein (6.3-8.2) g/dL Urine Protein (Negative) Urine Blood (Negative) Ur Leukocyte Esterase (Negative) Urine RBC (0-5) /hpf Urine WBC (0-5) /hpf Urine WBC Clumps (None) /hpf Urine Bacteria (None) /hpf Urine Mucus (None) /hpf 10/22/18 10/23/18 10/23/18 Range/Units 20:50 05:01 05:01 MCHC 30.5 L (31.0-37.0) g/dL RDW 17.9 H (11.5-15.5) % Neutrophils # 8.4 H (1.3-7.7) k/uL Lymphocytes # 0.6 L (1.0-4.8) k/uL ABG pH (7.35-7.45) ABG pCO2 (35-45) mmHg ABG pO2 (83-108) mmHg Sodium 131 L (137-145) mmol/L Potassium (3.5-5.1) mmol/L Carbon Dioxide 21 L (22-30) mmol/L BUN 24 H (9-20) mg/dL POC Glucose (mg/dL) 70 L (75-99) mg/dL Hemoglobin A1c (4.0-6.0) % Plasma Lactic Acid Nolan (0.7-2.0) mmol/L Total Bilirubin (0.2-1.3) mg/dL AST (17-59) U/L Alkaline Phosphatase (38-126) U/L Ammonia (<30) umol/L Total Protein (6.3-8.2) g/dL Urine Protein (Negative) Urine Blood (Negative) Ur Leukocyte Esterase (Negative) Urine RBC (0-5) /hpf Urine WBC (0-5) /hpf Urine WBC Clumps (None) /hpf Urine Bacteria (None) /hpf Urine Mucus (None) /hpf 10/23/18 10/23/18 Range/Units 06:54 07:36 MCHC (31.0-37.0) g/dL RDW (11.5-15.5) % Neutrophils # (1.3-7.7) k/uL Lymphocytes # (1.0-4.8) k/uL ABG pH (7.35-7.45) ABG pCO2 (35-45) mmHg ABG pO2 (83-108) mmHg Sodium (137-145) mmol/L Potassium (3.5-5.1) mmol/L Carbon Dioxide (22-30) mmol/L BUN (9-20) mg/dL POC Glucose (mg/dL) 102 H (75-99) mg/dL Hemoglobin A1c (4.0-6.0) % Plasma Lactic Acid Nolan (0.7-2.0) mmol/L Total Bilirubin (0.2-1.3) mg/dL AST (17-59) U/L Alkaline Phosphatase (38-126) U/L Ammonia 32 H (<30) umol/L Total Protein (6.3-8.2) g/dL Urine Protein (Negative) Urine Blood (Negative) Ur Leukocyte Esterase (Negative) Urine RBC (0-5) /hpf Urine WBC (0-5) /hpf Urine WBC Clumps (None) /hpf Urine Bacteria (None) /hpf Urine Mucus (None) /hpf Microbiology - Last 24 Hours (Table) 10/22/18 19:12 Urine Culture - Preliminary Urine,Catheterized 10/17/18 17:49 Blood Culture - Preliminary Blood No Growth after 120 hours 10/17/18 17:50 Blood Culture - Preliminary Blood No Growth after 120 hours Assessment and Plan Assessment: Impression: #1 Altered mental status, suspect metabolic encephalopathy of unclear etiology. #2 Ascites. No paracentesis at this time due to patient being on Plavix. #3 Acute hypoxic respiratory failure secondary to above. Chest x-ray shows no acute pulmonary process. #4 Ischemic cardiomyopathy status post AICD placement with ejection fraction less than 20% and backup pacing set at 40. #5 Chronic obstructive pulmonary disease with chronic hypoxemic respiratory failure, prednisone dependent. #6 Coronary artery disease with previous stent placement on Plavix. #7 Chronic systolic congestive heart failure #8 Diabetes mellitus, type II. #9 Hypothyroidism. #10 Hyperlipidemia. #11 History of heavy tobacco dependence of 35 years 1-2 packs per day however quit in 1989. #12 Chronic liver cirrhosis, cholelithiasis following by surgical services and GI services. Was planning a liver biopsy in the outpatient setting. #13 Previous history of alcohol abuse. Plan: The patient was seen and evaluated by Dr. Galvan. Chest x-ray and labs were reviewed. No evidence of acute pneumonia. No leukocytosis. Afebrile. Suspect metabolic encephalopathy. Urine culture pending. Previous blood cultures negative. Receiving lactulose. Remains on antibiotics in the form of Zosyn and Levaquin. Continue diuretics. Continue bronchodilators. We'll continue to monitor him here closely in the intensive care unit. We will continue to follow and make further recommendations based on his clinical status. I, the cosigning physician, performed a history & physical examination of the patient. Lungs sounds are clear. Maintaining good O2 saturations in the 90s on 13 L high flow nasal cannula. I discussed the assessment and plan of care with my nurse practitioner, Cori Powell. I attest to the above note as dictated by her.
[2018-10-23] MEDS: LACTULOSE 20 GM/30 ML CUP PO SCH ×3 (13:03→22:57)
[2018-10-23] MEDS: CLOPIDOGREL 75 MG TAB PO SCH (13:03)
[2018-10-23] MEDS: ASPIRIN 81 MG PO SCH (13:03)
[2018-10-23] MEDS: predniSONE 10 MG TAB PO SCH (13:04)
[2018-10-23] MEDS: MULTIVITAMINS, THERA 1 EACH TAB PO SCH (13:04)
[2018-10-23] MEDS: SPIRONOLACTONE 25 MG TAB PO SCH ×2 (13:04→22:57)
[2018-10-23 13:10] LABS: Glucose,Whole Blood 95 mg/dL (75-99)
[2018-10-23] MEDS: DEXTROSE 5%-0.45% NACL 1,000 ML IV SCH (15:15)
--- NOTE | 2018-10-23 16:42 | XR ---
EXAMINATION: XR chest 1V portable DATE AND TIME: 10/23/2018 4:34 PM CLINICAL INDICATION: PHH; NG tube placement TECHNIQUE: AP semiupright COMPARISON: 10/23/2018 5:59 AM chest x-ray, and chest x-ray 08/11/2018 FINDINGS: Cardiac pacemaker and EKG leads are noted, but no NG tube is seen. There is a fine reticular pattern of symmetrically increased density silhouetting the pulmonary vascu lature and heart borders, more conspicuous on the present study, suggesting mild interstitial phase p ulmonary edema. Mild enlarged cardiac silhouette redemonstrated. Pleural spaces are negative on this semiupright radiograph. No acute bone or soft tissue findings. IMPRESSION: NG tube not visualized. Findings suggesting mild interstitial phase pulmonary edema if clinically corroborated.
[2018-10-23 17:07] LABS: Glucose,Whole Blood 100 mg/dL (75-99)
--- NOTE | 2018-10-23 18:54 | CONS ---
CONSULTATION DATE OF SERVICE: 10/23/2018. REASON FOR CONSULTATION: UTI and lower extremity cellulitis. HISTORY OF PRESENT ILLNESS: The patient is a 73-year-old male presenting to the ER at [facility] on 10/16/2018 with weakness, lightheadedness that has been going on for almost 3 weeks before he presented to the hospital. The patient did have history of underlying congestive heart failure with EF around 20%. Patient with these symptoms has been evaluated by the ER physician. Since admission, the patient with no documented fever. The patient also had no elevated white count on admission or even today. Patient creatinine has been normal. The patient did have a UA on admission that was negative and influenza serology was negative. The patient did have a chest x- ray, chronic parenchymal changes and cardiomegaly without process. The patient did have acute changes in his clinical condition all night as the patient has become less responsive and agitated. The patient did have a UA obtained which came back to be significantly positive with moderate leukocyte esterases WBCs with moderate bacteria with cultures currently pending. The patient did have blood cultures on the 16th, those have been negative and no culture has been blood culture has been repeated this morning. The patient was started on Zosyn, concern for possible UTI. Infectious disease was consulted. Most of the information has been obtained from thorough review of the chart as the patient currently is lethargic, some agitated and unable to provide any reliable history. However, he has been moving all his 4 extremities. Chest x-ray repeated today showing finding suggestive of mild interstitial pulmonary edema. REVIEW OF SYSTEMS: Could not be reliably obtained though the positive points have been mentioned in HPI. PAST MEDICAL HISTORY: As per coronary artery disease, heart failure, diabetes mellitus, gastroesophageal reflux disease, hyperlipidemia, [place], osteoarthritis, respiratory disorder, hypothyroidism, cardiomyopathy with low EF, did have history of UTI. PAST SURGICAL HISTORY: AICD placement, PTCA with stent, right total knee arthroplasty, colonoscopy with polypectomy. SOCIAL HISTORY: Remote history of smoking. No drinking or drug use. FAMILY HISTORY: Mother with history of congestive heart failure and uterine cancer. Father history of lymphoma. ALLERGIES: No known drug allergies. MEDICATIONS: Medications include the patient is currently on Tylenol, Mellen, DuoNeb, aspirin, Lipitor, Plavix, Lasix, heparin, NovoLog, Levemir, Levaquin, Ativan, melatonin, Zosyn 3.375 g q.8 hours, prednisone and Aldactone. PHYSICAL EXAMINATION: Blood pressure is 117/79 with a pulse of 81, temperature 97.3. He is 99% on 2 L nasal cannula. General description is an elderly male lying in bed in no distress. No tachypnea or accessory muscles of respiration use. HEENT: Shows no pallor or scleral icterus. Oral mucosa membranes are dry. Neck: Trachea central. No thyromegaly. Lungs unlabored breathing, decreased breath sounds at the bases. Clear to auscultation anteriorly. No wheeze or crackles. Heart: S1-S2 regular rate and rhythm. ABDOMEN: Soft, no tenderness. No guarding. No rigidity. No organomegaly. EXTREMITIES: Chronic venous stasis changes, bilateral cellulitis. Did have 2+ edema of the feet though. Skin examination: No rash or mass palpable. Neurologic: The patient is currently lethargic and no neck rigidity was noticed. Orientation could not be determined. LABS: Hemoglobin 13.6, white count 10.0, BUN of 24, creatinine is 1.12. Sodium was 131, lactic acid 3.3. was negative. Repeat is significantly positive. Cultures pending. Further serology was negative. Chest x-ray with possible congestive heart failure. DIAGNOSTIC IMPRESSION/PLAN: 1. Patient with acute changes in clinical condition in this patient who did have significant weakness and lethargic. However no fever or elevated white count making it to be less likely secondary to infectious course in this patient who did have a history of cardiomyopathy with low EF need to be ruled out for an acute CVA that will likely be responsible for this mental status changes and agitation. Clinically doubt encephalitis or meningitis. 2. Patient did have a positive UA with a Hospital need to cover for gram negative pathogen. 3. Patient chronic venous stasis changes of the leg with minimal erythema, but no warmth to it. PLAN: 1. The patient will continue on Zosyn 3.375 mg q8 hours while waiting for the cultures to finalize. 2. right leg wound followed by Kalin wrap from just above the toes to below the knee to keep the swelling down. 3. The patient may benefit from a CT of the brain. This was discussed with the admitting physician and Neurology evaluation. 4. We will follow up on clinical condition to further adjust medication if needed. Thank you for this consultation. We will follow the patient along with you. CHRISTIN / VIRGINIEN: [id number] /
--- NOTE | 2018-10-23 20:43 | CT ---
EXAMINATION: CT brain wo con DATE AND TIME: 10/23/2018 8:06 PM CLINICAL INDICATION: PHH; change in mentation TECHNIQUE: Standard departmental protocol.; 2404.4; COMPARISON: 08/11/2018 FINDINGS: There is patient motion artifact. The calvarium is intact. There is no intracranial hemorrhage. There is no intracranial mass or mass effect. No definite new intra-axial or extra-axial attenuation defect. The paranasal sinuses, middle ear cavities, and mastoid sinus air cells are clear. The orbits are negative for acute findings but show evidence of bilateral exophthalmos. IMPRESSION: NO ACUTE PROCESS.
[2018-10-23 21:19] LABS: Glucose,Whole Blood 99 mg/dL (75-99)
--- NOTE | 2018-10-23 22:16 | PN ---
PROGRESS NOTE SUBJECTIVE: 73-year-old white male, ischemic cardiomyopathy, COPD, comes to the hospital with bradycardia, coronary artery disease, congestive heart failure, diabetes mellitus, hypothyroidism, developed a bad urinary tract infection, started on Zosyn 3-4 days ago, increasing weakness. He then developed severe disorientation abruptly. He was found to have ascites with elevated ammonia. He was started on lactulose. He still mildly confused. He does open his eyes and look at you but he is still confused and has is garbled speech. ABG was reviewed. You have to talk loud. He does answer commands. He has occasional words that you can understand. On no vasopressors and high-flow nasal cannula. Hemoglobin 13.6, white count 10, creatinine 1.12. Lactic acid 1.5 down from 3. He is on Zosyn and Levaquin. He is on lactulose for elevated ammonia levels. He has a complex metabolic encephalopathy secondary to UTI and probably cirrhosis and liver failure with elevated ammonia with hyperammonemia. He take his home Lasix dose is 20 mg daily. He is currently on 40 mg IV q.12 hours of Lasix. O2 saturation is 91%. Blood pressure 113/51, respiratory 16 to 18, pulse 60, temp 96.3. He is writhing back and forth in the bed. Trying to get an NG tube in him for medications. Possibly a Dobbhoff feeding tube as he has not eaten or drank in a few days. ASSESSMENT: 1. Metabolic encephalopathy secondary to possibly hyperammonemia, cirrhosis and urinary tract infection. Apparently has some moderate amount of ascites. He is on Plavix and is not going to have a paracentesis at this time. 2. Acute hypoxemic respiratory failure secondary to chronic obstructive pulmonary disease. 3. Systolic congestive heart failure with ischemic cardiomyopathy, AICD placement. 4. Coronary artery disease, chronic systolic congestive heart failure. 5. Diabetes mellitus. 6. Hypothyroidism. 7. Dyslipidemia. 8. Cholelithiasis. 9. Chronic liver cirrhosis. 10.Apparently he has a history of alcohol abuse. Continue on antibiotics for broad spectrum UTI and lactulose for elevated ammonia levels. Possibly do a CT scan of the brain to rule out stroke. Progress note: 30 minutes. MMODL / IJN: [id number] /
[2018-10-23] MEDS: LEVOFLOXACIN 500MG-D5W PMX 500 MG in DEXTROSE/WATER 1 100ML.BAG IVPB SCH (22:55)
[2018-10-23] MEDS: INSULIN DETEMIR 100 UNIT/ML 10 ML VIAL SQ SCH (22:57)
[2018-10-23] MEDS: MELATONIN 3 MG TABLET PO SCH (22:57)
[2018-10-23] MEDS: ATORVASTATIN 20 MG TAB PO SCH (22:57)
[2018-10-24] MEDS: LORazepam 2 MG/ML INJ IV PRN
[2018-10-24] MEDS: PIPERACILLIN-TAZOBACTAM 3.375 GM in SODIUM CHLORIDE 0.9% 100 ML IVPB SCH ×4 (00:34→23:41)
[2018-10-24] MEDS: HEPARIN SODIUM,PORCINE 5,000 UNIT/ML 1 ML VIAL SQ SCH ×4 (00:35→23:44)
[2018-10-24] MEDS ORDERED: LORazepam 2 MG/ML INJ IM STA (01:49)
[2018-10-24] MEDS: CHLORHEXIDINE GLUCONATE 15 ML CUP MUCOUS MEM SCH ×3 (01:55→20:29)
[2018-10-24] MEDS ORDERED: PROPOFOL 1,000 MG in EMPTY BAG 1 BAG IV SCH (02:00)
[2018-10-24] MEDS: NOREPINEPHRINE 4 MG in SODIUM CHLORIDE 0.9% 250 ML IV SCH ×2 (02:15→18:15)
[2018-10-24] MEDS: PROPOFOL 1,000 MG in EMPTY BAG 1 BAG IV SCH ×3 (02:20→21:30)
--- NOTE | 2018-10-24 02:52 | XR ---
EXAMINATION TYPE: XR chest 1V portable DATE OF EXAM: 10/24/2018 COMPARISON: Yesterday HISTORY: Check tube placement TECHNIQUE: Single frontal view of the chest is obtained. FINDINGS: Endotracheal tube is 6 cm from the leatha. There is nasogastric tube noted. There is a lef t axillary pacemaker. There is mild pulmonary vascular congestion. There are chest leads. IMPRESSION: Pulmonary vascular congestion increased slightly compared to yesterday.
[2018-10-24 02:53] LABS: ABG Base Excess -3.2 mmol/L; ABG HCO3 23 mmol/L (21-25); ABG Oxygen Saturation 85.7 % (94-97); ABG PCO2 47 mmHg (35-45); ABG PO2 60 mmHg (83-108); ABG TCO2 25 mmol/L (19-24)
[2018-10-24 04:46] LABS: Anisocytosis Slight; Basophils % (A) 0 %; Eosinophils # (A) 0.1 k/uL (0-0.7); Eosinophils % (A) 1 %; HCT 46.1 % (39.0-53.0); Hypochromasia Slight; Lymphocytes # (A) 0.4 k/uL (1.0-4.8); Lymphocytes % (A) 4 %; MCH 28.1 pg (25.0-35.0); MCHC 30.3 g/dL (31.0-37.0); MCV 92.6 fL (80.0-100.0); Mean Platelet Volume 7.2; Monocytes # (A) 0.4 k/uL (0-1.0); Monocytes % (A) 4 %; Neutrophils % (A) 90 %; Platelet Count 174 k/uL (150-450); RBC 4.98 m/uL (4.30-5.90); RDW 17.8 % (11.5-15.5)
[2018-10-24 04:56] LABS: Calcium 8.4 mg/dL (8.4-10.2); Phosphorus 4.4 mg/dL (2.5-4.5); Potassium 3.8 mmol/L (3.5-5.1); Total Protein 5.5 g/dL (6.3-8.2)
[2018-10-24 04:59] LABS: INR 1.5 (<1.2); Prothrombin Time 15.5 sec (9.0-12.0)
[2018-10-24] MEDS ORDERED: Potassium Replacement Protocol 1 EACH MISC MISCELLANE PRN (06:35)
[2018-10-24] MEDS ORDERED: POTASSIUM BICARBONATE/CIT AC 20 MEQ TABLET.EFF NG-TUBE SCH (07:00)
[2018-10-24 07:54] LABS: ABG Base Excess -2.7 mmol/L; ABG HCO3 23 mmol/L (21-25); ABG Oxygen Saturation 95.4 % (94-97); ABG PCO2 40 mmHg (35-45); ABG PH 7.36 (7.35-7.45); ABG PO2 81 mmHg (83-108); ABG TCO2 24 mmol/L (19-24)
[2018-10-24] MEDS: IPRATROPIUM-ALBUTEROL 3 ML NEB INHALATION SCH ×4 (07:58→18:43)
[2018-10-24] MEDS: MIDODRINE 5 MG TAB PO SCH ×3 (08:28→17:47)
[2018-10-24] MEDS: LEVOTHYROXINE 100 MCG TAB PO SCH (08:28)
[2018-10-24 08:35] LABS: Glucose,Whole Blood 75 mg/dL (75-99)
[2018-10-24] MEDS: INSULIN ASPART 100 UNIT/ML 1 ML 10 ML VIAL SQ SCH ×4 (08:39→23:42)
[2018-10-24] MEDS: FUROSEMIDE 10 MG/ML 4 ML VIAL IV SCH ×2 (08:44→20:29)
[2018-10-24] MEDS ORDERED: PANTOPRAZOLE 40 MG TABLET PO SCH (09:00)
[2018-10-24] MEDS: CLOPIDOGREL 75 MG TAB PO SCH (09:44)
[2018-10-24] MEDS: LACTULOSE 20 GM/30 ML CUP PO SCH ×3 (10:01→23:29)
[2018-10-24] MEDS: predniSONE 10 MG TAB PO SCH (10:01)
[2018-10-24] MEDS: ASPIRIN 81 MG PO SCH (10:01)
[2018-10-24] MEDS: SPIRONOLACTONE 25 MG TAB PO SCH ×2 (10:01→20:29)
--- NOTE | 2018-10-24 10:22 | P.PN ---
Subjective Progress Note Date: 10/24/18 Principal diagnosis: Cirrhosis of liver Intubated last night. Attempts to insert nasogastric tube unsuccessful O G- tube inserted with bloody return. Hemoglobin 14. No reports of hematemesis or melena. Ultrasound abdomen moderate lower abdominal ascites; paracentesis on hold secondary to Plavix. Receiving diuretics. Afebrile. LFTs/transaminases improved total bilirubin 5. Ammonia increased 62. Objective - Vital Signs Vital signs: Vital Signs Temp 97.4 F L 10/24/18 04:00 Pulse 60 10/24/18 08:17 Resp 19 10/24/18 06:00 BP 150/71 10/24/18 03:00 Pulse Ox 92 L 10/24/18 06:00 Intake & Output 10/23/18 10/24/18 10/24/18 18:59 06:59 18:59 Intake Total 1000 846.543 95.625 Output Total 1645 965 20 Balance -645 -118.457 75.625 Weight 96 kg 92.9 kg Intake: IV 950 700 50 Dextrose 5%-0.45% NaCl 1, 550 600 50 000 ml @ 50 mls/hr IV . Q20H [facility] Rx#:[id number] Magnesium Sulfate-D5w Pmx 200 1 gm In Dextrose/Water 1 100ml.bag @ 100 mls/hr IVPB Q1H [facility] Rx#: [id number] Piperacillin-Tazobactam 3 200 100 .375 gm In Sodium Chloride 0.9% 100 ml @ 25 mls/hr IVPB Q8HR [facility] Rx# :[id number] Intake, IV Titration 50 146.543 45.625 Amount Dextrose 5%-0.45% NaCl 1, 50 000 ml @ 50 mls/hr IV . Q20H [facility] Rx#:[id number] Magnesium Sulfate-D5w Pmx 100 1 gm In Dextrose/Water 1 100ml.bag @ 100 mls/hr IVPB Q1H [facility] Rx#: [id number] Norepinephrine 4 mg In 34.063 45.625 Sodium Chloride 0.9% 250 ml @ Titrate IV .Q0M [facility] Rx#:[id number] Propofol 1,000 mg In 12.48 Empty Bag 1 bag @ 10 MCG/ KG/MIN 5.76 mls/hr IV . [id number] [facility] Rx#:[id number] Output: Urine 1645 965 20 Other: Voiding Method Indwelling Catheter Indwelling Catheter ABP, PAP, CO, CI - Last Documented Arterial Blood Pressure 122/53 - Exam General appearance: The patient is intubated sedated. HET: Head is normocephalic and atraumatic. Pupils are equal and reactive. Oral gastric tube with dark bloody return. Sclerae icterus. Neck: Supple without lymphadenopathy. Trachea midline. Heart: S1 S2. Regular rate and rhythm. Lungs: No crackles or wheezes are heard. Abdomen: Soft, nontender, mildly bloated mild ascites with bowel sounds. No peritoneal signs. No palpable organomegaly or masses. Extremities: Bilateral lower extremity edema erythema scaling warmth. Neurological: Confused unable to assess. - Labs CBC & Chem 7: 10/24/18 04:20 10/24/18 04:20 Labs: Abnormal Lab Results - Last 24 Hours (Table) 10/23/18 10/24/18 10/24/18 Range/Units 17:03 02:48 04:20 MCHC 30.3 L (31.0-37.0) g/dL RDW 17.8 H (11.5-15.5) % Neutrophils # 9.0 H (1.3-7.7) k/uL Lymphocytes # 0.4 L (1.0-4.8) k/uL PT (9.0-12.0) sec INR (<1.2) ABG pH 7.30 L (7.35-7.45) ABG pCO2 47 H (35-45) mmHg ABG pO2 60 L (83-108) mmHg ABG Total CO2 25 H (19-24) mmol/L ABG O2 Saturation 85.7 L (94-97) % Sodium (137-145) mmol/L BUN (9-20) mg/dL POC Glucose (mg/dL) 100 H (75-99) mg/dL Total Bilirubin (0.2-1.3) mg/dL Alkaline Phosphatase (38-126) U/L Ammonia (<30) umol/L Total Protein (6.3-8.2) g/dL Albumin (3.5-5.0) g/dL 10/24/18 10/24/18 10/24/18 Range/Units 04:20 04:20 06:15 MCHC (31.0-37.0) g/dL RDW (11.5-15.5) % Neutrophils # (1.3-7.7) k/uL Lymphocytes # (1.0-4.8) k/uL PT 15.5 H (9.0-12.0) sec INR 1.5 H (<1.2) ABG pH (7.35-7.45) ABG pCO2 (35-45) mmHg ABG pO2 (83-108) mmHg ABG Total CO2 (19-24) mmol/L ABG O2 Saturation (94-97) % Sodium 133 L (137-145) mmol/L BUN 22 H (9-20) mg/dL POC Glucose (mg/dL) (75-99) mg/dL Total Bilirubin 5.0 H (0.2-1.3) mg/dL Alkaline Phosphatase 486 H (38-126) U/L Ammonia 62 H (<30) umol/L Total Protein 5.5 L (6.3-8.2) g/dL Albumin 3.0 L (3.5-5.0) g/dL 10/24/18 Range/Units 07:49 MCHC (31.0-37.0) g/dL RDW (11.5-15.5) % Neutrophils # (1.3-7.7) k/uL Lymphocytes # (1.0-4.8) k/uL PT (9.0-12.0) sec INR (<1.2) ABG pH (7.35-7.45) ABG pCO2 (35-45) mmHg ABG pO2 81 L (83-108) mmHg ABG Total CO2 (19-24) mmol/L ABG O2 Saturation (94-97) % Sodium (137-145) mmol/L BUN (9-20) mg/dL POC Glucose (mg/dL) (75-99) mg/dL Total Bilirubin (0.2-1.3) mg/dL Alkaline Phosphatase (38-126) U/L Ammonia (<30) umol/L Total Protein (6.3-8.2) g/dL Albumin (3.5-5.0) g/dL Microbiology - Last 24 Hours (Table) 10/22/18 19:12 Urine Culture - Preliminary Urine,Catheterized Gram Neg Bacilli 01/21/19 14:43 Blood Culture - Preliminary Blood No Growth after 24 hours 10/17/18 17:49 Blood Culture - Final Blood No Growth after 144 hours 10/17/18 17:50 Blood Culture - Final Blood No Growth after 144 hours Assessment and Plan (1) Cirrhosis of liver Current Visit: Yes Status: Acute Code(s): K74.60 - UNSPECIFIED CIRRHOSIS OF LIVER SNOMED Code(s): 21456302 (2) Change in mental status Current Visit: Yes Status: Acute Code(s): R41.82 - ALTERED MENTAL STATUS, UNSPECIFIED SNOMED Code(s): 121072093 (3) Hyperammonemia Narrative/Plan: Worsening serum ammonia Current Visit: Yes Status: Acute Code(s): E72.20 - DISORDER OF UREA CYCLE METABOLISM, UNSPECIFIED SNOMED Code(s): 0690484 (4) Ascites Current Visit: No Status: Acute Code(s): R18.8 - OTHER ASCITES SNOMED Code (s): 393054857 Plan: 1. Diagnostic therapeutic paracentesis on hold secondary to Plavix. Continue with diuretics. Continue lactulose increased to 20 g 3 times daily. Daily CBC , CMP PT/INR ammonia. In regards to oral gastric secretions presently no active hematochezia or melena unsure if bleeding is secondary to traumatic insertion; hemoglobin stable at 14. We'll continue to follow. Assessment and plan a care discussed with Dr. Vivar
[2018-10-24] MEDS: DEXTROSE 5%-0.45% NACL 1,000 ML IV SCH (10:42)
[2018-10-24 10:46] LABS: ABG Base Excess -2.6 mmol/L; ABG HCO3 22 mmol/L (21-25); ABG Oxygen Saturation 86.8 % (94-97); ABG PCO2 35 mmHg (35-45); ABG PH 7.41 (7.35-7.45); ABG TCO2 23 mmol/L (19-24)
[2018-10-24 10:51] LABS: ABG PO2 53 mmHg (83-108)
[2018-10-24] MEDS: MULTIVITAMINS, THERA 1 EACH TAB PO SCH (12:32)
--- NOTE | 2018-10-24 12:37 | P.PN ---
Subjective Progress Note Date: 10/24/18 Principal diagnosis: Acute metabolic encephalopathy, acute on chronic hypoxic respiratory failure secondary to congestive heart failure and systolic dysfunction. And underlying COPD. This is a 73-year-old white male patient of Dr. Beck, with past medical history of COPD, ischemic cardiomyopathy with EF of 20% status post AICD placement, coronary artery disease with previous stenting, myocardial infarction , chronic congestive heart failure, diabetes mellitus, hyperlipidemia, myocardial infarction, osteoarthritis, hypothyroidism, chronic hypoxic respiratory failure on home oxygen at [address] Perez in the pulmonary clinic for his history of COPD, and patient is on DuoNeb nebulized treatments, prednisone at 10 mg daily. Patient was brought to the emergency department on 10/16/2018 related to increasing weakness over the past week, apparently patient was in the bathroom yesterday, however could not get up, and fell and could not get up. Patient's friend was home, and could not assist the patient off the floor. EMS was called and patient was brought to the hospital. He denied any chest pain, he states she was slightly lightheaded and dizzy, became increasingly weaker, and mildly short of breath. No fever or chills, no nausea vomiting or diarrhea, no loss of consciousness in the fall, denied any trauma. He has chronic lower extremity swelling, and the patient states that has not increased. He denies any significant weight gain, he states his usual weight is about 220 LBs, and on admission recorded weight was 216 lbs. chronic abdominal distention, and patient is Dr. Bear for chronic liver cirrhosis, cholelithiasis. Patient was referred to Dr Humphrey for evaluation of his gallbladder disease, and was supposed to undergo liver biopsy as well, which has not taken place yet. Patient is on maintenance dose of Lasix at home at 10 mg daily. Patient states he has been compliant with all of his medications. In the emergency department patient was evaluated, chest x-ray was obtained and showed cardiomegaly and chronic parenchymal changes without acute pulmonary process. EKG showed paced rhythm with a rate of 41. Labs showed RBC of 9.9, hemoglobin of 15.1, INR is 1.2, sodium is 134, potassium is 5.1, CO2 is 22, BUN is 25, creatinine is 1.1, lactic acid was 2.1, total bilirubin was 2.3, AST was 75, ALT was 25, alkaline phosphatase was 706, troponin was negative at 0.033, and proBNP was 8100. Urinalysis showed trace protein, but no sign of infection , influenza was negative. Afebrile, satting 94% on 3 L, heart rate is 46-48 BPM , patient is awake and alert, in no acute distress, sitting up on the edge of the bed, lung sounds are positive for some bibasilar crackles, no rhonchi or wheezing. No fever or chills, no cough or congestion. The patient is seen again today 10/23/2018 in follow-up in the intensive care unit. He was transferred here last evening secondary to altered mental status and the lactic acid of 3.8. He became hypoxic and required 15 L high flow nasal cannula to maintain O2 saturations in the 90s. He was restless and combative. Garbled speech. Arterial blood gases on 100% FiO2 revealed a pO2 of 80, pCO2 of 30 and a pH of 7.46. He is currently altered. Garbled speech continues. Not following any simple commands. Her only on 13 L high flow nasal cannula. Not on any pressors. Urine culture pending. White count 10.0. Hemoglobin 13.6. 2131. Bicarb 21. Creatinine 1.12. Follow-up lactic 1.5. He is currently on Zosyn and Levaquin. Dilators. Ativan for agitation. Chest x-ray reveals stable findings with cardiomegaly and chronic proximal changes without any new suspicious acute pulmonary process. Abdominal x-ray reveals moderate lower abdominal ascites. Paracentesis on hold due to the patient being on Plavix. Currently on Lasix 40 mg IV every 12 hours. Patient was reevaluated today on 10/24/2018, patient's clinical condition deteriorated last night, he was developing significant agitation, he was also developing worsening hypoxemia, and he wasn't responding to conservative measures including IV Ativan, and high flow oxygen, BiPAP, patient ended up being intubated and now on mechanical ventilation. He is also on levo fed at 2 mcg/m, his ventilator settings are tidal volume of 500, assist control rate of 20, FiO2 is 70%, and PEEP is 8. His problems at this point include worsening chest x-ray consistent with congestive heart failure, GI bleeding felt to be most likely from trauma of the nasogastric tube, worsening liver disease and underlying ascites, hypotension, elevated liver enzymes and elevated INR, elevated ammonia level at 62. All the metabolic derangements are causing significant metabolic encephalopathy. O2 saturation is marginal on 70% FiO2 and PEEP of 8. ABG on 50% FiO2 today showed a pO2 of 53 pCO2 of 35 pH of 7.41. Patient was supposed to undergo paracentesis, however it's presently on hold because the patient was on Plavix. Total bilirubin today is 5. And ammonia level is again 62. Patient is sedated, on propofol, on norepinephrine, and his family is at bedside. Apparently his legal guardian is not present, and that is has some. No one can make a decision regarding his CODE STATUS until his son is available. And hopefully will get to discuss his condition with his son later today. Objective - Vital Signs Vital signs: Vital Signs Temp 97.4 F L 10/24/18 04:00 Pulse 59 L 10/24/18 11:40 Resp 19 10/24/18 06:00 BP 150/71 10/24/18 03:00 Pulse Ox 92 L 10/24/18 06:00 Intake & Output 10/23/18 10/24/18 10/24/18 18:59 06:59 18:59 Intake Total 1000 846.543 95.625 Output Total 1645 965 20 Balance -645 -118.457 75.625 Weight 96 kg 92.9 kg Intake: IV 950 700 50 Dextrose 5%-0.45% NaCl 1, 550 600 50 000 ml @ 50 mls/hr IV . Q20H [facility] Rx#:[id number] Magnesium Sulfate-D5w Pmx 200 1 gm In Dextrose/Water 1 100ml.bag @ 100 mls/hr IVPB Q1H [facility] Rx#: [id number] Piperacillin-Tazobactam 3 200 100 .375 gm In Sodium Chloride 0.9% 100 ml @ 25 mls/hr IVPB Q8HR [facility] Rx# :[id number] Intake, IV Titration 50 146.543 45.625 Amount Dextrose 5%-0.45% NaCl 1, 50 000 ml @ 50 mls/hr IV . Q20H [facility] Rx#:[id number] Magnesium Sulfate-D5w Pmx 100 1 gm In Dextrose/Water 1 100ml.bag @ 100 mls/hr IVPB Q1H [facility] Rx#: [id number] Norepinephrine 4 mg In 34.063 45.625 Sodium Chloride 0.9% 250 ml @ Titrate IV .Q0M [facility] Rx#:[id number] Propofol 1,000 mg In 12.48 Empty Bag 1 bag @ 10 MCG/ KG/MIN 5.76 mls/hr IV . [id number] [facility] Rx#:[id number] Output: Urine 1645 965 20 Other: Voiding Method Indwelling Catheter Indwelling Catheter ABP, PAP, CO, CI - Last Documented Arterial Blood Pressure 122/53 - Exam General appearance: Revealed a 73-year-old white male, sedated, on propofol, in no distress. Orogastric tube and endotracheal tube. Evidence of dark blood noted in the orogastric tube HET: PERRLA, EOMI, dry mucous membranes, positive icterus. Neck: Supple, no neck masses, no JVD, no carotid bruits. Heart: Normal S1 and S2, no S3 gallop. 2/6 systolic murmur thought the precordium. Lungs: Minimal crackles at the bases, no rhonchi no wheezes. Symmetrical chest expansion is noted.. Abdomen: Soft, nontender, mildly bloated mild ascites with bowel sounds. No peritoneal signs. No palpable organomegaly or masses. Extremities: 1+ bipedal edema, erythema and scaling noted on anterior aspect of both lower extremities bilaterally. Silver gel dressing is being applied on those areas. Neurological: Cannot be assessed, patient is fully sedated on propofol. Psychiatric: Cannot be assessed. Skin: As noted above mostly the findings on the lower extremities of scaling and erythema.. - Labs CBC & Chem 7: 10/24/18 04:20 10/24/18 04:20 Labs: Abnormal Lab Results - Last 24 Hours (Table) 10/23/18 10/24/18 10/24/18 Range/Units 17:03 02:48 04:20 MCHC 30.3 L (31.0-37.0) g/dL RDW 17.8 H (11.5-15.5) % Neutrophils # 9.0 H (1.3-7.7) k/uL Lymphocytes # 0.4 L (1.0-4.8) k/uL PT (9.0-12.0) sec INR (<1.2) ABG pH 7.30 L (7.35-7.45) ABG pCO2 47 H (35-45) mmHg ABG pO2 60 L (83-108) mmHg ABG Total CO2 25 H (19-24) mmol/L ABG O2 Saturation 85.7 L (94-97) % Sodium (137-145) mmol/L BUN (9-20) mg/dL POC Glucose (mg/dL) 100 H (75-99) mg/dL Total Bilirubin (0.2-1.3) mg/dL Alkaline Phosphatase (38-126) U/L Ammonia (<30) umol/L Total Protein (6.3-8.2) g/dL Albumin (3.5-5.0) g/dL 10/24/18 10/24/18 10/24/18 Range/Units 04:20 04:20 06:15 MCHC (31.0-37.0) g/dL RDW (11.5-15.5) % Neutrophils # (1.3-7.7) k/uL Lymphocytes # (1.0-4.8) k/uL PT 15.5 H (9.0-12.0) sec INR 1.5 H (<1.2) ABG pH (7.35-7.45) ABG pCO2 (35-45) mmHg ABG pO2 (83-108) mmHg ABG Total CO2 (19-24) mmol/L ABG O2 Saturation (94-97) % Sodium 133 L (137-145) mmol/L BUN 22 H (9-20) mg/dL POC Glucose (mg/dL) (75-99) mg/dL Total Bilirubin 5.0 H (0.2-1.3) mg/dL Alkaline Phosphatase 486 H (38-126) U/L Ammonia 62 H (<30) umol/L Total Protein 5.5 L (6.3-8.2) g/dL Albumin 3.0 L (3.5-5.0) g/dL 10/24/18 10/24/18 Range/Units 07:49 10:40 MCHC (31.0-37.0) g/dL RDW (11.5-15.5) % Neutrophils # (1.3-7.7) k/uL Lymphocytes # (1.0-4.8) k/uL PT (9.0-12.0) sec INR (<1.2) ABG pH (7.35-7.45) ABG pCO2 (35-45) mmHg ABG pO2 81 L 53 L* (83-108) mmHg ABG Total CO2 (19-24) mmol/L ABG O2 Saturation 86.8 L (94-97) % Sodium (137-145) mmol/L BUN (9-20) mg/dL POC Glucose (mg/dL) (75-99) mg/dL Total Bilirubin (0.2-1.3) mg/dL Alkaline Phosphatase (38-126) U/L Ammonia (<30) umol/L Total Protein (6.3-8.2) g/dL Albumin (3.5-5.0) g/dL Microbiology - Last 24 Hours (Table) 10/22/18 19:12 Urine Culture - Preliminary Urine,Catheterized Gram Neg Bacilli 10/22/18 14:43 Blood Culture - Preliminary Blood No Growth after 24 hours 10/17/18 17:49 Blood Culture - Final Blood No Growth after 144 hours 10/17/18 17:50 Blood Culture - Final Blood No Growth after 144 hours Assessment and Plan Assessment: #1 acute on chronic hypoxic respiratory failure, multifactorial secondary to systolic congestive heart failure, underlying COPD, ischemic cardiomyopathy requiring intubation and mechanical ventilation. #2 Ascites. Paracentesis is presently on hold. #3 acute metabolic encephalopathy secondary to liver disease, with elevated liver enzymes, and elevated ammonia level. #4 Ischemic cardiomyopathy status post AICD placement with ejection fraction less than 20% and backup pacing set at 40. #5 Chronic obstructive pulmonary disease with chronic hypoxemic respiratory failure, prednisone dependent. #6 Coronary artery disease with previous stent placement on Plavix. #7 Chronic systolic congestive heart failure #8 Diabetes mellitus, type II. #9 Hypothyroidism. #10 Hyperlipidemia. #11 History of heavy tobacco dependence of 35 years 1-2 packs per day however quit in 1989. #12 Chronic liver cirrhosis, followed by gastroenterology. #13 Previous history of alcohol abuse. Recommendation: Patient will remain on mechanical ventilation, his arterial blood gases very poor, hence he is not ready for any form of extubation at this point. Patient will be kept on present treatment plan including antibiotics, bronchodilators, steroids lactulose for his elevated ammonia level, continue to monitor sugars and address accordingly, diuretics for congestive heart failure and systolic dysfunction, updrafts including DuoNeb 4 times a day and when necessary, continue to hold Plavix, continue Lasix at 40 mg IV push every 12 hours, heparin subcu, and GI prophylaxis continue to support blood pressure with norepinephrine when needed, continue Protonix, Zosyn, will change prednisone to Solu-Medrol or Solu-Cortef. Continue propofol. Overall prognosis is extremely poor and guarded, discussed his condition with family members at bedside, and we will likely discuss his condition and CODE STATUS with his legal guardian/his son today. Prognosis is extremely poor. We'll continue to follow. I will recommend possibly comfort care measures. Critical care time is 40 minutes Time with Patient: Greater than 30
[2018-10-24 12:38] LABS: Glucose,Whole Blood 92 mg/dL (75-99)
[2018-10-24] MEDS ORDERED: CISATRACURIUM 2 MG/ML 5 ML VIAL IV ONE (16:48)
--- NOTE | 2018-10-24 16:52 | OP ---
OPERATIVE REPORT PROCEDURE: Placement of a right internal jugular triple-lumen catheter. PREOPERATIVE DIAGNOSIS: Hypotension, respiratory failure. Patient is on norepinephrine. POSTOPERATIVE DIAGNOSIS: Hypotension, respiratory failure. Patient is on norepinephrine. ANESTHESIA USED: 2 mL of 1% lidocaine. PROCEDURE: The patient was placed in a supine position. Prior to the procedure, 10 mg of Nimbex was given. The area of the right neck region was prepared in a sterile fashion and drapes were applied. The area posterior to the right posterior belly of the sternocleidomastoid muscle was anesthetized locally. Then a standard needle was inserted at the same site, advanced into the right internal jugular vein, and it was cannulated easily. This was using the posterior approach. A guidewire was placed in the right IJ, then the area was dilated with a dilator. A triple-lumen catheter was inserted over the guidewire, and the guidewire was removed. Good blood flow was noted in the 3 different ports of the triple-lumen catheter. The line was secured using 3.0 silk sutures. A chest x-ray was ordered postoperatively. Procedure was well tolerated, and again no evidence of any immediate complications. MMODL / IJN: [id number] /
[2018-10-24] MEDS: HYDROCORTISONE SUCCINATE 100 MG/2 ML VIAL IV SCH ×2 (16:53→23:42)
--- NOTE | 2018-10-24 17:33 | XR ---
EXAMINATION: XR chest 1V portable DATE AND TIME: 10/24/2018 4:50 PM CLINICAL INDICATION: PHH; rt ij central line placed TECHNIQUE: Departmental protocol COMPARISON: 10/24/2018 at 2:36 AM FINDINGS: ET tube tip superimposed over the mid trachea. Cardiac pacemaker noted. NG tube present, its tip selene ot be seen but is present over the visualized expected position of the distal most esophagus. Right I J central line tip superimposed over the upper atrium. EKG leads. Portable AP semiupright technique. Pleural spaces are negative; no pneumothorax seen. Silhouetted left hemidiaphragm consistent with partial airlessness within the left lower lobe. No paz dence of pulmonary edema. Cardiac silhouette top normal. No definite acute bone or soft tissue findings. IMPRESSION: Central line placement chest radiograph.
[2018-10-24 18:07] LABS: Glucose,Whole Blood 123 mg/dL (75-99)
[2018-10-24] MEDS: NOREPINEPHRINE 16 MG in SODIUM CHLORIDE 0.9% 250 ML IV SCH (19:24)
[2018-10-24] MEDS: MELATONIN 3 MG TABLET PO SCH (20:19)
[2018-10-24] MEDS: INSULIN DETEMIR 100 UNIT/ML 10 ML VIAL SQ SCH (20:19)
[2018-10-24] MEDS: LEVOFLOXACIN 500MG-D5W PMX 500 MG in DEXTROSE/WATER 1 100ML.BAG IVPB SCH (20:29)
[2018-10-24] MEDS: ATORVASTATIN 20 MG TAB PO SCH (20:29)
--- NOTE | 2018-10-24 23:08 | PN ---
PROGRESS NOTE DATE OF SERVICE: 10/24/2018 REASON FOR FOLLOWUP: UTI and lower extremity wound and a question of cellulitis. INTERVAL HISTORY: The patient went into respiratory distress. The patient ended up getting intubated. The patient is currently hemodynamically stable, not on any pressor support. Sedated on the vent. Unable to provide any history. No other changes in clinical condition per the nursing staff taking care of the patient. PHYSICAL EXAMINATION: Blood pressure 100/47, pulse of 54, temperature 96.5. He is 94% on 65% FiO2. General description is an elderly male, intubated on the vent. HEENT EXAMINATION: Pallor. LUNGS: Unlabored breathing. Decreased breath sounds in the bases. No wheeze. HEART: S1, S2. Regular rate and rhythm. ABDOMEN: Soft. No tenderness. His lower extremity is currently wrapped up. No obvious drainage on the dressing. LABS: Hemoglobin is 14, white count 10.0, BUN of 22, creatinine 1.02. Urine with a gram- negative. Blood culture has been negative so far. DIAGNOSTIC IMPRESSION AND PLAN: Patient with mental status changes, likely multifactorial, in this patient with a possible component of The patient is currently covered with Zosyn while waiting for the culture to finalize. Lower extremity wound care with Aquacel Silver dressing and Kalin wrap to keep the swelling down. Continue with supportive care. MMODL / IJN: [id number] /
[2018-10-24 23:36] LABS: Glucose,Whole Blood 156 mg/dL (75-99)
--- NOTE | 2018-10-25 01:02 | PN ---
PROGRESS NOTE SUBJECTIVE: White male remains on the ventilator. He is given lactulose for elevated ammonia levels for liver failure. He has systolic CHF, end-stage COPD, generalized weakness, encephalopathy secondary to possible large UTI and liver encephalopathy and elevated ammonia levels. ICU notes reviewed. Ventilator stuff reviewed. Cardiovascular: S1-S2. Lungs fairly clear. Abdomen is soft. Extremities show redness, entire from the knees down to the ankles, anterior tibials bilaterally with some abrasions. ASSESSMENT: 1. Liver failure with elevated ammonia levels causing metabolic encephalopathy. 2. Systolic congestive heart failure. 3. Chronic obstructive pulmonary disease. Both end-stage. Prognosis extremely guarded. Please see further notes in photogrammetric compilation specialist. MMODL / IJN: [id number] /
[2018-10-25 04:37] LABS: Anisocytosis Slight; Basophils % (A) 0 %; Eosinophils # (A) 0.1 k/uL (0-0.7); Eosinophils % (A) 1 %; HCT 45.4 % (39.0-53.0); HGB 13.9 gm/dL (13.0-17.5); Hypochromasia Slight; Lymphocytes # (A) 0.3 k/uL (1.0-4.8); Lymphocytes % (A) 3 %; MCH 28.1 pg (25.0-35.0); MCHC 30.6 g/dL (31.0-37.0); MCV 91.8 fL (80.0-100.0); Mean Platelet Volume 6.9; Monocytes # (A) 0.3 k/uL (0-1.0); Monocytes % (A) 3 %; Neutrophils # (A) 11.2 k/uL (1.3-7.7); Neutrophils % (A) 93 %; Platelet Count 221 k/uL (150-450); RBC 4.95 m/uL (4.30-5.90); RDW 18.2 % (11.5-15.5); WBC 12.1 k/uL (3.8-10.6)
[2018-10-25 05:08] LABS: Calcium 8.1 mg/dL (8.4-10.2); Phosphorus 4.4 mg/dL (2.5-4.5); Potassium 4.3 mmol/L (3.5-5.1)
[2018-10-25] MEDS: LEVOTHYROXINE 100 MCG TAB PO SCH (05:19)
[2018-10-25] MEDS: INSULIN ASPART 100 UNIT/ML 1 ML 10 ML VIAL SQ SCH ×3 (06:03→18:13)
[2018-10-25] MEDS: DEXTROSE 5%-0.45% NACL 1,000 ML IV SCH (06:04)
[2018-10-25 06:38] LABS: Glucose,Whole Blood 173 mg/dL (75-99)
[2018-10-25] MEDS: PROPOFOL 1,000 MG in EMPTY BAG 1 BAG IV SCH ×4 (07:15→22:51)
[2018-10-25 07:52] LABS: ABG Base Excess -3.4 mmol/L; ABG HCO3 21 mmol/L (21-25); ABG Oxygen Saturation 94.9 % (94-97); ABG PCO2 35 mmHg (35-45); ABG PO2 73 mmHg (83-108); ABG TCO2 23 mmol/L (19-24)
[2018-10-25] MEDS: IPRATROPIUM-ALBUTEROL 3 ML NEB INHALATION SCH ×4 (07:56→20:37)
[2018-10-25] MEDS: CLOPIDOGREL 75 MG TAB PO SCH (08:36)
--- NOTE | 2018-10-25 08:48 | P.PN ---
Subjective Progress Note Date: 10/25/18 Principal diagnosis: Cirrhosis of liver Intubated. Non bloody BM last night. Hemoglobin 13.9; stable. No reports of hematemesis or melena. Ultrasound abdomen moderate lower abdominal ascites; paracentesis on hold secondary to Plavix. Receiving diuretics. Afebrile. Ammonia improved 28. OG tube with light-colored bloody drainage. E. coli UTI. Objective - Vital Signs Vital signs: Vital Signs Temp 96.5 F L 10/25/18 08:00 Pulse 94 10/25/18 08:09 Resp 19 10/25/18 08:00 BP 92/51 10/24/18 21:00 Pulse Ox 94 L 10/25/18 08:00 Intake & Output 10/24/18 10/25/18 10/25/18 18:59 06:59 18:59 Intake Total 1110.957 888.623 173.75 Output Total 355 1005 Balance 755.957 -116.377 173.75 Weight 98.2 kg Intake: IV 800 700 Dextrose 5%-0.45% NaCl 1, 600 550 000 ml @ 50 mls/hr IV . Q20H [facility] Rx#:[id number] Piperacillin-Tazobactam 3 200 150 .375 gm In Sodium Chloride 0.9% 100 ml @ 25 mls/hr IVPB Q8HR [facility] Rx# :[id number] Intake, IV Titration 310.957 188.623 173.75 Amount Norepinephrine 16 mg In 3.375 173.75 Sodium Chloride 0.9% 250 ml @ Titrate IV .Q0M [facility] Rx#:[id number] Norepinephrine 4 mg In 223.437 Sodium Chloride 0.9% 250 ml @ Titrate IV .Q0M [facility] Rx#:[id number] Propofol 1,000 mg In 87.520 185.248 Empty Bag 1 bag @ 10 MCG/ KG/MIN 5.76 mls/hr IV . [id number] [facility] Rx#:[id number] Output: Gastric Drainage 550 Urine 355 455 Other: Voiding Method Indwelling Catheter Indwelling Catheter ABP, PAP, CO, CI - Last Documented Arterial Blood Pressure 99/51 - Exam General appearance: The patient is intubated sedated. HET: Head is normocephalic and atraumatic. Pupils are equal and reactive. Oral gastric tube with pale nursing support worker bloody return. Sclerae icterus. Neck: Supple without lymphadenopathy. Trachea midline. Heart: S1 S2. Regular rate and rhythm. Lungs: No crackles or wheezes are heard. Diminished bases bilaterally. Abdomen: Soft, nontender, mildly bloated mild ascites with bowel sounds. No peritoneal signs. No palpable organomegaly or masses. Extremities: Bilateral lower extremity edema erythema scaling warmth. Scrotal edema. Neurological: Intubated unable to assess. - Labs CBC & Chem 7: 10/25/18 04:20 10/25/18 04:20 Labs: Abnormal Lab Results - Last 24 Hours (Table) 10/24/18 10/24/18 10/24/18 Range/Units 06:15 10:40 17:53 WBC (3.8-10.6) k/uL MCHC (31.0-37.0) g/dL RDW (11.5-15.5) % Neutrophils # (1.3-7.7) k/uL Lymphocytes # (1.0-4.8) k/uL ABG pO2 53 L* (83-108) mmHg ABG O2 Saturation 86.8 L (94-97) % Sodium (137-145) mmol/L Carbon Dioxide (22-30) mmol/L BUN (9-20) mg/dL Glucose (74-99) mg/dL POC Glucose (mg/dL) 123 H (75-99) mg/dL Calcium (8.4-10.2) mg/dL Ammonia 62 H (<30) umol/L 10/24/18 10/25/18 10/25/18 Range/Units 23:32 04:20 04:20 WBC 12.1 H (3.8-10.6) k/uL MCHC 30.6 L (31.0-37.0) g/dL RDW 18.2 H (11.5-15.5) % Neutrophils # 11.2 H (1.3-7.7) k/uL Lymphocytes # 0.3 L (1.0-4.8) k/uL ABG pO2 (83-108) mmHg ABG O2 Saturation (94-97) % Sodium 132 L (137-145) mmol/L Carbon Dioxide 19 L (22-30) mmol/L BUN 25 H (9-20) mg/dL Glucose 183 H (74-99) mg/dL POC Glucose (mg/dL) 156 H (75-99) mg/dL Calcium 8.1 L (8.4-10.2) mg/dL Ammonia (<30) umol/L 10/25/18 10/25/18 Range/Units 06:00 07:43 WBC (3.8-10.6) k/uL MCHC (31.0-37.0) g/dL RDW (11.5-15.5) % Neutrophils # (1.3-7.7) k/uL Lymphocytes # (1.0-4.8) k/uL ABG pO2 73 L (83-108) mmHg ABG O2 Saturation (94-97) % Sodium (137-145) mmol/L Carbon Dioxide (22-30) mmol/L BUN (9-20) mg/dL Glucose (74-99) mg/dL POC Glucose (mg/dL) 173 H (75-99) mg/dL Calcium (8.4-10.2) mg/dL Ammonia (<30) umol/L Microbiology - Last 24 Hours (Table) 10/22/18 19:12 Urine Culture - Final Urine,Catheterized Escherichia coli 10/22/18 14:43 Blood Culture - Preliminary Blood No Growth after 48 hours Assessment and Plan (1) Cirrhosis of liver Current Visit: Yes Status: Acute Code(s): K74.60 - UNSPECIFIED CIRRHOSIS OF LIVER SNOMED Code(s): 07250783 (2) Change in mental status Current Visit: Yes Status: Acute Code(s): R41.82 - ALTERED MENTAL STATUS, UNSPECIFIED SNOMED Code(s): 270397660 (3) Hyperammonemia Narrative/Plan: Improved Current Visit: Yes Status: Acute Code(s): E72.20 - DISORDER OF UREA CYCLE METABOLISM, UNSPECIFIED SNOMED Code(s): 2809187 (4) Ascites Current Visit: No Status: Acute Code(s): R18.8 - OTHER ASCITES SNOMED Code (s): 235276738 Plan: 1. Diagnostic therapeutic paracentesis on hold secondary to Plavix. Continue with diuretics. Continue lactulose increased to 20 g 3 times daily. Daily CBC , CMP PT/INR ammonia. In regards to oral gastric secretions presently no active hematochezia or melena unsure if bleeding is secondary to traumatic insertion; hemoglobin stable at 13.9. We'll continue to follow. Assessment and plan a care discussed with Dr. Vivar
[2018-10-25] MEDS: CHLORHEXIDINE GLUCONATE 15 ML CUP MUCOUS MEM SCH ×2 (09:20→21:31)
[2018-10-25] MEDS: ASPIRIN 81 MG PO SCH (09:21)
[2018-10-25] MEDS: HEPARIN SODIUM,PORCINE 5,000 UNIT/ML 1 ML VIAL SQ SCH ×2 (09:21→15:03)
[2018-10-25] MEDS: FUROSEMIDE 10 MG/ML 4 ML VIAL IV SCH ×2 (09:21→21:32)
[2018-10-25] MEDS: PANTOPRAZOLE 40 MG/10 ML VIAL IVP SCH (09:21)
[2018-10-25] MEDS: PIPERACILLIN-TAZOBACTAM 3.375 GM in SODIUM CHLORIDE 0.9% 100 ML IVPB SCH ×2 (09:21→15:03)
[2018-10-25] MEDS: HYDROCORTISONE SUCCINATE 100 MG/2 ML VIAL IV SCH ×2 (09:21→15:03)
[2018-10-25] MEDS: MIDODRINE 5 MG TAB PO SCH ×3 (09:21→18:13)
[2018-10-25] MEDS: SPIRONOLACTONE 25 MG TAB PO SCH ×2 (09:21→21:31)
[2018-10-25] MEDS: LACTULOSE 20 GM/30 ML CUP PO SCH ×3 (09:45→21:31)
--- NOTE | 2018-10-25 10:10 | XR ---
EXAMINATION TYPE: XR chest 1V portable DATE OF EXAM: 10/25/2018 COMPARISON: 10/24/2018 INDICATION: Tube placement TECHNIQUE: Single frontal view of the chest is obtained. FINDINGS: The heart size is normal. The pulmonary vasculature is normal. Right central venous catheter is present with tip in the right atrium. Endotracheal tube is present w ith tip above the leatha. Nasogastric tube transverses the thorax. Pacemaker overlies left chest. No pneumothorax is evident. Infiltrate at the left base has improved. IMPRESSION: 1. Improving left basilar infiltrate. Minimal residual remains. 2. Multiple lines and catheters discussed above.
[2018-10-25 11:17] VITALS: BMI 29.3
[2018-10-25] MEDS: MULTIVITAMINS, THERA 1 EACH TAB PO SCH (11:47)
[2018-10-25 11:49] LABS: Glucose,Whole Blood 159 mg/dL (75-99)
--- NOTE | 2018-10-25 13:31 | P.PN ---
Subjective Progress Note Date: 10/25/18 Principal diagnosis: Acute metabolic encephalopathy, acute on chronic hypoxic respiratory failure secondary to congestive heart failure and systolic dysfunction. And underlying COPD. This is a 73-year-old white male patient of Dr. Beck, with past medical history of COPD, ischemic cardiomyopathy with EF of 20% status post AICD placement, coronary artery disease with previous stenting, myocardial infarction , chronic congestive heart failure, diabetes mellitus, hyperlipidemia, myocardial infarction, osteoarthritis, hypothyroidism, chronic hypoxic respiratory failure on home oxygen at [address] Perez in the pulmonary clinic for his history of COPD, and patient is on DuoNeb nebulized treatments, prednisone at 10 mg daily. Patient was brought to the emergency department on 10/16/2018 related to increasing weakness over the past week, apparently patient was in the bathroom yesterday, however could not get up, and fell and could not get up. Patient's friend was home, and could not assist the patient off the floor. EMS was called and patient was brought to the hospital. He denied any chest pain, he states she was slightly lightheaded and dizzy, became increasingly weaker, and mildly short of breath. No fever or chills, no nausea vomiting or diarrhea, no loss of consciousness in the fall, denied any trauma. He has chronic lower extremity swelling, and the patient states that has not increased. He denies any significant weight gain, he states his usual weight is about 220 LBs, and on admission recorded weight was 216 lbs. chronic abdominal distention, and patient is Dr. Bear for chronic liver cirrhosis, cholelithiasis. Patient was referred to Dr Humphrey for evaluation of his gallbladder disease, and was supposed to undergo liver biopsy as well, which has not taken place yet. Patient is on maintenance dose of Lasix at home at 10 mg daily. Patient states he has been compliant with all of his medications. In the emergency department patient was evaluated, chest x-ray was obtained and showed cardiomegaly and chronic parenchymal changes without acute pulmonary process. EKG showed paced rhythm with a rate of 41. Labs showed RBC of 9.9, hemoglobin of 15.1, INR is 1.2, sodium is 134, potassium is 5.1, CO2 is 22, BUN is 25, creatinine is 1.1, lactic acid was 2.1, total bilirubin was 2.3, AST was 75, ALT was 25, alkaline phosphatase was 706, troponin was negative at 0.033, and proBNP was 8100. Urinalysis showed trace protein, but no sign of infection , influenza was negative. Afebrile, satting 94% on 3 L, heart rate is 46-48 BPM , patient is awake and alert, in no acute distress, sitting up on the edge of the bed, lung sounds are positive for some bibasilar crackles, no rhonchi or wheezing. No fever or chills, no cough or congestion. The patient is seen again today 10/23/2018 in follow-up in the intensive care unit. He was transferred here last evening secondary to altered mental status and the lactic acid of 3.8. He became hypoxic and required 15 L high flow nasal cannula to maintain O2 saturations in the 90s. He was restless and combative. Garbled speech. Arterial blood gases on 100% FiO2 revealed a pO2 of 80, pCO2 of 30 and a pH of 7.46. He is currently altered. Garbled speech continues. Not following any simple commands. Her only on 13 L high flow nasal cannula. Not on any pressors. Urine culture pending. White count 10.0. Hemoglobin 13.6. 2131. Bicarb 21. Creatinine 1.12. Follow-up lactic 1.5. He is currently on Zosyn and Levaquin. Dilators. Ativan for agitation. Chest x-ray reveals stable findings with cardiomegaly and chronic proximal changes without any new suspicious acute pulmonary process. Abdominal x-ray reveals moderate lower abdominal ascites. Paracentesis on hold due to the patient being on Plavix. Currently on Lasix 40 mg IV every 12 hours. Patient was reevaluated today on 10/24/2018, patient's clinical condition deteriorated last night, he was developing significant agitation, he was also developing worsening hypoxemia, and he wasn't responding to conservative measures including IV Ativan, and high flow oxygen, BiPAP, patient ended up being intubated and now on mechanical ventilation. He is also on levo fed at 2 mcg/m, his ventilator settings are tidal volume of 500, assist control rate of 20, FiO2 is 70%, and PEEP is 8. His problems at this point include worsening chest x-ray consistent with congestive heart failure, GI bleeding felt to be most likely from trauma of the nasogastric tube, worsening liver disease and underlying ascites, hypotension, elevated liver enzymes and elevated INR, elevated ammonia level at 62. All the metabolic derangements are causing significant metabolic encephalopathy. O2 saturation is marginal on 70% FiO2 and PEEP of 8. ABG on 50% FiO2 today showed a pO2 of 53 pCO2 of 35 pH of 7.41. Patient was supposed to undergo paracentesis, however it's presently on hold because the patient was on Plavix. Total bilirubin today is 5. And ammonia level is again 62. Patient is sedated, on propofol, on norepinephrine, and his family is at bedside. Apparently his legal guardian is not present, and that is has some. No one can make a decision regarding his CODE STATUS until his son is available. And hopefully will get to discuss his condition with his son later today. Patient was reevaluated today on 10/25/2018, remains on mechanical ventilation, in the ICU. His ventilator settings are assist control rate of 20 tidal volume of 500 FiO2 of 55% and PEEP of 8. Patient remains on norepinephrine at 10 mcg/m , he is on propofol at 50 mcg/kg/m, chest x-ray continues to show evidence of mild interstitial edema, his CVP is around 18. Patient was taken off propofol for few hours, no significant neurological response could be obtained from the patient. Patient remained obtunded, not following any instructions. Clearly encephalopathic, and I have recommended that we place him back on sedation, he is not ready for any form of weaning trials at this point. His son would be coming in later today, and I believe the patient's CODE STATUS should be addressed with the son who is his legal guardian, considering his multiple comorbidities, I believe the patient has extremely poor prognosis, and we will address the issue of comfort care measures with the son. His nasogastric tube remains in place, and no significant upper GI bleeding noted. Patient is supposed to undergo paracentesis, however Plavix remains on hold, and hopefully next week this could be done. Objective - Vital Signs Vital signs: Vital Signs Temp 97.5 F L 10/25/18 12:00 Pulse 103 H 10/25/18 13:00 Resp 19 10/25/18 13:00 BP 92/51 10/24/18 21:00 Pulse Ox 90 L 10/25/18 13:00 Intake & Output 10/24/18 10/25/18 10/25/18 18:59 06:59 18:59 Intake Total 1110.957 888.623 650.358 Output Total 355 1005 465 Balance 755.957 -116.377 185.358 Weight 98.2 kg 98.2 kg Intake: IV 800 700 400 Dextrose 5%-0.45% NaCl 1, 600 550 300 000 ml @ 50 mls/hr IV . Q20H [facility] Rx#:[id number] Piperacillin-Tazobactam 3 200 150 100 .375 gm In Sodium Chloride 0.9% 100 ml @ 25 mls/hr IVPB Q8HR [facility] Rx# :[id number] Intake, IV Titration 310.957 188.623 250.358 Amount Norepinephrine 16 mg In 3.375 173.75 Sodium Chloride 0.9% 250 ml @ Titrate IV .Q0M [facility] Rx#:[id number] Norepinephrine 4 mg In 223.437 Sodium Chloride 0.9% 250 ml @ Titrate IV .Q0M [facility] Rx#:[id number] Propofol 1,000 mg In 87.520 185.248 76.608 Empty Bag 1 bag @ 10 MCG/ KG/MIN 5.76 mls/hr IV . [id number] [facility] Rx#:[id number] Output: Gastric Drainage 550 Urine 355 455 465 Other: Voiding Method Indwelling Catheter Indwelling Catheter Indwelling Catheter ABP, PAP, CO, CI - Last Documented Arterial Blood Pressure 94/49 - Exam General appearance: Revealed a 73-year-old white male, sedated, on propofol, in no distress. Orogastric tube and endotracheal tube. HET: PERRLA, EOMI, dry mucous membranes, positive icterus. Neck: Supple, no neck masses, no JVD, no carotid bruits. Heart: Normal S1 and S2, no S3 gallop. 2/6 systolic murmur thought the precordium. Lungs: Minimal crackles at the bases, no rhonchi no wheezes. Symmetrical chest expansion is noted.. Abdomen: Soft, nontender, mildly bloated mild ascites with bowel sounds. No peritoneal signs. No palpable organomegaly or masses. Extremities: 1+ bipedal edema, erythema and scaling noted on anterior aspect of both lower extremities bilaterally. Silver gel dressing is being applied on those areas. Neurological: Cannot be assessed, patient is fully sedated on propofol. Psychiatric: Cannot be assessed. Skin: As noted above mostly the findings on the lower extremities of scaling and erythema.. - Labs CBC & Chem 7: 10/25/18 04:20 10/25/18 04:20 Labs: Abnormal Lab Results - Last 24 Hours (Table) 10/24/18 10/24/18 10/25/18 Range/Units 17:53 23:32 04:20 WBC 12.1 H (3.8-10.6) k/uL MCHC 30.6 L (31.0-37.0) g/dL RDW 18.2 H (11.5-15.5) % Neutrophils # 11.2 H (1.3-7.7) k/uL Lymphocytes # 0.3 L (1.0-4.8) k/uL ABG pO2 (83-108) mmHg Sodium (137-145) mmol/L Carbon Dioxide (22-30) mmol/L BUN (9-20) mg/dL Glucose (74-99) mg/dL POC Glucose (mg/dL) 123 H 156 H (75-99) mg/dL Calcium (8.4-10.2) mg/dL 10/25/18 10/25/18 10/25/18 Range/Units 04:20 06:00 07:43 WBC (3.8-10.6) k/uL MCHC (31.0-37.0) g/dL RDW (11.5-15.5) % Neutrophils # (1.3-7.7) k/uL Lymphocytes # (1.0-4.8) k/uL ABG pO2 73 L (83-108) mmHg Sodium 132 L (137-145) mmol/L Carbon Dioxide 19 L (22-30) mmol/L BUN 25 H (9-20) mg/dL Glucose 183 H (74-99) mg/dL POC Glucose (mg/dL) 173 H (75-99) mg/dL Calcium 8.1 L (8.4-10.2) mg/dL 10/25/18 Range/Units 11:34 WBC (3.8-10.6) k/uL MCHC (31.0-37.0) g/dL RDW (11.5-15.5) % Neutrophils # (1.3-7.7) k/uL Lymphocytes # (1.0-4.8) k/uL ABG pO2 (83-108) mmHg Sodium (137-145) mmol/L Carbon Dioxide (22-30) mmol/L BUN (9-20) mg/dL Glucose (74-99) mg/dL POC Glucose (mg/dL) 159 H (75-99) mg/dL Calcium (8.4-10.2) mg/dL Microbiology - Last 24 Hours (Table) 10/22/18 19:12 Urine Culture - Final Urine,Catheterized Escherichia coli 10/22/18 14:43 Blood Culture - Preliminary Blood No Growth after 48 hours Assessment and Plan Assessment: #1 acute on chronic hypoxic respiratory failure, multifactorial secondary to systolic congestive heart failure, underlying COPD, ischemic cardiomyopathy requiring intubation and mechanical ventilation. #2 Ascites. Paracentesis is presently on hold. #3 acute metabolic encephalopathy secondary to liver disease, with elevated liver enzymes, and elevated ammonia level. #4 Ischemic cardiomyopathy status post AICD placement with ejection fraction less than 20% and backup pacing set at 40. #5 Chronic obstructive pulmonary disease with chronic hypoxemic respiratory failure, prednisone dependent. #6 Coronary artery disease with previous stent placement on Plavix. Which is presently on hold for possible paracentesis next week #7 Chronic systolic congestive heart failure #8 Diabetes mellitus, type II. #9 Hypothyroidism. #10 Hyperlipidemia. #11 History of heavy tobacco dependence of 35 years 1-2 packs per day however quit in 1989. #12 Chronic liver cirrhosis, followed by gastroenterology. #13 Previous history of alcohol abuse. Recommendation: Continue ventilatory support, nutritional support, will be started today via enteral feeding. Continue antibiotics, diuretics, continue lactulose, continue cardiac meds, continue GI and DVT prophylaxis, continue hydrocortisone, I will cut down the dose today to 50 mg IV push every 8 hours. Continue bronchodilators, and continue sedation as needed. Continue Lasix at 40 mg IV push every 12 hours. Overall the patient is doing poorly, attempts to wean him off propofol today failed, mental status is extremely poor, hence we' ll try again on a daily basis. In the meantime I touch bases with his family members at bedside today, we'll discuss his condition with his son who is his legal guardian later this afternoon. I believe the patient should be made DO NOT RESUSCITATE, and I believe we should seriously consider comfort care measures. This is based on the fact that the patient has multiple comorbidities , and prognosis and quality of life is extremely poor. Critical care time is 35 minutes. Time with Patient: Greater than 30
[2018-10-25 18:22] LABS: Glucose,Whole Blood 174 mg/dL (75-99)
[2018-10-25] MEDS: LEVOFLOXACIN 500MG-D5W PMX 500 MG in DEXTROSE/WATER 1 100ML.BAG IVPB SCH (21:31)
[2018-10-25] MEDS: ATORVASTATIN 20 MG TAB PO SCH (21:31)
[2018-10-25] MEDS: INSULIN DETEMIR 100 UNIT/ML 10 ML VIAL SQ SCH (21:32)
[2018-10-25] MEDS: MELATONIN 3 MG TABLET PO SCH (21:32)
[2018-10-25 21:40] LABS: Glucose,Whole Blood 184 mg/dL (75-99)
--- NOTE | 2018-10-25 22:12 | PN ---
PROGRESS NOTE DATE OF SERVICE: 10/25/2018 REASON FOR FOLLOWUP: E coli urinary tract infection and possible pneumonia. INTERVAL HISTORY: The patient is currently afebrile. The patient remains sedated, intubated on the vent, and did require low-dose pressor support to support his blood pressure. He has been tolerating his tube feeds. No diarrhea per the nursing staff. Patient is sedated on the vent, unable to provide any history. PHYSICAL EXAMINATION: Blood pressure 95/48, pulse of 80, temperature of 98. He is 90% on 55% FiO2. General description is an elderly male lying in bed in no distress. RESPIRATORY SYSTEM: Unlabored breathing with decreased breath sounds at the base. No wheeze. HEART: S1, S2. Regular rate and rhythm. ABDOMEN: Soft. No tenderness. LABS: BUN of 25, creatinine 1.08. Hemoglobin is 13.9, white count of 12.1. Urine with an E coli that is a sensitive pathogen. Blood cultures have been negative so far. No sputum has been collected. DIAGNOSTIC IMPRESSION AND PLAN: Patient with sepsis, concern for possibly a catheter-associated urinary tract infection plus/minus a component of pneumonia in a patient who did have acute respiratory failure requiring intubation. Chest x-ray with improving left basilar infiltrate. Sputum culture has been requested. Will keep the patient on Zosyn at this point while watching his clinical course closely. Continue with supportive care. MMODL / IJN: [id number] /
[2018-10-25 23:53] LABS: Glucose,Whole Blood 209 mg/dL (75-99)
[2018-10-26] MEDS: HEPARIN SODIUM,PORCINE 5,000 UNIT/ML 1 ML VIAL SQ SCH ×3 (00:06→17:10)
[2018-10-26] MEDS: PIPERACILLIN-TAZOBACTAM 3.375 GM in SODIUM CHLORIDE 0.9% 100 ML IVPB SCH ×3 (00:06→16:02)
[2018-10-26] MEDS: INSULIN ASPART 100 UNIT/ML 1 ML 10 ML VIAL SQ SCH ×4 (00:06→18:17)
[2018-10-26] MEDS: HYDROCORTISONE SUCCINATE 100 MG/2 ML VIAL IV SCH ×3 (00:07→15:50)
--- NOTE | 2018-10-26 00:24 | PN ---
PROGRESS NOTE SUBJECTIVE: 73-year-old white female with COPD, ischemic cardiomyopathy, liver cirrhosis with elevated ammonia levels. Remains comfortable on the vent at this time. Has history of COPD on 2 L oxygen at home, 2-3 L as well as systolic CHF. Remains on vent for mechanical ventilation with FiO2 55%, PEEP of 8. Norepinephrine at 15 mics. Propofol at 50 mics. Chest x-ray mild interstitial edema, encephalopathy, NG tube in place. No GI bleeding. Pulse 103, temp 97.5, respiratory 18-20, blood pressure 92/60s to 70s. CARDIOVASCULAR: S1, S2. Lungs: Rales at the base. GI is distended, decreased bowel sounds. Hematology negative Homans. GI soft. ASSESSMENT: 1. Systolic congestive heart failure. 2. Chronic obstructive pulmonary disease. O2 dependent. 3. Hepatic encephalopathy. ASSESSMENT: 1. Ascites. 2. Acute metabolic encephalopathy. 3. Ischemic cardiomyopathy. 4. Chronic obstructive pulmonary disease. 5. systolic congestive heart failure. 6. Chronic obstructive pulmonary disease. 7. Chronic liver disease. 8. Nicotine addiction. Prognosis guarded. Continue with hepatic encephalopathy treatment. ICU time 30 minutes. MMODL / IJN: [id number] /
[2018-10-26] MEDS: DEXTROSE 5%-0.45% NACL 1,000 ML IV SCH ×2 (03:08→21:02)
[2018-10-26] MEDS: PROPOFOL 1,000 MG in EMPTY BAG 1 BAG IV SCH ×3 (03:08→17:19)
[2018-10-26] MEDS: NOREPINEPHRINE 16 MG in SODIUM CHLORIDE 0.9% 250 ML IV SCH ×2 (04:00→12:17)
[2018-10-26 05:19] LABS: Anisocytosis Slight; Basophils % (A) 0 %; Eosinophils # (A) 0.1 k/uL (0-0.7); Eosinophils % (A) 1 %; HCT 42.8 % (39.0-53.0); HGB 13.5 gm/dL (13.0-17.5); Hypochromasia Slight; Lymphocytes # (A) 0.2 k/uL (1.0-4.8); Lymphocytes % (A) 2 %; MCH 29.1 pg (25.0-35.0); MCHC 31.5 g/dL (31.0-37.0); MCV 92.6 fL (80.0-100.0); Mean Platelet Volume 6.9; Monocytes # (A) 0.4 k/uL (0-1.0); Monocytes % (A) 4 %; Neutrophils # (A) 9.7 k/uL (1.3-7.7); Neutrophils % (A) 92 %; Platelet Count 198 k/uL (150-450); RBC 4.63 m/uL (4.30-5.90); RDW 18.5 % (11.5-15.5); WBC 10.6 k/uL (3.8-10.6)
[2018-10-26 06:10] LABS: Glucose,Whole Blood 171 mg/dL (75-99)
[2018-10-26 06:22] LABS: Albumin 2.7 g/dL (3.5-5.0); Bilirubin, Conjugated 3.1 mg/dL (0.0-0.3); Bilirubin, Delta 2.1 mg/dL (0.0-0.2); Bilirubin,Unconjugated 0.8 mg/dL (0.0-1.1); Calcium 7.8 mg/dL (8.4-10.2); Magnesium 2.1 mg/dL (1.6-2.3); Phosphorus 3.5 mg/dL (2.5-4.5); Potassium 3.7 mmol/L (3.5-5.1); Total Protein 5.1 g/dL (6.3-8.2)
[2018-10-26] MEDS ORDERED: POTASSIUM BICARBONATE/CIT AC 20 MEQ TABLET.EFF NG-TUBE SCH (07:00)
[2018-10-26 07:13] LABS: ABG Base Excess -2.4 mmol/L; ABG HCO3 23 mmol/L (21-25); ABG Oxygen Saturation 92.5 % (94-97); ABG PCO2 43 mmHg (35-45); ABG PH 7.34 (7.35-7.45); ABG PO2 70 mmHg (83-108); ABG TCO2 25 mmol/L (19-24)
[2018-10-26] MEDS: IPRATROPIUM-ALBUTEROL 3 ML NEB INHALATION SCH ×4 (07:36→19:34)
--- NOTE | 2018-10-26 08:10 | XR ---
EXAMINATION TYPE: XR chest 1V portable DATE OF EXAM: 10/26/2018 HISTORY: Post Op CABG COMPARISON: 10/25/2018 TECHNIQUE: Single view of the chest is submitted. FINDINGS: Endotracheal tube, NG tube, SG catheter, mediastinal drains and chest tubes are appropriately placed. Post operative changes of CABG. No sizeable pneumothorax. Scattered Pleural-parencymal opacities may reflect atelectasis. The heart is not enlarged. IMPRESSION: 1. Post operative changes of CABG.
[2018-10-26] MEDS: LEVOTHYROXINE IVP 100 MCG/5 ML VIAL IV SCH (08:17)
[2018-10-26] MEDS: FUROSEMIDE 10 MG/ML 4 ML VIAL IV SCH (08:17)
[2018-10-26] MEDS: ASPIRIN 81 MG PO SCH (08:17)
[2018-10-26] MEDS: PANTOPRAZOLE 40 MG/10 ML VIAL IVP SCH (08:17)
[2018-10-26] MEDS: LACTULOSE 20 GM/30 ML CUP PO SCH ×3 (08:18→21:01)
[2018-10-26] MEDS: SPIRONOLACTONE 25 MG TAB PO SCH ×2 (08:18→20:49)
[2018-10-26] MEDS: CHLORHEXIDINE GLUCONATE 15 ML CUP MUCOUS MEM SCH ×2 (08:20→20:49)
[2018-10-26] MEDS: MIDODRINE 5 MG TAB PO SCH ×3 (08:20→17:10)
--- NOTE | 2018-10-26 10:34 | P.PN ---
Subjective Progress Note Date: 10/26/18 Principal diagnosis: Cirrhosis of liver Intubated. Non bloody BM last night. Hemoglobin 13.5. No reports of hematemesis or melena. Ultrasound abdomen earlier this week reported moderate lower abdominal ascites; paracentesis on hold secondary to Plavix. Receiving diuretics. Afebrile. OG tube with light-colored bloody drainage. E. coli UTI. Total bilirubin 6. AST 49. ALT 32. AP 329. Conjugated 3.1. Objective - Vital Signs Vital signs: Vital Signs Temp 98.1 F 10/26/18 04:00 Pulse 96 10/26/18 07:43 Resp 21 10/26/18 07:43 BP 92/51 10/26/18 03:00 Pulse Ox 91 L 10/26/18 07:00 Intake & Output 10/25/18 10/26/18 10/26/18 18:59 06:59 18:59 Intake Total 0732.978 5511.432 90.688 Output Total 1027 520 30 Balance 88.110 812.432 60.688 Weight 98.2 kg Intake: IV 750 800 50 Dextrose 5%-0.45% NaCl 1, 550 600 50 000 ml @ 50 mls/hr IV . Q20H [facility] Rx#:[id number] Levofloxacin 500Mg-D5w 100 Pmx 500 mg In Dextrose/ Water 1 100ml.bag @ 100 mls/hr IVPB Q24H [facility] Rx#: [id number] Piperacillin-Tazobactam 3 200 100 .375 gm In Sodium Chloride 0.9% 100 ml @ 25 mls/hr IVPB Q8HR [facility] Rx# :[id number] Intake, IV Titration 345.110 272.432 10.688 Amount Norepinephrine 16 mg In 173.75 100.208 10.688 Sodium Chloride 0.9% 250 ml @ Titrate IV .Q0M [facility] Rx#:[id number] Propofol 1,000 mg In 171.360 172.224 Empty Bag 1 bag @ 10 MCG/ KG/MIN 5.76 mls/hr IV . [id number] [facility] Rx#:[id number] Tube Feeding 20 260 30 Output: Gastric Drainage 250 Urine 777 520 30 Other: Voiding Method Indwelling Catheter Indwelling Catheter ABP, PAP, CO, CI - Last Documented Arterial Blood Pressure 92/48 - Exam General appearance: The patient is intubated sedated. HET: Head is normocephalic and atraumatic. Pupils are equal and reactive. Oral gastric tube with pale glue sprayer bloody return. Sclerae icterus. Neck: Supple without lymphadenopathy. Trachea midline. Heart: S1 S2. Regular rate and rhythm. Lungs: No crackles or wheezes are heard. Diminished bases bilaterally. Abdomen: Soft, nontender, mildly bloated mild ascites with bowel sounds. No peritoneal signs. No palpable organomegaly or masses. Extremities: Bilateral lower extremity edema erythema scaling warmth. Scrotal edema. Neurological: Intubated unable to assess. - Labs CBC & Chem 7: 10/26/18 04:55 10/26/18 04:55 Labs: Abnormal Lab Results - Last 24 Hours (Table) 10/25/18 10/25/18 10/25/18 Range/Units 07:43 11:34 18:02 RDW (11.5-15.5) % Neutrophils # (1.3-7.7) k/uL Lymphocytes # (1.0-4.8) k/uL ABG pH (7.35-7.45) ABG pO2 73 L (83-108) mmHg ABG Total CO2 (19-24) mmol/L ABG O2 Saturation (94-97) % Sodium (137-145) mmol/L BUN (9-20) mg/dL Glucose (74-99) mg/dL POC Glucose (mg/dL) 159 H 174 H (75-99) mg/dL Calcium (8.4-10.2) mg/dL Total Bilirubin (0.2-1.3) mg/dL Conjugated Bilirubin (0.0-0.3) mg/dL Delta Bilirubin (0.0-0.2) mg/dL Alkaline Phosphatase (38-126) U/L Total Protein (6.3-8.2) g/dL Albumin (3.5-5.0) g/dL 10/25/18 10/25/18 10/26/18 Range/Units 21:24 23:39 04:55 RDW 18.5 H (11.5-15.5) % Neutrophils # 9.7 H (1.3-7.7) k/uL Lymphocytes # 0.2 L (1.0-4.8) k/uL ABG pH (7.35-7.45) ABG pO2 (83-108) mmHg ABG Total CO2 (19-24) mmol/L ABG O2 Saturation (94-97) % Sodium (137-145) mmol/L BUN (9-20) mg/dL Glucose (74-99) mg/dL POC Glucose (mg/dL) 184 H 209 H (75-99) mg/dL Calcium (8.4-10.2) mg/dL Total Bilirubin (0.2-1.3) mg/dL Conjugated Bilirubin (0.0-0.3) mg/dL Delta Bilirubin (0.0-0.2) mg/dL Alkaline Phosphatase (38-126) U/L Total Protein (6.3-8.2) g/dL Albumin (3.5-5.0) g/dL 10/26/18 10/26/18 10/26/18 Range/Units 04:55 06:06 07:07 RDW (11.5-15.5) % Neutrophils # (1.3-7.7) k/uL Lymphocytes # (1.0-4.8) k/uL ABG pH 7.34 L (7.35-7.45) ABG pO2 70 L (83-108) mmHg ABG Total CO2 25 H (19-24) mmol/L ABG O2 Saturation 92.5 L (94-97) % Sodium 133 L (137-145) mmol/L BUN 30 H (9-20) mg/dL Glucose 189 H (74-99) mg/dL POC Glucose (mg/dL) 171 H (75-99) mg/dL Calcium 7.8 L (8.4-10.2) mg/dL Total Bilirubin 6.0 H (0.2-1.3) mg/dL Conjugated Bilirubin 3.1 H (0.0-0.3) mg/dL Delta Bilirubin 2.1 H (0.0-0.2) mg/dL Alkaline Phosphatase 329 H (38-126) U/L Total Protein 5.1 L (6.3-8.2) g/dL Albumin 2.7 L (3.5-5.0) g/dL Microbiology - Last 24 Hours (Table) 10/25/18 23:20 Gram Stain - Preliminary Sputum Sputum Culture - Preliminary 10/22/18 14:43 Blood Culture - Preliminary Blood No Growth after 72 hours Assessment and Plan (1) Cirrhosis of liver Current Visit: Yes Status: Acute Code(s): K74.60 - UNSPECIFIED CIRRHOSIS OF LIVER SNOMED Code(s): 17777262 (2) Change in mental status Current Visit: Yes Status: Acute Code(s): R41.82 - ALTERED MENTAL STATUS, UNSPECIFIED SNOMED Code(s): 216749572 (3) Hyperammonemia Current Visit: Yes Status: Acute Code(s): E72.20 - DISORDER OF UREA CYCLE METABOLISM, UNSPECIFIED SNOMED Code(s): 8462012 (4) Ascites Current Visit: No Status: Acute Code(s): R18.8 - OTHER ASCITES SNOMED Code (s): 955871353 Plan: 1. Recommend ultrasound on Monday reevaluation for possible paracentesis Plavix placed on hold earlier this week. Daily CBC CMP. Lactulose 20 g 3 times a day titrated 3-4 bowel movements daily. Ammonia PT/INR in a.m. We'll continue to follow with you. Continue GI prophylaxis. Assessment and plan a care discussed with Dr. Vivar
[2018-10-26] MEDS: CLOPIDOGREL 75 MG TAB PO SCH (11:51)
[2018-10-26 12:06] LABS: Glucose,Whole Blood 170 mg/dL (75-99)
[2018-10-26] MEDS: MULTIVITAMINS, THERA 1 EACH TAB PO SCH (12:08)
--- NOTE | 2018-10-26 13:27 | P.PN ---
Subjective Progress Note Date: 10/26/18 Principal diagnosis: Acute metabolic encephalopathy, acute on chronic hypoxic respiratory failure secondary to congestive heart failure and systolic dysfunction. And underlying COPD. This is a 73-year-old white male patient of Dr. Beck, with past medical history of COPD, ischemic cardiomyopathy with EF of 20% status post AICD placement, coronary artery disease with previous stenting, myocardial infarction , chronic congestive heart failure, diabetes mellitus, hyperlipidemia, myocardial infarction, osteoarthritis, hypothyroidism, chronic hypoxic respiratory failure on home oxygen at [address] Perez in the pulmonary clinic for his history of COPD, and patient is on DuoNeb nebulized treatments, prednisone at 10 mg daily. Patient was brought to the emergency department on 10/16/2018 related to increasing weakness over the past week, apparently patient was in the bathroom yesterday, however could not get up, and fell and could not get up. Patient's friend was home, and could not assist the patient off the floor. EMS was called and patient was brought to the hospital. He denied any chest pain, he states she was slightly lightheaded and dizzy, became increasingly weaker, and mildly short of breath. No fever or chills, no nausea vomiting or diarrhea, no loss of consciousness in the fall, denied any trauma. He has chronic lower extremity swelling, and the patient states that has not increased. He denies any significant weight gain, he states his usual weight is about 220 LBs, and on admission recorded weight was 216 lbs. chronic abdominal distention, and patient is Dr. Bear for chronic liver cirrhosis, cholelithiasis. Patient was referred to Dr Humphrey for evaluation of his gallbladder disease, and was supposed to undergo liver biopsy as well, which has not taken place yet. Patient is on maintenance dose of Lasix at home at 10 mg daily. Patient states he has been compliant with all of his medications. In the emergency department patient was evaluated, chest x-ray was obtained and showed cardiomegaly and chronic parenchymal changes without acute pulmonary process. EKG showed paced rhythm with a rate of 41. Labs showed RBC of 9.9, hemoglobin of 15.1, INR is 1.2, sodium is 134, potassium is 5.1, CO2 is 22, BUN is 25, creatinine is 1.1, lactic acid was 2.1, total bilirubin was 2.3, AST was 75, ALT was 25, alkaline phosphatase was 706, troponin was negative at 0.033, and proBNP was 8100. Urinalysis showed trace protein, but no sign of infection , influenza was negative. Afebrile, satting 94% on 3 L, heart rate is 46-48 BPM , patient is awake and alert, in no acute distress, sitting up on the edge of the bed, lung sounds are positive for some bibasilar crackles, no rhonchi or wheezing. No fever or chills, no cough or congestion. The patient is seen again today 10/23/2018 in follow-up in the intensive care unit. He was transferred here last evening secondary to altered mental status and the lactic acid of 3.8. He became hypoxic and required 15 L high flow nasal cannula to maintain O2 saturations in the 90s. He was restless and combative. Garbled speech. Arterial blood gases on 100% FiO2 revealed a pO2 of 80, pCO2 of 30 and a pH of 7.46. He is currently altered. Garbled speech continues. Not following any simple commands. Her only on 13 L high flow nasal cannula. Not on any pressors. Urine culture pending. White count 10.0. Hemoglobin 13.6. 2131. Bicarb 21. Creatinine 1.12. Follow-up lactic 1.5. He is currently on Zosyn and Levaquin. Dilators. Ativan for agitation. Chest x-ray reveals stable findings with cardiomegaly and chronic proximal changes without any new suspicious acute pulmonary process. Abdominal x-ray reveals moderate lower abdominal ascites. Paracentesis on hold due to the patient being on Plavix. Currently on Lasix 40 mg IV every 12 hours. Patient was reevaluated today on 10/24/2018, patient's clinical condition deteriorated last night, he was developing significant agitation, he was also developing worsening hypoxemia, and he wasn't responding to conservative measures including IV Ativan, and high flow oxygen, BiPAP, patient ended up being intubated and now on mechanical ventilation. He is also on levo fed at 2 mcg/m, his ventilator settings are tidal volume of 500, assist control rate of 20, FiO2 is 70%, and PEEP is 8. His problems at this point include worsening chest x-ray consistent with congestive heart failure, GI bleeding felt to be most likely from trauma of the nasogastric tube, worsening liver disease and underlying ascites, hypotension, elevated liver enzymes and elevated INR, elevated ammonia level at 62. All the metabolic derangements are causing significant metabolic encephalopathy. O2 saturation is marginal on 70% FiO2 and PEEP of 8. ABG on 50% FiO2 today showed a pO2 of 53 pCO2 of 35 pH of 7.41. Patient was supposed to undergo paracentesis, however it's presently on hold because the patient was on Plavix. Total bilirubin today is 5. And ammonia level is again 62. Patient is sedated, on propofol, on norepinephrine, and his family is at bedside. Apparently his legal guardian is not present, and that is has some. No one can make a decision regarding his CODE STATUS until his son is available. And hopefully will get to discuss his condition with his son later today. Patient was reevaluated today on 10/25/2018, remains on mechanical ventilation, in the ICU. His ventilator settings are assist control rate of 20 tidal volume of 500 FiO2 of 55% and PEEP of 8. Patient remains on norepinephrine at 10 mcg/m , he is on propofol at 50 mcg/kg/m, chest x-ray continues to show evidence of mild interstitial edema, his CVP is around 18. Patient was taken off propofol for few hours, no significant neurological response could be obtained from the patient. Patient remained obtunded, not following any instructions. Clearly encephalopathic, and I have recommended that we place him back on sedation, he is not ready for any form of weaning trials at this point. His son would be coming in later today, and I believe the patient's CODE STATUS should be addressed with the son who is his legal guardian, considering his multiple comorbidities, I believe the patient has extremely poor prognosis, and we will address the issue of comfort care measures with the son. His nasogastric tube remains in place, and no significant upper GI bleeding noted. Patient is supposed to undergo paracentesis, however Plavix remains on hold, and hopefully next week this could be done. Patient was reevaluated today on 10/26/2018, remains mechanically ventilated in the intensive care unit. His ventilator settings are basically the same as above. He is however off norepinephrine, he was on propofol at 3 0 mcg/kg/m. His chest x-ray is showing evidence of mild interstitial edema. His urine output is excellent. Patient has been off propofol now for almost 3 hours, he is not arousable, he is not showing any signs of improvement. All his labs x- ray on his clinical issues were discussed with all his family members including his legal guardian today. I explained to his son that the patient is quite ill , and his prognosis is extremely poor. Mostly because of the fact that the patient has severe cardiomyopathy, LV dysfunction, liver cirrhosis, COPD, and many other metabolic derangements and abnormalities, not to mention the patient has what seems to be a picture of metabolic encephalopathy. Discussed the issue of CODE STATUS with Luis his son, I also discussed the issue of comfort care measures with him and with the rest of the family members. At this point the patient is going to be DO NOT RESUSCITATE as requested by his son, but he has not made a decision regarding comfort care measures yet. ABG on 55% FiO2 today showed a pO2 of 70 pCO2 of 43 pH of 7.34. His CBC is relatively normal. Basic metabolic profile and renal profile is relatively normal. Alkaline phosphatase is elevated at 328. Albumin is 2.7 and ammonia level is 45. Remains on lactulose at 20 g by mouth 3 times a day. Objective - Vital Signs Vital signs: Vital Signs Temp 97.5 F L 10/26/18 12:00 Pulse 105 H 10/26/18 13:00 Resp 20 10/26/18 13:00 BP 92/51 10/26/18 03:00 Pulse Ox 94 L 10/26/18 13:00 Intake & Output 10/25/18 10/26/18 10/26/18 18:59 06:59 18:59 Intake Total 2597.420 6265.432 897.051 Output Total 1027 520 475 Balance 88.110 812.432 422.051 Weight 98.2 kg Intake: IV 750 800 450 Dextrose 5%-0.45% NaCl 1, 550 600 350 000 ml @ 50 mls/hr IV . Q20H [facility] Rx#:[id number] Levofloxacin 500Mg-D5w 100 Pmx 500 mg In Dextrose/ Water 1 100ml.bag @ 100 mls/hr IVPB Q24H [facility] Rx#: [id number] Piperacillin-Tazobactam 3 200 100 100 .375 gm In Sodium Chloride 0.9% 100 ml @ 25 mls/hr IVPB Q8HR [facility] Rx# :[id number] Intake, IV Titration 345.110 272.432 167.051 Amount Norepinephrine 16 mg In 173.75 100.208 62.731 Sodium Chloride 0.9% 250 ml @ Titrate IV .Q0M [facility] Rx#:[id number] Propofol 1,000 mg In 171.360 172.224 104.32 Empty Bag 1 bag @ 10 MCG/ KG/MIN 5.76 mls/hr IV . [id number] [facility] Rx#:[id number] Tube Feeding 20 260 220 Other 60 Output: Gastric Drainage 250 Urine 777 520 475 Other: Voiding Method Indwelling Catheter Indwelling Catheter Indwelling Catheter ABP, PAP, CO, CI - Last Documented Arterial Blood Pressure 102/58 - Exam General appearance: Revealed a 73-year-old white male, sedated, on propofol, in no distress. Orogastric tube and endotracheal tube. HET: PERRLA, EOMI, dry mucous membranes, positive icterus. Neck: Supple, no neck masses, no JVD, no carotid bruits. Heart: Normal S1 and S2, no S3 gallop. 2/6 systolic murmur thought the precordium. Lungs: Minimal crackles at the bases, no rhonchi no wheezes. Symmetrical chest expansion is noted.. Abdomen: Soft, nontender, mildly bloated mild ascites with bowel sounds. No peritoneal signs. No palpable organomegaly or masses. Extremities: 1+ bipedal edema, erythema and scaling noted on anterior aspect of both lower extremities bilaterally. Silver gel dressing is being applied on those areas. Neurological: Noted to be encephalopathic, off propofol for almost 3 hours. Not responding to any verbal or painful stimuli. Psychiatric: Cannot be assessed. Skin: As noted above mostly the findings on the lower extremities of scaling and erythema.. - Labs CBC & Chem 7: 10/26/18 04:55 10/26/18 04:55 Labs: Abnormal Lab Results - Last 24 Hours (Table) 10/25/18 10/25/18 10/25/18 Range/Units 18:02 21:24 23:39 RDW (11.5-15.5) % Neutrophils # (1.3-7.7) k/uL Lymphocytes # (1.0-4.8) k/uL ABG pH (7.35-7.45) ABG pO2 (83-108) mmHg ABG Total CO2 (19-24) mmol/L ABG O2 Saturation (94-97) % Sodium (137-145) mmol/L BUN (9-20) mg/dL Glucose (74-99) mg/dL POC Glucose (mg/dL) 174 H 184 H 209 H (75-99) mg/dL Calcium (8.4-10.2) mg/dL Total Bilirubin (0.2-1.3) mg/dL Conjugated Bilirubin (0.0-0.3) mg/dL Delta Bilirubin (0.0-0.2) mg/dL Alkaline Phosphatase (38-126) U/L Ammonia (<30) umol/L Total Protein (6.3-8.2) g/dL Albumin (3.5-5.0) g/dL 10/26/18 10/26/18 10/26/18 Range/Units 04:55 04:55 06:06 RDW 18.5 H (11.5-15.5) % Neutrophils # 9.7 H (1.3-7.7) k/uL Lymphocytes # 0.2 L (1.0-4.8) k/uL ABG pH (7.35-7.45) ABG pO2 (83-108) mmHg ABG Total CO2 (19-24) mmol/L ABG O2 Saturation (94-97) % Sodium 133 L (137-145) mmol/L BUN 30 H (9-20) mg/dL Glucose 189 H (74-99) mg/dL POC Glucose (mg/dL) 171 H (75-99) mg/dL Calcium 7.8 L (8.4-10.2) mg/dL Total Bilirubin 6.0 H (0.2-1.3) mg/dL Conjugated Bilirubin 3.1 H (0.0-0.3) mg/dL Delta Bilirubin 2.1 H (0.0-0.2) mg/dL Alkaline Phosphatase 329 H (38-126) U/L Ammonia (<30) umol/L Total Protein 5.1 L (6.3-8.2) g/dL Albumin 2.7 L (3.5-5.0) g/dL 10/26/18 10/26/18 10/26/18 Range/Units 07:07 10:00 11:55 RDW (11.5-15.5) % Neutrophils # (1.3-7.7) k/uL Lymphocytes # (1.0-4.8) k/uL ABG pH 7.34 L (7.35-7.45) ABG pO2 70 L (83-108) mmHg ABG Total CO2 25 H (19-24) mmol/L ABG O2 Saturation 92.5 L (94-97) % Sodium (137-145) mmol/L BUN (9-20) mg/dL Glucose (74-99) mg/dL POC Glucose (mg/dL) 170 H (75-99) mg/dL Calcium (8.4-10.2) mg/dL Total Bilirubin (0.2-1.3) mg/dL Conjugated Bilirubin (0.0-0.3) mg/dL Delta Bilirubin (0.0-0.2) mg/dL Alkaline Phosphatase (38-126) U/L Ammonia 45 H (<30) umol/L Total Protein (6.3-8.2) g/dL Albumin (3.5-5.0) g/dL Microbiology - Last 24 Hours (Table) 10/25/18 23:20 Gram Stain - Preliminary Sputum Sputum Culture - Preliminary 10/22/18 14:43 Blood Culture - Preliminary Blood No Growth after 72 hours Assessment and Plan Assessment: #1 acute on chronic hypoxic respiratory failure, multifactorial secondary to systolic congestive heart failure, underlying COPD, ischemic cardiomyopathy requiring intubation and mechanical ventilation. #2 Ascites. Paracentesis is presently on hold. Plan to be done next Monday. #3 acute metabolic encephalopathy secondary to liver disease, with elevated liver enzymes, and elevated ammonia level. Remains on lactulose. #4 Ischemic cardiomyopathy status post AICD placement with ejection fraction less than 20% and backup pacing set at 40. #5 Chronic obstructive pulmonary disease with chronic hypoxemic respiratory failure, prednisone dependent. #6 Coronary artery disease with previous stent placement on Plavix. Which is presently on hold for possible paracentesis next week #7 Chronic systolic congestive heart failure #8 Diabetes mellitus, type II. #9 Hypothyroidism. #10 Hyperlipidemia. #11 History of heavy tobacco dependence of 35 years 1-2 packs per day however quit in 1989. #12 Chronic liver cirrhosis, followed by gastroenterology. #13 Previous history of alcohol abuse. Recommendation: Continue ventilatory support, nutritional support, discussed with his family at bedside his overall condition, discussed all the issues noted above, explained to the son that the patient has severe prognosis, chances of recovery is very minimal, quality of life will always be poor, he agreed to DO NOT RESUSCITATE CODE STATUS, however he hasn't agreed to comfort care measures yet. His son and the rest of the family members are very aware of the poor prognostic picture, patient is definitely critically ill, no plans to consider any weaning trials at this point, we'll continue supportive care measures including ventilatory support, nutritional support, hemodynamic support , antibiotics, diuretics, GI and DVT prophylaxis, lactulose, continue to address diabetes, and will follow closely. Critical care time is 40 minutes. Time with Patient: Greater than 30
[2018-10-26 18:21] LABS: Glucose,Whole Blood 194 mg/dL (75-99)
[2018-10-26] MEDS: MELATONIN 3 MG TABLET PO SCH (20:35)
[2018-10-26] MEDS: LEVOFLOXACIN 500MG-D5W PMX 500 MG in DEXTROSE/WATER 1 100ML.BAG IVPB SCH (20:49)
[2018-10-26] MEDS: ATORVASTATIN 20 MG TAB PO SCH (20:49)
[2018-10-26] MEDS: INSULIN DETEMIR 100 UNIT/ML 10 ML VIAL SQ SCH (21:00)
--- NOTE | 2018-10-26 21:57 | PN ---
PROGRESS NOTE DATE OF SERVICE: 10/26/2018 REASON FOR FOLLOWUP: E coli UTI and pneumonia. INTERVAL HISTORY: The patient is currently afebrile. He still requires pressor support to maintain his blood pressure. Patient remains sedated on the vent. FiO2 is currently 60%. No diarrhea reported by the nursing staff. PHYSICAL EXAMINATION: Blood pressure 130/51 with a pulse of 98, temperature of 98. He is 93% on 60% FiO2. General description is an elderly male lying in bed in no distress. RESPIRATORY SYSTEM: Unlabored breathing with decreased breath sounds at the bases. No wheeze. HEART: S1, S2. Regular rate and rhythm. ABDOMEN: Soft. No tenderness. Extremities current wrapped up. No obvious drainage on the dressing. LABS: Hemoglobin is 13.5, white count of 10.6, BUN of 30, creatinine 1.06. DIAGNOSTIC IMPRESSION AND PLAN: Patient with acute change in clinical condition with mental status changes with acute respiratory failure which is likely multifactorial in this patient who did have a component of Escherichia coli urinary tract infection along with pneumonia of possible aspiration etiology or gram-negative. Patient is currently covered with Zosyn and Levaquin; to continue while waiting for the culture to finalize. Continue supportive care. MMODL / IJN: [id number] /
--- NOTE | 2018-10-26 22:40 | PN ---
PROGRESS NOTE SUBJECTIVE: [id number] white male with acute metabolic encephalopathy, acute on chronic hypoxemic respiratory failure secondary to congestive heart failure, systolic dysfunction, underlying COPD. Chronic liver cirrhosis. Elevated ammonia levels. Lactulose will be increased from 20 to 30 mg q.i.d. at this time for high ammonia levels. Remains on a ventilator in the ICU. He is off norepinephrine. Chest x-ray shows mild interstitial edema. Urine output is good. He is not arousable off propofol. He was made DNR today, but they do not want comfort care at this point. We increased lactulose for elevated ammonia levels. Hopefully he will come around mentally. Blood pressure is 90s over 50s, oxygen 94. CARDIOVASCULAR: S1, S2. ABDOMEN: Soft. LUNGS: Fair air flow. NEUROLOGIC: Alert and oriented x3. PSYCH: Fair mood and affect. ASSESSMENT: 1. Acute on chronic hypoxemic respiratory failure secondary to congestive heart failure. 2. Chronic obstructive pulmonary disease. 3. Ischemic cardiomyopathy. 4. Metabolic encephalopathy with elevated ammonia levels. 5. Ascites. 6. Liver failure. 7. Coronary artery disease .. 8. Chronic systolic congestive heart failure. 9. Diabetes mellitus, type 2. 10.Hypothyroidism. 11.Dyslipidemia. 12.Nicotine addiction. Continue with current treatment. Lactose will be given. He is DNR. Hopefully his liver enzymes will come down and he will wake up. Otherwise, prognosis may be poor, as he is not responding off the vent. CHRISTIN / CURRY: [id number] /
[2018-10-26 23:56] LABS: Glucose,Whole Blood 245 mg/dL (75-99)
[2018-10-27 00:26] LABS: Glucose,Whole Blood 233 mg/dL (75-99)
[2018-10-27] MEDS: PIPERACILLIN-TAZOBACTAM 3.375 GM in SODIUM CHLORIDE 0.9% 100 ML IVPB SCH ×4 (00:47→23:32)
[2018-10-27] MEDS: HEPARIN SODIUM,PORCINE 5,000 UNIT/ML 1 ML VIAL SQ SCH ×4 (00:48→23:31)
[2018-10-27] MEDS: HYDROCORTISONE SUCCINATE 100 MG/2 ML VIAL IV SCH ×4 (00:48→23:32)
[2018-10-27] MEDS: PROPOFOL 1,000 MG in EMPTY BAG 1 BAG IV SCH ×3 (00:48→23:39)
[2018-10-27] MEDS: INSULIN ASPART 100 UNIT/ML 1 ML 10 ML VIAL SQ SCH ×5 (00:49→23:32)
[2018-10-27 05:20] LABS: Albumin 2.5 g/dL (3.5-5.0); Calcium 7.4 mg/dL (8.4-10.2); Magnesium 2.2 mg/dL (1.6-2.3); Phosphorus 3.3 mg/dL (2.5-4.5); Potassium 3.6 mmol/L (3.5-5.1); Total Bilirubin 6.8 mg/dL (0.2-1.3)
[2018-10-27 05:24] LABS: Anisocytosis Slight; Basophils % (A) 0 %; Eosinophils % (A) 0 %; HCT 41.9 % (39.0-53.0); Hypochromasia Slight; Lymphocytes # (A) 0.2 k/uL (1.0-4.8); Lymphocytes % (A) 2 %; MCH 29.2 pg (25.0-35.0); MCHC 31.1 g/dL (31.0-37.0); Mean Platelet Volume 7.5; Monocytes # (A) 0.3 k/uL (0-1.0); Monocytes % (A) 4 %; Neutrophils % (A) 93 %; Platelet Count 158 k/uL (150-450); RBC 4.46 m/uL (4.30-5.90); RDW 18.3 % (11.5-15.5); WBC 9.7 k/uL (3.8-10.6)
[2018-10-27 05:35] LABS: INR 1.1 (<1.2); Prothrombin Time 11.8 sec (9.0-12.0)
--- NOTE | 2018-10-27 06:05 | XR ---
EXAMINATION TYPE: XR chest 1V portable DATE OF EXAM: 10/27/2018 HISTORY: Tube placement. REFERENCE: Previous study dated 10/26/2018. FINDINGS: The patient is NG tube and ET tube remain in place, unchanged in appearance. There is a rig ht internal jugular catheter in place. Its tip is in the right atrium. A unipolar pacemaker is in jace ce on the left. There is mild vascular congestion without maritza edema. There is some right basilar airspace disease a nd also some left basilar airspace disease. There is a small left effusion. IMPRESSION: NO SIGNIFICANT INTERVAL CHANGE IN THE APPEARANCE OF THE CHEST.
[2018-10-27 06:08] LABS: Glucose,Whole Blood 204 mg/dL (75-99)
[2018-10-27] MEDS ORDERED: Potassium Replacement Protocol 1 EACH MISC MISCELLANE PRN (06:21)
[2018-10-27] MEDS ORDERED: POTASSIUM BICARBONATE/CIT AC 20 MEQ TABLET.EFF NG-TUBE SCH (07:00)
[2018-10-27 07:42] LABS: ABG Base Excess -2.1 mmol/L; ABG HCO3 24 mmol/L (21-25); ABG Oxygen Saturation 95.2 % (94-97); ABG PCO2 47 mmHg (35-45); ABG PH 7.32 (7.35-7.45); ABG PO2 81 mmHg (83-108); ABG TCO2 25 mmol/L (19-24)
[2018-10-27] MEDS: IPRATROPIUM-ALBUTEROL 3 ML NEB INHALATION SCH ×4 (07:58→21:46)
[2018-10-27] MEDS: PANTOPRAZOLE 40 MG/10 ML VIAL IVP SCH (08:40)
[2018-10-27] MEDS: LACTULOSE 20 GM/30 ML CUP PO SCH ×4 (08:46→22:18)
[2018-10-27] MEDS: MIDODRINE 5 MG TAB PO SCH ×3 (08:48→21:04)
[2018-10-27] MEDS: ASPIRIN 81 MG PO SCH (08:48)
[2018-10-27] MEDS: SPIRONOLACTONE 25 MG TAB PO SCH ×2 (08:49→21:14)
[2018-10-27] MEDS: CHLORHEXIDINE GLUCONATE 15 ML CUP MUCOUS MEM SCH ×2 (08:49→21:05)
[2018-10-27] MEDS: CLOPIDOGREL 75 MG TAB PO SCH (08:58)
[2018-10-27] MEDS ORDERED: FUROSEMIDE 10 MG/ML 4 ML VIAL IV SCH ×2 (09:00→21:00)
[2018-10-27] MEDS: LEVOTHYROXINE IVP 100 MCG/5 ML VIAL IV SCH (09:08)
[2018-10-27] MEDS ORDERED: LACTULOSE 20 GM/30 ML CUP ONE (11:30)
[2018-10-27] MEDS ORDERED: PROPOFOL 10 MG/ML 100 ML VIAL IV ONE ×3 (11:30)
[2018-10-27] MEDS ORDERED: HYDROCORTISONE SUCCINATE 100 MG/2 ML VIAL ONE (11:30)
[2018-10-27] MEDS ORDERED: FUROSEMIDE 10 MG/ML 4 ML VIAL ONE (11:30)
[2018-10-27] MEDS ORDERED: INSULIN ASPART 100 UNIT/ML 1 ML 10 ML VIAL SQ ONE (11:30)
[2018-10-27 11:43] LABS: Glucose,Whole Blood 240 mg/dL (75-99)
--- NOTE | 2018-10-27 11:54 | P.PN ---
Subjective Progress Note Date: 10/27/18 Principal diagnosis: Acute metabolic encephalopathy, acute on chronic hypoxic respiratory failure secondary to congestive heart failure and systolic dysfunction. And underlying COPD. This is a 73-year-old white male patient of Dr. Beck, with past medical history of COPD, ischemic cardiomyopathy with EF of 20% status post AICD placement, coronary artery disease with previous stenting, myocardial infarction , chronic congestive heart failure, diabetes mellitus, hyperlipidemia, myocardial infarction, osteoarthritis, hypothyroidism, chronic hypoxic respiratory failure on home oxygen at [address] Perez in the pulmonary clinic for his history of COPD, and patient is on DuoNeb nebulized treatments, prednisone at 10 mg daily. Patient was brought to the emergency department on 10/16/2018 related to increasing weakness over the past week, apparently patient was in the bathroom yesterday, however could not get up, and fell and could not get up. Patient's friend was home, and could not assist the patient off the floor. EMS was called and patient was brought to the hospital. He denied any chest pain, he states she was slightly lightheaded and dizzy, became increasingly weaker, and mildly short of breath. No fever or chills, no nausea vomiting or diarrhea, no loss of consciousness in the fall, denied any trauma. He has chronic lower extremity swelling, and the patient states that has not increased. He denies any significant weight gain, he states his usual weight is about 220 LBs, and on admission recorded weight was 216 lbs. chronic abdominal distention, and patient is Dr. Bear for chronic liver cirrhosis, cholelithiasis. Patient was referred to Dr Humphrey for evaluation of his gallbladder disease, and was supposed to undergo liver biopsy as well, which has not taken place yet. Patient is on maintenance dose of Lasix at home at 10 mg daily. Patient states he has been compliant with all of his medications. In the emergency department patient was evaluated, chest x-ray was obtained and showed cardiomegaly and chronic parenchymal changes without acute pulmonary process. EKG showed paced rhythm with a rate of 41. Labs showed RBC of 9.9, hemoglobin of 15.1, INR is 1.2, sodium is 134, potassium is 5.1, CO2 is 22, BUN is 25, creatinine is 1.1, lactic acid was 2.1, total bilirubin was 2.3, AST was 75, ALT was 25, alkaline phosphatase was 706, troponin was negative at 0.033, and proBNP was 8100. Urinalysis showed trace protein, but no sign of infection , influenza was negative. Afebrile, satting 94% on 3 L, heart rate is 46-48 BPM , patient is awake and alert, in no acute distress, sitting up on the edge of the bed, lung sounds are positive for some bibasilar crackles, no rhonchi or wheezing. No fever or chills, no cough or congestion. The patient is seen again today 10/23/2018 in follow-up in the intensive care unit. He was transferred here last evening secondary to altered mental status and the lactic acid of 3.8. He became hypoxic and required 15 L high flow nasal cannula to maintain O2 saturations in the 90s. He was restless and combative. Garbled speech. Arterial blood gases on 100% FiO2 revealed a pO2 of 80, pCO2 of 30 and a pH of 7.46. He is currently altered. Garbled speech continues. Not following any simple commands. Her only on 13 L high flow nasal cannula. Not on any pressors. Urine culture pending. White count 10.0. Hemoglobin 13.6. 2131. Bicarb 21. Creatinine 1.12. Follow-up lactic 1.5. He is currently on Zosyn and Levaquin. Dilators. Ativan for agitation. Chest x-ray reveals stable findings with cardiomegaly and chronic proximal changes without any new suspicious acute pulmonary process. Abdominal x-ray reveals moderate lower abdominal ascites. Paracentesis on hold due to the patient being on Plavix. Currently on Lasix 40 mg IV every 12 hours. Patient was reevaluated today on 10/24/2018, patient's clinical condition deteriorated last night, he was developing significant agitation, he was also developing worsening hypoxemia, and he wasn't responding to conservative measures including IV Ativan, and high flow oxygen, BiPAP, patient ended up being intubated and now on mechanical ventilation. He is also on levo fed at 2 mcg/m, his ventilator settings are tidal volume of 500, assist control rate of 20, FiO2 is 70%, and PEEP is 8. His problems at this point include worsening chest x-ray consistent with congestive heart failure, GI bleeding felt to be most likely from trauma of the nasogastric tube, worsening liver disease and underlying ascites, hypotension, elevated liver enzymes and elevated INR, elevated ammonia level at 62. All the metabolic derangements are causing significant metabolic encephalopathy. O2 saturation is marginal on 70% FiO2 and PEEP of 8. ABG on 50% FiO2 today showed a pO2 of 53 pCO2 of 35 pH of 7.41. Patient was supposed to undergo paracentesis, however it's presently on hold because the patient was on Plavix. Total bilirubin today is 5. And ammonia level is again 62. Patient is sedated, on propofol, on norepinephrine, and his family is at bedside. Apparently his legal guardian is not present, and that is has some. No one can make a decision regarding his CODE STATUS until his son is available. And hopefully will get to discuss his condition with his son later today. Patient was reevaluated today on 10/25/2018, remains on mechanical ventilation, in the ICU. His ventilator settings are assist control rate of 20 tidal volume of 500 FiO2 of 55% and PEEP of 8. Patient remains on norepinephrine at 10 mcg/m , he is on propofol at 50 mcg/kg/m, chest x-ray continues to show evidence of mild interstitial edema, his CVP is around 18. Patient was taken off propofol for few hours, no significant neurological response could be obtained from the patient. Patient remained obtunded, not following any instructions. Clearly encephalopathic, and I have recommended that we place him back on sedation, he is not ready for any form of weaning trials at this point. His son would be coming in later today, and I believe the patient's CODE STATUS should be addressed with the son who is his legal guardian, considering his multiple comorbidities, I believe the patient has extremely poor prognosis, and we will address the issue of comfort care measures with the son. His nasogastric tube remains in place, and no significant upper GI bleeding noted. Patient is supposed to undergo paracentesis, however Plavix remains on hold, and hopefully next week this could be done. Patient was reevaluated today on 10/26/2018, remains mechanically ventilated in the intensive care unit. His ventilator settings are basically the same as above. He is however off norepinephrine, he was on propofol at 3 0 mcg/kg/m. His chest x-ray is showing evidence of mild interstitial edema. His urine output is excellent. Patient has been off propofol now for almost 3 hours, he is not arousable, he is not showing any signs of improvement. All his labs x- ray on his clinical issues were discussed with all his family members including his legal guardian today. I explained to his son that the patient is quite ill , and his prognosis is extremely poor. Mostly because of the fact that the patient has severe cardiomyopathy, LV dysfunction, liver cirrhosis, COPD, and many other metabolic derangements and abnormalities, not to mention the patient has what seems to be a picture of metabolic encephalopathy. Discussed the issue of CODE STATUS with Luis his son, I also discussed the issue of comfort care measures with him and with the rest of the family members. At this point the patient is going to be DO NOT RESUSCITATE as requested by his son, but he has not made a decision regarding comfort care measures yet. ABG on 55% FiO2 today showed a pO2 of 70 pCO2 of 43 pH of 7.34. His CBC is relatively normal. Basic metabolic profile and renal profile is relatively normal. Alkaline phosphatase is elevated at 328. Albumin is 2.7 and ammonia level is 45. Remains on lactulose at 20 g by mouth 3 times a day. Patient was reevaluated today on , and the patient has at least 4 family members including his legal guardian at bedside. Patient remains intubated and mechanically ventilated. His ventilator settings are basically the same, patient remains on assist control rate of 20 tidal volume of 500, FiO2 60% by carotid down to 55% PEEP is at 8. Patient remains on norepinephrine roughly about 60 mcg/m, remains on propofol at 40 mcg/kg/m. Patient is not responding to any painful or verbal stimuli. Remains jaundiced, fully sedated, but I plan to hold the sedation again today, and assess mental status. Patient is stooling well with the lactulose, and we are continuing lactulose for his elevated ammonia level. Today's ammonia level is 57. His Celexa lites are normal, renal profile is relatively normal. CBC is relatively normal. And his ABG showed a pO2 of 81 pCO2 of 47 pH of 7.32. Chest x-ray is showing evidence of interstitial edema. Objective - Vital Signs Vital signs: Vital Signs Temp 97.1 F L 10/27/18 08:00 Pulse 94 10/27/18 09:00 Resp 22 10/27/18 09:00 BP 114/70 10/27/18 09:00 Pulse Ox 93 L 10/27/18 09:00 Intake & Output 10/26/18 10/27/18 10/27/18 18:59 06:59 18:59 Intake Total 3775.696 3082 748.308 Output Total 900 720 275 Balance 618.075 860 473.308 Intake: IV 800 750 300 Dextrose 5%-0.45% NaCl 1, 600 550 200 000 ml @ 50 mls/hr IV . Q20H [facility] Rx#:[id number] Levofloxacin 500Mg-D5w 100 Pmx 500 mg In Dextrose/ Water 1 100ml.bag @ 100 mls/hr IVPB Q24H [facility] Rx#: [id number] Piperacillin-Tazobactam 3 200 100 100 .375 gm In Sodium Chloride 0.9% 100 ml @ 25 mls/hr IVPB Q8HR [facility] Rx# :[id number] Intake, IV Titration 248.075 100 256.308 Amount Norepinephrine 16 mg In 62.731 156.308 Sodium Chloride 0.9% 250 ml @ Titrate IV .Q0M [facility] Rx#:[id number] Propofol 1,000 mg In 185.344 100 100 Empty Bag 1 bag @ 10 MCG/ KG/MIN 5.76 mls/hr IV . [id number] [facility] Rx#:[id number] Tube Feeding 380 640 162 Other 90 90 30 Output: Urine 900 720 275 Other: Voiding Method Indwelling Catheter Indwelling Catheter Indwelling Catheter ABP, PAP, CO, CI - Last Documented Arterial Blood Pressure 103/52 - Exam General appearance: Revealed a 73-year-old white male, sedated, on propofol, jaundice, in no distress. Fully sedated. HET: PERRLA, EOMI, dry mucous membranes, positive icterus. Neck: Supple, no neck masses, no JVD, no carotid bruits. Heart: Normal S1 and S2, no S3 gallop. 2/6 systolic murmur thought the precordium. Lungs: Recommend rhonchi noted bilaterally, no wheezes. Symmetrical chest expansion. Abdomen: Distended abdomen, positive ascites. No peritoneal signs. No palpable organomegaly or masses. Extremities: 1+ bipedal edema, erythema and scaling noted on anterior aspect of both lower extremities bilaterally. Silver gel dressing is being applied on those areas. Neurological: Cannot be assessed at this time, patient is sedated on propofol. Psychiatric: Cannot be assessed. Skin: As noted above mostly the findings on the lower extremities of scaling and erythema.. - Labs CBC & Chem 7: 10/27/18 04:45 10/27/18 04:45 Labs: Abnormal Lab Results - Last 24 Hours (Table) 10/26/18 10/26/18 10/26/18 Range/Units 11:55 18:16 23:54 RDW (11.5-15.5) % Neutrophils # (1.3-7.7) k/uL Lymphocytes # (1.0-4.8) k/uL ABG pH (7.35-7.45) ABG pCO2 (35-45) mmHg ABG pO2 (83-108) mmHg ABG Total CO2 (19-24) mmol/L Sodium (137-145) mmol/L BUN (9-20) mg/dL Glucose (74-99) mg/dL POC Glucose (mg/dL) 170 H 194 H 245 H (75-99) mg/dL Calcium (8.4-10.2) mg/dL Total Bilirubin (0.2-1.3) mg/dL Alkaline Phosphatase (38-126) U/L Ammonia (<30) umol/L Total Protein (6.3-8.2) g/dL Albumin (3.5-5.0) g/dL 10/27/18 10/27/18 10/27/18 Range/Units 00:11 04:45 04:45 RDW 18.3 H (11.5-15.5) % Neutrophils # 9.0 H (1.3-7.7) k/uL Lymphocytes # 0.2 L (1.0-4.8) k/uL ABG pH (7.35-7.45) ABG pCO2 (35-45) mmHg ABG pO2 (83-108) mmHg ABG Total CO2 (19-24) mmol/L Sodium 136 L (137-145) mmol/L BUN 36 H (9-20) mg/dL Glucose 244 H (74-99) mg/dL POC Glucose (mg/dL) 233 H (75-99) mg/dL Calcium 7.4 L (8.4-10.2) mg/dL Total Bilirubin 6.8 H (0.2-1.3) mg/dL Alkaline Phosphatase 518 H (38-126) U/L Ammonia (<30) umol/L Total Protein 5.0 L (6.3-8.2) g/dL Albumin 2.5 L (3.5-5.0) g/dL 10/27/18 10/27/18 10/27/18 Range/Units 04:45 06:05 07:33 RDW (11.5-15.5) % Neutrophils # (1.3-7.7) k/uL Lymphocytes # (1.0-4.8) k/uL ABG pH 7.32 L (7.35-7.45) ABG pCO2 47 H (35-45) mmHg ABG pO2 81 L (83-108) mmHg ABG Total CO2 25 H (19-24) mmol/L Sodium (137-145) mmol/L BUN (9-20) mg/dL Glucose (74-99) mg/dL POC Glucose (mg/dL) 204 H (75-99) mg/dL Calcium (8.4-10.2) mg/dL Total Bilirubin (0.2-1.3) mg/dL Alkaline Phosphatase (38-126) U/L Ammonia 57 H (<30) umol/L Total Protein (6.3-8.2) g/dL Albumin (3.5-5.0) g/dL Microbiology - Last 24 Hours (Table) 10/22/18 14:43 Blood Culture - Preliminary Blood No Growth after 96 hours 10/25/18 23:20 Gram Stain - Preliminary Sputum Sputum Culture - Preliminary Assessment and Plan Assessment: #1 acute on chronic hypoxic respiratory failure, multifactorial secondary to systolic congestive heart failure, underlying COPD, ischemic cardiomyopathy requiring intubation and mechanical ventilation. #2 Ascites. Paracentesis is presently on hold. Plan to be done next Monday. #3 acute metabolic encephalopathy secondary to liver disease, with elevated liver enzymes, and elevated ammonia level. Remains on lactulose. #4 Ischemic cardiomyopathy status post AICD placement with ejection fraction less than 20% and backup pacing set at 40. #5 Chronic obstructive pulmonary disease with chronic hypoxemic respiratory failure, prednisone dependent. #6 Coronary artery disease with previous stent placement on Plavix. Which is presently on hold for possible paracentesis next week #7 Chronic systolic congestive heart failure #8 Diabetes mellitus, type II. #9 Hypothyroidism. #10 Hyperlipidemia. #11 History of heavy tobacco dependence of 35 years 1-2 packs per day however quit in 1989. #12 Chronic liver cirrhosis, followed by gastroenterology. #13 Previous history of alcohol abuse. Recommendation: Continue ventilatory support, nutritional support, continue diuretics, lactulose, continued to have daily sedation interruption, continue to assess mental status on a daily basis, continue GI and DVT prophylaxis, continue antibiotics, continue nutritional support, continue hydrocortisone however the dose will be decreased, I had another long discussion with the family members at bedside, they seem to be more inclined to consider comfort care measures at this point, but the final decision has not been made. They would like to have another assessment of mental status once he is off propofol, and this will be done today. Prognosis remains extremely poor, and extremely guarded. Updated the family on all his issues, and updated them that there is not much change noted in the last few days. Critical care time is 40 minutes. Time with Patient: Greater than 30
[2018-10-27 18:47] LABS: Glucose,Whole Blood 276 mg/dL (75-99)
[2018-10-27] MEDS: MULTIVITAMINS, THERA 1 EACH TAB PO SCH (20:59)
[2018-10-27] MEDS: DEXTROSE 5%-0.45% NACL 1,000 ML IV SCH (21:04)
[2018-10-27] MEDS: LEVOFLOXACIN 500MG-D5W PMX 500 MG in DEXTROSE/WATER 1 100ML.BAG IVPB SCH (21:05)
[2018-10-27] MEDS: ATORVASTATIN 20 MG TAB PO SCH (21:05)
[2018-10-27] MEDS: MELATONIN 3 MG TABLET PO SCH (21:06)
[2018-10-27] MEDS: INSULIN DETEMIR 100 UNIT/ML 10 ML VIAL SQ SCH (21:06)
[2018-10-27 23:26] LABS: Glucose,Whole Blood 319 mg/dL (75-99)
[2018-10-27] MEDS: NOREPINEPHRINE 16 MG in SODIUM CHLORIDE 0.9% 250 ML IV SCH (23:30)
--- NOTE | 2018-10-28 02:42 | PN ---
PROGRESS NOTE DATE OF SERVICE: 10/27/2018 REASON FOR FOLLOWUP: 1. Pneumonia. 2. UTI. INTERVAL HISTORY: The patient is currently afebrile. The patient is requiring low dose pressor support when the patient did receive sedation. Has been tolerating his tube feeds per the nursing staff. He did have diarrhea but is getting lactulose as well. Mentation remains to be an issue. PHYSICAL EXAMINATION: Blood pressure is 127/62 with a pulse of 93, temperature of 98. He is 93% on 50% of FIO2. GENERAL DESCRIPTION: An elderly male, intubated on the vent. HEENT: Shows no pallor or scleral icterus. The patient is orally intubated. LUNGS: Unlabored breathing with decreased breath sounds. HEART: S1, S2. Regular rate and rhythm. ABDOMEN: Soft, no tenderness. EXTREMITIES: Currently wrapped up. No obvious drainage on the dressing. LABS: Hemoglobin is 13, white count 9.7, BUN of 36, creatinine 0.97. DIAGNOSTIC IMPRESSION AND PLAN: Patient with acute respiratory failure which is likely multifactorial with possible component of pneumonia. Sputum currently showing Jazlyn albicans also with a component of Escherichia coli urinary tract infection. Patient currently covered with Zosyn and Levaquin for now while waiting for his condition to stabilize. Continue supportive care. MMODL / IJN: [id number] /
[2018-10-28] MEDS: PROPOFOL 1,000 MG in EMPTY BAG 1 BAG IV SCH ×2 (04:14→06:35)
[2018-10-28 05:05] LABS: Albumin 2.6 g/dL (3.5-5.0); Calcium 7.4 mg/dL (8.4-10.2); Magnesium 2.3 mg/dL (1.6-2.3); Potassium 3.9 mmol/L (3.5-5.1); Total Protein 5.1 g/dL (6.3-8.2)
[2018-10-28] MEDS ORDERED: Potassium Replacement Protocol 1 EACH MISC MISCELLANE PRN (05:11)
[2018-10-28 05:23] LABS: Glucose,Whole Blood 316 mg/dL (75-99)
[2018-10-28] MEDS: INSULIN ASPART 100 UNIT/ML 1 ML 10 ML VIAL SQ SCH (05:23)
[2018-10-28] MEDS: POTASSIUM CHLORIDE 10 MEQ in WATER FOR INJECTION 1 100ML.BAG IVPB SCH ×2 (05:24→06:35)
[2018-10-28 05:58] LABS: Anisocytosis Slight; Basophils % (A) 0 %; Eosinophils % (A) 0 %; HCT 44.8 % (39.0-53.0); HGB 13.4 gm/dL (13.0-17.5); Hypochromasia Marked; Lymphocytes # (A) 0.5 k/uL (1.0-4.8); Lymphocytes % (A) 4 %; MCH 28.6 pg (25.0-35.0); MCHC 29.9 g/dL (31.0-37.0); MCV 95.4 fL (80.0-100.0); Macrocytosis Slight; Mean Platelet Volume 7.5; Monocytes # (A) 0.4 k/uL (0-1.0); Monocytes % (A) 3 %; Neutrophils # (A) 10.2 k/uL (1.3-7.7); Neutrophils % (A) 91 %; Platelet Count 167 k/uL (150-450); RBC 4.69 m/uL (4.30-5.90); RDW 18.5 % (11.5-15.5); WBC 11.2 k/uL (3.8-10.6)
--- NOTE | 2018-10-28 06:38 | XR ---
EXAMINATION TYPE: XR chest 1V portable DATE OF EXAM: 10/28/2018 HISTORY: Tube placement. REFERENCE: Previous study dated 10/27/2018. FINDINGS: the patient's ET tube and NG tube as well as the right internal jugular catheter remain in place, unchanged in appearance. There is unipolar pacemaker place on the left. There is mild vascular congestion. There is some left basilar airspace disease. There is a small left effusion and a smaller right effusion. Heart is mildly enlarged. IMPRESSION: NO SIGNIFICANT INTERVAL CHANGE IN THE APPEARANCE OF THE CHEST.
[2018-10-28 07:30] VITALS: BP 116/57
[2018-10-28] MEDS: IPRATROPIUM-ALBUTEROL 3 ML NEB INHALATION SCH (07:55)
[2018-10-28] MEDS ORDERED: MORPHINE SULFATE (100 MG/2 ML) 100 MG in SODIUM CHLORIDE 0.9% 100 ML IV SCH (08:30)
[2018-10-28] MEDS ORDERED: RIFAXIMIN 550 MG TABLET PO SCH (09:00)
[2018-10-28] MEDS ORDERED: LACTULOSE 20 GM/30 ML CUP PO SCH (09:00)
[2018-10-28 09:22] VITALS: TEMP 97.2
--- NOTE | 2018-10-28 10:18 | P.PN ---
Subjective Progress Note Date: 10/28/18 Principal diagnosis: Acute metabolic encephalopathy, acute on chronic hypoxic respiratory failure secondary to congestive heart failure and systolic dysfunction. And underlying COPD. This is a 73-year-old white male patient of Dr. Beck, with past medical history of COPD, ischemic cardiomyopathy with EF of 20% status post AICD placement, coronary artery disease with previous stenting, myocardial infarction , chronic congestive heart failure, diabetes mellitus, hyperlipidemia, myocardial infarction, osteoarthritis, hypothyroidism, chronic hypoxic respiratory failure on home oxygen at [address] Perez in the pulmonary clinic for his history of COPD, and patient is on DuoNeb nebulized treatments, prednisone at 10 mg daily. Patient was brought to the emergency department on 10/16/2018 related to increasing weakness over the past week, apparently patient was in the bathroom yesterday, however could not get up, and fell and could not get up. Patient's friend was home, and could not assist the patient off the floor. EMS was called and patient was brought to the hospital. He denied any chest pain, he states she was slightly lightheaded and dizzy, became increasingly weaker, and mildly short of breath. No fever or chills, no nausea vomiting or diarrhea, no loss of consciousness in the fall, denied any trauma. He has chronic lower extremity swelling, and the patient states that has not increased. He denies any significant weight gain, he states his usual weight is about 220 LBs, and on admission recorded weight was 216 lbs. chronic abdominal distention, and patient is Dr. Bear for chronic liver cirrhosis, cholelithiasis. Patient was referred to Dr Humphrey for evaluation of his gallbladder disease, and was supposed to undergo liver biopsy as well, which has not taken place yet. Patient is on maintenance dose of Lasix at home at 10 mg daily. Patient states he has been compliant with all of his medications. In the emergency department patient was evaluated, chest x-ray was obtained and showed cardiomegaly and chronic parenchymal changes without acute pulmonary process. EKG showed paced rhythm with a rate of 41. Labs showed RBC of 9.9, hemoglobin of 15.1, INR is 1.2, sodium is 134, potassium is 5.1, CO2 is 22, BUN is 25, creatinine is 1.1, lactic acid was 2.1, total bilirubin was 2.3, AST was 75, ALT was 25, alkaline phosphatase was 706, troponin was negative at 0.033, and proBNP was 8100. Urinalysis showed trace protein, but no sign of infection , influenza was negative. Afebrile, satting 94% on 3 L, heart rate is 46-48 BPM , patient is awake and alert, in no acute distress, sitting up on the edge of the bed, lung sounds are positive for some bibasilar crackles, no rhonchi or wheezing. No fever or chills, no cough or congestion. The patient is seen again today 10/23/2018 in follow-up in the intensive care unit. He was transferred here last evening secondary to altered mental status and the lactic acid of 3.8. He became hypoxic and required 15 L high flow nasal cannula to maintain O2 saturations in the 90s. He was restless and combative. Garbled speech. Arterial blood gases on 100% FiO2 revealed a pO2 of 80, pCO2 of 30 and a pH of 7.46. He is currently altered. Garbled speech continues. Not following any simple commands. Her only on 13 L high flow nasal cannula. Not on any pressors. Urine culture pending. White count 10.0. Hemoglobin 13.6. 2131. Bicarb 21. Creatinine 1.12. Follow-up lactic 1.5. He is currently on Zosyn and Levaquin. Dilators. Ativan for agitation. Chest x-ray reveals stable findings with cardiomegaly and chronic proximal changes without any new suspicious acute pulmonary process. Abdominal x-ray reveals moderate lower abdominal ascites. Paracentesis on hold due to the patient being on Plavix. Currently on Lasix 40 mg IV every 12 hours. Patient was reevaluated today on 10/24/2018, patient's clinical condition deteriorated last night, he was developing significant agitation, he was also developing worsening hypoxemia, and he wasn't responding to conservative measures including IV Ativan, and high flow oxygen, BiPAP, patient ended up being intubated and now on mechanical ventilation. He is also on levo fed at 2 mcg/m, his ventilator settings are tidal volume of 500, assist control rate of 20, FiO2 is 70%, and PEEP is 8. His problems at this point include worsening chest x-ray consistent with congestive heart failure, GI bleeding felt to be most likely from trauma of the nasogastric tube, worsening liver disease and underlying ascites, hypotension, elevated liver enzymes and elevated INR, elevated ammonia level at 62. All the metabolic derangements are causing significant metabolic encephalopathy. O2 saturation is marginal on 70% FiO2 and PEEP of 8. ABG on 50% FiO2 today showed a pO2 of 53 pCO2 of 35 pH of 7.41. Patient was supposed to undergo paracentesis, however it's presently on hold because the patient was on Plavix. Total bilirubin today is 5. And ammonia level is again 62. Patient is sedated, on propofol, on norepinephrine, and his family is at bedside. Apparently his legal guardian is not present, and that is has some. No one can make a decision regarding his CODE STATUS until his son is available. And hopefully will get to discuss his condition with his son later today. Patient was reevaluated today on 10/25/2018, remains on mechanical ventilation, in the ICU. His ventilator settings are assist control rate of 20 tidal volume of 500 FiO2 of 55% and PEEP of 8. Patient remains on norepinephrine at 10 mcg/m , he is on propofol at 50 mcg/kg/m, chest x-ray continues to show evidence of mild interstitial edema, his CVP is around 18. Patient was taken off propofol for few hours, no significant neurological response could be obtained from the patient. Patient remained obtunded, not following any instructions. Clearly encephalopathic, and I have recommended that we place him back on sedation, he is not ready for any form of weaning trials at this point. His son would be coming in later today, and I believe the patient's CODE STATUS should be addressed with the son who is his legal guardian, considering his multiple comorbidities, I believe the patient has extremely poor prognosis, and we will address the issue of comfort care measures with the son. His nasogastric tube remains in place, and no significant upper GI bleeding noted. Patient is supposed to undergo paracentesis, however Plavix remains on hold, and hopefully next week this could be done. Patient was reevaluated today on 10/26/2018, remains mechanically ventilated in the intensive care unit. His ventilator settings are basically the same as above. He is however off norepinephrine, he was on propofol at 3 0 mcg/kg/m. His chest x-ray is showing evidence of mild interstitial edema. His urine output is excellent. Patient has been off propofol now for almost 3 hours, he is not arousable, he is not showing any signs of improvement. All his labs x- ray on his clinical issues were discussed with all his family members including his legal guardian today. I explained to his son that the patient is quite ill , and his prognosis is extremely poor. Mostly because of the fact that the patient has severe cardiomyopathy, LV dysfunction, liver cirrhosis, COPD, and many other metabolic derangements and abnormalities, not to mention the patient has what seems to be a picture of metabolic encephalopathy. Discussed the issue of CODE STATUS with Luis his son, I also discussed the issue of comfort care measures with him and with the rest of the family members. At this point the patient is going to be DO NOT RESUSCITATE as requested by his son, but he has not made a decision regarding comfort care measures yet. ABG on 55% FiO2 today showed a pO2 of 70 pCO2 of 43 pH of 7.34. His CBC is relatively normal. Basic metabolic profile and renal profile is relatively normal. Alkaline phosphatase is elevated at 328. Albumin is 2.7 and ammonia level is 45. Remains on lactulose at 20 g by mouth 3 times a day. Patient was reevaluated today on , and the patient has at least 4 family members including his legal guardian at bedside. Patient remains intubated and mechanically ventilated. His ventilator settings are basically the same, patient remains on assist control rate of 20 tidal volume of 500, FiO2 60% by carotid down to 55% PEEP is at 8. Patient remains on norepinephrine roughly about 6 mcg/m, remains on propofol at 40 mcg/kg/m. Patient is not responding to any painful or verbal stimuli. Remains jaundiced, fully sedated, but I plan to hold the sedation again today, and assess mental status. Patient is stooling well with the lactulose, and we are continuing lactulose for his elevated ammonia level. Today's ammonia level is 57. His Celexa lites are normal, renal profile is relatively normal. CBC is relatively normal. And his ABG showed a pO2 of 81 pCO2 of 47 pH of 7.32. Chest x-ray is showing evidence of interstitial edema. Patient was reevaluated today on 10/28/2018, son is at bedside, and apparently the family made up their minds that they would like the patient to be comfort care measures. And addressed terminal weaning today. Not much change happened over the last few days, patient remains unresponsive, he did not improve after few hours of holding all narcotics and sedatives patient continues to have many issues as previously noted including cardiomyopathy, COPD, liver cirrhosis, ischemic cardiomyopathy, metabolic encephalopathy, and E. coli urinary tract infection. Patient again is quite ill, and the family was updated on his condition. They have been contemplating comfort care measures over the last few days, and today the son told me that he prefers that they are ready to proceed with comfort care measures and terminal weaning. Objective - Vital Signs Vital signs: Vital Signs Temp 97.2 F L 10/28/18 08:00 Pulse 77 10/28/18 09:00 Resp 22 10/28/18 09:00 BP 116/57 10/27/18 18:00 Pulse Ox 87 L 10/28/18 09:00 Intake & Output 10/27/18 10/28/18 10/28/18 18:59 06:59 18:59 Intake Total 7095.398 9710.422 179.758 Output Total 720 1155 50 Balance 1020.308 544.422 129.758 Intake: IV 800 750 50 Dextrose 5%-0.45% NaCl 1, 600 550 50 000 ml @ 50 mls/hr IV . Q20H [facility] Rx#:[id number] Levofloxacin 500Mg-D5w 100 Pmx 500 mg In Dextrose/ Water 1 100ml.bag @ 100 mls/hr IVPB Q24H [facility] Rx#: [id number] Piperacillin-Tazobactam 3 200 100 .375 gm In Sodium Chloride 0.9% 100 ml @ 25 mls/hr IVPB Q8HR [facility] Rx# :[id number] Intake, IV Titration 256.308 295.422 75.758 Amount Norepinephrine 16 mg In 156.308 39.902 13.118 Sodium Chloride 0.9% 250 ml @ Titrate IV .Q0M [facility] Rx#:[id number] Propofol 1,000 mg In 100 255.520 62.64 Empty Bag 1 bag @ 10 MCG/ KG/MIN 5.76 mls/hr IV . [id number] [facility] Rx#:[id number] Tube Feeding 594 594 54 Other 90 60 Output: Urine 720 1155 50 Other: Voiding Method Indwelling Catheter Indwelling Catheter ABP, PAP, CO, CI - Last Documented Arterial Blood Pressure 53/37 - Exam General appearance: Revealed a 73-year-old white male, sedated, on propofol, jaundice, in no distress. Fully sedated. HET: PERRLA, EOMI, dry mucous membranes, positive icterus. Neck: Supple, no neck masses, no JVD, no carotid bruits. Heart: Normal S1 and S2, no S3 gallop. 2/6 systolic murmur thought the precordium. Lungs: Recommend rhonchi noted bilaterally, no wheezes. Symmetrical chest expansion. Abdomen: Distended abdomen, positive ascites. No peritoneal signs. No palpable organomegaly or masses. Extremities: 1+ bipedal edema, erythema and scaling noted on anterior aspect of both lower extremities bilaterally. Silver gel dressing is being applied on those areas. Neurological: Cannot be assessed at this time, patient is sedated on propofol. Psychiatric: Cannot be assessed. Skin: As noted above mostly the findings on the lower extremities of scaling and erythema.. - Labs CBC & Chem 7: 10/28/18 04:15 10/28/18 04:15 Labs: Abnormal Lab Results - Last 24 Hours (Table) 10/27/18 10/27/18 10/27/18 Range/Units 11:39 17:58 23:22 WBC (3.8-10.6) k/uL MCHC (31.0-37.0) g/dL RDW (11.5-15.5) % Neutrophils # (1.3-7.7) k/uL Lymphocytes # (1.0-4.8) k/uL Sodium (137-145) mmol/L BUN (9-20) mg/dL Glucose (74-99) mg/dL POC Glucose (mg/dL) 240 H 276 H 319 H (75-99) mg/dL Calcium (8.4-10.2) mg/dL Total Bilirubin (0.2-1.3) mg/dL AST (17-59) U/L Alkaline Phosphatase (38-126) U/L Ammonia (<30) umol/L Total Protein (6.3-8.2) g/dL Albumin (3.5-5.0) g/dL 10/28/18 10/28/18 10/28/18 Range/Units 04:15 04:15 04:15 WBC 11.2 H (3.8-10.6) k/uL MCHC 29.9 L (31.0-37.0) g/dL RDW 18.5 H (11.5-15.5) % Neutrophils # 10.2 H (1.3-7.7) k/uL Lymphocytes # 0.5 L (1.0-4.8) k/uL Sodium 135 L (137-145) mmol/L BUN 50 H (9-20) mg/dL Glucose 339 H (74-99) mg/dL POC Glucose (mg/dL) (75-99) mg/dL Calcium 7.4 L (8.4-10.2) mg/dL Total Bilirubin 5.0 H (0.2-1.3) mg/dL AST 74 H (17-59) U/L Alkaline Phosphatase 717 H (38-126) U/L Ammonia 104 H (<30) umol/L Total Protein 5.1 L (6.3-8.2) g/dL Albumin 2.6 L (3.5-5.0) g/dL 10/28/18 Range/Units 05:21 WBC (3.8-10.6) k/uL MCHC (31.0-37.0) g/dL RDW (11.5-15.5) % Neutrophils # (1.3-7.7) k/uL Lymphocytes # (1.0-4.8) k/uL Sodium (137-145) mmol/L BUN (9-20) mg/dL Glucose (74-99) mg/dL POC Glucose (mg/dL) 316 H (75-99) mg/dL Calcium (8.4-10.2) mg/dL Total Bilirubin (0.2-1.3) mg/dL AST (17-59) U/L Alkaline Phosphatase (38-126) U/L Ammonia (<30) umol/L Total Protein (6.3-8.2) g/dL Albumin (3.5-5.0) g/dL Microbiology - Last 24 Hours (Table) 10/22/18 14:43 Blood Culture - Preliminary Blood No Growth after 120 hours 10/25/18 23:20 Gram Stain - Preliminary Sputum Sputum Culture - Preliminary Jazlyn albicans Assessment and Plan Assessment: #1 acute on chronic hypoxic respiratory failure, multifactorial secondary to systolic congestive heart failure, underlying COPD, ischemic cardiomyopathy requiring intubation and mechanical ventilation. #2 Ascites. Paracentesis is presently on hold. Plan to be done next Monday. #3 acute metabolic encephalopathy secondary to liver disease, with elevated liver enzymes, and elevated ammonia level. Remains on lactulose. #4 Ischemic cardiomyopathy status post AICD placement with ejection fraction less than 20% and backup pacing set at 40. #5 Chronic obstructive pulmonary disease with chronic hypoxemic respiratory failure, prednisone dependent. #6 Coronary artery disease with previous stent placement on Plavix. Which is presently on hold for possible paracentesis next week #7 Chronic systolic congestive heart failure #8 Diabetes mellitus, type II. #9 Hypothyroidism. #10 Hyperlipidemia. #11 History of heavy tobacco dependence of 35 years 1-2 packs per day however quit in 1989. #12 Chronic liver cirrhosis, followed by gastroenterology. #13 Previous history of alcohol abuse. Recommendation: Considering the family's wishes, and considering the patient has extremely poor prognosis, multiple medical conditions with extremely poor prognosis, we'll proceed with comfort care measures. I have instructed the nurse taking care of the patient to stop norepinephrine initially, stop propofol , start morphine drip, discontinue all medications except for IV fluid at KVO and morphine drip, and we'll likely proceed with terminal weaning, comfort care measures, and morphine drip titrated to comfort. Patient will be allowed to pass in peace comfort and dignity. All family members including his son/legal guardian, is very much agreeable to this idea. And we will proceed as such Time with Patient: Less than 30
[2018-10-28 10:21] VITALS: RESP 11
--- NOTE | 2018-10-28 11:23 | P.PN ---
Subjective Progress Note Date: 10/28/18 Interval History: 10/28/18- this patient is being seen examined and evaluated today while covering for Dr. Seth Beck. Patient was admitted to the hospital with acute metabolic encephalopathy, acute on chronic respiratory failure secondary to CHF with systolic dysfunction, ischemic cardiomyopathy, liver cirrhosis, E. coli UTI as well as underlying COPD. This patient has been in the ICU on mechanical ventilation with no sedation. He has been nonresponsive, And also requiring vasopressor support. The patient's status continues to decline despite medical interventions. The patient's ammonia levels continue to increase despite lactulose. The patient is quite jaundiced. The fish header as discussed with the patient poor prognosis and the patient's family and they express wishes for terminal weaning and stopping all vasopressors at this time. All labs and reports have been reviewed. Agree with going forward with comfort care measures as requested by the family, at this time in regards to the patient's very poor prognosis and continued decline medically. Objective - Vital Signs Vital signs: Vital Signs Temp 97.2 F L 10/28/18 08:00 Pulse 47 L 10/28/18 10:00 Resp 11 L 10/28/18 10:00 BP 116/57 10/27/18 18:00 Pulse Ox 73 L 10/28/18 10:00 Intake & Output 10/27/18 10/28/18 10/28/18 18:59 06:59 18:59 Intake Total 3292.389 1644.422 179.758 Output Total 720 1155 50 Balance 1020.308 544.422 129.758 Intake: IV 800 750 50 Dextrose 5%-0.45% NaCl 1, 600 550 50 000 ml @ 50 mls/hr IV . Q20H [facility] Rx#:[id number] Levofloxacin 500Mg-D5w 100 Pmx 500 mg In Dextrose/ Water 1 100ml.bag @ 100 mls/hr IVPB Q24H [facility] Rx#: [id number] Piperacillin-Tazobactam 3 200 100 .375 gm In Sodium Chloride 0.9% 100 ml @ 25 mls/hr IVPB Q8HR [facility] Rx# :[id number] Intake, IV Titration 256.308 295.422 75.758 Amount Norepinephrine 16 mg In 156.308 39.902 13.118 Sodium Chloride 0.9% 250 ml @ Titrate IV .Q0M [facility] Rx#:[id number] Propofol 1,000 mg In 100 255.520 62.64 Empty Bag 1 bag @ 10 MCG/ KG/MIN 5.76 mls/hr IV . [id number] [facility] Rx#:[id number] Tube Feeding 594 594 54 Other 90 60 Output: Urine 720 1155 50 Other: Voiding Method Indwelling Catheter Indwelling Catheter ABP, PAP, CO, CI - Last Documented Arterial Blood Pressure 75/35 - Exam GENERAL EXAM: 73-year-old white male, jaundice HEAD: Normocephalic. CHEST: No chest wall deformity. LUNGS: Rhonchi bilaterally. CVS: S1 and S2 normal with no audible mumurs, regular rhythm. ABDOMEN: Distended abdomen with ascites EXTREMITIES: +1 edema noted, . - Labs CBC & Chem 7: 10/28/18 04:15 10/28/18 04:15 Labs: Abnormal Lab Results - Last 24 Hours (Table) 10/27/18 10/27/18 10/27/18 Range/Units 11:39 17:58 23:22 WBC (3.8-10.6) k/uL MCHC (31.0-37.0) g/dL RDW (11.5-15.5) % Neutrophils # (1.3-7.7) k/uL Lymphocytes # (1.0-4.8) k/uL Sodium (137-145) mmol/L BUN (9-20) mg/dL Glucose (74-99) mg/dL POC Glucose (mg/dL) 240 H 276 H 319 H (75-99) mg/dL Calcium (8.4-10.2) mg/dL Total Bilirubin (0.2-1.3) mg/dL AST (17-59) U/L Alkaline Phosphatase (38-126) U/L Ammonia (<30) umol/L Total Protein (6.3-8.2) g/dL Albumin (3.5-5.0) g/dL 10/28/18 10/28/18 10/28/18 Range/Units 04:15 04:15 04:15 WBC 11.2 H (3.8-10.6) k/uL MCHC 29.9 L (31.0-37.0) g/dL RDW 18.5 H (11.5-15.5) % Neutrophils # 10.2 H (1.3-7.7) k/uL Lymphocytes # 0.5 L (1.0-4.8) k/uL Sodium 135 L (137-145) mmol/L BUN 50 H (9-20) mg/dL Glucose 339 H (74-99) mg/dL POC Glucose (mg/dL) (75-99) mg/dL Calcium 7.4 L (8.4-10.2) mg/dL Total Bilirubin 5.0 H (0.2-1.3) mg/dL AST 74 H (17-59) U/L Alkaline Phosphatase 717 H (38-126) U/L Ammonia 104 H (<30) umol/L Total Protein 5.1 L (6.3-8.2) g/dL Albumin 2.6 L (3.5-5.0) g/dL 10/28/18 Range/Units 05:21 WBC (3.8-10.6) k/uL MCHC (31.0-37.0) g/dL RDW (11.5-15.5) % Neutrophils # (1.3-7.7) k/uL Lymphocytes # (1.0-4.8) k/uL Sodium (137-145) mmol/L BUN (9-20) mg/dL Glucose (74-99) mg/dL POC Glucose (mg/dL) 316 H (75-99) mg/dL Calcium (8.4-10.2) mg/dL Total Bilirubin (0.2-1.3) mg/dL AST (17-59) U/L Alkaline Phosphatase (38-126) U/L Ammonia (<30) umol/L Total Protein (6.3-8.2) g/dL Albumin (3.5-5.0) g/dL Microbiology - Last 24 Hours (Table) 10/25/18 23:20 Gram Stain - Final Sputum Sputum Culture - Final Jazlyn albicans 10/22/18 14:43 Blood Culture - Preliminary Blood No Growth after 120 hours Assessment and Plan Assessment: Assessment Acute on chronic hypoxic respiratory failure requiring supplemental oxygen and mechanical ventilation Acute on chronic systolic congestive heart failure Underlying COPD Ischemic cardiomyopathy Ascites Chronic liver cirrhosis CAD Plan Patient is very poor prognosis and continues to decline medically despite medical interventions. Agree with going forth with the family's wishes Family wishes to put the patient on comfort care and terminally wean the patient Agree with morphine drip, titrated for comfort We will stop the Levophed at this time I, the signing physician performed an examination of the patient, discussed and directed their management with the nurse practitioner. I have reviewed the nurse practitioner's note and agree with the documented findings, orders and plan of care. Nurse practitioner acting as a scribe for the signing physician Please note we are covering for Dr. Seth Beck today.
[2018-10-28 11:36] VITALS: PULSE 66
--- NOTE | 2018-10-28 17:25 | PN ---
PROGRESS NOTE DATE OF SERVICE: 10/27/2018. SUBJECTIVE: This is a white male, not doing well, unable to wean from the vent. He has been not showing any signs of awakening. Possible comfort care will be given. Pulmonary snap attacher is going to talk to the family apparently. He has systolic heart failure, COPD, metabolic encephalopathy due to elevated ammonia levels, acute hypoxemic respiratory distress. Continue current treatment. MMODL / IJN: [id number] /
--- NOTE | 2018-10-30 12:13 | CDI ---
Documentation Clarification Form Date: 10/30/18 From: Maryana Walls Phone: If you have a question regarding this query, please contact Kerry Mello at [phone] between 8am and 5pm. Admit Date: 10/19/2018 12:19:00 PM Patient Name: Luis Casillas Visit Number: [id number] Discharge Date: 10/28/2018 4:00:00 PM ATTENTION: The Clinical Documentation Specialists (CDI) and [facility] Coding Staff appreciate your assistance in clarifying documentation. Please respond to the clarification below the line at the bottom and electronically sign. The CDI & [facility] Coding staff will review the response and follow-up if needed. Please note: Queries are made part of the Legal Health Record. If you have any questions, please contact the author of this message via ITS. Dr. Seth Beck History/Risk Factors: The patient presented with acute exacerbation of systolic CHF and generalized weakness and after admission developed a UTI and possible pneumonia. In your 10/22 progress note, you documented UTI and possible sepsis. Dr. Lima documented sepsis, concern for possibly a catheter-associated UTI in his 10/25 progress note. Clinical Indicators: UTI, metabolic encephalopathy, hypotension on 10/24, BP 87/ 50 WBC: 9.9 on admission, 12.1 on 10/25. Lactic acid: 2.6 on 10/16, 3.8 on 10/22 Blood cultures: No growth. Vitals signs on admission: T. 97.7, P. 45, R. 20, BP 147/57; Vitals on 10/22: T. 97.6, P. 49, R. 16. BP 139/67 Treatment: Antibiotics: IV Zosyn IV Bolus: No fluid bolus In your professional opinion, please clarify if these findings signify one of the following conditions, whether the condition is POA, and cause, if known: Sepsis ruled out SIRS, without underlying infectious process Sepsis Severe Sepsis Septic Shock Other, please specify Unable to determine Present on Admission Yes No Identify the (suspected) organism Link or clarify if there is associated (due to/with): Organ failure Shock MTDD
--- NOTE | 2018-10-30 12:33 | CDI ---
Documentation Clarification Form Date: 10/30/18 From: Maryana Walls Phone: If you have a question regarding this query, please contact Kerry Mello at [phone] between 8am and 5pm. Admit Date: 10/19/2018 12:19:00 PM Patient Name: Luis Casillas Visit Number: [id number] Discharge Date: 10/28/2018 4:00:00 PM ATTENTION: The Clinical Documentation Specialists (CDI) and [facility] Coding Staff appreciate your assistance in clarifying documentation. Please respond to the clarification below the line at the bottom and electronically sign. The CDI & [facility] Coding staff will review the response and follow-up if needed. Please note: Queries are made part of the Legal Health Record. If you have any questions, please contact the author of this message via ITS. Dr. Seth Beck On 10/25, Dr. phoenix documentes concern for possibly catheter-associated urinary tract infection. UTI and possible sepsis was documented in your 10/22 & 10/24 progress note, the nurse practitioner's 10/25 - 10/26 progress notes, Dr. Phoenix's consult note and 10/26 - 10/[address] Stern 10/28 progress note. E.coli is documented as the cause of the UTI in some of those progress notes. History/Risk Factors: (Friedman POA? incontinent?): Patient had an indwelling catheter place on 10/17. Clinical Indicators: Nursing documented that the urine was concentrated, dark chapin color, sediment and foul smelling on 10/22. Vital Signs: On 10/22: T. 97.6, P. 49, R. 16. BP 139/67 WBC: 9.5 Urinalysis: 10/22: Cloudy, 1+ protein, Moderate Blood, leukocyte esterase large , RBCs 24, WBCs 133, WBC clumps rare, Bacteria moderate, mucus rare Urine Culture: E.coli Treatment Antibiotics: IV Zosyn Please document the condition that these clinical indicators signify, whether Present on Admission, and cause if known: UTI -If due to catheter, device or implant, please document -Not due to catheter -Identify location of infection (if known) Bladder, Kidney, Urethra ____ Contaminated specimen Other, please specify Unable to determine Present on Admission: Yes No MTDD
--- NOTE | 2018-11-03 09:01 | DS ---
DISCHARGE SUMMARY ADDENDUM: The patient diagnosed with sepsis. Also documented is urinary tract infection secondary to indwelling Friedman catheter. MMODL / IJN: [id number] /
--- NOTE | 2018-11-03 17:55 | DS ---
DISCHARGE SUMMARY HOSPITAL COURSE: The patient was admitted with metabolic uremic encephalopathy, acute on chronic, respiratory failure secondary to CHF, systolic dysfunction, ischemic cardiomyopathy, COPD, liver cirrhosis, E coli UTI, underlying COPD. He became unresponsive, was placed on the ventilator during the hospital stay. Despite multiple medical intervention by home planning consultant salesperson, forestry and wildlife manager, GI physician, he remained confused due to uremic encephalopathy. Insurance Sales Associate talked of the poor prognosis with the family who made him comfort care. The patient was terminal and he declined any after all steps were exhausted. He on 10/28/2018. MMSTARRL / IJN: [id number] /
== END 2018-10-28 16:00 | disposition expired | DRG 291 ==
LOC: EC 13:46 → 3SCARD 17:24 → OBSVTOIN 10-19 12:19 → 2SICU 10-22 18:41
PROVIDERS: ADMIT Family Medicine; ATTEND Family Medicine
PROC: 5A1955Z Respiratory Ventilation, Greater than 96 Consecutive Hours (ICD-10-PCS; principal; 2018-10-24)
PROC: 0BH17EZ Insertion of Endotracheal Airway into Trachea, Via Natural or Artificial Opening (ICD-10-PCS; 2018-10-24)
PROC: 02H633Z Insertion of Infusion Device into Right Atrium, Percutaneous Approach (ICD-10-PCS; 2018-10-24)
DX: I50.23 Acute on chronic systolic (congestive) heart failure (principal); G93.41 Metabolic encephalopathy; N39.0 Urinary tract infection, site not specified; T83.511A Infection and inflammatory reaction due to indwelling urethral catheter, initial encounter; J18.9 Pneumonia, unspecified organism; J96.21 Acute and chronic respiratory failure with hypoxia; K72.00 Acute and subacute hepatic failure without coma; A41.9 Sepsis, unspecified organism; A41.51 Sepsis due to Escherichia coli [E. coli]; I42.0 Dilated cardiomyopathy; J44.0 Chronic obstructive pulmonary disease with (acute) lower respiratory infection; R18.8 Other ascites; L03.116 Cellulitis of left lower limb; L03.115 Cellulitis of right lower limb; G93.49 Other encephalopathy; I87.8 Other specified disorders of veins; Z51.5 Encounter for palliative care; Z66 Do not resuscitate; I95.9 Hypotension, unspecified; I25.5 Ischemic cardiomyopathy; R00.1 Bradycardia, unspecified; E11.9 Type 2 diabetes mellitus without complications; K74.60 Unspecified cirrhosis of liver; E03.9 Hypothyroidism, unspecified; E78.5 Hyperlipidemia, unspecified; I25.10 Atherosclerotic heart disease of native coronary artery without angina pectoris; I25.2 Old myocardial infarction; K21.9 Gastro-esophageal reflux disease without esophagitis; K80.20 Calculus of gallbladder without cholecystitis without obstruction; M17.0 Bilateral primary osteoarthritis of knee; R19.7 Diarrhea, unspecified; G47.33 Obstructive sleep apnea (adult) (pediatric); R26.81 Unsteadiness on feet; M19.072 Primary osteoarthritis, left ankle and foot; M19.071 Primary osteoarthritis, right ankle and foot; K57.90 Diverticulosis of intestine, part unspecified, without perforation or abscess without bleeding; S46.011A Strain of muscle(s) and tendon(s) of the rotator cuff of right shoulder, initial encounter; S43.101A Unspecified dislocation of right acromioclavicular joint, initial encounter; R29.6 Repeated falls; Z79.02 Long term (current) use of antithrombotics/antiplatelets; Z79.4 Long term (current) use of insulin; Z79.52 Long term (current) use of systemic steroids; Z79.82 Long term (current) use of aspirin; Z79.890 Hormone replacement therapy; Z79.899 Other long term (current) drug therapy; Z87.440 Personal history of urinary (tract) infections; Z99.81 Dependence on supplemental oxygen; Z96.651 Presence of right artificial knee joint; Z95.810 Presence of automatic (implantable) cardiac defibrillator; Z95.5 Presence of coronary angioplasty implant and graft; Z87.891 Personal history of nicotine dependence; Z86.010 Personal history of colon polyps; Z80.7 Family history of other malignant neoplasms of lymphoid, hematopoietic and related tissues; Z82.49 Family history of ischemic heart disease and other diseases of the circulatory system; Z80.8 Family history of malignant neoplasm of other organs or systems; W18.11XA Fall from or off toilet without subsequent striking against object, initial encounter; W19.XXXA Unspecified fall, initial encounter; Y84.6 Urinary catheterization as the cause of abnormal reaction of the patient, or of later complication, without mention of misadventure at the time of the procedure
CPT/HCPCS: 36415; 36600; 70450; 71045; 71046; 76705; 80048; 80053; 80076; 81001; 81003; 82140; 82533; 82550; 82553; 82805; 83036; 83605; 83735; 83880; 84100; 84132; 84443; 84484; 85025; 85610; 85730; 87040; 87070; 87077; 87086; 87186; 87205; 87502; 93005; 93306; 94002; 94003; 94640; 94760; 96360; 99285